=== PATIENT | female | born 1950 ===

== ENCOUNTER 2016-10-26 12:54 | Emergency (ER) | payer MEDICARE, MEDICAID ==
[2016-10-26 15:20] LABS: BASO % 0.4 % (0.0-2.0); EOS % 0.5 % (0.0-4.0); HEMATOCRIT 40.3 % (34.0-47.0); LYMPH # 0.9 K/uL (1.0-4.3); LYMPH % 28.3 % (20.0-40.0); MEAN CELL VOLUME 99.2 fl (81.0-99.0); MEAN CORPUSCULAR HEMOGLOBIN 33.9 pg (27.0-31.0); MEAN CORPUSCULAR HGB CONC 34.1 g/dL (33.0-37.0); MEAN PLATELET VOLUME 9.9 fl (7.2-11.7); MONO # 0.4 K/uL (0.0-0.8); MONO % 11.2 % (0.0-10.0); NEUT % 59.6 % (50.0-75.0); NRBC % 0.2 % (0.0-0.0); RED CELL DISTRIBUTION WIDTH 13.9 % (11.5-14.5); WHITE BLOOD COUNT 3.3 K/uL (4.8-10.8)
[2016-10-26 15:34] LABS: RBC URINE 1 /hpf (0-3); URINE BACTERIA RARE (<OCC); URINE BILIRUBIN NEGATIVE (NEGATIVE); URINE BLOOD NEGATIVE (NEGATIVE); URINE COLOR YELLOW (YELLOW); URINE GLUCOSE (UA) NEG (Normal); URINE KETONE NEGATIVE (NEGATIVE); URINE LEUKOCYTE ESTERASE TRACE Leu/uL (Negative); URINE PROTEIN 30 mg/dL (NEGATIVE); URINE UROBILINOGEN 0.2-1.0 mg/dL (0.2-1.0); WBC URINE 1 /hpf (0-5)
[2016-10-26 15:35] VITALS: BMI 29.0
--- NOTE | 2016-10-26 15:36 | ED PDOC ---
HPI: General Adult Time Seen by Provider: 10/26/16 15:34 Additional Complaint(s): Patient is a 66 year old female presenting with hypoglycemia and back pain. She reports that her fs has been running low recently. She reports that she woke up this morning and it was FS:35. She reports that she checked her sugar later in the day and it was 103. Reports that it frequently runs low and is normally less than 200. Patient's daughter is at bedside and reports that her mother does not eat that much. Denies fever/chills, nausea/vomiting, diarrhea/ constipation, dysuria. Patient continues to deny any oral hypoglycemics and this MD, patient and daughter went over her med list together. Patient is also complaining of R flank pain x 1 month. Denies dysuria, fever/ chills, nausea/vomiting, diarrhea or constipation. Reports that she has a hx of renal colic and has not followed up as outpatient with urology. Meds: remeron, clonazapem, losartan, vitamin, methadone, levemir 12 units qhs PMD: Dr. Morris Past Medical History Vital Signs: Last Vital Signs Temp 99 F 10/26/16 13:00 Pulse 60 10/26/16 15:00 Resp 16 10/26/16 15:00 BP 135/94 H 10/26/16 15:00 Pulse Ox 96 10/26/16 15:00 - Medical History PMH: Anxiety, COPD, Depression, Diabetes, HIV, HTN, Hypercholesterolemia, Pneumonia Denies: Chronic Kidney Disease - Family History Family History: States: Unknown Family Hx - Immunization History Hx Influenza Vaccination: Yes Hx Pneumococcal Vaccination: Yes - Home Medications Home Medications: Ambulatory Orders Medication Instructions Recorded clonazePAM [Klonopin] 0.5 mg PO HS 02/26/14 Methadone 100 mg PO DAILY 06/24/14 Mirtazapine [Remeron] 15 mg PO HS 12/14/14 Efavirenz/Emtricitabine/Teno 1 tab PO HS 05/15/16 [Atripla 600 MG-200 MG-300 MG] Gabapentin [Neurontin] 300 mg PO BID 05/15/16 hydrOXYzine Pamoate [Vistaril] 25 mg PO BID 05/15/16 Insulin Detemir [Levemir] 12 units SC HS vial 05/17/16 Albuterol Sulfate [Proair Hfa] 2 puff IH Q4H PRN 06/06/16 Losartan/Hydrochlorothiazide 1 tab PO DAILY 06/06/16 [Hyzaar 100-12.5 Tablet] Ondansetron [Zofran Tab] 4 mg PO DAILY PRN 06/06/16 - Allergies Allergies/Adverse Reactions: Allergies Allergy/AdvReac Type Severity Reaction Status Date / Time No Known Allergies Allergy Verified 06/06/16 20:09 Review of Systems Constitutional: Negative for: Fever, Chills, Weakness, Malaise, Weight loss Cardiovascular: Negative for: Chest Pain, Palpitations, Paroxysmal Noc. Dyspnea Respiratory: Negative for: Cough, Shortness of Breath, Hemoptysis, SOB with Exertion Gastrointestinal: Negative for: Nausea, Vomiting, Abdominal Pain, Diarrhea, Constipation Genitourinary Female: Negative for: Dysuria, Frequency, Incontinence, Hematuria Musculoskeletal: Positive for: Back Pain (R flank pain). Negative for: Neck Pain Neurological: Negative for: Weakness, Numbness, Incoordination, Change in Speech , Seizures, Altered Mental Status, Headache Physical Exam - Physical Exam Appears: Positive for: Well, Non-toxic Head Exam: Positive for: ATRAUMATIC, NORMAL INSPECTION, NORMOCEPHALIC Skin: Positive for: Normal Color, Warm, DRY Eye Exam: Positive for: EOMI, Normal appearance, PERRL Neck: Positive for: Normal, Painless ROM Cardiovascular/Chest: Positive for: Regular Rate, Rhythm Respiratory: Positive for: Normal Breath Sounds. Negative for: Rhonchi, Stridor , Wheezing Gastrointestinal/Abdominal: Positive for: Soft. Negative for: Tenderness, Distended, Guarding Back: Positive for: Normal Inspection. 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 CBC, CMP, UA and CT abd/pelvis were ordered to further evaluate R flank pain. Patient has episodes of hypoglycemia likely secondary to decreased po intake. Patient only takes insulin. FS on arrival:110 UA was negative for nitrates, leukocytes and blood. 3:44PM CBC and CMP at baseline CT shows splenomegaly but no stones, no fracture, no bony lesions (see downtime records) Repeat BP improved and is 135/94. Spoke to PMD Dr. Morris. Recommends decrease to 10 units qhs. Will see patient on November 02. Repeat FS:66. Repeat: 134. Patient is in agreement with this plan and will continue to monitor blood glucose Disposition - Clinical Impression Clinical Impression: Hypoglycemia - Disposition Referrals: Wander Morris MD [Primary Care Provider] - Disposition: Routine/Home Disposition Time: 16:05 Condition: GOOD Additional Instructions: Follow up with Dr. Morris on November 02. Decrease insulin to 10 units at night. Return immediately with any worsening symptoms. Instructions: Diabetic Hypoglycemia (ED)
[2016-10-26 15:40] LABS: ALKALINE PHOSPHATASE 80 U/L (38-126); ALT/SGPT 59 U/L (9-52); AST/SGOT 79 U/L (14-36); BILIRUBIN,TOTAL 0.5 mg/dl (0.2-1.3); BLOOD UREA NITROGEN 20 mg/dl (7-17); CARBON DIOXIDE 32 mmol/L (22-30); CHLORIDE 99 mmol/L (98-107); GFR AFRICAN-AMERICAN > 60; GLUCOSE,RANDOM 78 mg/dL (65-105); POTASSIUM 4.2 MMOL/L (3.6-5.0); SODIUM 142 mmol/l (132-148); TOTAL PROTEIN 10.4 G/DL (6.3-8.2)
[2016-10-26 15:41] LABS: ALB/GLOB RATIO 0.7 (1.0-2.1)
[2016-10-26 16:03] VITALS: RESP 16; TEMP 99
[2016-10-26 16:04] VITALS: BP 135/94; PULSE 60; O2SAT 96
--- NOTE | 2016-10-27 08:20 | CT ---
PROCEDURE: CT Abdomen and Pelvis with Oral contrast. HISTORY: COMPARISON: None. TECHNIQUE: Contiguous axial images of the abdomen and pelvis. Oral contrast was administered. No IV contrast given. Coronal and Sagittal reformats generated. Radiation dose: Total exam DLP = mGy-cm. This CT exam was performed using one or more of the following dose reduction techniques: Automated exposure control, adjustment of the mA and/or kV according to patient size, and/or use of iterative reconstruction technique. Radiation dose (DLP): 897 mGy-cm. FINDINGS: LOWER THORAX: Unremarkable. LIVER: Unremarkable. No gross lesion or ductal dilatation. GALLBLADDER AND BILE DUCTS: Unremarkable. PANCREAS: Unremarkable. No mass. No ductal dilatation. SPLEEN: Splenomegaly. ADRENALS: Unremarkable. KIDNEYS AND URETERS: Unremarkable. No stone or hydronephrosis. BLADDER: Grossly unremarkable. REPRODUCTIVE: Unremarkable. APPENDIX: Unremarkable. BOWEL: Unremarkable. No obstruction. No gross mural thickening. PERITONEUM: Unremarkable. No fluid collection. No free air. LYMPH NODES: Unremarkable. No enlarged lymph nodes. VASCULATURE: Unremarkable. No aortic aneurysm. BONES: No fracture or destructive lesion. OTHER FINDINGS: None. IMPRESSION: Splenomegaly.
== END 2016-10-26 18:16 | disposition home or self-care (01) ==
LOC: H.ER 12:54
DX: E11.65 Type 2 diabetes mellitus with hyperglycemia (principal); M54.9 Dorsalgia, unspecified; E78.00 Pure hypercholesterolemia, unspecified; F32.9 Major depressive disorder, single episode, unspecified; F41.9 Anxiety disorder, unspecified; I10 Essential (primary) hypertension; J44.9 Chronic obstructive pulmonary disease, unspecified; R16.1 Splenomegaly, not elsewhere classified; Z79.4 Long term (current) use of insulin

== ENCOUNTER 2016-11-01 17:32 | Emergency (ER) | payer MEDICARE, MEDICAID ==
[2016-11-01 17:32] VITALS: BMI 29.0
[2016-11-01 17:36] VITALS: RESP 16; TEMP 98
[2016-11-01 18:47] LABS: BASO % 0.3 % (0.0-2.0); EOS % 1.3 % (0.0-4.0); HEMATOCRIT 39.6 % (34.0-47.0); LYMPH # 1.1 K/uL (1.0-4.3); LYMPH % 34.4 % (20.0-40.0); MEAN CELL VOLUME 99.6 fl (81.0-99.0); MEAN CORPUSCULAR HEMOGLOBIN 33.3 pg (27.0-31.0); MEAN CORPUSCULAR HGB CONC 33.4 g/dL (33.0-37.0); MEAN PLATELET VOLUME 9.1 fl (7.2-11.7); MONO # 0.4 K/uL (0.0-0.8); NEUT # 1.7 K/uL (1.8-7.0); NRBC % 0.1 % (0.0-0.0); RED CELL DISTRIBUTION WIDTH 13.6 % (11.5-14.5); WHITE BLOOD COUNT 3.2 K/uL (4.8-10.8)
[2016-11-01 18:55] LABS: PARTIAL THROMBOPLASTIN TIME 23.9 SECONDS (23.3-32.5)
[2016-11-01 18:58] LABS: ALB/GLOB RATIO 0.8 (1.0-2.1); ALKALINE PHOSPHATASE 80 U/L (38-126); ALT/SGPT 63 U/L (9-52); AST/SGOT 67 U/L (14-36); BILIRUBIN,TOTAL 0.6 mg/dl (0.2-1.3); BLOOD UREA NITROGEN 25 mg/dl (7-17); CALCIUM 8.9 mg/dL (8.4-10.2); CARBON DIOXIDE 30 mmol/L (22-30); CHLORIDE 99 mmol/L (98-107); GFR AFRICAN-AMERICAN > 60; GLUCOSE,RANDOM 80 mg/dL (65-105); POTASSIUM 3.9 MMOL/L (3.6-5.0); SODIUM 140 mmol/l (132-148); TOTAL PROTEIN 10.2 G/DL (6.3-8.2)
--- NOTE | 2016-11-01 18:59 | ED PDOC ---
HPI: General Adult Time Seen by Provider: 11/01/16 17:53 Chief Complaint (Nursing): Dizziness/Lightheaded Chief Complaint (Provider): Generlized Weakness, Dizziness History Per: Patient History/Exam Limitations: no limitations Onset/Duration Of Symptoms: Hrs Have you had recent travel within the past 21 days to any of the following countries: [place], [place], [place] or [place]?: No Current Symptoms Are (Timing): Still Present Additional Complaint(s): Cristina Mc, a 66 year old female, presents to the ED complaining of dizziness , sweating and generalized weakness. The patient states that her glucose levels were in the 200's this morning prompting her to take 5 units of insulin. She reports that her glucose levels then came down to a 66 and then to a 43. The patient states that she also felt vertigo, which is a new symptom for her. She states that she ate a sandwich but she still feels light headed. Denies fever, chest pain, shortness of breath, nausea and vomiting. PMD: Wander Stauffer Past Medical History Reviewed: Historical Data, Nursing Documentation, Vital Signs Vital Signs: Last Vital Signs Temp 98.0 F 11/01/16 17:33 Pulse 70 11/01/16 21:16 Resp 16 11/01/16 17:33 BP 144/86 11/01/16 21:16 Pulse Ox 96 11/01/16 21:16 - Medical History PMH: Anxiety, COPD, Depression, Diabetes, HIV, HTN, Hypercholesterolemia, Pneumonia Denies: Chronic Kidney Disease - Family History Family History: States: Unknown Family Hx - Immunization History Hx Influenza Vaccination: Yes Hx Pneumococcal Vaccination: Yes - Home Medications Home Medications: Ambulatory Orders Medication Instructions Recorded clonazePAM [Klonopin] 0.5 mg PO HS 02/26/14 Methadone 100 mg PO DAILY 06/24/14 Mirtazapine [Remeron] 15 mg PO HS 12/14/14 Efavirenz/Emtricitabine/Teno 1 tab PO HS 05/15/16 [Atripla 600 MG-200 MG-300 MG] Gabapentin [Neurontin] 300 mg PO BID 05/15/16 hydrOXYzine Pamoate [Vistaril] 25 mg PO BID 05/15/16 Insulin Detemir [Levemir] 12 units SC HS vial 05/17/16 Albuterol Sulfate [Proair Hfa] 2 puff IH Q4H PRN 06/06/16 Losartan/Hydrochlorothiazide 1 tab PO DAILY 06/06/16 [Hyzaar 100-12.5 Tablet] Ondansetron [Zofran Tab] 4 mg PO DAILY PRN 06/06/16 Meclizine [Meclizine*] 25 mg PO Q6 PRN #20 tab 11/01/16 - Allergies Allergies/Adverse Reactions: Allergies Allergy/AdvReac Type Severity Reaction Status Date / Time No Known Allergies Allergy Verified 11/01/16 17:33 Review of Systems ROS Statement: Except As Marked, All Systems Reviewed And Found Negative Constitutional: Positive for: Sweats, Weakness, Other (Dizziness). Negative for : Fever Cardiovascular: Negative for: Chest Pain Respiratory: Negative for: Shortness of Breath Gastrointestinal: Negative for: Nausea, Vomiting Physical Exam - Reviewed Nursing Documentation Reviewed: Yes Vital Signs Reviewed: Yes - Physical Exam Appears: Positive for: Non-toxic, No Acute Distress Head Exam: Positive for: ATRAUMATIC, NORMOCEPHALIC Skin: Positive for: Normal Color, Warm, Dry Eye Exam: Positive for: Normal appearance, EOMI, PERRL ENT: Positive for: Normal ENT Inspection Neck: Positive for: Normal, Painless ROM, Supple Cardiovascular/Chest: Positive for: Regular Rate, Rhythm, Chest Non Tender. Negative for: Tachycardia Respiratory: Positive for: Normal Breath Sounds. Negative for: Wheezing, Respiratory Distress Gastrointestinal/Abdominal: Positive for: Normal Exam, Soft. Negative for: Tenderness Back: Positive for: Normal Inspection. Negative for: L CVA Tenderness, R CVA Tenderness Extremity: Positive for: Normal ROM. Negative for: Tenderness, Deformity, Swelling Neurologic/Psych: Positive for: Alert, Oriented - Laboratory Results Result Diagrams: 11/01/16 18:40 11/01/16 18:40 - ECG Interpretation Of ECG: NSR @ 74, no ST-T changes. O2 Sat by Pulse Oximetry: 98 (RA) Pulse Ox Interpretation: Normal - Radiology X-Ray: Interpreted by [facility] X-Ray Interpretation: No Acute Disease - CT Scan/US CT head Other Rad Studies (CT/US): Radiology Report Reviewed (No evidence of acute intracranial hemorrhage intracranial collection territorial infarct mass effect or midline shift. White matter changes likely due to chronic microvascular ischemic disease.) - Progress Condition: Improved Medical Decision Making Medical Decision Makin:53 Initial impression: 66 year old female presenting with dizziness, generalized weakness and sweats. Initial Plan: * CT head w/o contrast * EKG * CMP * TSH * Troponin 1 * Udip * CBC * PTT * Prohrombin time * CXR * Antivert 50mg PO * Glucose, Blood, POC * Urinalysis Pt ate full meal prior to discharge. Scribe Attestation Documented by Marah Denton acting as a scribe for Keke Merritt MD. Provider Attestation: All medical record entries made by the Scribe were at my direction and personally dictated by me. I have reviewed the chart and agree that the record accurately reflects my personal performance of the history, physical exam, medical decision making, and the department course for this patient. I have also personally directed, reviewed, and agree with the discharge instructions and disposition. Disposition - Clinical Impression Clinical Impression: Vertigo, Hypoglycemia - Disposition Referrals: Wander Stauffer MD [Family Provider] - Disposition: Routine/Home Disposition Time: 20:46 Condition: STABLE Additional Instructions: FOLLOW-UP WITH DR. STAUFFER TOMORROW FOR REEVALUATION. OBTAIN ACCUCHECK PRIOR TO INSULIN. Prescriptions: Meclizine [Meclizine*] 25 mg PO Q6 PRN #20 tab PRN Reason: Dizziness Instructions: Vertigo (ED), Diabetic Hypoglycemia (ED)
--- NOTE | 2016-11-01 19:07 | CT ---
PROCEDURE: CT HEAD WITHOUT CONTRAST. HISTORY: Vertigo COMPARISON: Comparison is made to the previous study dated 02/26/2014 TECHNIQUE: Axial computed tomography images were obtained through the head/brain without intravenous contrast. Radiation dose: Total exam DLP = 796.37 mGy-cm. This CT exam was performed using one or more of the following dose reduction techniques: Automated exposure control, adjustment of the mA and/or kV according to patient size, and/or use of iterative reconstruction technique. FINDINGS: HEMORRHAGE: No intracranial hemorrhage. BRAIN: No mass effect or edema. Mild atrophy is noted. Again seen R moderate chronic microvascular white matter changes. VENTRICLES: Unremarkable. No hydrocephalus. CALVARIUM: Unremarkable. PARANASAL SINUSES: Unremarkable as visualized. No significant inflammatory changes. MASTOID AIR CELLS: Unremarkable as visualized. No inflammatory changes. OTHER FINDINGS: None. IMPRESSION: No evidence of acute intracranial hemorrhage intracranial collection territorial infarct mass effect or midline shift. White matter changes likely due to chronic microvascular ischemic disease.
[2016-11-01 21:16] VITALS: BP 144/86
[2016-11-01 21:18] VITALS: PULSE 70
[2016-11-01 23:48] VITALS: O2SAT 98
--- NOTE | 2016-11-02 08:37 | CARD ---
APPROVED REPORT EKG Measurement Heart [id number] <Conclusion> Normal sinus rhythm with sinus arrhythmia Normal ECG
--- NOTE | 2016-11-02 11:43 | RAD ---
HISTORY: Dizziness COMPARISON: Comparison made with prior chest radiograph 06/23/2016 FINDINGS: LUNGS: Poor inspiration with low lung volumes, crowded bronchovascular markings and mild bibasilar atelectasis left greater than right. Developing left lower lobe infiltrate could be excluded followup radiographs. . PLEURA: No significant pleural effusion identified, no pneumothorax apparent. CARDIOVASCULAR: Heart is mildly enlarged. OSSEOUS STRUCTURES: No significant abnormalities. VISUALIZED UPPER ABDOMEN: Normal. OTHER FINDINGS: None. IMPRESSION: Poor inspiration with low lung volumes, crowded bronchovascular markings and mild bibasilar atelectasis left greater than right. . Developing left lower lobe infiltrate could be excluded with followup radiographs Cardiomegaly.
== END 2016-11-01 21:15 | disposition home or self-care (01) ==
LOC: H.ER 17:32
DX: E11.65 Type 2 diabetes mellitus with hyperglycemia (principal); R42 Dizziness and giddiness; R53.1 Weakness; E78.00 Pure hypercholesterolemia, unspecified; F32.9 Major depressive disorder, single episode, unspecified; F41.9 Anxiety disorder, unspecified; I10 Essential (primary) hypertension; J44.9 Chronic obstructive pulmonary disease, unspecified; R91.8 Other nonspecific abnormal finding of lung field; Z79.4 Long term (current) use of insulin

== ENCOUNTER 2016-11-06 12:18 | Observation (INO) | payer MEDICARE, MEDICAID ==
[2016-11-06 12:18] VITALS: BMI 29.0
[2016-11-06] MEDS ORDERED: Iohexol 240 (50 ml) PO ONE (13:15)
[2016-11-06] MEDS ORDERED: Sodium Chloride 0.9% 1,000 ML IV SCH (13:30)
[2016-11-06] MEDS ORDERED: Iohexol 240 (50 ml) ONE (13:37)
--- NOTE | 2016-11-06 14:07 | ED PDOC ---
HPI: General Adult Time Seen by Provider: 11/06/16 12:42 Chief Complaint (Nursing): Flu-like Symptoms Chief Complaint (Provider): Fever, Abdominal Pain, Headache History Per: Patient History/Exam Limitations: no limitations Onset/Duration Of Symptoms: Hrs (4 a.m. this morning) Current Symptoms Are (Timing): Still Present Severity: Moderate Pain Scale Rating Of: 6 Context: abdomen Location: Generalized Quality: dull and crampy Similar Symptoms Previously: no Recent Trauma: no Additional Complaint(s): Pt. with a history of HIV arrived to the E.D. with an ambulance from clinic complaining of tactile fever, headace, Nausea but no vomitting, and diarrhea. Pt. states symptoms started 4 a.m. this morning woke up with an episode of loose watery diarrhea that was non bloody. Pt. reports has had 2 episodes of diarrhea since then. Pt. report nausea and loss of appetite but has not vomit any food. Pt. also reports feeling weak and having a headache which is not new localized to frontal area described as a dull ache, rated 6/10. On ROS, pt. denies any chest pain, dyspnea, flank pain, hematuria, dysuria, hemetemesis, or hemoptysis. Past Medical History Vital Signs: Last Vital Signs Temp 98.3 F 11/06/16 17:52 Pulse 76 11/06/16 17:52 Resp 16 11/06/16 17:52 BP 140/85 11/06/16 17:52 Pulse Ox 95 11/06/16 18:32 - Medical History PMH: Anxiety, COPD, Depression, Diabetes, HIV, HTN, Hypercholesterolemia, Pneumonia Denies: Chronic Kidney Disease - Surgical History Surgical History: No Surg Hx - Family History Family History: States: Unknown Family Hx - Immunization History Hx Influenza Vaccination: Yes Hx Pneumococcal Vaccination: Yes - Home Medications Home Medications: Ambulatory Orders Medication Instructions Recorded clonazePAM [Klonopin] 0.5 mg PO HS 02/26/14 Methadone 100 mg PO DAILY 06/24/14 Mirtazapine [Remeron] 15 mg PO HS 12/14/14 Efavirenz/Emtricitabine/Teno 1 tab PO HS 05/15/16 [Atripla 600 MG-200 MG-300 MG] Gabapentin [Neurontin] 300 mg PO BID 05/15/16 hydrOXYzine Pamoate [Vistaril] 25 mg PO BID 05/15/16 Insulin Detemir [Levemir] 12 units SC HS vial 05/17/16 Albuterol Sulfate [Proair Hfa] 2 puff IH Q4H PRN 06/06/16 Losartan/Hydrochlorothiazide 1 tab PO DAILY 06/06/16 [Hyzaar 100-12.5 Tablet] Ondansetron [Zofran Tab] 4 mg PO DAILY PRN 06/06/16 Meclizine [Meclizine*] 25 mg PO Q6 PRN #20 tab 11/01/16 Ibuprofen [Motrin] 600 mg PO Q6H PRN #20 tab 11/06/16 - Allergies Allergies/Adverse Reactions: Allergies Allergy/AdvReac Type Severity Reaction Status Date / Time No Known Allergies Allergy Verified 11/01/16 17:33 Review of Systems Constitutional: Positive for: Fever (See HPI), Chills Gastrointestinal: Positive for: Nausea, Abdominal Pain. Negative for: Vomiting (See HPI) Physical Exam - Reviewed Vital Signs Reviewed: Yes - Physical Exam Appears: Positive for: Non-toxic, No Acute Distress Head Exam: Positive for: ATRAUMATIC, NORMOCEPHALIC Neck: Positive for: Painless ROM, Supple Cardiovascular/Chest: Positive for: Regular Rate, Rhythm. Negative for: Murmur Respiratory: Positive for: Normal Breath Sounds. Negative for: Wheezing, Respiratory Distress Gastrointestinal/Abdominal: Positive for: Bowel Sounds (active), Tenderness ( Moderate tenderness generalized). Negative for: Organomegaly, Rebound Back: Negative for: L CVA Tenderness, R CVA Tenderness Extremity: Negative for: Tenderness, Swelling - Laboratory Results Result Diagrams: 11/06/16 13:30 11/06/16 13:30 - ECG O2 Sat by Pulse Oximetry: 95 - Progress ED Course And Treament: I.V. Fluids, Zofran, Morphine CBC, CMP, UA, Amylase, Lipase BCx x2 UA, UCx CXR, CT abdomen Re-evaluation Time: 19:07 Condition: Improved Medical Decision Making Medical Decision Making: Pt. with normal labs and CT abdomen who remained afebrile with normal vital signs while in the E.D. with resolution of symptoms for discharge to home to follow up with Dr. Morris. E.R. precautions given to patient to return to E.D. if symptoms worsen or return. Disposition - Clinical Impression Clinical Impression: Abdominal pain - Patient ED Disposition Is Patient to be Admitted: No Discussed With DrDarya: Keke Merritt - Disposition Disposition: Routine/Home Disposition Time: 19:10 Condition: STABLE
[2016-11-06 14:18] LABS: BASO % 0.1 % (0.0-2.0); HEMATOCRIT 37.8 % (34.0-47.0); LYMPH # 0.8 K/uL (1.0-4.3); LYMPH % 13.8 % (20.0-40.0); MEAN CELL VOLUME 99.2 fl (81.0-99.0); MEAN CORPUSCULAR HGB CONC 34.2 g/dL (33.0-37.0); MEAN PLATELET VOLUME 9.7 fl (7.2-11.7); MONO # 0.5 K/uL (0.0-0.8); MONO % 8.2 % (0.0-10.0); NEUT # 4.5 K/uL (1.8-7.0); NEUT % 77.9 % (50.0-75.0); NRBC % 0.1 % (0.0-0.0); RED CELL DISTRIBUTION WIDTH 13.5 % (11.5-14.5); WHITE BLOOD COUNT 5.8 K/uL (4.8-10.8)
[2016-11-06 14:27] LABS: ALB/GLOB RATIO 0.8 (1.0-2.1); ALKALINE PHOSPHATASE 77 U/L (38-126); ALT/SGPT 51 U/L (9-52); AMYLASE 71 U/L (30-110); AST/SGOT 54 U/L (14-36); BILIRUBIN,TOTAL 0.7 mg/dl (0.2-1.3); BLOOD UREA NITROGEN 22 mg/dl (7-17); CARBON DIOXIDE 31 mmol/L (22-30); CHLORIDE 97 mmol/L (98-107); GFR AFRICAN-AMERICAN > 60; GLUCOSE,RANDOM 67 mg/dL (65-105); LIPASE 69 U/L (23-300); POTASSIUM 4.6 MMOL/L (3.6-5.0); SODIUM 138 mmol/l (132-148)
[2016-11-06 14:31] LABS: RBC URINE 1 /hpf (0-3); URINE BILIRUBIN NEGATIVE (NEGATIVE); URINE BLOOD NEGATIVE (NEGATIVE); URINE COLOR YELLOW (YELLOW); URINE GLUCOSE (UA) NEG (Normal); URINE KETONE NEGATIVE (NEGATIVE); URINE LEUKOCYTE ESTERASE TRACE Leu/uL (Negative); URINE PROTEIN NEGATIVE (NEGATIVE); URINE UROBILINOGEN 0.2-1.0 mg/dL (0.2-1.0)
--- NOTE | 2016-11-06 14:41 | RAD ---
HISTORY: Fever COMPARISON: Comparison made with prior study 11/01/2016 TECHNIQUE: Chest PA and lateral FINDINGS: LUNGS: Poor inspiration with low lung volumes, mild crowded bronchovascular markings and mild bibasilar atelectasis. Developing bilateral lower lobe infiltrates could be excluded followup radiographs. . The bronchovascular markings are also somewhat coarsened and increased possibly due to low lung volumes as well PLEURA: No significant pleural effusion identified. No pneumothorax apparent. CARDIOVASCULAR: Heart size is mildly enlarged OSSEOUS STRUCTURES: Mild multilevel degenerative spondylosis of the thoracic spine. Slight increase kyphosis. Mild degenerative changes both shoulder girdles. VISUALIZED UPPER ABDOMEN: Normal. OTHER FINDINGS: None. IMPRESSION: Poor inspiration with low lung volumes, mild crowded bronchovascular markings and mild bibasilar atelectasis. Developing bilateral lower lobe infiltrates could be excluded followup radiographs. Bronchovascular markings are also somewhat coarsened and increased possibly due to low lung volumes as well
[2016-11-06 17:53] VITALS: BP 140/85; PULSE 76; RESP 16; TEMP 98.3
[2016-11-06] MEDS ORDERED: Iohexol 300 100 ML IJ ONE (17:58)
[2016-11-06 18:33] VITALS: O2SAT 95
--- NOTE | 2016-11-06 18:52 | CT ---
PROCEDURE: CT Abdomen and Pelvis with contrast HISTORY: Generalized abdominal pain COMPARISON: 10/26/2016. CT abdomen and pelvis. TECHNIQUE: Contrast dose: 95 cc Omnipaque 300 Radiation dose: Total exam DLP = 910.06 mGy-cm. This CT exam was performed using one or more of the following dose reduction techniques: Automated exposure control, adjustment of the mA and/or kV according to patient size, and/or use of iterative reconstruction technique. FINDINGS: LOWER THORAX: Subsegmental peripheral infiltrates lateral and basilar segments right lower lobe. These were not seen previously likely infectious/inflammatory. LIVER: Hepatomegaly, hepatic steatosis. No focal hepatic lesions. GALLBLADDER AND BILE DUCTS: Mildly distended gallbladder. Dilated distal common duct 11.5 mm. No evidence of pancreatic head, ampullary duodenal mass. PANCREAS: Unremarkable. No gross lesion or ductal dilatation. SPLEEN: Stable splenomegaly. ADRENALS: Unremarkable. No mass. KIDNEYS AND URETERS: Unremarkable. No hydronephrosis. No solid mass. VASCULATURE: Unremarkable. No aortic aneurysm. BOWEL: Unremarkable. No obstruction. NoKey gross mural thickening. APPENDIX: Normal appendix. PERITONEUM: Unremarkable. No free fluid. No free air. LYMPH NODES: Unremarkable. No enlarged lymph nodes. BLADDER: Unremarkable. REPRODUCTIVE: Focal asymmetry right hemipelvis in the region of the right fallopian tube and adnexa. No associated inflammatory component. Elective pelvic ultrasound recommended for further evaluation. BONES: No acute fracture. Multilevel degenerative changes most severe in the lower lumbar spine. OTHER FINDINGS: None. IMPRESSION: 1. No acute findings related to/accounting for the clinical presentation. 2. Stable hepatosplenomegaly. 3. Dilated common duct without pancreatic or adjacent ampullary-duodenum mass. 4. Pelvic asymmetry, elective pelvic ultrasound attention right adnexal region advised.
== END 2016-11-06 19:22 | disposition home or self-care (01) ==
LOC: H.ER 12:18 → H.EROBSV 14:00
PROVIDERS: ADMIT Emergency Medicine; ATTEND Emergency Medicine
DX: R10.9 Unspecified abdominal pain (principal); J44.9 Chronic obstructive pulmonary disease, unspecified; E11.9 Type 2 diabetes mellitus without complications; E78.00 Pure hypercholesterolemia, unspecified; Z21 Asymptomatic human immunodeficiency virus [HIV] infection status; I10 Essential (primary) hypertension; F32.9 Major depressive disorder, single episode, unspecified; F41.9 Anxiety disorder, unspecified; J18.9 Pneumonia, unspecified organism; Z79.4 Long term (current) use of insulin; R51 Headache; R63.0 Anorexia
CPT/HCPCS: 71020; 74177; 80053; 81003; 82150; 82948; 83690; 85025; 87040; 87086; 96361; 96374; 96375; 99285; G0378; J2270; J2405; J7040; Q9966; Q9967

== ENCOUNTER 2016-11-20 08:24 | Emergency (ER) | payer MEDICARE, MEDICAID ==
[2016-11-20 08:24] VITALS: BMI 29.0
[2016-11-20] MEDS ORDERED: Iohexol 240 (50 ml) ONE (08:43)
[2016-11-20] MEDS ORDERED: Sodium Chloride 0.9% 1,000 ML IV STA (08:44)
[2016-11-20] MEDS ORDERED: Iohexol 240 (50 ml) PO ONE (08:44)
--- NOTE | 2016-11-20 09:13 | ED PDOC ---
HPI: Abdomen Time Seen by Provider: 11/20/16 08:39 Chief Complaint (Nursing): Abdominal Pain Chief Complaint (Provider): abdominal pain History Per: Patient History/Exam Limitations: no limitations Onset/Duration Of Symptoms: Days (x 1 ) Outside of [place] travel?: No Location Of Pain/Discomfort: LLQ Additional Complaint(s): Cristina Mc is a 66 year old female, with a previous medical history of HIV positive, who presents to the ED with complaints of left lower quadrant pain associated with nausea and diarrhea ongoing since yesterday. Patient also reports a rash to the right axillary region. She denies any vomiting or fevers. PMD: none provided Abnormal Vaginal Bleeding: No Past Medical History Reviewed: Historical Data, Nursing Documentation, Vital Signs Vital Signs: Last Vital Signs Temp Pulse Resp BP Pulse Ox 98 11/20/16 09:17 - Medical History PMH: Anxiety, COPD, Depression, Diabetes, HIV, HTN, Hypercholesterolemia, Pneumonia Denies: Chronic Kidney Disease - Family History Family History: States: Unknown Family Hx - Immunization History Hx Influenza Vaccination: Yes Hx Pneumococcal Vaccination: Yes - Home Medications Home Medications: Ambulatory Orders Medication Instructions Recorded clonazePAM [Klonopin] 0.5 mg PO HS 02/26/14 Methadone 100 mg PO DAILY 06/24/14 Mirtazapine [Remeron] 15 mg PO HS 12/14/14 Efavirenz/Emtricitabine/Teno 1 tab PO HS 05/15/16 [Atripla 600 MG-200 MG-300 MG] Gabapentin [Neurontin] 300 mg PO BID 05/15/16 hydrOXYzine Pamoate [Vistaril] 25 mg PO BID 05/15/16 Insulin Detemir [Levemir] 12 units SC HS vial 05/17/16 Albuterol Sulfate [Proair Hfa] 2 puff IH Q4H PRN 06/06/16 Losartan/Hydrochlorothiazide 1 tab PO DAILY 06/06/16 [Hyzaar 100-12.5 Tablet] Ondansetron [Zofran Tab] 4 mg PO DAILY PRN 06/06/16 Meclizine [Meclizine*] 25 mg PO Q6 PRN #20 tab 11/01/16 Ibuprofen [Motrin] 600 mg PO Q6H PRN #20 tab 11/06/16 Dicyclomine [Dicyclomine HCl] 10 mg PO Q8 #10 cap 11/20/16 - Allergies Allergies/Adverse Reactions: Allergies Allergy/AdvReac Type Severity Reaction Status Date / Time No Known Allergies Allergy Verified 11/20/16 08:27 Review of Systems ROS Statement: Except As Marked, All Systems Reviewed And Found Negative Constitutional: Negative for: Fever Gastrointestinal: Positive for: Nausea, Abdominal Pain, Diarrhea. Negative for : Vomiting Skin: Positive for: Rash (right axillary region ) Physical Exam - Reviewed Nursing Documentation Reviewed: Yes Vital Signs Reviewed: Yes - Physical Exam Appears: Positive for: Well, Non-toxic, No Acute Distress Skin: Positive for: Normal Color, Warm, Dry, Rash (vasicular rash with scaling and erythema to the right axillary ) Neck: Positive for: Normal, Painless ROM, Supple Cardiovascular/Chest: Positive for: Regular Rate, Rhythm Respiratory: Positive for: CNT, Normal Breath Sounds Gastrointestinal/Abdominal: Positive for: Bowel Sounds, Soft, Tenderness (LLQ). Negative for: Mass, Distended, Guarding, Rebound Neurologic/Psych: Positive for: Alert, Oriented - Laboratory Results Result Diagrams: 11/20/16 09:10 11/20/16 09:10 - ECG O2 Sat by Pulse Oximetry: 98 (RA) Pulse Ox Interpretation: Normal Medical Decision Making Medical Decision Making: Initial Impression: Abdominal Pain Initial Plan: * CT abdominal pelvis PO & IV contrast * labs * urine * IV NS 1,000 ml at 100 ml/hr * omnipaque 50 ml PO * zofran 4 mg IV * blood culture * reevaluation Scribe Attestation: Documented by Keke Brown, acting as a scribe for Mook Zuniga MD. Provider Scribe Attestation: All medical record entries made by the Scribe were at my direction and personally dictated by me. I have reviewed the chart and agree that the record accurately reflects my personal performance of the history, physical exam, medical decision making, and the department course for this patient. I have also personally directed, reviewed, and agree with the discharge instructions and disposition. Disposition - Clinical Impression Clinical Impression: Gastroenteritis - Patient ED Disposition Is Patient to be Admitted: No Counseled Patient/Family Regarding: Studies Performed, Diagnosis, Need For Followup, Rx Given - Disposition Referrals: Wander Stauffer MD [Family Provider] - Disposition: Routine/Home Disposition Time: 15:40 Condition: FAIR Prescriptions: Dicyclomine [Dicyclomine HCl] 10 mg PO Q8 #10 cap Instructions: Gastroenteritis (ED)
[2016-11-20 09:28] LABS: BASO % 0.3 % (0.0-2.0); EOS % 0.7 % (0.0-4.0); LYMPH # 0.4 K/uL (1.0-4.3); LYMPH % 18.3 % (20.0-40.0); MEAN CORPUSCULAR HEMOGLOBIN 33.7 pg (27.0-31.0); MEAN CORPUSCULAR HGB CONC 33.3 g/dL (33.0-37.0); MEAN PLATELET VOLUME 9.2 fl (7.2-11.7); MONO # 0.3 K/uL (0.0-0.8); MONO % 12.4 % (0.0-10.0); NEUT # 1.7 K/uL (1.8-7.0); NEUT % 68.3 % (50.0-75.0); NRBC % 0.1 % (0.0-0.0); RED CELL DISTRIBUTION WIDTH 13.2 % (11.5-14.5); WHITE BLOOD COUNT 2.4 K/uL (4.8-10.8)
[2016-11-20 09:36] LABS: CHLORIDE 100 mmol/L (98-107)
[2016-11-20 09:37] LABS: POTASSIUM 4.3 MMOL/L (3.6-5.0); SODIUM 138 mmol/l (132-148)
[2016-11-20 09:39] LABS: CARBON DIOXIDE 31 mmol/L (22-30); GFR AFRICAN-AMERICAN > 60
[2016-11-20 09:40] LABS: ALB/GLOB RATIO 0.7 (1.0-2.1); ALKALINE PHOSPHATASE 62 U/L (38-126); ALT/SGPT 47 U/L (9-52); AST/SGOT 56 U/L (14-36); BILIRUBIN,TOTAL 0.4 mg/dl (0.2-1.3); BLOOD UREA NITROGEN 22 mg/dl (7-17); GLUCOSE,RANDOM 109 mg/dL (65-105); TOTAL PROTEIN 10.3 G/DL (6.3-8.2)
[2016-11-20] MEDS ORDERED: Dextrose 50% SYRINGE Inj (50 ml) ONE (12:15)
--- NOTE | 2016-11-20 12:19 | CT ---
PROCEDURE: CT scan abdomen and pelvis dated 11/20/2016. HISTORY: Abdominal pain. . Dizziness. Diarrhea. COMPARISON: None. Comparison made with prior study dated 11/06/2016 TECHNIQUE: Contiguous axial images of the abdomen and pelvis performed following oral and intravenous injection of approximately 95 cc Omnipaque 300 contrast material. Additional 2 dimensional sagittal and coronal reformats provided. Radiation dose: Total exam DLP = 926.61 mGy-cm. This CT exam was performed using one or more of the following dose reduction techniques: Automated exposure control, adjustment of the mA and/or kV according to patient size, and/or use of iterative reconstruction technique. FINDINGS: LOWER THORAX: . Mild residual atelectasis and or scarring changes of. Previously noted vague nodular opacity seen in the inferior margin left lower lobe has undergone opacities have undergone retraction. Follow-up CT scan in 6 months could be performed to assess stability. No change small of parenchymal cyst or pneumatocele right middle lobe. . Heart size within range of normal LIVER: Liver exhibits normal size measuring nearly 14 cm in CC dimension. Mild diffuse fatty hepatic infiltration. No obvious hepatic mass or collection. Mild central intrahepatic biliary ductal dilatation. GALLBLADDER AND BILE DUCTS: Gallbladder is physiologically distended. No evidence of intraluminal gallbladder calculi. Common bile duct is dilated. . Please see prior MRCP 06/09/2016 and corresponding report. PANCREAS: The visualized portions of the pancreas appear slightly atrophic and fatty replaced. There is also mild prominence of the proximal pancreatic duct as well. SPLEEN: Spleen is borderline/mildly enlarged measuring nearly 13 cm in in greatest dimension. No obvious hepatic mass or collection. ADRENALS: No adrenal lesions. KIDNEYS AND URETERS: Kidneys exhibit symmetric nephrograms. No evidence of nephrolithiasis. Mild columnization of most of the left ureter nonspecific. BLADDER: The urinary bladder is physiologically distended. No evidence of intraluminal urinary bladder calculi. No significant urinary bladder wall thickening. REPRODUCTIVE: Poor prior small calcifications on near the hilar region nonspecific however rule out uterine chronic APPENDIX: Appendix not seen with certainty however no obvious inflammatory changes right lower quadrant of the abdomen. BOWEL: Evaluation of the bowel is limited due to incomplete opacification. The stomach is incompletely distended which presumably accounts slight thick-walled appearance. Possibility of gastritis or other intrinsic/invasive wall lesion not excluded. Tiny calcific like density again noted along all within the posterior wall in the region of the gastric fundus. . Visualized loops small bowel exhibit normal contour and caliber. No evidence acute mechanical small bowel obstruction. . Oral contrast material has extended into the colon to the level of the distal descending colon region. No definitive evidence of mural wall thickening. The appendix is not seen with complete certainty however no obvious inflammatory changes right lower quadrant of the abdomen. PERITONEUM: Unremarkable. No fluid collection. No free air. LYMPH NODES: Unremarkable. No enlarged lymph nodes. VASCULATURE: Unremarkable. No aortic aneurysm. BONES: Multilevel degenerative spondylosis of the lower thoracic and lumbar spine. Chronic anterior wedge deformities of a few lower thoracic segments. OTHER FINDINGS: None. IMPRESSION: Mild fatty hepatic infiltration. . There is mild central intrahepatic biliary ductal dilatation without a brown of the common bile duct. . There is slight prominence of the proximal pancreatic duct as well no definitive pancreatic lesion seen. Pancreas is somewhat atrophic and fatty replaced. Please see prior MRCP 06/09/2016 and corresponding report Borderline/mild splenomegaly. Few small calcifications in the uterine fundal region possibly representing calcified uterine fibroids. Previously noted nodular opacities in the right lung base have undergone some retraction on erosive persistent mild linear areas of atelectasis and or scarring.
[2016-11-20] MEDS ORDERED: Dextrose 50% SYRINGE Inj (50 ml) IVP ONE (12:25)
[2016-11-20 17:01] VITALS: BP 123/67; PULSE 76; RESP 19; TEMP 98.2; O2SAT 100
== END 2016-11-20 16:40 | disposition home or self-care (01) ==
LOC: H.ER 08:24
DX: K52.9 Noninfective gastroenteritis and colitis, unspecified (principal); I10 Essential (primary) hypertension; E11.9 Type 2 diabetes mellitus without complications; B20 Human immunodeficiency virus [HIV] disease
CPT/HCPCS: 74177; 80053; 82948; 85025; 87040; 96374; 96375; 99282; J2270; J2405; J7040; Q9966; Q9967

== ENCOUNTER 2016-11-30 07:12 | Emergency (ER) | payer MEDICARE, MEDICAID ==
[2016-11-30 07:13] VITALS: BMI 29.0
--- NOTE | 2016-11-30 08:17 | ED PDOC ---
HPI: Fever Fever Onset Was: 11/29/16 Additional Comments: pt with cough for 3 days and fever since last night. states woke up with drenched shirt from fever. no vomiting or diarrhea. Past Medical History Reviewed: Historical Data, Nursing Documentation, Vital Signs Vital Signs: Last Vital Signs Temp 98.9 F 11/30/16 07:21 Pulse 56 L 11/30/16 09:14 Resp 19 11/30/16 07:21 BP 125/87 11/30/16 07:21 Pulse Ox 95 11/30/16 09:14 - Medical History PMH: Anxiety, COPD, Depression, Diabetes, HIV, HTN, Hypercholesterolemia, Pneumonia Denies: Chronic Kidney Disease - Surgical History Surgical History: No Surg Hx - Family History Family History: States: Unknown Family Hx - Social History Current smoker - smoking cessation education provided: Yes (occ cigarette) Alcohol: None Drugs: Denies - Immunization History Hx Influenza Vaccination: Yes Hx Pneumococcal Vaccination: Yes - Home Medications Home Medications: Ambulatory Orders Medication Instructions Recorded clonazePAM [Klonopin] 0.5 mg PO HS 02/26/14 Methadone 100 mg PO DAILY 06/24/14 Mirtazapine [Remeron] 15 mg PO HS 12/14/14 Efavirenz/Emtricitabine/Teno 1 tab PO HS 05/15/16 [Atripla 600 MG-200 MG-300 MG] Gabapentin [Neurontin] 300 mg PO BID 05/15/16 hydrOXYzine Pamoate [Vistaril] 25 mg PO BID 05/15/16 Insulin Detemir [Levemir] 12 units SC HS vial 05/17/16 Albuterol Sulfate [Proair Hfa] 2 puff IH Q4H PRN 06/06/16 Losartan/Hydrochlorothiazide 1 tab PO DAILY 06/06/16 [Hyzaar 100-12.5 Tablet] Ondansetron [Zofran Tab] 4 mg PO DAILY PRN 06/06/16 Meclizine [Meclizine*] 25 mg PO Q6 PRN #20 tab 11/01/16 Ibuprofen [Motrin] 600 mg PO Q6H PRN #20 tab 11/06/16 Dicyclomine [Dicyclomine HCl] 10 mg PO Q8 #10 cap 11/20/16 Valacyclovir HCl [Valtrex] 1 gm PO Q8 #30 tablet 11/20/16 Moxifloxacin [Avelox] 400 mg PO DAILY #10 tab 11/30/16 - Allergies Allergies/Adverse Reactions: Allergies Allergy/AdvReac Type Severity Reaction Status Date / Time No Known Allergies Allergy Verified 11/30/16 07:30 Review of Systems ROS Statement: Except As Marked, All Systems Reviewed And Found Negative Constitutional: Positive for: Fever Respiratory: Positive for: Cough Physical Exam - Reviewed Nursing Documentation Reviewed: Yes Vital Signs Reviewed: Yes - Physical Exam Appears: Positive for: Well, Non-toxic, No Acute Distress Head Exam: Positive for: ATRAUMATIC, NORMAL INSPECTION, NORMOCEPHALIC Skin: Positive for: Normal Color, Warm, DRY Neck: Positive for: Normal, Painless ROM Cardiovascular/Chest: Positive for: Regular Rate, Rhythm Respiratory: Positive for: CNT, Normal Breath Sounds Gastrointestinal/Abdominal: Positive for: Normal Exam, Bowel Sounds, Soft Back: Positive for: Normal Inspection Extremity: Positive for: Normal ROM Neurologic/Psych: Positive for: Alert, Oriented - Laboratory Results Result Diagrams: 11/30/16 08:35 11/30/16 08:35 - ECG ECG: Positive for: Interpreted By Me, Viewed By Me ECG Rhythm: Positive for: Sinus Bradycardia Rate: 56 O2 Sat by Pulse Oximetry: 95 (RA) Pulse Ox Interpretation: Normal Medical Decision Making Medical Decision Making: pt presenting with fever since last night and cough rule out pneumonia rule out influenza labs cxr [id number] CXR Impression: Findings are most compatible with bronchitis. Superimposed pneumonia cannot be excluded in the lower lobes. Follow up after medical management is recommended to ensure resolution. No lobar pneumonia. Pt stable for d/c home. pt aware of results. Will give 1st dose of Abx here in ER. and given RX abx and outpt follow up. pt 02 sat normal. and ambulating and feels improved. Disposition - Clinical Impression Clinical Impression: Bronchitis - Patient ED Disposition Is Patient to be Admitted: No Counseled Patient/Family Regarding: Studies Performed, Diagnosis, Need For Followup - Disposition Referrals: [facility] [Outside] [facility] [Outside] Disposition: Routine/Home Disposition Time: 12:35 Condition: IMPROVED Additional Instructions: follow up with your primary doctor tomorrow return to the ED with any worsening or concerning symptoms Prescriptions: Moxifloxacin [Avelox] 400 mg PO DAILY #10 tab Instructions: Acute Bronchitis (ED)
[2016-11-30 08:46] LABS: BASO % 0.4 % (0.0-2.0); EOS % 0.4 % (0.0-4.0); HEMOGLOBIN 12.7 g/dL (12.0-16.0); LYMPH # 0.6 K/uL (1.0-4.3); LYMPH % 15.8 % (20.0-40.0); MEAN CORPUSCULAR HEMOGLOBIN 33.5 pg (27.0-31.0); MEAN CORPUSCULAR HGB CONC 33.2 g/dL (33.0-37.0); MEAN PLATELET VOLUME 9.2 fl (7.2-11.7); MONO # 0.6 K/uL (0.0-0.8); MONO % 13.6 % (0.0-10.0); NEUT # 2.9 K/uL (1.8-7.0); NEUT % 69.8 % (50.0-75.0); RBC 3.78 Mil/uL (3.80-5.20); RED CELL DISTRIBUTION WIDTH 13.4 % (11.5-14.5); WHITE BLOOD COUNT 4.1 K/uL (4.8-10.8)
[2016-11-30 08:52] LABS: ALB/GLOB RATIO 0.7 (1.0-2.1); ALBUMIN 4.1 g/dL (3.5-5.0); ALT/SGPT 47 U/L (9-52); AST/SGOT 36 U/L (14-36); BLOOD UREA NITROGEN 28 mg/dl (7-17); CALCIUM 9.1 mg/dL (8.4-10.2); GFR AFRICAN-AMERICAN > 60; GFR NON-AFRICAN AMERICAN 55
--- NOTE | 2016-11-30 11:08 | RAD ---
HISTORY: fever rule out pneumonia COMPARISON: 11/06/2016. TECHNIQUE: Chest PA and lateral FINDINGS: LUNGS: The lungs are hyperinflated and there is peribronchial cuffing as well as subsegmental atelectasis in the lower lobes. No focal consolidation PLEURA: No significant pleural effusion identified. No pneumothorax apparent. CARDIOVASCULAR: Normal. OSSEOUS STRUCTURES: No significant abnormalities. VISUALIZED UPPER ABDOMEN: Normal. OTHER FINDINGS: None. IMPRESSION: Findings are most compatible with bronchitis. Superimposed pneumonia cannot be excluded in the lower lobes. Follow-up after medical management is recommended to ensure resolution. No lobar pneumonia.
--- NOTE | 2016-11-30 11:26 | CARD ---
APPROVED REPORT EKG Measurement Heart [id number] <Conclusion> Sinus bradycardia Low voltage QRS Nonspecific T wave abnormality Abnormal ECG
[2016-11-30] MEDS ORDERED: Azithromycin 500 MG in Sodium Chloride 0.9% 250 ML IVPB STA (12:54)
[2016-11-30] MEDS ORDERED: cefTRIAXone (Rocephin) 1 gm Inj ONE (14:37)
[2016-11-30 15:31] VITALS: BP 132/70; RESP 18; TEMP 98
[2016-12-02 21:18] VITALS: PULSE 56; O2SAT 95
== END 2016-11-30 15:31 | disposition home or self-care (01) ==
LOC: H.ER 07:12
DX: J40 Bronchitis, not specified as acute or chronic (principal); R50.9 Fever, unspecified; E11.9 Type 2 diabetes mellitus without complications; E78.00 Pure hypercholesterolemia, unspecified; F41.9 Anxiety disorder, unspecified; I10 Essential (primary) hypertension; J44.9 Chronic obstructive pulmonary disease, unspecified; Z79.4 Long term (current) use of insulin
CPT/HCPCS: 71020; 80053; 85025; 87040; 87804; 93005; 96365; 96367; 96375; 96376; 99282; J0456; J0696; J2405; J7050

== ENCOUNTER 2016-12-22 15:51 | Emergency (ER) | payer MEDICARE, MEDICAID ==
[2016-12-22 15:51] VITALS: BMI 29.0
[2016-12-22 15:58] VITALS: BP 134/77; PULSE 90; RESP 18; TEMP 99.2; O2SAT 98
[2016-12-22] MEDS ORDERED: Sodium Chloride 0.9% 1,000 ML IV STA (16:13)
--- NOTE | 2016-12-22 16:22 | ED PDOC ---
HPI: Abdomen Time Seen by Provider: 12/22/16 16:02 Chief Complaint (Nursing): Abdominal Pain Chief Complaint (Provider): Abd pain History Per: Patient History/Exam Limitations: no limitations Onset/Duration Of Symptoms: Days (3) Outside of [place] travel?: No Current Symptoms Are (Timing): Still Present Additional Complaint(s): Pt. with nasuea, vomit, diarrhea, nonbloody and weakness all over. Pt. with lower abd bubbling. No chest pain, dyspnea, back pain. No headaches, cough, runny nose, dizziness. No new food or drinks. No travel. Grandchild has same before she got. Past Medical History Reviewed: Nursing Documentation, Vital Signs Vital Signs: Last Vital Signs Temp 99.2 F 12/22/16 15:55 Pulse 90 12/22/16 15:55 Resp 18 12/22/16 15:55 BP 134/77 12/22/16 15:55 Pulse Ox 98 12/22/16 18:51 - Medical History PMH: Anxiety, COPD, Depression, Diabetes, HIV, HTN, Hypercholesterolemia, Pneumonia Denies: Chronic Kidney Disease - Surgical History Surgical History: No Surg Hx - Family History Family History: States: Unknown Family Hx - Social History Current smoker - smoking cessation education provided: No Alcohol: None Drugs: Denies - Immunization History Hx Influenza Vaccination: Yes Hx Pneumococcal Vaccination: Yes - Home Medications Home Medications: Ambulatory Orders Medication Instructions Recorded clonazePAM [Klonopin] 0.5 mg PO HS 02/26/14 Methadone 100 mg PO DAILY 06/24/14 Mirtazapine [Remeron] 15 mg PO HS 12/14/14 Efavirenz/Emtricitabine/Teno 1 tab PO HS 05/15/16 [Atripla 600 MG-200 MG-300 MG] Gabapentin [Neurontin] 300 mg PO BID 05/15/16 hydrOXYzine Pamoate [Vistaril] 25 mg PO BID 05/15/16 Insulin Detemir [Levemir] 12 units SC HS vial 05/17/16 Albuterol Sulfate [Proair Hfa] 2 puff IH Q4H PRN 06/06/16 Losartan/Hydrochlorothiazide 1 tab PO DAILY 06/06/16 [Hyzaar 100-12.5 Tablet] Ondansetron [Zofran Tab] 4 mg PO DAILY PRN 06/06/16 Meclizine [Meclizine*] 25 mg PO Q6 PRN #20 tab 11/01/16 Ibuprofen [Motrin] 600 mg PO Q6H PRN #20 tab 11/06/16 Dicyclomine [Dicyclomine HCl] 10 mg PO Q8 #10 cap 11/20/16 Valacyclovir HCl [Valtrex] 1 gm PO Q8 #30 tablet 11/20/16 Moxifloxacin [Avelox] 400 mg PO DAILY #10 tab 11/30/16 Dicyclomine [Dicyclomine HCl] 10 mg PO DAILY PRN 5 Days 12/22/16 Ondansetron [Zofran] 4 mg PO Q8H PRN #6 tab 12/22/16 - Allergies Allergies/Adverse Reactions: Allergies Allergy/AdvReac Type Severity Reaction Status Date / Time No Known Allergies Allergy Verified 11/30/16 07:30 Review of Systems ROS Statement: Except As Marked, All Systems Reviewed And Found Negative Constitutional: Positive for: Weakness Gastrointestinal: Positive for: Nausea, Vomiting, Abdominal Pain, Diarrhea Neurological: Positive for: Weakness Physical Exam - Reviewed Nursing Documentation Reviewed: Yes Vital Signs Reviewed: Yes - Physical Exam Appears: Positive for: Non-toxic, No Acute Distress Head Exam: Positive for: ATRAUMATIC, NORMAL INSPECTION, NORMOCEPHALIC Skin: Positive for: Normal Color, Warm, DRY ENT: Positive for: Normal ENT Inspection Neck: Positive for: Normal, Painless ROM Cardiovascular/Chest: Positive for: Regular Rate, Rhythm Respiratory: Positive for: CNT, Normal Breath Sounds Gastrointestinal/Abdominal: Positive for: Bowel Sounds, Soft, Tenderness (mild across lower ). Negative for: Guarding Back: Positive for: Normal Inspection. Negative for: L CVA Tenderness, R CVA Tenderness Extremity: Positive for: Normal ROM. Negative for: Tenderness, Pedal Edema Neurologic/Psych: Positive for: Alert, Oriented - Laboratory Results Result Diagrams: 12/22/16 17:47 12/22/16 17:47 Interpretation Of Abn Labs: 34 - ECG O2 Sat by Pulse Oximetry: 98 Pulse Ox Interpretation: Normal - Progress ED Course And Treament: 1832: Stable. AAOx3. Pain free. Tolerated PO. Dehydration. Wants 1 more IV bag of fluids and then wants to go home. Disposition - Clinical Impression Clinical Impression: Dehydration, Vomiting, Diarrhea - Patient ED Disposition Is Patient to be Admitted: No Counseled Patient/Family Regarding: Studies Performed, Diagnosis, Need For Followup, Rx Given - Disposition Referrals: [facility] [Outside] - 12/25/16 Disposition: Routine/Home Disposition Time: 18:47 Condition: STABLE Additional Instructions: Return if not better in 3 days. Prescriptions: Dicyclomine [Dicyclomine HCl] 10 mg PO DAILY PRN 5 Days PRN Reason: Diarrhea Ondansetron [Zofran] 4 mg PO Q8H PRN #6 tab PRN Reason: Nausea/Vomiting Instructions: Dehydration (ED), Acute Nausea and Vomiting (ED), Acute Diarrhea (ED)
[2016-12-22 18:08] LABS: ALB/GLOB RATIO 0.8 (1.0-2.1); ALBUMIN 3.9 g/dL (3.5-5.0); ALT/SGPT 42 U/L (9-52); AST/SGOT 45 U/L (14-36); BLOOD UREA NITROGEN 34 mg/dl (7-17); CALCIUM 8.9 mg/dL (8.4-10.2); GFR AFRICAN-AMERICAN > 60; GFR NON-AFRICAN AMERICAN > 60
[2016-12-22 18:13] LABS: BASO % 0.3 % (0.0-2.0); EOS % 1.3 % (0.0-4.0); HEMOGLOBIN 12.2 g/dL (12.0-16.0); LYMPH % 32.1 % (20.0-40.0); MEAN CELL VOLUME 100.8 fl (81.0-99.0); MEAN CORPUSCULAR HEMOGLOBIN 33.9 pg (27.0-31.0); MEAN CORPUSCULAR HGB CONC 33.6 g/dL (33.0-37.0); MEAN PLATELET VOLUME 9.2 fl (7.2-11.7); MONO # 0.4 K/uL (0.0-0.8); MONO % 14.1 % (0.0-10.0); NEUT # 1.6 K/uL (1.8-7.0); NEUT % 52.2 % (50.0-75.0); NRBC % 0.2 % (0.0-0.0); RBC 3.59 Mil/uL (3.80-5.20); RED CELL DISTRIBUTION WIDTH 13.9 % (11.5-14.5); WHITE BLOOD COUNT 3.1 K/uL (4.8-10.8)
[2016-12-22] MEDS ORDERED: Sodium Chloride 0.9% 500 ML IV STA (18:51)
== END 2016-12-22 20:00 | disposition home or self-care (01) ==
LOC: H.ER 15:51
DX: E86.0 Dehydration (principal); R19.7 Diarrhea, unspecified; E11.9 Type 2 diabetes mellitus without complications; E78.00 Pure hypercholesterolemia, unspecified; F32.9 Major depressive disorder, single episode, unspecified; F41.9 Anxiety disorder, unspecified; I10 Essential (primary) hypertension; Z79.4 Long term (current) use of insulin
CPT/HCPCS: 80053; 85025; 96360; 99283; J7040

== ENCOUNTER 2017-01-01 07:03 | Inpatient (IN) | payer MEDICARE, MEDICAID ==
[2017-01-01 07:28] VITALS: O2SAT 96
--- NOTE | 2017-01-01 08:42 | ED PDOC ---
HPI: Hypertension/Hypotension Time Seen by Provider: 01/01/17 07:30 Chief Complaint (Nursing): Anxiety History Per: Patient History/Exam Limitations: no limitations Onset/Duration Of Symptoms: Gradual Current Symptoms Are (Timing): Still Present Associated Symptoms: denies: Chest Pain, Dyspnea, Dizziness, Blurred Vision, Focal Weakness, Headache Quality Of Symptoms: Rapid Heart Rate Severity: Mild Exacerbating Factor(s): Neg: Recently Missed Doses Of Medication, Recent Change In Medication, Recent Use Of OTC Cold Medications, Recent Cocaine Use, Recent Street Drug Use, Injestion Of Caffeinated Beverages, Increased Salt/Salty Foods Additional History Per: Patient Additional Complaint(s): panic attack x 3 days. unable to sleep and eat. c/o of shaky hands occasionally. denies sob/ pain. HX anxiety similar to panic attacks in the past Past Medical History Reviewed: Historical Data, Nursing Documentation, Vital Signs Vital Signs: Last Vital Signs Temp 98 F 01/01/17 07:37 Pulse 84 01/01/17 07:37 Resp 18 01/01/17 07:37 BP 144/92 H 01/01/17 07:37 Pulse Ox 96 01/01/17 07:37 - Medical History PMH: Anxiety, COPD, Depression, Diabetes, HIV, HTN, Hypercholesterolemia, Pneumonia Denies: Chronic Kidney Disease - Family History Family History: States: Unknown Family Hx - Living Arrangements Living Arrangements: With Family - Immunization History Hx Influenza Vaccination: Yes Hx Pneumococcal Vaccination: Yes - Home Medications Home Medications: Ambulatory Orders Medication Instructions Recorded clonazePAM [Klonopin] 0.5 mg PO HS 02/26/14 Methadone 100 mg PO DAILY 06/24/14 Mirtazapine [Remeron] 15 mg PO HS 12/14/14 Efavirenz/Emtricitabine/Teno 1 tab PO HS 05/15/16 [Atripla 600 MG-200 MG-300 MG] Gabapentin [Neurontin] 300 mg PO BID 05/15/16 hydrOXYzine Pamoate [Vistaril] 25 mg PO BID 05/15/16 Insulin Detemir [Levemir] 12 units SC HS vial 05/17/16 Albuterol Sulfate [Proair Hfa] 2 puff IH Q4H PRN 06/06/16 Losartan/Hydrochlorothiazide 1 tab PO DAILY 06/06/16 [Hyzaar 100-12.5 Tablet] Ondansetron [Zofran Tab] 4 mg PO DAILY PRN 06/06/16 Meclizine [Meclizine*] 25 mg PO Q6 PRN #20 tab 11/01/16 Ibuprofen [Motrin] 600 mg PO Q6H PRN #20 tab 11/06/16 Dicyclomine [Dicyclomine HCl] 10 mg PO Q8 #10 cap 11/20/16 Valacyclovir HCl [Valtrex] 1 gm PO Q8 #30 tablet 11/20/16 Moxifloxacin [Avelox] 400 mg PO DAILY #10 tab 11/30/16 Dicyclomine [Dicyclomine HCl] 10 mg PO DAILY PRN 5 Days 12/22/16 Ondansetron [Zofran] 4 mg PO Q8H PRN #6 tab 12/22/16 - Allergies Allergies/Adverse Reactions: Allergies Allergy/AdvReac Type Severity Reaction Status Date / Time No Known Allergies Allergy Verified 11/30/16 07:30 Review of Systems ROS Statement: Except As Marked, All Systems Reviewed And Found Negative Constitutional: Negative for: Fever, Chills Cardiovascular: Positive for: Palpitations. Negative for: Chest Pain Respiratory: Negative for: Cough, Shortness of Breath Gastrointestinal: Negative for: Nausea, Vomiting, Abdominal Pain Psych: Positive for: Anxiety. Negative for: Depression, Psychosis, Suicidal ideation, Withdrawal Physical Exam - Reviewed Nursing Documentation Reviewed: Yes Vital Signs Reviewed: Yes - Physical Exam Appears: Positive for: Well, No Acute Distress Head Exam: Positive for: ATRAUMATIC, NORMAL INSPECTION, NORMOCEPHALIC Eye Exam: Positive for: Normal appearance, EOMI, PERRL Neck: Positive for: Normal, Painless ROM, Supple Cardiovascular/Chest: Positive for: Regular Rate, Rhythm, Chest Non Tender. Negative for: Edema, Gallop, Murmur, Bradycardia, Tachycardia Respiratory: Positive for: Normal Breath Sounds. Negative for: Decreased Breath Sounds, Accessory Muscle Use, Crackles, Rales, Rhonchi, Stridor, Wheezing , Respiratory Distress Pulses-Radial (L): 2+ Pulses-Radial (R): 2+ Gastrointestinal/Abdominal: Positive for: Normal Exam, Bowel Sounds, Soft. Negative for: Tenderness Back: Positive for: Normal Inspection. Negative for: L CVA Tenderness, R CVA Tenderness Extremity: Positive for: Normal ROM. Negative for: Tenderness, Pedal Edema Neurologic/Psych: Positive for: Alert, forestry patrolman II-XII, Oriented, Mood/Affect ( anxious), Gait (steady). Negative for: Motor/Sensory Deficits, Aphasia, Facial Droop - Laboratory Results Result Diagrams: 01/01/17 08:36 01/01/17 08:36 - ECG ECG: Positive for: Interpreted By Me ECG Rhythm: Positive for: Normal QRS, Normal ST Segment, Sinus Rhythm. Negative for: ST/T Changes O2 Sat by Pulse Oximetry: 96 Pulse Ox Interpretation: Normal - Radiology X-Ray: Interpreted by Me X-Ray Interpretation: No Acute Disease - Progress ED Course And Treament: per [place] rx filled klonipin 0.5 mg tablet 90 12/27/2016, klonipin 0.5 60 12/10/2016 Re-evaluation Time: 11:01 Condition: Improved Medical Decision Making Medical Decision Making: pt medically stable for psychiatric admission Disposition - Clinical Impression Clinical Impression: Anxiety - Patient ED Disposition Is Patient to be Admitted: Yes Counseled Patient/Family Regarding: Studies Performed, Diagnosis - Disposition Disposition Time: 11:55 Condition: STABLE Forms: [employer] (Kinyarwanda) - Pt Status Changed To: Hospital Disposition Of: Inpatient - Admit Certification Admit to Inpatient:: After my assessment, the patient will require hospitalization for at least two midnights. This is because of the severity of symptoms shown, intensity of services needed, and/or the medical risk in this patient being treated as an outpatient. - POA Present On Arrival: None
[2017-01-01 08:45] LABS: BASO % 0.5 % (0.0-2.0); EOS % 1.2 % (0.0-4.0); HEMOGLOBIN 13.5 g/dL (12.0-16.0); LYMPH # 0.8 K/uL (1.0-4.3); LYMPH % 21.6 % (20.0-40.0); MEAN CELL VOLUME 99.6 fl (81.0-99.0); MEAN CORPUSCULAR HEMOGLOBIN 34.3 pg (27.0-31.0); MEAN CORPUSCULAR HGB CONC 34.4 g/dL (33.0-37.0); MEAN PLATELET VOLUME 9.4 fl (7.2-11.7); MONO # 0.4 K/uL (0.0-0.8); MONO % 9.9 % (0.0-10.0); NEUT # 2.4 K/uL (1.8-7.0); NEUT % 66.8 % (50.0-75.0); NRBC % 0.3 % (0.0-0.0); RBC 3.95 Mil/uL (3.80-5.20); RED CELL DISTRIBUTION WIDTH 13.7 % (11.5-14.5); WHITE BLOOD COUNT 3.6 K/uL (4.8-10.8)
[2017-01-01 08:53] LABS: ALB/GLOB RATIO 0.7 (1.0-2.1); ALBUMIN 4.1 g/dL (3.5-5.0); ALT/SGPT 43 U/L (9-52); AST/SGOT 47 U/L (14-36); BLOOD UREA NITROGEN 28 mg/dl (7-17); CALCIUM 8.8 mg/dL (8.4-10.2); GFR AFRICAN-AMERICAN > 60; GFR NON-AFRICAN AMERICAN > 60; SQUAMOUS EPITHIAL < 1 /hpf (0-5); URINE BILIRUBIN NEGATIVE (NEGATIVE); URINE BLOOD NEGATIVE (NEGATIVE); URINE CLARITY CLEAR (Clear); URINE COLOR YELLOW (YELLOW); URINE GLUCOSE (UA) NEG (Normal); URINE LEUKOCYTE ESTERASE NEG Leu/uL (Negative); URINE NITRATE NEGATIVE (NEGATIVE); URINE PROTEIN NEGATIVE (NEGATIVE); URINE UROBILINOGEN 0.2-1.0 mg/dL (0.2-1.0)
[2017-01-01 09:05] LABS: B-TYPE NATRIURETIC PEPTIDE 138 pg/ml (0-900)
[2017-01-01 09:06] LABS: BARBITURATES, UR NEGATIVE (NEGATIVE); BENZODIAZEPINES, UR NEGATIVE (NEGATIVE); OPIATES, UR NEGATIVE (NEGATIVE); PHENCYCLIDINE, UR NEGATIVE (NEGATIVE)
[2017-01-01 09:14] LABS: INR 1.1 (0.9-1.2); PARTIAL THROMBOPLASTIN TIME 30.4 Seconds (25.6-37.1); PROTHROMBIN TIME 12.3 Seconds (9.8-13.1)
--- NOTE | 2017-01-01 13:58 | RAD ---
HISTORY: palpitations COMPARISON: 11/30/2016. TECHNIQUE: Chest PA and lateral FINDINGS: LUNGS: Hyperinflation, manifestations of COPD. No active pulmonary disease. PLEURA: No significant pleural effusion identified. No pneumothorax apparent. CARDIOVASCULAR: Normal. OSSEOUS STRUCTURES: Stable kyphosis. Diffuse osteopenia. VISUALIZED UPPER ABDOMEN: Normal. OTHER FINDINGS: None. IMPRESSION: No active disease. No significant interval change compared to the prior examination(s). Concordant results with the preliminary interpretation rendered by the emergency department physician procedure.
[2017-01-01] MEDS ORDERED: Bismuth Subsalicylate 262 mg/15 ml Sus (240 ml) PO PRN (14:57)
[2017-01-01] MEDS ORDERED: Magnesium Hydroxide Susp 30 ml UD PO PRN (14:57)
[2017-01-01] MEDS ORDERED: Alum-Mag Hydrox-Simethicone Susp (30 mL) PO PRN (14:57)
[2017-01-01 15:08] VITALS: BMI 28.3
--- NOTE | 2017-01-01 19:13 | CP.PCM.CON ---
History of Present Illness - History of Present Illness History of Present Illness: CC/HPI: Pt. is a 66 y.o. female with PMHx of Anxiety, Cocaine abuse on Methadone at [facility], COPD, HTN, Diabetes Mellitus, and HIV presents to the [facility] with complaints of Panic attack for three days. Pt. could not eat, sleep, and kept shaking uncontrollably. Pt. has been taking her medications regularly and does not know why she is having a panic attack. ROS: Pt. denies any headache, chest pain, abdominal pain, shortness of breath, visual changes, joint pain, fever, chills, hematuria, dysuria, or any other complaints. PMHx: Anxiety, Cocaine abuse on Methadone at [facility], COPD, HTN, Diabetes Mellitus, HCV, and HIV PSHx: None FMHx Paternal uncle Colon [place], Paternal Grandmother: Diabetes Social Hx: 06/05 PPD- Pt. is cutting down and only smoking 1 cigarette daily Allergies: NKDA Meds: See Med List PMD: Dr. Arturo Leal Course CBC- WBC 3.6 CMP- WNL UA- WNL UDS- + Methadone CXR- WNL EKG- NSR Review of Systems - Review of Systems Review of Systems: See HPI Past Patient History - Infectious Disease Hx of Infectious Diseases: None - Tetanus Immunizations Tetanus Immunization: Unknown - Past Medical History & Family History Past Medical History?: Yes - Past Social History Smoking Status: Former Smoker - CARDIAC Hx Cardiac Disorders: No Hx Angina: Yes Hx Atrial Fibrillation: No Hx Hypertension: Yes - PULMONARY Hx Respiratory Disorders: Yes Hx Asthma: Yes Hx Bronchitis: Yes Hx Chronic Obstructive Pulmonary Disease (COPD): Yes Hx Emphysema: No Hx Pneumonia: Yes Hx Pulmonary Edema: No Hx Sleep Apnea: Yes Hx Tuberculosis: No - NEUROLOGICAL HX Cerebrovascular Accident: No Hx Dizziness: Yes Hx Meningitis: No Hx Seizures: No - HEENT Hx HEENT Problems: No - RENAL Hx Chronic Kidney Disease: No - ENDOCRINE/METABOLIC Hx Endocrine Disorders: Yes Hx Diabetes Mellitus Type 2: Yes Hx Hyperthyroidism: No - HEMATOLOGICAL/ONCOLOGICAL Hx AIDS: Yes Hx Anemia: No Hx Blood Transfusions: No Hx Cancer: No Hx Chemotherapy: No Hx Cirrhosis: No Hx Hepatitis C: No (Diagnosed about about 3 mos ago) Hx Human Immunodeficiency Virus (HIV): No Hx Leukemia: No - INTEGUMENTARY Hx Dermatological Problems: No - MUSCULOSKELETAL/RHEUMATOLOGICAL Hx Musculoskeletal Disorders: No Hx Arthritis: Yes Hx Back Pain: Yes Hx Falls: No - GASTROINTESTINAL Hx Gastrointestinal Disorders: No Hx Constipation: Yes Hx Diarrhea: No Hx Gastritis: Yes Hx Hemorrhoids: Yes Hx Pancreatitis: No HX Swallowing Problems: No Hx Ulcer: No Hx Vomiting: No - GENITOURINARY/GYNECOLOGICAL Hx Bladder Stone: Yes Hx Cervical Cancer: No Hx Hematuria: No Hx Incontinence: No Hx Ovarian Cancer: No Hx Postmenopausal Bleeding: No Hx Sexually Transmitted Disorders: No Hx Uterine Cancer: No Hx Urinary Tract Infection: No - PSYCHIATRIC Hx Anxiety: Yes Hx Bipolar Disorder: No Hx Depression: Yes (hospitalized 9 yrs ago [facility]) Hx Emotional Abuse: No Hx Physical Abuse: No Hx Schizophrenia: No Hx Sexual Abuse: No Hx Substance Use: Yes - SURGICAL HISTORY Hx Surgeries: No - ANESTHESIA Hx Anesthesia: No Meds Allergies/Adverse Reactions: Allergies Allergy/AdvReac Type Severity Reaction Status Date / Time No Known Allergies Allergy Verified 11/30/16 07:30 - Medications Medications: Current Medications Acetaminophen (Tylenol 325mg Tab) 650 mg PO Q4 PRN PRN Reason: Pain, moderate (4-7) Al Hydrox/Mg Hydrox/Simethicone (Maalox Plus 30 Ml) 30 ml PO Q4 PRN PRN Reason: Dyspepsia Bismuth Subsalicylate (Pepto-Bismol) 524 mg PO Q4 PRN PRN Reason: Diarrhea Clonazepam (Klonopin) 0.5 mg PO BID PRN PRN Reason: Anxiety Last Admin: 01/01/17 18:28 Dose: 0.5 mg Lorazepam (Ativan) 0.5 mg PO HS PRN PRN Reason: Insomnia Stop: 01/15/17 14:58 Lorazepam (Ativan) 0.5 mg PO Q6 PRN PRN Reason: Anixety/Agitation Stop: 01/15/17 14:58 Magnesium Hydroxide (Milk Of Magnesia) 30 ml PO HS PRN PRN Reason: Constipation Mirtazapine (Remeron) 15 mg PO HS MADHURI Physical Exam - Constitutional Appears: Non-toxic, No Acute Distress Additional comments: Sleeping in Bed, Responds to verbal cues and wakes up - Head Exam Head Exam: ATRAUMATIC, NORMOCEPHALIC - Eye Exam Eye Exam: Normal appearance. absent: Scleral icterus - ENT Exam ENT Exam: Mucous Membranes Moist - Neck Exam Neck exam: Positive for: Full Rom, Normal Inspection - Respiratory Exam Respiratory Exam: Clear to Auscultation Bilateral, NORMAL BREATHING PATTERN - Cardiovascular Exam Cardiovascular Exam: REGULAR RHYTHM, +S1, +S2 (+ Scattered bi-basilar rhonci present) - GI/Abdominal Exam GI & Abdominal Exam: Soft. absent: Tenderness - Extremities Exam Extremities exam: Positive for: normal capillary refill, pedal pulses present. Negative for: calf tenderness - Neurological Exam Neurological exam: Alert, Oriented x3 - Psychiatric Exam Psychiatric exam: Normal Affect, Normal Mood Results - Vital Signs Recent Vital Signs: Last Vital Signs Temp 98.2 F 01/01/17 16:13 Pulse 53 L 01/01/17 16:13 Resp 20 01/01/17 16:13 BP 112/70 01/01/17 16:13 Pulse Ox 96 01/01/17 15:38 - Labs Result Diagrams: 01/01/17 08:36 01/01/17 08:36 Assessment & Plan - Assessment and Plan (Free Text) Assessment: 65 y/o female with multiple co-morbidities admitted to Psych unit for Anxiety/ Panic Attack Plan: 1- DM (type I diabetes) Well controlled - Levemir 12units at night - LDSS - Accuchecks ACHS - Hypoglycemia protocol 2- COPD -ProAir HFA 108 (90Base) 2 puffs Q4hrs as needed -Albuterol sulfate (2.5Mg/3ML) Nebs 4x daily as needed for SOB 3- HIV - CD4 = 511 dated 10/12/16 - Continue Atripla daily 4- HTN - Continue home meds - Hyzaar 12.5/50 mg po daily. 5- Hx of heroin abuse - Will resume Methadone after confirming dose with [facility] 6- Diet -Diabetic w/heart healthy 7- DVT Prophylaxis -Encourage ambulation
[2017-01-01] MEDS ORDERED: Dextrose 50% SYRINGE Inj (50 ml) IV PRN (19:19)
[2017-01-01] MEDS ORDERED: Glucagon Recombinant 1 mg Inj IM PRN (19:19)
[2017-01-01] MEDS: Insulin Regular 100 units/ml SC SCH (21:29)
[2017-01-01] MEDS ORDERED: Insulin Detemir 100 Units/ml Inj SC ONE (21:30)
[2017-01-01] MEDS ORDERED: Patient's Own Med (Efavirenz/Emtricitabine/Teno [Atripla 600 Mg-200 Mg-300 Mg] 1 TAB) PO SCH (22:00)
[2017-01-01] MEDS: Insulin Detemir 100 Units/ml Inj SC SCH (22:00)
[2017-01-02] MEDS: Insulin Regular 100 units/ml SC SCH ×4 (06:40→21:57)
[2017-01-02 07:45] LABS: HEMOGLOBIN 13.7 g/dL (12.0-16.0); MEAN CELL VOLUME 101.1 fl (81.0-99.0); MEAN CORPUSCULAR HEMOGLOBIN 34.1 pg (27.0-31.0); MEAN CORPUSCULAR HGB CONC 33.8 g/dL (33.0-37.0); RBC 4.01 Mil/uL (3.80-5.20); RED CELL DISTRIBUTION WIDTH 13.6 % (11.5-14.5); WHITE BLOOD COUNT 3.1 K/uL (4.8-10.8)
[2017-01-02 07:55] LABS: ALB/GLOB RATIO 0.7 (1.0-2.1); ALT/SGPT 42 U/L (9-52); AST/SGOT 49 U/L (14-36); BLOOD UREA NITROGEN 21 mg/dl (7-17); GFR AFRICAN-AMERICAN > 60; GFR NON-AFRICAN AMERICAN > 60; HDL CHOLESTEROL 22 MG/DL (30-70)
[2017-01-02 08:08] LABS: LDL CHOLESTEROL 49 mg/dL (0-129)
[2017-01-02 08:14] LABS: T4 8.96 ug/dl (5.5-11.0)
[2017-01-02 08:29] LABS: FERRITIN 31.4 ng/mL
[2017-01-02] MEDS ORDERED: Patient's Own Med (Losartan/Hydrochlorothiazide [Hyzaar 100-12.5 Tablet] 1 TAB) PO SCH (09:00)
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
[2017-01-02] MEDS ORDERED: NICOTINE 2 MG GUM PO PRN (10:25)
[2017-01-02 12:41] LABS: FOLATE 14.1 ng/mL
[2017-01-02] MEDS: Emtricitabine-Tenofovir 200 mg-300 mg Tab PO SCH (13:39)
[2017-01-03] MEDS: Insulin Detemir 100 Units/ml Inj SC SCH (01:06)
[2017-01-03 05:57] VITALS: RESP 20
[2017-01-03] MEDS: Emtricitabine-Tenofovir 200 mg-300 mg Tab PO SCH ×2 (08:33→08:39)
--- NOTE | 2017-01-03 12:19 | PCM.PYCHPN ---
Psychiatric Progress Note - Psychiatric Progress Note Patient seen today, length of contact: Patient evaluated, case discussed with team, chart reviewed, 35 min Patient Chief Complaint: "I'm very anxious" Problems Identified/Issues Discussed: Patient continues to report feeling anxious and depressed, but reports that she believes the increase in medications is helping. No acute adverse effects noted. No AH/VH/SI/HI. +continued difficulty sleeping at night. +improved appetite. Medication Change: No Medical Record Reviewed: Yes Consults ordered or reviewed: Medicine consult Mental Status Examination - Cognitive Function Orientation: Person, Place, Situation, Time Memory: Intact Attention: WNL Concentration: WNL Association: [facility] Fund of Knowledge: [facility] - Mood Mood: Depressed, Anxious - Affect Affect: Constricted - Speech Speech: Appropriate - Formal Thought Process Formal Thought Process: No Impairment Psychotic Thoughts and Behaviors: No AH/VH/paranoia/delusions - Suicidal Ideation Suicidal Ideation: No - Homicidal Ideation Homicidal Ideation: No Goal/Treatment Plan - Goal/Treatment Plan Need for Continued Stay: Remain at risks for inpatient hospitalization, Severe depression anxiety Progress Toward Problem(s) and Goals/Treatment Plan: Major Depressive Disorder; Generalized Anxiety Disorder; Opioid Use Disorder now in remission, on methadone -Patient not agreeable to starting a new antidepressant for the treatment of anxiety and depression at this time -Continue Remeron 22.5 mg PO HS -Continue Klonopin 0.5 mg PO Daily/ 0.5 mg @1300/ 1 mg PO HS -Individual and group therapy -Continue Methadone (dosage confirmed w/ the clinic) -Disposition planning -Patient to continue follow-up care with Serg Stauffer NP following discharge Estimated Date of D/C: 01/05/17 - Smoking Cessation Smoking Cessation Initiated: Yes
--- NOTE | 2017-01-03 18:31 | CARD ---
APPROVED REPORT EKG Measurement Heart [id number] <Conclusion> Normal sinus rhythm with sinus arrhythmia Normal ECG
[2017-01-04] MEDS: Emtricitabine-Tenofovir 200 mg-300 mg Tab PO SCH (08:26)
--- NOTE | 2017-01-04 10:10 | PCM.PYCHPN ---
Psychiatric Progress Note - Psychiatric Progress Note Patient seen today, length of contact: Patient evaluated, case discussed with team, chart reviewed, 35 min Patient Chief Complaint: "I didn't sleep well last night." Problems Identified/Issues Discussed: Patient reports that her mood is improving, but she continues to have difficulty sleeping at night. No acute adverse effects noted. No AH/VH/SI/HI. +improved appetite. Medication Change: No Medical Record Reviewed: Yes Mental Status Examination - Cognitive Function Orientation: Person, Place, Situation, Time Memory: Intact Attention: WNL Concentration: WNL Association: WNL Fund of Knowledge: [facility] Decription of patient's judgement and insights: Fair I/J - Mood Mood: Depressed, Anxious - Affect Affect: Constricted - Speech Speech: Appropriate - Formal Thought Process Formal Thought Process: No Impairment Psychotic Thoughts and Behaviors: No AH/VH/paranoia/delusions - Suicidal Ideation Suicidal Ideation: No - Homicidal Ideation Homicidal Ideation: No Goal/Treatment Plan - Goal/Treatment Plan Need for Continued Stay: Remain at risks for inpatient hospitalization, Severe depression anxiety Progress Toward Problem(s) and Goals/Treatment Plan: Major Depressive Disorder; Generalized Anxiety Disorder; Opioid Use Disorder now in remission, on methadone -Patient not agreeable to starting a new antidepressant for the treatment of anxiety and depression at this time -Continue Remeron 22.5 mg PO HS -Continue Klonopin 0.5 mg PO Daily/ 0.5 mg @1300/ 1 mg PO HS -Individual and group therapy -Continue Methadone (dosage confirmed w/ the clinic) -Disposition planning- likely discharge tomorrow if the patient continues to improve clinically -Patient to continue follow-up care with Serg Stauffer NP following discharge Estimated Date of D/C: 01/05/17 - Smoking Cessation Smoking Cessation Initiated: Yes
[2017-01-04] MEDS ORDERED: Albuterol 0.083% Inhal Sol (2.5 mg/3 mL) UD INH PRN (13:59)
[2017-01-04] MEDS ORDERED: Benzocaine/Menthol (Cepacol) Lozenge PO PRN (14:01)
--- NOTE | 2017-01-05 08:21 | CP.PCM.PN ---
Subjective - Date & Time of Evaluation Date of Evaluation: 01/05/17 Time of Evaluation: 08:00 - Subjective Subjective: Pt. seen and examined at bedside Pt. in no distress. Pt. with no complaints. Objective - Vital Signs/Intake and Output Vital Signs (last 24 hours): Temp Pulse Resp BP Pulse Ox 97.5 F L 71 20 120/73 96 01/05/17 06:00 01/05/17 06:00 01/05/17 06:00 01/05/17 06:00 01/01/17 15:38 - Medications Medications: Current Medications Albuterol Sulfate (Albuterol 0.083% Inhal Radha (2.5 Mg/3 Ml) Ud) 2.5 mg INH RQ6 PRN PRN Reason: Shortness of Breath Benzocaine/Menthol (Cepacol Sore Throat) 1 shantal PO Q3 PRN PRN Reason: Sore Throat Clonazepam (Klonopin) 0.5 mg PO TID [facility] Dextrose (Dextrose 50% Inj) 0 ml IV STAT PRN; Protocol PRN Reason: Hyglycemia Protocol Dextrose (Glutose 15) 0 gm PO ONCE PRN; Protocol PRN Reason: Hypoglycemia Protocol Docusate Sodium (Colace) 200 mg PO DAILY PRN PRN Reason: Constipation Last Admin: 01/04/17 08:24 Dose: 200 mg Efavirenz (Sustiva) 600 mg PO DAILY [facility] Last Admin: 01/04/17 08:26 Dose: Not Given Emtricitabine/Tenofovir (Truvada 200 Mg-300 Mg) 1 tab PO DAILY [facility] Last Admin: 01/04/17 08:26 Dose: Not Given Gabapentin (Neurontin) 300 mg PO TID [facility] Last Admin: 01/04/17 17:14 Dose: 300 mg Glucagon (Glucagen Diagnostic Kit) 0 mg IM STAT PRN; Protocol PRN Reason: Hypoglycemia Protocol Home Med (Efavirenz/Emtricitabine/Teno [Atripla 600 Mg-200 Mg-300 Mg]) 1 tab PO [facility] Hydrochlorothiazide (Microzide) 12.5 mg PO DAILY [facility] Last Admin: 01/04/17 08:25 Dose: 12.5 mg Losartan Potassium (Cozaar) 100 mg PO DAILY [facility] Last Admin: 01/04/17 08:26 Dose: 100 mg Methadone HCl (Methadone) 110 mg PO DAILY@0600 [facility] Last Admin: 01/05/17 05:57 Dose: 110 mg Mirtazapine (Remeron) 15 mg PO HS [facility] Last Admin: 01/04/17 21:16 Dose: 15 mg Mirtazapine (Remeron) 7.5 mg PO HS [facility] Last Admin: 01/04/17 21:16 Dose: 7.5 mg Nicotine Polacrilex (Nicorette Gum) 2 mg PO Q2 PRN PRN Reason: URGE TO SMOKE Last Admin: 01/02/17 13:40 Dose: 2 mg Ondansetron HCl (Zofran Tab) 4 mg PO Q12 PRN PRN Reason: Nausea/Vomiting Last Admin: 01/04/17 05:56 Dose: 4 mg - Labs Labs: 01/02/17 07:00 01/02/17 07:00 PT 12.3 Seconds (9.8-13.1) 01/01/17 08:36 INR 1.1 (0.9-1.2) 01/01/17 08:36 APTT 30.4 Seconds (25.6-37.1) 01/01/17 08:36 - Constitutional Appears: Non-toxic, No Acute Distress - Respiratory Exam Respiratory Exam: Clear to Ausculation Bilateral, NORMAL BREATHING PATTERN - Cardiovascular Exam Cardiovascular Exam: REGULAR RHYTHM, +S1, +S2 - GI/Abdominal Exam GI & Abdominal Exam: Soft. absent: Tenderness - Neurological Exam Neurological Exam: Alert, Awake, Oriented x3 - Psychiatric Exam Psychiatric exam: Flat Affect Assessment and Plan - Assessment and Plan (Free Text) Assessment: 65 y/o female with multiple co-morbidities admitted to Psych unit for Anxiety/ Panic Attack Plan: 1- DM (type I diabetes) Well controlled - Discontinued Levemir 12units at night - Pt. with a Hemoglobin A1c of 5.7 2- COPD-Stable -ProAir HFA 108 (90Base) 2 puffs Q4hrs as needed -Albuterol sulfate (2.5Mg/3ML) Nebs 4x daily as needed for SOB 3- HIV-Stable - CD4 = 511 dated 10/12/16 - Continue Atripla daily 4- HTN- Well controlled - Continue home meds - Hyzaar 12.5/50 mg po daily. 5- Hx of heroin abuse - Continue 110mg Methadone daily 6- Diet -Continue w/heart healthy 7- DVT Prophylaxis -Encourage ambulation
[2017-01-05] MEDS ORDERED: Albuterol-Ipratrop 3 mg / 0.5 (3 ml) UD INH PRN (08:23)
[2017-01-05] MEDS: Emtricitabine-Tenofovir 200 mg-300 mg Tab PO SCH (08:23)
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
[2017-01-05 15:58] VITALS: BP 101/74; PULSE 59; TEMP 97.9
== END 2017-01-05 18:30 | disposition home or self-care (01) | DRG 881 ==
LOC: H.ER 07:03 → H.ERHOLD 11:52 → H.STEP 14:54
PROVIDERS: ADMIT Psychiatry & Neurology Psychiatry; ATTEND Psychiatry & Neurology Psychiatry
PROC: GZ51ZZZ Individual Psychotherapy, Behavioral (ICD-10-PCS; principal; 2017-01-01)
DX: F32.9 Major depressive disorder, single episode, unspecified (principal); E11.9 Type 2 diabetes mellitus without complications; J44.9 Chronic obstructive pulmonary disease, unspecified; I10 Essential (primary) hypertension; Z21 Asymptomatic human immunodeficiency virus [HIV] infection status; E78.00 Pure hypercholesterolemia, unspecified; F11.90 Opioid use, unspecified, uncomplicated; F17.210 Nicotine dependence, cigarettes, uncomplicated; F41.0 Panic disorder [episodic paroxysmal anxiety]; F41.1 Generalized anxiety disorder; G47.30 Sleep apnea, unspecified; Z79.4 Long term (current) use of insulin; Z79.899 Other long term (current) drug therapy; Z87.01 Personal history of pneumonia (recurrent); Z91.410 Personal history of adult physical and sexual abuse; F14.10 Cocaine abuse, uncomplicated; I20.9 Angina pectoris, unspecified; J40 Bronchitis, not specified as acute or chronic; K29.70 Gastritis, unspecified, without bleeding; K59.00 Constipation, unspecified; K64.9 Unspecified hemorrhoids; M19.90 Unspecified osteoarthritis, unspecified site; Z87.442 Personal history of urinary calculi; M54.9 Dorsalgia, unspecified

== ENCOUNTER 2017-02-09 12:59 | Emergency (ER) | payer MEDICARE, MEDICAID ==
[2017-02-09 12:59] VITALS: BMI 28.3
[2017-02-09] MEDS ORDERED: Sodium Chloride 0.9% 1,000 ML IV STA (13:26)
--- NOTE | 2017-02-09 13:30 | ED PDOC ---
Syncope/Near Syncope/Dizziness Time Seen by Provider: 02/09/17 13:08 Chief Complaint (Nursing): Dizziness/Lightheaded History Per: Patient (Dizziness assoc with headache since this AM. Also c/o nausea. Denies chest pain or palpitations. ) Onset/Duration Of Symptoms: Days (1) Current Symptoms Are (Timing): Still Present Associated Symptoms Preceding Syncopal Episode: No Predromal Symptoms (Sudden Onset) Seizure Or Post-ictal Symptoms: None Fall Associated With With Symptoms: No Severity: Mild Past Medical History Vital Signs: Last Vital Signs Temp 98.4 F 02/09/17 13:02 Pulse 73 02/09/17 13:02 Resp 16 02/09/17 13:02 BP 120/92 H 02/09/17 13:02 Pulse Ox 97 02/09/17 13:02 - Medical History PMH: Anxiety, Arthritis, Asthma, Bronchitis, COPD, Depression (hospitalized 9 yrs ago [facility]), Diabetes, Gastritis, HIV, HTN, Hypercholesterolemia, Pneumonia, Sleep Apnea Denies: Anemia, Atrial Fibrillation, Bipolar Disorder, Emphysema, Hepatitis, Hyperthyroidism, Pancreatitis, Chronic Kidney Disease, Schizophrenia, Seizures, Sexually Transmitted Disease - Family History Family History: States: Unknown Family Hx - Immunization History Hx Influenza Vaccination: Yes Hx Pneumococcal Vaccination: Yes - Home Medications Home Medications: Ambulatory Orders Medication Instructions Recorded Efavirenz/Emtricitabine/Teno 1 tab PO HS 05/15/16 [Atripla 600 MG-200 MG-300 MG] Gabapentin [Neurontin] 300 mg PO TID 05/15/16 Losartan/Hydrochlorothiazide 1 tab PO DAILY 06/06/16 [Hyzaar 100-12.5 Tablet] Ondansetron [Zofran Tab] 4 mg PO BID PRN 01/01/17 Albuterol 0.083% [Albuterol 0.083% 2.5 mg INH RQ6 PRN 01/05/17 Inhal Radha (2.5 mg/3 ml) UD] Albuterol/Ipratropium [Duoneb 3 3 ml INH RQ6 PRN 01/05/17 mg/0.5 mg (3 ml) UD] Docusate [Colace] 200 mg PO DAILY PRN cap 01/05/17 Methadone 110 mg PO DAILY@0600 tab 01/05/17 Mirtazapine [Remeron] 7.5 mg PO HS #30 tab 01/05/17 Mirtazapine [Remeron] 15 mg PO HS #30 01/05/17 clonazePAM [Klonopin] 0.5 mg PO TID #90 01/05/17 Meclizine [Meclizine*] 25 mg PO Q8 #15 tab 02/09/17 - Allergies Allergies/Adverse Reactions: Allergies Allergy/AdvReac Type Severity Reaction Status Date / Time No Known Allergies Allergy Verified 02/09/17 13:01 Review of Systems ROS Statement: Except As Marked, All Systems Reviewed And Found Negative Gastrointestinal: Positive for: Nausea Neurological: Positive for: Headache Physical Exam - Reviewed Nursing Documentation Reviewed: Yes Vital Signs Reviewed: Yes - Physical Exam Appears: Positive for: Non-toxic, No Acute Distress Head Exam: Positive for: ATRAUMATIC, NORMAL INSPECTION, NORMOCEPHALIC Skin: Positive for: Normal Color, Warm, DRY Eye Exam: Positive for: EOMI, Normal appearance, PERRL ENT: Positive for: Normal ENT Inspection Neck: Positive for: Normal, Painless ROM Cardiovascular/Chest: Positive for: Regular Rate, Rhythm Respiratory: Positive for: CNT, Normal Breath Sounds Gastrointestinal/Abdominal: Positive for: Normal Exam, Bowel Sounds, Soft Back: Positive for: Normal Inspection Extremity: Positive for: Normal ROM Neurologic/Psych: Positive for: Alert, Oriented - Laboratory Results Result Diagrams: 02/09/17 14:00 02/09/17 14:00 - ECG O2 Sat by Pulse Oximetry: 97 Disposition - Clinical Impression Clinical Impression: Vertigo - Patient ED Disposition Is Patient to be Admitted: No Counseled Patient/Family Regarding: Studies Performed, Diagnosis, Need For Followup, Rx Given - Disposition Referrals: [facility] [Outside] Disposition: Routine/Home Disposition Time: 14:41 Condition: FAIR Prescriptions: Meclizine [Meclizine*] 25 mg PO Q8 #15 tab Instructions: Vertigo (ED) Forms: [employer] (Mauritanian)
--- NOTE | 2017-02-09 14:03 | CT ---
PROCEDURE: CT HEAD WITHOUT CONTRAST. HISTORY: r/o bleed COMPARISON: None available. TECHNIQUE: Axial computed tomography images were obtained through the head/brain without intravenous contrast. Radiation dose: Total exam DLP = 804.65 mGy-cm. This CT exam was performed using one or more of the following dose reduction techniques: Automated exposure control, adjustment of the mA and/or kV according to patient size, and/or use of iterative reconstruction technique. FINDINGS: HEMORRHAGE: No intracranial hemorrhage. BRAIN: There are mild chronic microangiopathic changes. There is no mass, mass effect or abnormal extra-axial fluid collection. There is no territorial infarction. VENTRICLES: There is mild age-related global parenchymal volume loss and proportionate enlargement of the ventricles and cortical sulci. CALVARIUM: The skull base and calvarium are normal. PARANASAL SINUSES: Predominantly clear. MASTOID AIR CELLS: Predominantly clear. OTHER FINDINGS: None. IMPRESSION: No acute intracranial abnormality. Mild chronic microangiopathic changes and mild age-related global parenchymal volume loss.
[2017-02-09 14:05] LABS: BASO % 0.4 % (0.0-2.0); EOS % 0.5 % (0.0-4.0); HEMATOCRIT 40.5 % (34.0-47.0); LYMPH # 0.7 K/uL (1.0-4.3); LYMPH % 27.5 % (20.0-40.0); MEAN CELL VOLUME 99.5 fl (81.0-99.0); MEAN CORPUSCULAR HEMOGLOBIN 34.3 pg (27.0-31.0); MEAN CORPUSCULAR HGB CONC 34.5 g/dL (33.0-37.0); MEAN PLATELET VOLUME 9.5 fl (7.2-11.7); MONO # 0.3 K/uL (0.0-0.8); MONO % 10.9 % (0.0-10.0); NEUT # 1.6 K/uL (1.8-7.0); NEUT % 60.7 % (50.0-75.0); NRBC % 0.1 % (0.0-0.0); RED CELL DISTRIBUTION WIDTH 13.4 % (11.5-14.5); WHITE BLOOD COUNT 2.7 K/uL (4.8-10.8)
[2017-02-09 14:22] LABS: ALB/GLOB RATIO 0.7 (1.0-2.1); ALKALINE PHOSPHATASE 75 U/L (38-126); ALT/SGPT 29 U/L (9-52); AST/SGOT 49 U/L (14-36); BILIRUBIN,TOTAL 0.7 mg/dl (0.2-1.3); BLOOD UREA NITROGEN 19 mg/dl (7-17); CALCIUM 9.3 mg/dL (8.4-10.2); CARBON DIOXIDE 30 mmol/L (22-30); CHLORIDE 101 mmol/L (98-107); GFR AFRICAN-AMERICAN > 60; GLUCOSE,RANDOM 109 mg/dL (65-105); POTASSIUM 3.9 MMOL/L (3.6-5.0); SODIUM 139 mmol/l (132-148); TOTAL PROTEIN 10.2 G/DL (6.3-8.2)
[2017-02-09 16:34] VITALS: BP 110/67; PULSE 74; RESP 18; TEMP 98.3; O2SAT 98
--- NOTE | 2017-02-09 18:19 | CARD ---
APPROVED REPORT EKG Measurement Heart [id number] <Conclusion> Normal sinus rhythm Nonspecific T wave abnormality Abnormal ECG
== END 2017-02-09 16:35 | disposition home or self-care (01) ==
LOC: H.ER 12:59
DX: R42 Dizziness and giddiness (principal); E11.9 Type 2 diabetes mellitus without complications; F32.9 Major depressive disorder, single episode, unspecified; F41.9 Anxiety disorder, unspecified; I10 Essential (primary) hypertension
CPT/HCPCS: 70450; 80053; 82948; 85025; 93005; 99285; J7040

== ENCOUNTER 2017-04-03 22:33 | Inpatient (IN) | payer OTHER, MEDICAID ==
[2017-04-03 22:38] VITALS: BMI 25.7
[2017-04-03] MEDS ORDERED: Magnesium Hydroxide Susp 30 ml UD PO PRN (22:55)
[2017-04-03] MEDS ORDERED: Albuterol HFA 90 mcg/actuation (8 g) INH PRN (23:00)
[2017-04-04] MEDS: MethylPREDNISolone 40 mg Vial IVP SCH ×3 (00:05→16:32)
[2017-04-04] MEDS: Budesonide 0.5 mg/2 ml Inhal Susp UD IH SCH ×2 (07:29→19:33)
[2017-04-04] MEDS: Albuterol-Ipratrop 3 mg / 0.5 (3 ml) UD INH SCH ×4 (07:29→19:33)
[2017-04-04] MEDS: Lactobacillus Acidophilus 500 MU Cap PO SCH ×2 (08:54→16:34)
[2017-04-04] MEDS: Emtricitabine-Tenofovir 200 mg-300 mg Tab PO SCH (08:55)
[2017-04-04] MEDS: Tmp-Smz 800 mg-160 mg DS Tab PO SCH (08:55)
[2017-04-04] MEDS: TIVICAY 50 MG PO SCH (08:56)
[2017-04-04] MEDS: Enoxaparin 40 mg Syringe SC SCH (08:56)
[2017-04-04] MEDS: POLYETHYLENE GLYCOL 3350 17 GM/Dose PACKET PO SCH ×2 (08:57→16:32)
[2017-04-04] MEDS ORDERED: Magnesium Hydroxide Susp 30 ml UD PO ONE (10:58)
--- NOTE | 2017-04-04 12:13 | CP.PCM.CON ---
History of Present Illness - History of Present Illness History of Present Illness: Pulmonary Consult. 66 y/o F with Hx of COPD/Asthma, AIDS, was admitted on 03/31/17 to [facility] [place] for COPD Exacerbation along with other chronic medical conditions. On 04/03/17, Pt improved and was transferred to TCU unit to continue of IV abx course and PT,OT. Pt with improved SOB, productive cough with scant greenish phlegms. Pt denied: Fever, chills, CP, palpitations, CHAPA, Orthopnea, Hemoptysis. Review of Systems - Constitutional Constitutional: Other (negative) - EENT Eyes: Requires Corrective Lenses Ears: Other (negative) Nose/Mouth/Throat: Other (negative) - Cardiovascular Cardiovascular: Other (negative) - Respiratory Respiratory: Cough, Dyspnea, Excessive Mucous Production, Change in Mucous Color - Gastrointestinal Gastrointestinal: Other (negative) - Genitourinary Genitourinary: Other (egativen) - Musculoskeletal Musculoskeletal: Back Pain - Integumentary Integumentary: Other (negative) - Neurological Neurological: Other (negative) - Psychiatric Psychiatric: Anxiety - Endocrine Endocrine: Other (negative) - Hematologic/Lymphatic Hematologic: Other (negative) Past Patient History - Infectious Disease Hx of Infectious Diseases: None - Tetanus Immunizations Tetanus Immunization: Unknown - Past Medical History & Family History Past Medical History?: Yes Pertinent Family History: Mother at 18 y/o during deliver. Father: Alive, HTN, DM, COPD, CAD. - Past Social History Smoking Status: Former Smoker (1PPD) Alcohol: Social Drugs: Other (methadone) Home Situation {Lives}: With Family - CARDIAC Hx Cardiac Disorders: Yes Hx Hypertension: Yes - PULMONARY Hx Respiratory Disorders: Yes Hx Asthma: Yes Hx Bronchitis: Yes Hx Chronic Obstructive Pulmonary Disease (COPD): Yes Hx Pneumonia: Yes - NEUROLOGICAL Hx Neurological Disorder: No Hx Seizures: No - HEENT Hx HEENT Problems: No - RENAL Hx Chronic Kidney Disease: No - ENDOCRINE/METABOLIC Hx Endocrine Disorders: Yes Hx Diabetes Mellitus Type 2: Yes - HEMATOLOGICAL/ONCOLOGICAL Hx Blood Disorders: Yes Hx AIDS: Yes Hx Hepatitis C: Yes Hx Human Immunodeficiency Virus (HIV): Yes - INTEGUMENTARY Hx Dermatological Problems: No - MUSCULOSKELETAL/RHEUMATOLOGICAL Hx Musculoskeletal Disorders: Yes Hx Arthritis: Yes Hx Falls: No - GASTROINTESTINAL Hx Gastrointestinal Disorders: Yes Hx Gastritis: Yes - GENITOURINARY/GYNECOLOGICAL Hx Genitourinary Disorders: No Hx Sexually Transmitted Disorders: No - PSYCHIATRIC Hx Psychophysiologic Disorder: Yes Hx Anxiety: Yes Hx Bipolar Disorder: Yes Hx Depression: Yes Hx Substance Use: No - SURGICAL HISTORY Hx Surgeries: No - ANESTHESIA Hx Anesthesia: No Meds Allergies/Adverse Reactions: Allergies Allergy/AdvReac Type Severity Reaction Status Date / Time No Known Allergies Allergy Verified 03/30/17 08:47 - Medications Medications: Current Medications Acetaminophen (Tylenol 325mg Tab) 650 mg PO Q6 PRN PRN Reason: Pain, Mild (1-3) Albuterol (Ventolin Hfa 90 Mcg/Actuation (8 G)) 1 puff INH BID PRN PRN Reason: Shortness of Breath Albuterol/Ipratropium (Duoneb 3 Mg/0.5 Mg (3 Ml) Ud) 3 ml INH RQID [facility] Last Admin: 04/04/17 11:37 Dose: 3 ml Amlodipine Besylate (Norvasc) 5 mg PO DAILY [facility] Last Admin: 04/04/17 08:55 Dose: 5 mg Azithromycin (Zithromax) 1,200 mg PO QWK@[facility] PRN Reason: Protocol Budesonide (Pulmicort Respules) 0.5 mg IH RBID [facility] Last Admin: 04/04/17 07:29 Dose: 0.5 mg Clonazepam (Klonopin) 1 mg PO TID PRN PRN Reason: Anxiety Last Admin: 04/04/17 00:20 Dose: 1 mg Emtricitabine/Tenofovir (Truvada 200 Mg-300 Mg) 1 tab PO DAILY [facility] Last Admin: 04/04/17 08:55 Dose: 1 tab Enoxaparin Sodium (Lovenox) 40 mg SC DAILY [facility] PRN Reason: Protocol Last Admin: 04/04/17 08:56 Dose: 40 mg Fluvoxamine Maleate (Luvox) 50 mg PO DAILY [facility] Last Admin: 04/04/17 08:55 Dose: 50 mg Home Med (Trivicey) 50 mg PO DAILY [facility] Last Admin: 04/04/17 08:56 Dose: 50 mg Hydrochlorothiazide (Microzide) 12.5 mg PO DAILY [facility] Last Admin: 04/04/17 08:56 Dose: 12.5 mg Ceftriaxone Sodium 1 gm/ (Sodium Chloride) 100 mls @ 100 mls/hr IVPB DAILY@ 1700 [facility] PRN Reason: Protocol Doxycycline Hyclate 100 mg/ (Sodium Chloride) 100 mls @ 100 mls/hr IVPB Q12@ 0500,1700 [facility] PRN Reason: Protocol Last Admin: 04/04/17 04:19 Dose: 100 mls/hr Lactobacillus Acidophilus (Bacid Acidophilus) 1 cap PO BID [facility] Last Admin: 04/04/17 08:54 Dose: 1 cap Losartan Potassium (Cozaar) 100 mg PO DAILY [facility] Last Admin: 04/04/17 08:55 Dose: 100 mg Magnesium Hydroxide (Milk Of Magnesia) 15 ml PO QID PRN PRN Reason: Constipation Methadone HCl (Methadone) 110 mg PO DAILY@0600 [facility] Last Admin: 04/04/17 06:14 Dose: 110 mg Methylprednisolone (Solu-Medrol) 40 mg IVP Q8 [facility] Last Admin: 04/04/17 08:56 Dose: 40 mg Mirtazapine (Remeron) 45 mg PO HS [facility] Polyethylene Glycol (Miralax) 17 gm PO BID [facility] Last Admin: 04/04/17 08:57 Dose: 17 gm Trimethoprim/Sulfamethoxazole (Bactrim Ds Tab) 1 tab PO DAILY [facility] PRN Reason: Protocol Last Admin: 04/04/17 08:55 Dose: 1 tab Physical Exam - Constitutional Appears: No Acute Distress - Head Exam Head Exam: NORMAL INSPECTION - Eye Exam Eye Exam: PERRL - ENT Exam ENT Exam: Normal Exam - Neck Exam Neck exam: Positive for: Normal Inspection - Respiratory Exam Respiratory Exam: Decreased Breath Sounds, Rhonchi (scattered) - Cardiovascular Exam Cardiovascular Exam: REGULAR RHYTHM - GI/Abdominal Exam GI & Abdominal Exam: Normal Bowel Sounds, Soft - Extremities Exam Extremities exam: Positive for: normal inspection - Back Exam Back exam: NORMAL INSPECTION - Neurological Exam Neurological exam: Alert, Oriented x3 - Psychiatric Exam Psychiatric exam: Anxious - Skin Skin Exam: Normal Color, Warm Results - Vital Signs Recent Vital Signs: Last Vital Signs Temp 97.3 F L 04/04/17 07:51 Pulse 74 04/04/17 09:03 Resp 20 04/04/17 07:51 BP 139/85 04/04/17 08:55 Pulse Ox 94 L 04/04/17 09:03 reviewed [email or web address] - Labs Labs: Laboratory Results - last 24 hr 04/04/17 04/04/17 05:21 10:37 POC Glucose (mg/dL) 144 H 181 H reviewed Yara Assessment & Plan (1) COPD exacerbation Status: Acute Priority: High (2) AIDS Status: Chronic Priority: Medium - Assessment and Plan (Free Text) Plan: Continue Rocephin IV, Doxycycline IV, Pulmicort Solumedrol, - Date & Time Date: 04/04/17 Time: 11:30
--- NOTE | 2017-04-04 12:31 | CP.PCM.CON ---
History of Present Illness - History of Present Illness History of Present Illness: Infectious Disease f/u Consult Note- pt. seen 2 days ago at medical floor for COPD exacerbation and help with antibiotic management is now transferred to TCU for PT and completion of abx therapy. HPI- Patient is a 66 year old female with PMH of HIV ( on meds), HTN, DM II, COPD who was admitted with worsening cough and and sob and sputum production. She states she f/u with for her HIV care . She states she got her flu vaccine a week ago and started to have her current symptoms post flu vaccine. Also pt. states she was told here that her cd4 is low but she states she does take her HAART meds regularly. she denies any dysurea, c/o constipation and had one time bloody BM. she denies any hemoptysis , denies night sweats pt. was started on IV ceftriaxone and doxycycline for CAP and oral bactrim for PCP coverage sinceher Cd4 is <200. pt. now states she feels much betetr and her cough and breathing is much improved. denies any fever or chills PMD: Dr. Kingsley, last visit 03/19/2017 (notified) -Methadone Clinic: [facility] [phone] (Dr. Campbell/Nurse [facility]) PMHx: HIV, HTN, COPD/Asthma, Vit D def, IDDM2 Meds: Losartan/HCTZ 100/12.5, Amlodpine 5mg, Tivicay 50mg, Truvada 200-300, Levemir, Methadone 110mg QD at 6am, Albuterol, Zofran 4mg PSurgHx: denies PHospHx: COPD exacerbation 09/2014, CAP 06/06/2016 ALL: NKDA FamilyHx: 1 daughter, alive, mother at 18 during delivery, father alive, 80 years, HTN, DM2, COPD, CAD SocialHx: reports quitting smoking 2 weeks ago, 1 PPD since age 15. Denies ETOH abuse, Denies Illicit drug abuse (former heroin abuse) -currently living with grandson in [place] Past Patient History - Infectious Disease Hx of Infectious Diseases: None - Tetanus Immunizations Tetanus Immunization: Unknown - Past Medical History & Family History Past Medical History?: Yes - Past Social History Smoking Status: Never Smoked - CARDIAC Hx Cardiac Disorders: Yes Hx Hypertension: Yes - PULMONARY Hx Respiratory Disorders: Yes Hx Asthma: Yes Hx Bronchitis: Yes Hx Chronic Obstructive Pulmonary Disease (COPD): Yes Hx Pneumonia: Yes - NEUROLOGICAL Hx Neurological Disorder: No Hx Seizures: No - HEENT Hx HEENT Problems: No - RENAL Hx Chronic Kidney Disease: No - ENDOCRINE/METABOLIC Hx Endocrine Disorders: Yes Hx Diabetes Mellitus Type 2: Yes - HEMATOLOGICAL/ONCOLOGICAL Hx Blood Disorders: Yes Hx AIDS: Yes Hx Human Immunodeficiency Virus (HIV): Yes - INTEGUMENTARY Hx Dermatological Problems: No - MUSCULOSKELETAL/RHEUMATOLOGICAL Hx Musculoskeletal Disorders: Yes Hx Arthritis: Yes Hx Falls: No - GASTROINTESTINAL Hx Gastrointestinal Disorders: Yes Hx Gastritis: Yes - GENITOURINARY/GYNECOLOGICAL Hx Genitourinary Disorders: No Hx Sexually Transmitted Disorders: No - PSYCHIATRIC Hx Psychophysiologic Disorder: Yes Hx Anxiety: Yes Hx Bipolar Disorder: Yes Hx Depression: Yes Hx Substance Use: No - SURGICAL HISTORY Hx Surgeries: No - ANESTHESIA Hx Anesthesia: No Meds Allergies/Adverse Reactions: Allergies Allergy/AdvReac Type Severity Reaction Status Date / Time No Known Allergies Allergy Verified 03/30/17 08:47 - Medications Medications: Current Medications Acetaminophen (Tylenol 325mg Tab) 650 mg PO Q6 PRN PRN Reason: Pain, Mild (1-3) Albuterol (Ventolin Hfa 90 Mcg/Actuation (8 G)) 1 puff INH BID PRN PRN Reason: Shortness of Breath Albuterol/Ipratropium (Duoneb 3 Mg/0.5 Mg (3 Ml) Ud) 3 ml INH RQID [facility] Last Admin: 04/04/17 11:37 Dose: 3 ml Amlodipine Besylate (Norvasc) 5 mg PO DAILY [facility] Last Admin: 04/04/17 08:55 Dose: 5 mg Azithromycin (Zithromax) 1,200 mg PO QWK@[facility] PRN Reason: Protocol Budesonide (Pulmicort Respules) 0.5 mg IH RBID [facility] Last Admin: 04/04/17 07:29 Dose: 0.5 mg Clonazepam (Klonopin) 1 mg PO TID PRN PRN Reason: Anxiety Last Admin: 04/04/17 12:17 Dose: 1 mg Emtricitabine/Tenofovir (Truvada 200 Mg-300 Mg) 1 tab PO DAILY [facility] Last Admin: 04/04/17 08:55 Dose: 1 tab Enoxaparin Sodium (Lovenox) 40 mg SC DAILY [facility] PRN Reason: Protocol Last Admin: 04/04/17 08:56 Dose: 40 mg Fluvoxamine Maleate (Luvox) 50 mg PO DAILY [facility] Last Admin: 04/04/17 08:55 Dose: 50 mg Home Med (Trivicey) 50 mg PO DAILY [facility] Last Admin: 04/04/17 08:56 Dose: 50 mg Hydrochlorothiazide (Microzide) 12.5 mg PO DAILY [facility] Last Admin: 04/04/17 08:56 Dose: 12.5 mg Ceftriaxone Sodium 1 gm/ (Sodium Chloride) 100 mls @ 100 mls/hr IVPB DAILY@ 1700 [facility] PRN Reason: Protocol Doxycycline Hyclate 100 mg/ (Sodium Chloride) 100 mls @ 100 mls/hr IVPB Q12@ 0500,1700 [facility] PRN Reason: Protocol Last Admin: 04/04/17 04:19 Dose: 100 mls/hr Lactobacillus Acidophilus (Bacid Acidophilus) 1 cap PO BID [facility] Last Admin: 04/04/17 08:54 Dose: 1 cap Losartan Potassium (Cozaar) 100 mg PO DAILY [facility] Last Admin: 04/04/17 08:55 Dose: 100 mg Magnesium Hydroxide (Milk Of Magnesia) 15 ml PO QID PRN PRN Reason: Constipation Methadone HCl (Methadone) 110 mg PO DAILY@0600 [facility] Last Admin: 04/04/17 06:14 Dose: 110 mg Methylprednisolone (Solu-Medrol) 40 mg IVP Q8 [facility] Last Admin: 04/04/17 08:56 Dose: 40 mg Mirtazapine (Remeron) 45 mg PO [facility] Polyethylene Glycol (Miralax) 17 gm PO BID [facility] Last Admin: 04/04/17 08:57 Dose: 17 gm Trimethoprim/Sulfamethoxazole (Bactrim Ds Tab) 1 tab PO DAILY [facility] PRN Reason: Protocol Last Admin: 04/04/17 08:55 Dose: 1 tab Physical Exam - Additional Findings Additional findings: - Constitutional Appears: No Acute Distress, Chronically Ill - Head Exam Head Exam: ATRAUMATIC - Eye Exam Eye Exam: EOMI, PERRL - ENT Exam ENT Exam: Normal Oropharynx - Neck Exam Neck exam: Positive for: Full Rom - Respiratory Exam Respiratory Exam: NORMAL BREATHING PATTERN Additional comments: better aeration b/l no wheezing - Cardiovascular Exam Cardiovascular Exam: RRR, +S1, +S2 - GI/Abdominal Exam GI & Abdominal Exam: Normal Bowel Sounds, Soft Additional comments: NT, ND - Extremities Exam Extremities exam: Positive for: normal inspection - Neurological Exam Neurological exam: Alert, Oriented x 3 Results - Vital Signs Recent Vital Signs: Last Vital Signs Temp 97.3 F L 04/04/17 07:51 Pulse 74 04/04/17 09:03 Resp 20 04/04/17 07:51 BP 139/85 04/04/17 08:55 Pulse Ox 94 L 04/04/17 09:03 - Labs Labs: Laboratory Results - last 24 hr 04/04/17 04/04/17 05:21 10:37 POC Glucose (mg/dL) 144 H 181 H Laboratory Results - last 72 hr 04/04/17 04/04/17 05:21 10:37 POC Glucose (mg/dL) 144 H 181 H Microbiology 04/03/17 06:30 Sputum Gram Stain - Final 03/30/17 10:00 Blood-Venous Blood Culture - Final 03/30/17 10:00 Blood-Venous Gram Stain - Final NO GROWTH AFTER 5 DAYS TEST NOT PERFORMED 03/30/17 09:30 Urine,Random Urine Culture - Final <10,000CFU/ML 03/30/17 09:30 Blood-Venous Blood Culture - Final 03/30/17 09:30 Blood-Venous Gram Stain - Final NO GROWTH AFTER 5 DAYS TEST NOT PERFORMED 04/03/17 11:50 Blood Blood Culture - Preliminary 04/03/17 11:50 Blood NO GROWTH AFTER 24 HOURS Accession No. : [id number] Patient Name / ID : BRIDGETTE TAY / [id number] Exam Date : 04/02/2017 12:44:22 ( Approved ) Study Comment : Sex / Age : F / 66Y Creator : Chance Oh MD Dictator : Chance Oh MD Copier Operator : Delivery Representative : Chance Oh MD Approver2 : Report Date : 04/02/2017 13:22:29 My Comment : PROCEDURE: CT Chest without contrast HISTORY: COPD COMPARISON: 06/08/2016 TECHNIQUE: Contiguous axial images were obtained through the chest without intravenous contrast enhancement. Sagittal and coronal reconstructions were performed. Radiation dose (DLP): 284.11 mGy-cm. This CT exam was performed using one or more of the following dose reduction techniques: Automated exposure control, adjustment of the mA and/or kV according to patient size, and/or use of iterative reconstruction technique. FINDINGS: LUNGS: There is a small focal opacity in the apical posterior segment of the left upper lobe on series 3, image 21. This is improved substantially in size and opacity when compared to the prior examination of 06/08/2016. There is patchy opacity in the medial lower lobe bilaterally adjacent to the aorta and thoracic spine, markedly improved when compared to prior examination. There is no other pulmonary opacity identified. There is no pulmonary mass. MEDIASTINUM: Unremarkable thoracic aorta. No aneurysm. Normal sized heart. Main pulmonary artery unremarkable. No vascular congestion. No lymphadenopathy. PLEURA: No pleural fluid. No pneumothorax. BONES: No fracture. No destructive lesion. UPPER ABDOMEN: The spleen is prominent and may be enlarged although it is only partially included in this examination. OTHER FINDINGS: None. IMPRESSION: Marked improvement in small focal opacity in the apical posterior segment of the left upper lobe. Minimal residual opacity in the medial lower lobe bilaterally, markedly improved. Numerous ill-defined opacities seen bilaterally on prior examination have resolved. Questionable splenomegaly. No other significant abnormality. Assessment & Plan - Assessment and Plan (Free Text) Assessment: A/P- 66 year old female with HIV/AIDS ( based on her cd4 of <50) admitted with cough , sob and copd exacerbation and now transferred to TCU for PT and completion of her antibiotics. clinically much improved. afebrile advise to continue with IV ceftraxone and doxycyline as was already initiated by the primary team. day #4 would advise to yolanda of 7 days of IV abx. advise to also start pt. on MAC prophylaxis with zithromax 1200 mg once a week. continue her current HAART meds. continue with oral bactrim for PCP since her cd4 was <200.day #4. would advise total of 1 days of bactrim and after that to be on bactrim 3 times a week until cd4 is >200 as outpatient. monitor wbc while on bactrim. Thank you for allowing me to take part in the care of this patient.
--- NOTE | 2017-04-04 13:22 | CP.PCM.PN ---
Subjective - Date & Time of Evaluation Date of Evaluation: 04/04/17 Time of Evaluation: 13:08 - Subjective Subjective: Pt still has back pain, but the bone marrow did not show any increase in plasma cells. . The flow cytometry confirmed the lack of increased plasma cell as well. Pt seems to hsve a MUGUS. No treatment needed Objective - Vital Signs/Intake and Output Vital Signs (last 24 hours): Temp Pulse Resp BP Pulse Ox 97.3 F L 74 20 139/85 94 L 04/04/17 07:51 04/04/17 09:03 04/04/17 07:51 04/04/17 08:55 04/04/17 09:03 - Medications Medications: Current Medications Acetaminophen (Tylenol 325mg Tab) 650 mg PO Q6 PRN PRN Reason: Pain, Mild (1-3) Albuterol (Ventolin Hfa 90 Mcg/Actuation (8 G)) 1 puff INH BID PRN PRN Reason: Shortness of Breath Albuterol/Ipratropium (Duoneb 3 Mg/0.5 Mg (3 Ml) Ud) 3 ml INH RQID [facility] Last Admin: 04/04/17 11:37 Dose: 3 ml Amlodipine Besylate (Norvasc) 5 mg PO DAILY [facility] Last Admin: 04/04/17 08:55 Dose: 5 mg Azithromycin (Zithromax) 1,200 mg PO QWK@[facility] PRN Reason: Protocol Budesonide (Pulmicort Respules) 0.5 mg IH RBID [facility] Last Admin: 04/04/17 07:29 Dose: 0.5 mg Clonazepam (Klonopin) 1 mg PO TID PRN PRN Reason: Anxiety Last Admin: 04/04/17 12:17 Dose: 1 mg Emtricitabine/Tenofovir (Truvada 200 Mg-300 Mg) 1 tab PO DAILY [facility] Last Admin: 04/04/17 08:55 Dose: 1 tab Enoxaparin Sodium (Lovenox) 40 mg SC DAILY [facility] PRN Reason: Protocol Last Admin: 04/04/17 08:56 Dose: 40 mg Fluvoxamine Maleate (Luvox) 50 mg PO DAILY [facility] Last Admin: 04/04/17 08:55 Dose: 50 mg Home Med (Trivicey) 50 mg PO DAILY [facility] Last Admin: 04/04/17 08:56 Dose: 50 mg Hydrochlorothiazide (Microzide) 12.5 mg PO DAILY [facility] Last Admin: 04/04/17 08:56 Dose: 12.5 mg Ceftriaxone Sodium 1 gm/ (Sodium Chloride) 100 mls @ 100 mls/hr IVPB DAILY@ 1700 [facility] PRN Reason: Protocol Doxycycline Hyclate 100 mg/ (Sodium Chloride) 100 mls @ 100 mls/hr IVPB Q12@ 0500,1700 [facility] PRN Reason: Protocol Last Admin: 04/04/17 04:19 Dose: 100 mls/hr Lactobacillus Acidophilus (Bacid Acidophilus) 1 cap PO BID [facility] Last Admin: 04/04/17 08:54 Dose: 1 cap Losartan Potassium (Cozaar) 100 mg PO DAILY [facility] Last Admin: 04/04/17 08:55 Dose: 100 mg Magnesium Hydroxide (Milk Of Magnesia) 15 ml PO QID PRN PRN Reason: Constipation Methadone HCl (Methadone) 110 mg PO DAILY@0600 [facility] Last Admin: 04/04/17 06:14 Dose: 110 mg Methylprednisolone (Solu-Medrol) 40 mg IVP Q8 [facility] Last Admin: 04/04/17 08:56 Dose: 40 mg Mirtazapine (Remeron) 45 mg PO HS [facility] Polyethylene Glycol (Miralax) 17 gm PO BID [facility] Last Admin: 04/04/17 08:57 Dose: 17 gm Trimethoprim/Sulfamethoxazole (Bactrim Ds Tab) 1 tab PO DAILY [facility] PRN Reason: Protocol Last Admin: 04/04/17 08:55 Dose: 1 tab
--- NOTE | 2017-04-04 14:51 | CP.PCM.HP ---
History of Present Illness - History of Present Illness History of Present Illness: 66 y/o female with a PMHx remarkable for HIV, IDDM2, HTN, COPD/Asthma, Vit D def and on methadone was admitted on 03/30/2017 due to COPD exacerbation. Pt reports she has a viral URI about two weeks ago when she started to cough, associated with fever, myalgias, fatigue, SOB, and greenish sputum production, about 1 cup per day and chest pain when coughing. Denies sick contacts. Today reports feeling tired and weak, continue with productive cough, greenish sputum w/o blood, also states constipation with last BM 3 days ago, no other complaints. Denies fever, headaches, lightheadedness/dizziness, palpitations, sob, hemoptysis, N/V/D, urinary symptoms. ROS: as per HPI PMD: Dr. Kingsley, last visit 03/19/2017 (notified) -Methadone Clinic: [facility] [phone] (Dr. Campbell/Nurse [facility]) PMHx: HIV, HTN, COPD/Asthma, Vit D def, IDDM2 Meds: Losartan/HCTZ 100/12.5, Amlodpine 5mg, Tivicay 50mg, Truvada 200-300, Levemir, Methadone 110mg QD at 6am, Albuterol, Zofran 4mg PSurgHx: none PHospHx: COPD exacerbation 09/2014, CAP 06/06/2016 Allergies: NKDA FamilyHx: mother at 18 during delivery, father alive, 80 years, HTN, DM2, COPD, CAD SocialHx: smoker, quitting 2 weeks ago. Denies ETOH abuse, Denies Illicit drug abuse (former heroin abuse) -currently living with grandson in [place], next of Kin: Cristina (daughter), pt is a full code. Present on Admission - Present on Admission Any Indicators Present on Admission: No Past Patient History - Tetanus Immunizations Tetanus Immunization: Unknown - Past Medical History & Family History Past Medical History?: Yes Meds Allergies/Adverse Reactions: Allergies Allergy/AdvReac Type Severity Reaction Status Date / Time No Known Allergies Allergy Verified 03/30/17 08:47 Physical Exam - Constitutional Appears: No Acute Distress - Head Exam Head Exam: NORMAL INSPECTION - Eye Exam Eye Exam: EOMI, PERRL - Neck Exam Neck exam: Positive for: Normal Inspection - Respiratory Exam Respiratory Exam: Decreased Breath Sounds. absent: Accessory Muscle Use, Chest Wall Tenderness Additional comments: b/l wheezes from lungs bases to apex, b/l rhonchi - Cardiovascular Exam Cardiovascular Exam: REGULAR RHYTHM, +S1, +S2. absent: Systolic Murmur - GI/Abdominal Exam GI & Abdominal Exam: Normal Bowel Sounds, Soft. absent: Distended, Organomegaly , Tenderness - Neurological Exam Neurological exam: Alert, CN II-XII Intact, Oriented x3 - Psychiatric Exam Psychiatric exam: Normal Mood - Skin Skin Exam: Dry, Intact, Warm Results - Vital Signs Recent Vital Signs: Last Vital Signs Temp 97.3 F L 04/04/17 10:00 Pulse 60 04/04/17 14:21 Resp 20 04/04/17 10:00 BP 139/85 04/04/17 14:21 Pulse Ox 94 L 04/04/17 14:21 - Labs Labs: Laboratory Results - last 24 hr 04/04/17 04/04/17 05:21 10:37 POC Glucose (mg/dL) 144 H 181 H Assessment & Plan - Assessment and Plan (Free Text) Assessment: Assessment: 66 y/o female with a PMHx remarkable for HTN, AIDS, IDDM2, COPD/Asthma, Vit D def admitted for COPD Exacerbation. Abx day 4. Plan: 1) COPD Exacerbation - Ceftriaxone (1gm QD) + Doxycycline 100mg Q12H (Abx day 3) -DUO-Nebs RQID -Prednisone 60mg QD -O2 via NC -Sputum x1 collected: pending -repeat Blood culture: no growth -Chest CT: small focal opacities in the apical posterior segment of the left lower lobe. Minimal residual opacity in the medial lower lobe, bilaterally markedly improved. Numerous ill defined opacities seen b/l on prior examination have resolved. Questionable splenomegaly. -Pulmonology Dr Mondragon on board, recommends c/w abx, duoneb and Solumedrol. f/u blood cx and sputum cx. -PT evaluation/treatment: home w/ services 2) AIDS -CD4 on 04/01/17: 46 -c/w PCP ppx Bactrim QD -Azithromycin 1200mg PO Qweekly for MAC ppx -c/w Truvada and re-start Trivicey when received from pt -Infectious Disease consult appreciated: recommends CAP coverage, continuing with prophylactic antibiotics as CD4<50, sputum cultures/blood cultures x2, c/w HAART therapy. 3) Thrombocytopenia (chronic) -currently at baseline -questionable splenomegaly on Chest CT -monitor with CBCs 4) Elevated total protein/abnormal SPEP -platelets 116 -elevated total protein/abnormal SPEP -multiple myeloma work up by supervisor inspecting: Bone marrow biopsy did not show increase in plasma cell, flow cytometry confirmed the lack of increased plasma cell. Pt seems to hsve a MUGUS. No treatment needed. 5) Essential Hypertension -controlled -c/w home medications (Losartan/HCTZ and Amlodipine) 6) IDDM2 -controlled -HbA1C 5.6 (02/26/2017) -[facility] -monitor BS -insulin coverage scale 7) Depression -c/w home medications 8) Methadone User -Methadone Clinic: [facility] [phone] (Dr. Campbell/Nurse [facility]) -110mg QD @ 6:00am daily (confirmed dosage with clinic) 9) Diet -Diabetic heart healthy 10) Constipation -no BM movement in 3 days -Colace 100mg BID -Miralax solution BID -increase PO fluid intake 11) Prophylaxis -Chronic Thrombocytopenia (will monitor platelets) -start Lovenox 40mg daily -Probiotics started given pt currently on multiple antibiotics
[2017-04-05] MEDS: MethylPREDNISolone 40 mg Vial IVP SCH ×3 (01:36→16:44)
[2017-04-05] MEDS: Lactobacillus Acidophilus 500 MU Cap PO SCH ×2 (08:30→16:42)
[2017-04-05] MEDS: Enoxaparin 40 mg Syringe SC SCH (08:31)
[2017-04-05] MEDS: TIVICAY 50 MG PO SCH (08:31)
[2017-04-05] MEDS: Tmp-Smz 800 mg-160 mg DS Tab PO SCH (08:32)
[2017-04-05] MEDS: Emtricitabine-Tenofovir 200 mg-300 mg Tab PO SCH (08:32)
[2017-04-05] MEDS: POLYETHYLENE GLYCOL 3350 17 GM/Dose PACKET PO SCH ×3 (08:35→16:46)
[2017-04-05] MEDS: Albuterol-Ipratrop 3 mg / 0.5 (3 ml) UD INH SCH ×4 (09:04→19:50)
[2017-04-05] MEDS: Budesonide 0.5 mg/2 ml Inhal Susp UD IH SCH ×2 (11:03→19:50)
--- NOTE | 2017-04-05 13:11 | CP.PCM.PN ---
Subjective - Date & Time of Evaluation Date of Evaluation: 04/05/17 Time of Evaluation: 09:30 - Subjective Subjective: F/U COPD Exacerbation. Pt breathing better, cough with yellowish phlegms, less chest congestion. Objective - Vital Signs/Intake and Output Vital Signs (last 24 hours): Temp Pulse Resp BP Pulse Ox 97.9 F 60 20 129/73 92 L 04/05/17 07:42 04/05/17 08:35 04/05/17 07:42 04/05/17 08:35 04/05/17 07:42 - Medications Medications: Current Medications Acetaminophen (Tylenol 325mg Tab) 650 mg PO Q6 PRN PRN Reason: Pain, Mild (1-3) Albuterol (Ventolin Hfa 90 Mcg/Actuation (8 G)) 1 puff INH BID PRN PRN Reason: Shortness of Breath Albuterol/Ipratropium (Duoneb 3 Mg/0.5 Mg (3 Ml) Ud) 3 ml INH RQID [facility] Last Admin: 04/05/17 11:03 Dose: 3 ml Amlodipine Besylate (Norvasc) 5 mg PO DAILY [facility] Last Admin: 04/05/17 08:35 Dose: 5 mg Azithromycin (Zithromax) 1,200 mg PO QWK@[facility] PRN Reason: Protocol Budesonide (Pulmicort Respules) 0.5 mg IH RBID [facility] Last Admin: 04/05/17 11:03 Dose: 0.5 mg Clonazepam (Klonopin) 1 mg PO TID PRN PRN Reason: Anxiety Last Admin: 04/05/17 12:26 Dose: 1 mg Emtricitabine/Tenofovir (Truvada 200 Mg-300 Mg) 1 tab PO DAILY [facility] Last Admin: 04/05/17 08:32 Dose: 1 tab Enoxaparin Sodium (Lovenox) 40 mg SC DAILY [facility] PRN Reason: Protocol Last Admin: 04/05/17 08:31 Dose: 40 mg Fluvoxamine Maleate (Luvox) 50 mg PO DAILY [facility] Last Admin: 04/05/17 08:32 Dose: 50 mg Home Med (Trivicey) 50 mg PO DAILY [facility] Last Admin: 04/05/17 08:31 Dose: 50 mg Hydrochlorothiazide (Microzide) 12.5 mg PO DAILY [facility] Last Admin: 04/05/17 08:33 Dose: 12.5 mg Doxycycline Hyclate 100 mg/ (Sodium Chloride) 100 mls @ 100 mls/hr IVPB Q12@ 0500,1700 [facility] PRN Reason: Protocol Last Admin: 04/05/17 04:55 Dose: 100 mls/hr Ceftriaxone Sodium (Rocephin Iv 1 Gm Duplex) 50 mls @ 50 mls/hr IVPB DAILY@ 1700 [facility] PRN Reason: Protocol Lactobacillus Acidophilus (Bacid Acidophilus) 1 cap PO BID [facility] Last Admin: 04/05/17 08:30 Dose: 1 cap Lactulose (Enulose) 20 gm PO DAILY PRN PRN Reason: Constipation Last Admin: 04/04/17 20:54 Dose: 20 gm Losartan Potassium (Cozaar) 100 mg PO DAILY [facility] Last Admin: 04/05/17 08:32 Dose: 100 mg Magnesium Hydroxide (Milk Of Magnesia) 15 ml PO QID PRN PRN Reason: Constipation Methadone HCl (Methadone) 110 mg PO DAILY@0600 [facility] Last Admin: 04/05/17 06:15 Dose: 110 mg Methylprednisolone (Solu-Medrol) 40 mg IVP Q8 [facility] Last Admin: 04/05/17 08:31 Dose: 40 mg Mirtazapine (Remeron) 45 mg PO HS [facility] Last Admin: 04/04/17 21:08 Dose: 45 mg Polyethylene Glycol (Miralax) 17 gm PO BID [facility] Last Admin: 04/05/17 08:35 Dose: Not Given Trimethoprim/Sulfamethoxazole (Bactrim Ds Tab) 1 tab PO DAILY [facility] PRN Reason: Protocol Last Admin: 04/05/17 08:32 Dose: 1 tab - Constitutional Appears: No Acute Distress - Head Exam Head Exam: NORMAL INSPECTION - Eye Exam Eye Exam: PERRL - ENT Exam ENT Exam: Normal Exam - Neck Exam Neck Exam: Normal Inspection - Respiratory Exam Respiratory Exam: Decreased Breath Sounds, Rhonchi (scattered) - Cardiovascular Exam Cardiovascular Exam: REGULAR RHYTHM - GI/Abdominal Exam GI & Abdominal Exam: Soft, Normal Bowel Sounds - Extremities Exam Extremities Exam: Normal Inspection - Back Exam Back Exam: NORMAL INSPECTION - Neurological Exam Neurological Exam: Alert, Oriented x3 - Psychiatric Exam Psychiatric exam: Anxious - Skin Skin Exam: Normal Color, Warm Assessment and Plan (1) COPD exacerbation Status: Acute (2) AIDS Status: Chronic - Assessment and Plan (Free Text) Plan: Continue Bactrim , Doxycicline, Duoneb, Pulmicort and rest of Tx. begins taper Steroid in AM
[2017-04-05] MEDS ORDERED: cefTRIAXone IV 1 gm in Dextros 50 ML IVPB SCH (17:00)
[2017-04-06] MEDS: MethylPREDNISolone 40 mg Vial IVP SCH ×3 (00:04→21:40)
[2017-04-06 06:11] LABS: BASO % 0.1 % (0.0-2.0); HEMATOCRIT 37.4 % (34.0-47.0); LYMPH # 0.5 K/uL (1.0-4.3); LYMPH % 13.6 % (20.0-40.0); MEAN CELL VOLUME 100.8 fl (81.0-99.0); MEAN CORPUSCULAR HEMOGLOBIN 33.6 pg (27.0-31.0); MEAN CORPUSCULAR HGB CONC 33.3 g/dL (33.0-37.0); MEAN PLATELET VOLUME 8.9 fl (7.2-11.7); MONO # 0.3 K/uL (0.0-0.8); MONO % 9.1 % (0.0-10.0); NEUT # 2.6 K/uL (1.8-7.0); NEUT % 77.2 % (50.0-75.0); NRBC % 0.1 % (0.0-0.0); RED CELL DISTRIBUTION WIDTH 13.6 % (11.5-14.5); WHITE BLOOD COUNT 3.4 K/uL (4.8-10.8)
[2017-04-06 06:16] LABS: BLOOD UREA NITROGEN 28 mg/dl (7-17); CALCIUM 8.6 mg/dL (8.4-10.2); CARBON DIOXIDE 30 mmol/L (22-30); CHLORIDE 102 mmol/L (98-107); GFR AFRICAN-AMERICAN > 60; GLUCOSE,RANDOM 191 mg/dL (65-105); POTASSIUM 4.4 MMOL/L (3.6-5.0); SODIUM 140 mmol/l (132-148)
[2017-04-06] MEDS: Budesonide 0.5 mg/2 ml Inhal Susp UD IH SCH ×2 (07:18→19:03)
[2017-04-06] MEDS: Albuterol-Ipratrop 3 mg / 0.5 (3 ml) UD INH SCH ×5 (07:18→19:03)
--- NOTE | 2017-04-06 07:56 | CP.PCM.PN ---
Subjective - Date & Time of Evaluation Date of Evaluation: 04/06/17 Time of Evaluation: 07:42 - Subjective Subjective: Patient seen and examined this morning at bed side, reports feeling better, no overnight acute events, states still has episodes of sob when exercise but is able to do the physical therapy. Also continue with productive cough and green sputum but reports that is less amount compared with previous days. She had multiples normal BM on Sunday night. Denies fever, nausea, vomiting, chills, hemoptysis, dizziness, chest pain or palpitations. No urinary symptoms. Objective - Vital Signs/Intake and Output Vital Signs (last 24 hours): Temp Pulse Resp BP Pulse Ox 97.7 F 67 20 120/81 93 L 04/05/17 21:31 04/05/17 21:31 04/05/17 21:31 04/05/17 21:31 04/05/17 21:31 - Medications Medications: Current Medications Acetaminophen (Tylenol 325mg Tab) 650 mg PO Q6 PRN PRN Reason: Pain, Mild (1-3) Albuterol (Ventolin Hfa 90 Mcg/Actuation (8 G)) 1 puff INH BID PRN PRN Reason: Shortness of Breath Albuterol/Ipratropium (Duoneb 3 Mg/0.5 Mg (3 Ml) Ud) 3 ml INH RQID [facility] Last Admin: 04/06/17 07:18 Dose: 3 ml Amlodipine Besylate (Norvasc) 5 mg PO DAILY [facility] Last Admin: 04/05/17 08:35 Dose: 5 mg Azithromycin (Zithromax) 1,200 mg PO QWK@[facility] PRN Reason: Protocol Budesonide (Pulmicort Respules) 0.5 mg IH RBID [facility] Last Admin: 04/06/17 07:18 Dose: 0.5 mg Clonazepam (Klonopin) 1 mg PO TID PRN PRN Reason: Anxiety Last Admin: 04/06/17 02:20 Dose: 1 mg Emtricitabine/Tenofovir (Truvada 200 Mg-300 Mg) 1 tab PO DAILY [facility] Last Admin: 04/05/17 08:32 Dose: 1 tab Enoxaparin Sodium (Lovenox) 40 mg SC DAILY [facility] PRN Reason: Protocol Last Admin: 04/05/17 08:31 Dose: 40 mg Fluvoxamine Maleate (Luvox) 50 mg PO DAILY [facility] Last Admin: 04/05/17 08:32 Dose: 50 mg Home Med (Trivicey) 50 mg PO DAILY [facility] Last Admin: 04/05/17 08:31 Dose: 50 mg Hydrochlorothiazide (Microzide) 12.5 mg PO DAILY [facility] Last Admin: 04/05/17 08:33 Dose: 12.5 mg Doxycycline Hyclate 100 mg/ (Sodium Chloride) 100 mls @ 100 mls/hr IVPB Q12@ 0500,1700 [facility] PRN Reason: Protocol Last Admin: 04/06/17 04:23 Dose: 100 mls/hr Ceftriaxone Sodium (Rocephin Iv 1 Gm Duplex) 50 mls @ 50 mls/hr IVPB DAILY@ 1700 [facility] PRN Reason: Protocol Last Admin: 04/05/17 16:43 Dose: 50 mls/hr Lactobacillus Acidophilus (Bacid Acidophilus) 1 cap PO BID [facility] Last Admin: 04/05/17 16:42 Dose: 1 cap Lactulose (Enulose) 20 gm PO DAILY PRN PRN Reason: Constipation Last Admin: 04/04/17 20:54 Dose: 20 gm Losartan Potassium (Cozaar) 100 mg PO DAILY [facility] Last Admin: 04/05/17 08:32 Dose: 100 mg Magnesium Hydroxide (Milk Of Magnesia) 15 ml PO QID PRN PRN Reason: Constipation Methadone HCl (Methadone) 110 mg PO DAILY@0600 [facility] Last Admin: 04/06/17 05:59 Dose: 110 mg Methylprednisolone (Solu-Medrol) 40 mg IVP Q8 [facility] Last Admin: 04/06/17 00:04 Dose: 40 mg Mirtazapine (Remeron) 45 mg PO HS [facility] Last Admin: 04/05/17 21:06 Dose: 45 mg Ondansetron HCl (Zofran Tab) 4 mg PO Q6 PRN PRN Reason: Nausea/Vomiting Last Admin: 04/05/17 16:36 Dose: 4 mg Polyethylene Glycol (Miralax) 17 gm PO BID [facility] Last Admin: 04/05/17 16:46 Dose: 17 gm Trimethoprim/Sulfamethoxazole (Bactrim Ds Tab) 1 tab PO DAILY [facility] PRN Reason: Protocol Last Admin: 04/05/17 08:32 Dose: 1 tab - Labs Labs: 04/06/17 05:50 04/06/17 05:50 - Constitutional Appears: Well, No Acute Distress - Head Exam Head Exam: NORMAL INSPECTION - Respiratory Exam Additional comments: Decreased breath sounds b/l at lung bases, expiratory wheezes b/l from bases to mid david, scattered rhonchi b/l. - Cardiovascular Exam Cardiovascular Exam: REGULAR RHYTHM, +S1, +S2 - Neurological Exam Neurological Exam: Alert, CN II-XII Intact, Oriented x3 - Skin Skin Exam: Dry, Intact, Warm Assessment and Plan - Assessment and Plan (Free Text) Assessment: 66 y/o female with a PMHx remarkable for HTN, AIDS, IDDM2, COPD/Asthma, Vit D def admitted for COPD Exacerbation. Abx day 6. Plan: 1) COPD Exacerbation - Ceftriaxone (1gm QD) + Doxycycline 100mg Q12H (Abx day 6) -DUO-Nebs RQID -Methylprednisone 40 mg IV BID -O2 via NC -Sputum x1 collected: pending -Pulmonology Dr Mondragon on board, recommends c/w abx, duoneb and Solumedrol. Taper steroid in AM f/u blood cx and sputum cx. -PT evaluation/treatment: home w/ services 2) AIDS -CD4 on 04/01/17: 46 -c/w PCP ppx Bactrim QD -c/w Azithromycin 1200mg PO Qweekly for MAC ppx -c/w Truvada -ID consult appreciated: continuing with prophylactic antibiotics as CD4<50, sputum cultures/blood cultures x2, c/w HAART therapy. 3) Thrombocytopenia (chronic) -currently at baseline - Plt today: 117 -questionable splenomegaly on Chest CT -monitor with CBCs 4) Elevated total protein/abnormal SPEP -elevated total protein/abnormal SPEP -multiple myeloma work up by retail sales merchandiser Dr Julio Kumar: Bone marrow biopsy did not show increase in plasma cell, flow cytometry confirmed the lack of increased plasma cell. Pt seems to have a MUGUS. No treatment needed. 5) Essential Hypertension -controlled -c/w home medications (Losartan/HCTZ and Amlodipine) 6) IDDM2 -controlled -HbA1C 5.6 (02/26/2017) -[facility] -monitor BS -insulin coverage scale 7) Depression -c/w home medications 8) Methadone User -Methadone Clinic: [facility] [phone] (Dr. Campbell/Nurse Mica) -110mg QD @ 6:00am daily (confirmed dosage with clinic) 9) Diet -Diabetic heart healthy 10) Constipation, improving -Multiple normal BM 1 day ago -c/w Colace 100mg BID -Miralax solution BID -increase PO fluid intake 11) Prophylaxis -Lovenox 40mg daily -Probiotics (pt currently on multiple antibiotics)
[2017-04-06] MEDS: Lactobacillus Acidophilus 500 MU Cap PO SCH ×2 (08:43→16:41)
[2017-04-06] MEDS: Enoxaparin 40 mg Syringe SC SCH (08:43)
[2017-04-06] MEDS: POLYETHYLENE GLYCOL 3350 17 GM/Dose PACKET PO SCH ×2 (08:44→16:39)
[2017-04-06] MEDS: TIVICAY 50 MG PO SCH (08:45)
[2017-04-06] MEDS: Emtricitabine-Tenofovir 200 mg-300 mg Tab PO SCH (08:45)
[2017-04-06] MEDS: Tmp-Smz 800 mg-160 mg DS Tab PO SCH (08:46)
--- NOTE | 2017-04-06 14:01 | CP.PCM.PN ---
Subjective - Date & Time of Evaluation Date of Evaluation: 04/06/17 Time of Evaluation: 13:00 - Subjective Subjective: F/U COPD Exacerbation. Pt breathing better, cough with scanty amount of yellowish phlegms improved, less chest congestion. Objective - Vital Signs/Intake and Output Vital Signs (last 24 hours): Temp Pulse Resp BP Pulse Ox 98.1 F 60 18 137/75 98 04/06/17 07:48 04/06/17 08:45 04/06/17 07:48 04/06/17 08:45 04/06/17 07:48 - Medications Medications: Current Medications Acetaminophen (Tylenol 325mg Tab) 650 mg PO Q6 PRN PRN Reason: Pain, Mild (1-3) Albuterol (Ventolin Hfa 90 Mcg/Actuation (8 G)) 1 puff INH BID PRN PRN Reason: Shortness of Breath Albuterol/Ipratropium (Duoneb 3 Mg/0.5 Mg (3 Ml) Ud) 3 ml INH RQID [facility] Last Admin: 04/06/17 12:57 Dose: 3 ml Amlodipine Besylate (Norvasc) 5 mg PO DAILY [facility] Last Admin: 04/06/17 08:44 Dose: 5 mg Azithromycin (Zithromax) 1,200 mg PO QWK@[facility] PRN Reason: Protocol Budesonide (Pulmicort Respules) 0.5 mg IH RBID [facility] Last Admin: 04/06/17 07:18 Dose: 0.5 mg Clonazepam (Klonopin) 1 mg PO TID PRN PRN Reason: Anxiety Last Admin: 04/06/17 02:20 Dose: 1 mg Emtricitabine/Tenofovir (Truvada 200 Mg-300 Mg) 1 tab PO DAILY [facility] Last Admin: 04/06/17 08:45 Dose: 1 tab Enoxaparin Sodium (Lovenox) 40 mg SC DAILY [facility] PRN Reason: Protocol Last Admin: 04/06/17 08:43 Dose: 40 mg Fluvoxamine Maleate (Luvox) 50 mg PO DAILY [facility] Last Admin: 04/06/17 08:44 Dose: 50 mg Home Med (Trivicey) 50 mg PO DAILY [facility] Last Admin: 04/06/17 08:45 Dose: 50 mg Hydrochlorothiazide (Microzide) 12.5 mg PO DAILY [facility] Last Admin: 04/06/17 08:45 Dose: 12.5 mg Doxycycline Hyclate 100 mg/ (Sodium Chloride) 100 mls @ 100 mls/hr IVPB Q12@ 0500,1700 [facility] PRN Reason: Protocol Last Admin: 04/06/17 04:23 Dose: 100 mls/hr Ceftriaxone Sodium 1 gm/ (Sodium Chloride) 100 mls @ 100 mls/hr IVPB DAILY@ 1700 [facility] PRN Reason: Protocol Lactobacillus Acidophilus (Bacid Acidophilus) 1 cap PO BID [facility] Last Admin: 04/06/17 08:43 Dose: 1 cap Lactulose (Enulose) 20 gm PO DAILY PRN PRN Reason: Constipation Last Admin: 04/04/17 20:54 Dose: 20 gm Losartan Potassium (Cozaar) 100 mg PO DAILY [facility] Last Admin: 04/06/17 08:45 Dose: 100 mg Magnesium Hydroxide (Milk Of Magnesia) 15 ml PO QID PRN PRN Reason: Constipation Methadone HCl (Methadone) 110 mg PO DAILY@0600 [facility] Last Admin: 04/06/17 05:59 Dose: 110 mg Methylprednisolone (Solu-Medrol) 40 mg IVP Q12 [facility] Mirtazapine (Remeron) 45 mg PO HS [facility] Last Admin: 04/05/17 21:06 Dose: 45 mg Ondansetron HCl (Zofran Tab) 4 mg PO Q6 PRN PRN Reason: Nausea/Vomiting Last Admin: 04/06/17 08:44 Dose: 4 mg Polyethylene Glycol (Miralax) 17 gm PO BID [facility] Last Admin: 04/06/17 08:44 Dose: 17 gm Trimethoprim/Sulfamethoxazole (Bactrim Ds Tab) 1 tab PO DAILY [facility] PRN Reason: Protocol Last Admin: 04/06/17 08:46 Dose: 1 tab - Labs Labs: 04/06/17 05:50 04/06/17 05:50 - Constitutional Appears: No Acute Distress - Head Exam Head Exam: NORMAL INSPECTION - Eye Exam Eye Exam: PERRL - ENT Exam ENT Exam: Normal Exam - Neck Exam Neck Exam: Normal Inspection - Respiratory Exam Respiratory Exam: Decreased Breath Sounds (at bases), Rhonchi (b/l) - Cardiovascular Exam Cardiovascular Exam: REGULAR RHYTHM - GI/Abdominal Exam GI & Abdominal Exam: Soft, Normal Bowel Sounds - Extremities Exam Extremities Exam: Normal Inspection - Back Exam Back Exam: NORMAL INSPECTION - Neurological Exam Neurological Exam: Alert, Oriented x3 - Psychiatric Exam Psychiatric exam: Anxious - Skin Skin Exam: Normal Color, Warm Assessment and Plan (1) COPD exacerbation Status: Acute (2) AIDS Status: Chronic - Assessment and Plan (Free Text) Plan: Taper steroids, continue rest of Tx.
[2017-04-06 16:00] VITALS: RESP 20
[2017-04-06] MEDS ORDERED: methylPREDNISolone 40 MG in Sodium Chloride 0.9% 50 ML IVPB SCH (21:00)
[2017-04-07] MEDS: Albuterol-Ipratrop 3 mg / 0.5 (3 ml) UD INH SCH ×4 (07:05→19:07)
[2017-04-07] MEDS: Budesonide 0.5 mg/2 ml Inhal Susp UD IH SCH ×2 (07:05→19:12)
[2017-04-07] MEDS: Lactobacillus Acidophilus 500 MU Cap PO SCH ×2 (08:47→16:15)
[2017-04-07] MEDS: Enoxaparin 40 mg Syringe SC SCH (08:47)
[2017-04-07] MEDS: TIVICAY 50 MG PO SCH (08:49)
[2017-04-07] MEDS: MethylPREDNISolone 40 mg Vial IVP SCH ×2 (08:49→21:13)
[2017-04-07] MEDS: POLYETHYLENE GLYCOL 3350 17 GM/Dose PACKET PO SCH ×2 (08:50→16:15)
[2017-04-07] MEDS: Emtricitabine-Tenofovir 200 mg-300 mg Tab PO SCH (08:51)
[2017-04-07] MEDS: Tmp-Smz 800 mg-160 mg DS Tab PO SCH (08:58)
--- NOTE | 2017-04-07 17:05 | CP.PCM.PN ---
Subjective - Date & Time of Evaluation Date of Evaluation: 04/07/17 Time of Evaluation: 13:30 - Subjective Subjective: F/U COPD Exacerbation. Pt with cough, paroxysmal at times, bringing up at times yellowish phlegms, no SOB, no CHAPA, able to ambulate in the [place] with PT, on room air Objective - Vital Signs/Intake and Output Vital Signs (last 24 hours): Temp Pulse Resp BP Pulse Ox 98.6 F 84 20 125/84 95 04/07/17 16:52 04/07/17 16:52 04/07/17 16:52 04/07/17 16:52 04/07/17 16:52 - Medications Medications: Current Medications Acetaminophen (Tylenol 325mg Tab) 650 mg PO Q6 PRN PRN Reason: Pain, Mild (1-3) Last Admin: 04/07/17 03:29 Dose: 650 mg Albuterol (Ventolin Hfa 90 Mcg/Actuation (8 G)) 1 puff INH BID PRN PRN Reason: Shortness of Breath Albuterol/Ipratropium (Duoneb 3 Mg/0.5 Mg (3 Ml) Ud) 3 ml INH RQID [facility] Last Admin: 04/07/17 15:28 Dose: 3 ml Amlodipine Besylate (Norvasc) 5 mg PO DAILY [facility] Last Admin: 04/07/17 08:49 Dose: 5 mg Azithromycin (Zithromax) 1,200 mg PO QWK@[facility] PRN Reason: Protocol Budesonide (Pulmicort Respules) 0.5 mg IH RBID [facility] Last Admin: 04/07/17 07:05 Dose: 0.5 mg Clonazepam (Klonopin) 1 mg PO TID PRN PRN Reason: Anxiety Last Admin: 04/07/17 00:51 Dose: 1 mg Emtricitabine/Tenofovir (Truvada 200 Mg-300 Mg) 1 tab PO DAILY [facility] Last Admin: 04/07/17 08:51 Dose: 1 tab Enoxaparin Sodium (Lovenox) 40 mg SC DAILY [facility] PRN Reason: Protocol Last Admin: 04/07/17 08:47 Dose: 40 mg Fluvoxamine Maleate (Luvox) 50 mg PO DAILY [facility] Last Admin: 04/07/17 08:49 Dose: 50 mg Home Med (Trivicey) 50 mg PO DAILY [facility] Last Admin: 04/07/17 08:49 Dose: 50 mg Hydrochlorothiazide (Microzide) 12.5 mg PO DAILY [facility] Last Admin: 04/07/17 08:49 Dose: 12.5 mg Doxycycline Hyclate 100 mg/ (Sodium Chloride) 100 mls @ 100 mls/hr IVPB Q12@ 0500,1700 [facility] PRN Reason: Protocol Last Admin: 04/07/17 16:10 Dose: 100 mls/hr Ceftriaxone Sodium 1 gm/ (Sodium Chloride) 100 mls @ 100 mls/hr IVPB DAILY@ 1700 [facility] PRN Reason: Protocol Last Admin: 04/07/17 16:12 Dose: 100 mls/hr Lactobacillus Acidophilus (Bacid Acidophilus) 1 cap PO BID [facility] Last Admin: 04/07/17 16:15 Dose: 1 cap Lactulose (Enulose) 20 gm PO DAILY PRN PRN Reason: Constipation Last Admin: 04/04/17 20:54 Dose: 20 gm Losartan Potassium (Cozaar) 100 mg PO DAILY [facility] Last Admin: 04/07/17 08:50 Dose: 100 mg Magnesium Hydroxide (Milk Of Magnesia) 15 ml PO QID PRN PRN Reason: Constipation Methadone HCl (Methadone) 110 mg PO DAILY@0600 [facility] Last Admin: 04/07/17 07:41 Dose: 110 mg Methylprednisolone (Solu-Medrol) 40 mg IVP Q12 [facility] Last Admin: 04/07/17 08:49 Dose: 40 mg Mirtazapine (Remeron) 45 mg PO HS [facility] Last Admin: 04/06/17 21:39 Dose: 45 mg Ondansetron HCl (Zofran Tab) 4 mg PO Q6 PRN PRN Reason: Nausea/Vomiting Last Admin: 04/06/17 08:44 Dose: 4 mg Polyethylene Glycol (Miralax) 17 gm PO BID [facility] Last Admin: 04/07/17 16:15 Dose: Not Given Trimethoprim/Sulfamethoxazole (Bactrim Ds Tab) 1 tab PO DAILY [facility] PRN Reason: Protocol Last Admin: 04/07/17 08:58 Dose: 1 tab - Labs Labs: 04/06/17 05:50 04/06/17 05:50 - Constitutional Appears: No Acute Distress - Head Exam Head Exam: NORMAL INSPECTION - Eye Exam Eye Exam: PERRL - ENT Exam ENT Exam: Normal Exam - Neck Exam Neck Exam: Normal Inspection - Respiratory Exam Respiratory Exam: Decreased Breath Sounds, Rhonchi (b/l) Additional comments: Crackles at bases. - Cardiovascular Exam Cardiovascular Exam: REGULAR RHYTHM - GI/Abdominal Exam GI & Abdominal Exam: Soft, Normal Bowel Sounds - Extremities Exam Extremities Exam: Normal Inspection - Back Exam Back Exam: NORMAL INSPECTION - Neurological Exam Neurological Exam: Alert, Oriented x3 - Psychiatric Exam Psychiatric exam: Anxious - Skin Skin Exam: Normal Color, Warm Assessment and Plan (1) COPD exacerbation Status: Acute (2) AIDS Status: Chronic - Assessment and Plan (Free Text) Plan: Still with Bronchospasm, taper Steroids,continue Rocephin IV, Doxycycline IV, Duoneb and rest of Tx.
[2017-04-08] MEDS: Albuterol-Ipratrop 3 mg / 0.5 (3 ml) UD INH SCH ×4 (07:08→19:14)
[2017-04-08] MEDS: Budesonide 0.5 mg/2 ml Inhal Susp UD IH SCH ×2 (07:52→19:14)
[2017-04-08] MEDS: Enoxaparin 40 mg Syringe SC SCH (09:04)
[2017-04-08] MEDS: POLYETHYLENE GLYCOL 3350 17 GM/Dose PACKET PO SCH ×2 (09:04→16:38)
[2017-04-08] MEDS: Emtricitabine-Tenofovir 200 mg-300 mg Tab PO SCH (09:04)
[2017-04-08] MEDS: TIVICAY 50 MG PO SCH (09:04)
[2017-04-08] MEDS: MethylPREDNISolone 40 mg Vial IVP SCH ×2 (09:05→21:38)
[2017-04-08] MEDS: Tmp-Smz 800 mg-160 mg DS Tab PO SCH (09:07)
[2017-04-08] MEDS: Lactobacillus Acidophilus 500 MU Cap PO SCH ×2 (09:07→16:38)
[2017-04-09] MEDS ORDERED: Magnesium Hydroxide Susp 30 ml UD PO ONE (07:20)
--- NOTE | 2017-04-09 07:27 | CP.PCM.PN ---
Subjective - Date & Time of Evaluation Date of Evaluation: 04/09/17 Time of Evaluation: 07:20 - Subjective Subjective: Family Progress Note- Dr. Smith 66 y.o female with PMHx of HIV, IDDM2, HTN, COPD/Asthma, Vit D def and on methadone seen at bedside for COPD exacerbation. Patient is seen resting comfortably in bed, AA0x3, and in NAD. Patient 02 saturation checked during visitation was 93 at room air. Patient is speaking in complete sentences without distress. Patient reports shortness of breath is still present but has improved, very little. Patient also reports that she still feels weak but reports that her strength is improving daily in little steps. She reports she is able to do physical therapy and able to walk around slowly. She reports no bowel movements since Sunday. She denies fever, chills, calf pain, or chest pain at the moment. No problems with voiding. Objective - Vital Signs/Intake and Output Vital Signs (last 24 hours): Temp Pulse Resp BP Pulse Ox 98.1 F 79 20 112/73 90 L 04/08/17 19:56 04/08/17 19:56 04/08/17 19:56 04/08/17 19:56 04/08/17 19:56 - Medications Medications: Current Medications Acetaminophen (Tylenol 325mg Tab) 650 mg PO Q6 PRN PRN Reason: Pain, Mild (1-3) Last Admin: 04/07/17 03:29 Dose: 650 mg Albuterol (Ventolin Hfa 90 Mcg/Actuation (8 G)) 1 puff INH BID PRN PRN Reason: Shortness of Breath Albuterol/Ipratropium (Duoneb 3 Mg/0.5 Mg (3 Ml) Ud) 3 ml INH RQID [facility] Last Admin: 04/08/17 19:14 Dose: 3 ml Amlodipine Besylate (Norvasc) 5 mg PO DAILY [facility] Last Admin: 04/08/17 09:04 Dose: 5 mg Azithromycin (Zithromax) 1,200 mg PO QWK@[facility] PRN Reason: Protocol Budesonide (Pulmicort Respules) 0.5 mg IH RBID [facility] Last Admin: 04/08/17 19:14 Dose: 0.5 mg Clonazepam (Klonopin) 1 mg PO TID PRN PRN Reason: Anxiety Last Admin: 04/09/17 01:07 Dose: 1 mg Emtricitabine/Tenofovir (Truvada 200 Mg-300 Mg) 1 tab PO DAILY [facility] Last Admin: 04/08/17 09:04 Dose: 1 tab Enoxaparin Sodium (Lovenox) 40 mg SC DAILY [facility] PRN Reason: Protocol Last Admin: 04/08/17 09:04 Dose: 40 mg Fluvoxamine Maleate (Luvox) 50 mg PO DAILY [facility] Last Admin: 04/08/17 09:04 Dose: 50 mg Home Med (Trivicey) 50 mg PO DAILY [facility] Last Admin: 04/08/17 09:04 Dose: 50 mg Hydrochlorothiazide (Microzide) 12.5 mg PO DAILY [facility] Last Admin: 04/08/17 09:05 Dose: 12.5 mg Doxycycline Hyclate 100 mg/ (Sodium Chloride) 100 mls @ 100 mls/hr IVPB Q12@ 0500,1700 [facility] PRN Reason: Protocol Last Admin: 04/09/17 05:27 Dose: 100 mls/hr Ceftriaxone Sodium 1 gm/ (Sodium Chloride) 100 mls @ 100 mls/hr IVPB DAILY@ 1700 [facility] PRN Reason: Protocol Last Admin: 04/08/17 16:39 Dose: 100 mls/hr Lactobacillus Acidophilus (Bacid Acidophilus) 1 cap PO BID [facility] Last Admin: 04/08/17 16:38 Dose: 1 cap Lactulose (Enulose) 20 gm PO DAILY PRN PRN Reason: Constipation Last Admin: 04/04/17 20:54 Dose: 20 gm Losartan Potassium (Cozaar) 100 mg PO DAILY [facility] Last Admin: 04/08/17 09:05 Dose: 100 mg Magnesium Hydroxide (Milk Of Magnesia) 15 ml PO QID PRN PRN Reason: Constipation Methadone HCl (Methadone) 110 mg PO DAILY@0600 [facility] Last Admin: 04/09/17 05:25 Dose: 110 mg Methylprednisolone (Solu-Medrol) 20 mg IVP Q12 [facility] Mirtazapine (Remeron) 45 mg PO HS [facility] Last Admin: 04/08/17 21:37 Dose: 45 mg Ondansetron HCl (Zofran Tab) 4 mg PO Q6 PRN PRN Reason: Nausea/Vomiting Last Admin: 04/08/17 14:44 Dose: 4 mg Polyethylene Glycol (Miralax) 17 gm PO BID [facility] Last Admin: 04/08/17 16:38 Dose: 17 gm Trimethoprim/Sulfamethoxazole (Bactrim Ds Tab) 1 tab PO DAILY [facility] PRN Reason: Protocol Last Admin: 04/08/17 09:07 Dose: 1 tab - Labs Labs: 04/06/17 05:50 04/06/17 05:50 - Constitutional Appears: Well, Non-toxic, No Acute Distress - Head Exam Head Exam: ATRAUMATIC, NORMAL INSPECTION - Eye Exam Eye Exam: Normal appearance - Neck Exam Neck Exam: Full ROM - Respiratory Exam Additional comments: Decrease breath sounds bilaterally Wheezes with expiration from base to mid david b/l Scattered rhonchi b/l No rales, no crackers noted to the lung david No labored breathing noted - Cardiovascular Exam Cardiovascular Exam: REGULAR RHYTHM, +S1, +S2 - GI/Abdominal Exam GI & Abdominal Exam: Soft, Normal Bowel Sounds - Extremities Exam Additional comments: No pain or tenderness with palpation to the calf - Neurological Exam Neurological Exam: Alert, Awake, Oriented x3 - Psychiatric Exam Psychiatric exam: Normal Affect, Normal Mood - Skin Skin Exam: Dry, Intact, Normal Color Assessment and Plan - Assessment and Plan (Free Text) Assessment: 66 year of female with PMHx of HTN, AIDS, IDDM2, COPD/Asthma, Vit D deficiency admitted for COPD Exacerbation. Plan: 1) COPD Exacerbation -Ceftriaxone 1gm QD- Completed from 04/01 to 04/08 (Abx day 8) -Doxycycline 100mg Q12H- Completed from 04/01 to 04/09 (Abx day 9) -DUO-Nebs RQID -Tapered Methylprednisone 40 mg IV BID to Methylprednisone 20 mg IV BID today -O2 via NC -Sputum x1 final results-Yeast Species (04/03/17) -Blood culture (04/03/17) No growth after 5 days -Pulmonology Dr Mondragon on board, recommends c/w abx, Duoneb and Solumedrol. Taper steroid in AM f/u blood cx and sputum cx. -PT evaluation/treatment: home w/ services -Chest X-ray: No active pulmonary disease. No significant pleural effusion identified. No pneumothorax apparent. Cardiac size appears stable. No pulmonary vascular derangement appreciated. Tortuous descending thoracic aorta again appreciated. Impression: No interval acute cardiopulmonary disease 2) AIDS -CD4 on 17: 46 -c/w PCP ppx Bactrim QD -Pt will be on Bactrim 3x/week as outpatient -c/w Azithromycin 1200mg PO Qweekly for MAC ppx -Azithromycin administered on 04/01. Next dose will be given 04/10 (scheduled) -c/w Truvada -ID consult appreciated: continuing with prophylactic antibiotics as CD4<50, sputum cultures/blood cultures x2, c/w HAART therapy. 3) Thrombocytopenia (chronic) -currently at baseline - Plt today: 117 -questionable splenomegaly on Chest CT -monitor with CBCs 4) Elevated total protein/abnormal SPEP -elevated total protein/abnormal SPEP -multiple myeloma work up by manufacturing associate Dr Julio Kumar: Bone marrow biopsy did not show increase in plasma cell, flow cytometry confirmed the lack of increased plasma cell. Pt seems to have a MUGUS. No treatment needed. 5) Essential Hypertension -controlled -c/w home medications (Losartan/HCTZ and Amlodipine) 6) IDDM2 -controlled -HbA1C 5.6 (02/26/2017) -[facility] -monitor BS -insulin coverage scale 7) Depression -c/w home medications 8) Methadone User -Methadone Clinic: [facility] [phone] (Dr. Campbell/Nurse Mica) -110mg QD @ 6:00am daily (confirmed dosage with clinic) 9) Diet -Diabetic heart healthy 10) Constipation, improving -Multiple normal BM 1 day ago -c/w Colace 100mg BID -Miralax solution BID -increase PO fluid intake 11) Prophylaxis -Lovenox 40mg daily -Probiotics (pt currently on multiple antibiotics)
[2017-04-09] MEDS: Albuterol-Ipratrop 3 mg / 0.5 (3 ml) UD INH SCH ×4 (07:41→19:21)
[2017-04-09] MEDS: Budesonide 0.5 mg/2 ml Inhal Susp UD IH SCH ×2 (07:41→19:21)
--- NOTE | 2017-04-09 07:47 | RAD ---
HISTORY: COPD Exacerbation COMPARISON: Chest radiographs 03/30/2017. TECHNIQUE: Chest PA and lateral FINDINGS: LUNGS: No active pulmonary disease. PLEURA: No significant pleural effusion identified. No pneumothorax apparent. CARDIOVASCULAR: Cardiac size appears stable. No pulmonary vascular derangement appreciated. Tortuous descending thoracic aorta again appreciated. OSSEOUS STRUCTURES: No significant abnormalities. VISUALIZED UPPER ABDOMEN: Normal. OTHER FINDINGS: None. IMPRESSION: No interval acute cardiopulmonary disease.
[2017-04-09] MEDS: Lactobacillus Acidophilus 500 MU Cap PO SCH ×2 (08:45→17:01)
[2017-04-09] MEDS: TIVICAY 50 MG PO SCH (09:00)
[2017-04-09] MEDS: Enoxaparin 40 mg Syringe SC SCH (09:00)
[2017-04-09] MEDS: POLYETHYLENE GLYCOL 3350 17 GM/Dose PACKET PO SCH ×2 (09:00→17:04)
[2017-04-09] MEDS: Emtricitabine-Tenofovir 200 mg-300 mg Tab PO SCH (09:01)
[2017-04-09] MEDS: MethylPREDNISolone 40 mg Vial IVP SCH ×2 (09:02→21:00)
[2017-04-09] MEDS ORDERED: Tmp-Smz 800 mg-160 mg DS Tab PO SCH (10:57)
[2017-04-09 12:40] LABS: ABG ALLEN TEST YES; ARTERIAL BLOOD GAS HCO3 27.6 mmol/L (21-28); ARTERIAL BLOOD GAS O2 CAPACITY 20.7 mL/dL (16-24); ARTERIAL BLOOD GAS O2 CONTENT 19.5 ML/dL (15-23); ARTERIAL BLOOD GAS PH 7.37 (7.35-7.45); ARTERIAL BLOOD GAS PO2 58 mm/Hg (80-100); ARTERIAL BLOOD HGB O2 SAT 88.6 % (95.0-98.0); CARBOXYHEMOGLOBIN 3.4 % (0.5-1.5); HHB 5.5 % (0.0-5.0); METHEMOGLOBIN 2.5 % (0.0-3.0)
[2017-04-09] MEDS: Tmp-Smz 800 mg-160 mg DS Tab PO SCH (13:22)
--- NOTE | 2017-04-09 16:10 | CP.PCM.PN ---
Subjective - Date & Time of Evaluation Date of Evaluation: 04/09/17 - Subjective Subjective: F/U COPD exacerbation. Objective - Vital Signs/Intake and Output Vital Signs (last 24 hours): Temp Pulse Resp BP Pulse Ox 98.1 F 75 20 131/81 93 L 04/09/17 10:00 04/09/17 10:00 04/09/17 10:00 04/09/17 10:00 04/09/17 10:00 - Medications Medications: Current Medications Acetaminophen (Tylenol 325mg Tab) 650 mg PO Q6 PRN PRN Reason: Pain, Mild (1-3) Last Admin: 04/07/17 03:29 Dose: 650 mg Albuterol (Ventolin Hfa 90 Mcg/Actuation (8 G)) 1 puff INH BID PRN PRN Reason: Shortness of Breath Albuterol/Ipratropium (Duoneb 3 Mg/0.5 Mg (3 Ml) Ud) 3 ml INH RQID [facility] Last Admin: 04/09/17 15:42 Dose: 3 ml Amlodipine Besylate (Norvasc) 5 mg PO DAILY [facility] Last Admin: 04/09/17 09:01 Dose: 5 mg Azithromycin (Zithromax) 1,200 mg PO QWK@[facility] PRN Reason: Protocol Budesonide (Pulmicort Respules) 0.5 mg IH RBID [facility] Last Admin: 04/09/17 07:41 Dose: 0.5 mg Clonazepam (Klonopin) 1 mg PO TID PRN PRN Reason: Anxiety Last Admin: 04/09/17 13:21 Dose: 1 mg Emtricitabine/Tenofovir (Truvada 200 Mg-300 Mg) 1 tab PO DAILY [facility] Last Admin: 04/09/17 09:01 Dose: 1 tab Enoxaparin Sodium (Lovenox) 40 mg SC DAILY [facility] PRN Reason: Protocol Last Admin: 04/09/17 09:00 Dose: 40 mg Fluvoxamine Maleate (Luvox) 50 mg PO DAILY [facility] Last Admin: 04/09/17 09:03 Dose: 50 mg Home Med (Trivicey) 50 mg PO DAILY [facility] Last Admin: 04/09/17 09:00 Dose: 50 mg Hydrochlorothiazide (Microzide) 12.5 mg PO DAILY [facility] Last Admin: 04/09/17 09:01 Dose: 12.5 mg Doxycycline Hyclate 100 mg/ (Sodium Chloride) 100 mls @ 100 mls/hr IVPB Q12@ 0500,1700 [facility] PRN Reason: Protocol Last Admin: 04/09/17 05:27 Dose: 100 mls/hr Ceftriaxone Sodium 1 gm/ (Sodium Chloride) 100 mls @ 100 mls/hr IVPB DAILY@ 1700 [facility] PRN Reason: Protocol Last Admin: 04/08/17 16:39 Dose: 100 mls/hr Lactobacillus Acidophilus (Bacid Acidophilus) 1 cap PO BID [facility] Last Admin: 04/09/17 08:45 Dose: 1 cap Lactulose (Enulose) 20 gm PO DAILY PRN PRN Reason: Constipation Last Admin: 04/04/17 20:54 Dose: 20 gm Losartan Potassium (Cozaar) 100 mg PO DAILY [facility] Last Admin: 04/09/17 09:02 Dose: 100 mg Magnesium Hydroxide (Milk Of Magnesia) 15 ml PO QID PRN PRN Reason: Constipation Methadone HCl (Methadone) 110 mg PO DAILY@0600 [facility] Last Admin: 04/09/17 05:25 Dose: 110 mg Methylprednisolone (Solu-Medrol) 20 mg IVP Q12 [facility] Last Admin: 04/09/17 09:02 Dose: 20 mg Mirtazapine (Remeron) 45 mg PO HS [facility] Last Admin: 04/08/17 21:37 Dose: 45 mg Ondansetron HCl (Zofran Tab) 4 mg PO Q6 PRN PRN Reason: Nausea/Vomiting Last Admin: 04/09/17 09:00 Dose: 4 mg Polyethylene Glycol (Miralax) 17 gm PO BID [facility] Last Admin: 04/09/17 09:00 Dose: 17 gm Fluticasone/Salmeterol (Advair Diskus 500/50) 1 puff IH Q12 [facility] Trimethoprim/Sulfamethoxazole (Bactrim Ds Tab) 1 tab PO MWF [facility] PRN Reason: Protocol Last Admin: 04/09/17 13:22 Dose: 1 tab - Labs Labs: 04/06/17 05:50 04/06/17 05:50 - Constitutional Appears: No Acute Distress - Head Exam Head Exam: NORMAL INSPECTION - Eye Exam Eye Exam: PERRL - ENT Exam ENT Exam: Normal Exam - Neck Exam Neck Exam: Normal Inspection - Respiratory Exam Respiratory Exam: Decreased Breath Sounds (b/l) Additional comments: Crackles at bases - Cardiovascular Exam Cardiovascular Exam: REGULAR RHYTHM - GI/Abdominal Exam GI & Abdominal Exam: Soft, Normal Bowel Sounds - Extremities Exam Extremities Exam: Normal Inspection - Back Exam Back Exam: NORMAL INSPECTION - Neurological Exam Neurological Exam: Alert, Oriented x3 - Psychiatric Exam Psychiatric exam: Anxious - Skin Skin Exam: Normal Color, Warm Assessment and Plan (1) COPD exacerbation Status: Acute (2) AIDS Status: Chronic
[2017-04-09] MEDS: Fluticasone-Salmeterol 500-50mcg Diskus IH SCH (21:01)
--- NOTE | 2017-04-10 06:36 | CP.PCM.CON ---
History of Present Illness - History of Present Illness History of Present Illness: Patient seen and evaluated at bedside for painful foot callus. Patient is AAO x 3 and NAD. Patient denies any further pedal complaints at this time. Past Patient History - Infectious Disease Hx of Infectious Diseases: None - Tetanus Immunizations Tetanus Immunization: Unknown - Past Medical History & Family History Past Medical History?: Yes - Past Social History Smoking Status: Former Smoker (1PPD) Alcohol: Social Drugs: Other (methadone) Home Situation {Lives}: With Family - CARDIAC Hx Cardiac Disorders: Yes Hx Hypertension: Yes - PULMONARY Hx Respiratory Disorders: Yes Hx Asthma: Yes Hx Bronchitis: Yes Hx Chronic Obstructive Pulmonary Disease (COPD): Yes Hx Pneumonia: Yes - NEUROLOGICAL Hx Neurological Disorder: No Hx Seizures: No - HEENT Hx HEENT Problems: No - RENAL Hx Chronic Kidney Disease: No - ENDOCRINE/METABOLIC Hx Endocrine Disorders: Yes Hx Diabetes Mellitus Type 2: Yes - HEMATOLOGICAL/ONCOLOGICAL Hx Blood Disorders: Yes Hx AIDS: Yes Hx Hepatitis C: Yes Hx Human Immunodeficiency Virus (HIV): Yes - INTEGUMENTARY Hx Dermatological Problems: No - MUSCULOSKELETAL/RHEUMATOLOGICAL Hx Musculoskeletal Disorders: Yes Hx Arthritis: Yes Hx Falls: No - GASTROINTESTINAL Hx Gastrointestinal Disorders: Yes Hx Gastritis: Yes - GENITOURINARY/GYNECOLOGICAL Hx Genitourinary Disorders: No Hx Sexually Transmitted Disorders: No - PSYCHIATRIC Hx Psychophysiologic Disorder: Yes Hx Anxiety: Yes Hx Bipolar Disorder: Yes Hx Depression: Yes Hx Substance Use: No - SURGICAL HISTORY Hx Surgeries: No - ANESTHESIA Hx Anesthesia: No Meds Allergies/Adverse Reactions: Allergies Allergy/AdvReac Type Severity Reaction Status Date / Time No Known Allergies Allergy Verified 03/30/17 08:47 - Medications Medications: Current Medications Acetaminophen (Tylenol 325mg Tab) 650 mg PO Q6 PRN PRN Reason: Pain, Mild (1-3) Last Admin: 04/07/17 03:29 Dose: 650 mg Albuterol (Ventolin Hfa 90 Mcg/Actuation (8 G)) 1 puff INH BID PRN PRN Reason: Shortness of Breath Albuterol/Ipratropium (Duoneb 3 Mg/0.5 Mg (3 Ml) Ud) 3 ml INH RQID [facility] Last Admin: 04/09/17 19:21 Dose: 3 ml Amlodipine Besylate (Norvasc) 5 mg PO DAILY [facility] Last Admin: 04/09/17 09:01 Dose: 5 mg Azithromycin (Zithromax) 1,200 mg PO QWK@[facility] PRN Reason: Protocol Budesonide (Pulmicort Respules) 0.5 mg IH RBID [facility] Last Admin: 04/09/17 19:21 Dose: 0.5 mg Clonazepam (Klonopin) 1 mg PO TID PRN PRN Reason: Anxiety Last Admin: 04/10/17 01:06 Dose: 1 mg Emtricitabine/Tenofovir (Truvada 200 Mg-300 Mg) 1 tab PO DAILY [facility] Last Admin: 04/09/17 09:01 Dose: 1 tab Enoxaparin Sodium (Lovenox) 40 mg SC DAILY [facility] PRN Reason: Protocol Last Admin: 04/09/17 09:00 Dose: 40 mg Fluvoxamine Maleate (Luvox) 50 mg PO DAILY [facility] Last Admin: 04/09/17 09:03 Dose: 50 mg Home Med (Trivicey) 50 mg PO DAILY [facility] Last Admin: 04/09/17 09:00 Dose: 50 mg Hydrochlorothiazide (Microzide) 12.5 mg PO DAILY [facility] Last Admin: 04/09/17 09:01 Dose: 12.5 mg Doxycycline Hyclate 100 mg/ (Sodium Chloride) 100 mls @ 100 mls/hr IVPB Q12@ 0500,1700 [facility] PRN Reason: Protocol Last Admin: 04/10/17 04:49 Dose: 100 mls/hr Ceftriaxone Sodium 1 gm/ (Sodium Chloride) 100 mls @ 100 mls/hr IVPB DAILY@ 1700 [facility] PRN Reason: Protocol Last Admin: 04/09/17 17:01 Dose: 100 mls/hr Lactobacillus Acidophilus (Bacid Acidophilus) 1 cap PO BID [facility] Last Admin: 04/09/17 17:01 Dose: 1 cap Lactulose (Enulose) 20 gm PO DAILY PRN PRN Reason: Constipation Last Admin: 04/04/17 20:54 Dose: 20 gm Losartan Potassium (Cozaar) 100 mg PO DAILY [facility] Last Admin: 04/09/17 09:02 Dose: 100 mg Magnesium Hydroxide (Milk Of Magnesia) 15 ml PO QID PRN PRN Reason: Constipation Methadone HCl (Methadone) 110 mg PO DAILY@0600 [facility] Last Admin: 04/10/17 05:59 Dose: 110 mg Methylprednisolone (Solu-Medrol) 20 mg IVP Q12 [facility] Last Admin: 04/09/17 21:00 Dose: 20 mg Mirtazapine (Remeron) 45 mg PO HS [facility] Last Admin: 04/09/17 21:01 Dose: 45 mg Ondansetron HCl (Zofran Tab) 4 mg PO Q6 PRN PRN Reason: Nausea/Vomiting Last Admin: 04/09/17 09:00 Dose: 4 mg Polyethylene Glycol (Miralax) 17 gm PO BID [facility] Last Admin: 04/09/17 17:04 Dose: 17 gm Fluticasone/Salmeterol (Advair Diskus 500/50) 1 puff IH Q12 [facility] Last Admin: 04/09/17 21:01 Dose: 1 puff Trimethoprim/Sulfamethoxazole (Bactrim Ds Tab) 1 tab PO MWF [facility] PRN Reason: Protocol Last Admin: 04/09/17 13:22 Dose: 1 tab Physical Exam - Constitutional Appears: Well, Non-toxic, No Acute Distress - Extremities Exam Additional comments: LE focused exam Vasc: DP/PT pulses palpable 2/4 b/l. Skin temperature warm to warm from proximal to distal. CFT < 3 seconds to all digits b/l. Pedal hair growth appreciated. No edema noted b/l Neuro: Epicritic and protective sensation grossly intact b/l Derm: No open lesions, wounds, maceration, xerosis, abnormal pigmentation noted. Callus formation noted to plantarlateral left fifth digit. Nails noted to be well normotrophic, of appropriate color and adequate length MSK: Minimal POP to plantar callus of left foot. MMT 5/5 on inversion, eversion , dorsiflexion and plantarflexion of feet b/l. ROM WNL to all major joints of LE - Neurological Exam Neurological exam: Alert, Oriented x3 - Psychiatric Exam Psychiatric exam: Normal Affect, Normal Mood Results - Vital Signs Recent Vital Signs: Last Vital Signs Temp 98.2 F 04/09/17 22:26 Pulse 90 04/09/17 22:26 Resp 20 04/09/17 22:26 BP 118/83 04/09/17 22:26 Pulse Ox 93 L 04/09/17 22:26 - Labs Result Diagrams: 04/06/17 05:50 04/06/17 05:50 Labs: Laboratory Results - last 24 hr 04/09/17 04/09/17 04/09/17 10:46 12:25 16:16 pCO2 53 H pO2 58 L HCO3 27.6 ABG pH 7.37 ABG Total CO2 32.2 H ABG O2 Saturation 94.2 L ABG O2 Content 19.5 ABG Base Excess 3.8 H ABG Hemoglobin 15.7 ABG Carboxyhemoglobin 3.4 H POC ABG HHb (Measured) 5.5 H ABG Methemoglobin 2.5 ABG O2 Capacity 20.7 Cal Test Yes A-a O2 Difference 25.0 Hgb O2 Saturation 88.6 L FiO2 21.0 POC Glucose (mg/dL) 143 H 336 H 04/09/17 21:16 pCO2 pO2 HCO3 ABG pH ABG Total CO2 ABG O2 Saturation ABG O2 Content ABG Base Excess ABG Hemoglobin ABG Carboxyhemoglobin POC ABG HHb (Measured) ABG Methemoglobin ABG O2 Capacity Cal Test A-a O2 Difference Hgb O2 Saturation FiO2 POC Glucose (mg/dL) 183 H Assessment & Plan - Assessment and Plan (Free Text) Assessment: 66 year old female seen for painful plantar callus of left foot Plan: Patient seen and evaluated at bedside Plantar callus shaved down to level of dermis without incident Patient tolerated procedure well Podiatry to sign out at this time Please reconsult as needed - Date & Time Date: 04/10/17 Time: 06:38
[2017-04-10] MEDS: Albuterol-Ipratrop 3 mg / 0.5 (3 ml) UD INH SCH ×4 (07:31→19:01)
[2017-04-10] MEDS: Budesonide 0.5 mg/2 ml Inhal Susp UD IH SCH ×2 (07:31→19:01)
[2017-04-10] MEDS: MethylPREDNISolone 40 mg Vial IVP SCH (08:41)
[2017-04-10] MEDS: Fluticasone-Salmeterol 500-50mcg Diskus IH SCH ×2 (08:42→22:03)
[2017-04-10] MEDS: Enoxaparin 40 mg Syringe SC SCH (08:42)
[2017-04-10] MEDS: TIVICAY 50 MG PO SCH (08:43)
[2017-04-10] MEDS: Emtricitabine-Tenofovir 200 mg-300 mg Tab PO SCH (08:43)
[2017-04-10] MEDS: POLYETHYLENE GLYCOL 3350 17 GM/Dose PACKET PO SCH ×2 (08:44→16:05)
[2017-04-10] MEDS: Lactobacillus Acidophilus 500 MU Cap PO SCH ×2 (08:46→16:06)
[2017-04-10 13:46] LABS: ABG ALLEN TEST YES; ARTERIAL BLOOD GAS HCO3 27.4 mmol/L (21-28); ARTERIAL BLOOD GAS O2 CAPACITY 18.9 mL/dL (16-24); ARTERIAL BLOOD GAS O2 CONTENT 17.7 ML/dL (15-23); ARTERIAL BLOOD GAS PH 7.35 (7.35-7.45); ARTERIAL BLOOD GAS PO2 57 mm/Hg (80-100); CARBOXYHEMOGLOBIN 2.5 % (0.5-1.5); HHB 6.2 % (0.0-5.0); METHEMOGLOBIN 1.3 % (0.0-3.0)
[2017-04-10] MEDS: Nystatin 100,000 Units/ml Oral Susp 5 ml UD PO SCH ×2 (16:07→22:03)
--- NOTE | 2017-04-10 16:39 | CP.PCM.PN ---
Subjective - Date & Time of Evaluation Date of Evaluation: 04/10/17 Time of Evaluation: 08:30 - Subjective Subjective: F/U COPD Exacerbation Objective - Vital Signs/Intake and Output Vital Signs (last 24 hours): Temp Pulse Resp BP Pulse Ox 97.1 F L 85 20 104/85 97 04/10/17 07:54 04/10/17 08:44 04/10/17 07:54 04/10/17 08:44 04/10/17 07:54 - Medications Medications: Current Medications Acetaminophen (Tylenol 325mg Tab) 650 mg PO Q6 PRN PRN Reason: Pain, Mild (1-3) Last Admin: 04/07/17 03:29 Dose: 650 mg Albuterol (Ventolin Hfa 90 Mcg/Actuation (8 G)) 1 puff INH BID PRN PRN Reason: Shortness of Breath Albuterol/Ipratropium (Duoneb 3 Mg/0.5 Mg (3 Ml) Ud) 3 ml INH RQID [facility] Last Admin: 04/10/17 15:27 Dose: 3 ml Albuterol/Ipratropium (Duoneb 3 Mg/0.5 Mg (3 Ml) Ud) 3 ml INH RQID [facility] Amlodipine Besylate (Norvasc) 5 mg PO DAILY [facility] Last Admin: 04/10/17 08:44 Dose: Not Given Azithromycin (Zithromax) 1,200 mg PO QWK@[facility] PRN Reason: Protocol Budesonide (Pulmicort Respules) 0.5 mg IH RBID [facility] Last Admin: 04/10/17 07:31 Dose: 0.5 mg Clonazepam (Klonopin) 1 mg PO TID PRN PRN Reason: Anxiety Last Admin: 04/10/17 13:01 Dose: 1 mg Emtricitabine/Tenofovir (Truvada 200 Mg-300 Mg) 1 tab PO DAILY [facility] Last Admin: 04/10/17 08:43 Dose: 1 tab Enoxaparin Sodium (Lovenox) 40 mg SC DAILY [facility] PRN Reason: Protocol Last Admin: 04/10/17 08:42 Dose: 40 mg Fluconazole (Diflucan) 100 mg PO DAILY [facility] PRN Reason: Protocol Fluvoxamine Maleate (Luvox) 50 mg PO DAILY [facility] Last Admin: 04/10/17 08:46 Dose: 50 mg Home Med (Trivicey) 50 mg PO DAILY [facility] Last Admin: 04/10/17 08:43 Dose: 50 mg Doxycycline Hyclate 100 mg/ (Sodium Chloride) 100 mls @ 100 mls/hr IVPB Q12@ 0500,1700 [facility] PRN Reason: Protocol Last Admin: 04/10/17 16:02 Dose: 100 mls/hr Ceftriaxone Sodium 1 gm/ (Sodium Chloride) 100 mls @ 100 mls/hr IVPB DAILY@ 1700 [facility] PRN Reason: Protocol Last Admin: 04/09/17 17:01 Dose: 100 mls/hr Insulin Detemir (Levemir) 5 units SC [facility] Lactobacillus Acidophilus (Bacid Acidophilus) 1 cap PO BID [facility] Last Admin: 04/10/17 16:06 Dose: 1 cap Lactulose (Enulose) 20 gm PO DAILY PRN PRN Reason: Constipation Last Admin: 04/04/17 20:54 Dose: 20 gm Losartan Potassium (Cozaar) 100 mg PO DAILY [facility] Last Admin: 04/10/17 08:44 Dose: 100 mg Magnesium Hydroxide (Milk Of Magnesia) 15 ml PO QID PRN PRN Reason: Constipation Methadone HCl (Methadone) 110 mg PO DAILY@0600 [facility] Last Admin: 04/10/17 05:59 Dose: 110 mg Mirtazapine (Remeron) 45 mg PO [facility] Last Admin: 04/09/17 21:01 Dose: 45 mg Nystatin (Nystatin Oral Susp) 5 ml PO QID [facility] Last Admin: 04/10/17 16:07 Dose: 5 ml Ondansetron HCl (Zofran Tab) 4 mg PO Q6 PRN PRN Reason: Nausea/Vomiting Last Admin: 04/10/17 11:17 Dose: 4 mg Polyethylene Glycol (Miralax) 17 gm PO BID [facility] Last Admin: 04/10/17 16:05 Dose: 17 gm Prednisone (Prednisone Tab) 30 mg PO DAILY [facility] Fluticasone/Salmeterol (Advair Diskus 500/50) 1 puff IH Q12 [facility] Last Admin: 04/10/17 08:42 Dose: 1 puff Trimethoprim/Sulfamethoxazole (Bactrim Ds Tab) 1 tab PO MWF [facility] PRN Reason: Protocol Last Admin: 04/09/17 13:22 Dose: 1 tab - Labs Labs: 04/06/17 05:50 04/06/17 05:50 - Constitutional Appears: No Acute Distress - Head Exam Head Exam: NORMAL INSPECTION - Eye Exam Eye Exam: PERRL - ENT Exam ENT Exam: Normal Exam - Neck Exam Neck Exam: Normal Inspection - Respiratory Exam Respiratory Exam: Decreased Breath Sounds (b/l) Additional comments: Crackles at bases - Cardiovascular Exam Cardiovascular Exam: REGULAR RHYTHM - GI/Abdominal Exam GI & Abdominal Exam: Soft, Normal Bowel Sounds - Extremities Exam Extremities Exam: Normal Inspection - Back Exam Back Exam: NORMAL INSPECTION - Neurological Exam Neurological Exam: Alert, Oriented x3 - Psychiatric Exam Psychiatric exam: Anxious - Skin Skin Exam: Normal Color, Warm Assessment and Plan (1) COPD exacerbation Status: Acute (2) AIDS Status: Chronic
[2017-04-10] MEDS: Insulin Detemir 100 Units/ml Inj SC SCH (22:04)
[2017-04-10 23:47] LABS: KAPPA/LAMBDA FREE RATIO 1.02 (0.26-1.65)
[2017-04-11 06:39] LABS: MEAN CORPUSCULAR HEMOGLOBIN 34.2 pg (27.0-31.0); MEAN CORPUSCULAR HGB CONC 33.9 g/dL (33.0-37.0); WHITE BLOOD COUNT 7.4 K/uL (4.8-10.8)
[2017-04-11 07:03] LABS: BLOOD UREA NITROGEN 38 mg/dl (7-17); CALCIUM 9.1 mg/dL (8.4-10.2); CARBON DIOXIDE 31 mmol/L (22-30); CHLORIDE 100 mmol/L (98-107); GFR AFRICAN-AMERICAN > 60; GLUCOSE,RANDOM 113 mg/dL (65-105); POTASSIUM 4.1 MMOL/L (3.6-5.0); SODIUM 140 mmol/l (132-148)
[2017-04-11] MEDS: Albuterol-Ipratrop 3 mg / 0.5 (3 ml) UD INH SCH ×5 (07:29→19:04)
[2017-04-11] MEDS: Budesonide 0.5 mg/2 ml Inhal Susp UD IH SCH ×2 (07:29→19:04)
--- NOTE | 2017-04-11 08:12 | CP.PCM.PN ---
Subjective - Date & Time of Evaluation Date of Evaluation: 04/11/17 Time of Evaluation: 08:03 - Subjective Subjective: Family Progress Note- Dr. Smith 66 y.o female with PMHx of HIV, IDDM2, HTN, COPD/Asthma, Vit D def and on methadone seen in TCU for COPD exacerbation. Patient is seen sitting comfortably at bedside enjoying breakfast, AA0x3, and in NAD. She was at 98% O2 saturation on room air. Patient is speaking in complete sentences without distress. She reports that her shortness of breath is improving and her strength is improving as well in little increments. She reports that she was able to complete physical therapy yesterday with some SOB at the end. She reports that she still gets dizzy occasionally. She was told to get up slowly from bed and drink more fluids which she has been doing as instructed. Patient also complains of thrush in her mouth. Similar problem she has had in the past. She reports that her throat feels sore. She denies n/v/cp/chills or f. She has not problem voiding. No bowel movements today. Objective - Vital Signs/Intake and Output Vital Signs (last 24 hours): Temp Pulse Resp BP Pulse Ox 98.1 F 79 20 119/86 98 04/10/17 20:29 04/10/17 20:29 04/10/17 20:29 04/10/17 20:29 04/10/17 20:29 - Medications Medications: Current Medications Acetaminophen (Tylenol 325mg Tab) 650 mg PO Q6 PRN PRN Reason: Pain, Mild (1-3) Last Admin: 04/07/17 03:29 Dose: 650 mg Albuterol (Ventolin Hfa 90 Mcg/Actuation (8 G)) 1 puff INH BID PRN PRN Reason: Shortness of Breath Albuterol/Ipratropium (Duoneb 3 Mg/0.5 Mg (3 Ml) Ud) 3 ml INH RQID [facility] Last Admin: 04/11/17 07:29 Dose: 3 ml Albuterol/Ipratropium (Duoneb 3 Mg/0.5 Mg (3 Ml) Ud) 3 ml INH RQID [facility] Amlodipine Besylate (Norvasc) 5 mg PO DAILY [facility] Last Admin: 04/10/17 08:44 Dose: Not Given Azithromycin (Zithromax) 1,200 mg PO QWK@[facility] PRN Reason: Protocol Last Admin: 04/10/17 18:27 Dose: 1,200 mg Budesonide (Pulmicort Respules) 0.5 mg IH RBID [facility] Last Admin: 04/11/17 07:29 Dose: 0.5 mg Clonazepam (Klonopin) 1 mg PO TID PRN PRN Reason: Anxiety Last Admin: 04/10/17 23:20 Dose: 1 mg Emtricitabine/Tenofovir (Truvada 200 Mg-300 Mg) 1 tab PO DAILY [facility] Last Admin: 04/10/17 08:43 Dose: 1 tab Enoxaparin Sodium (Lovenox) 40 mg SC DAILY [facility] PRN Reason: Protocol Last Admin: 04/10/17 08:42 Dose: 40 mg Fluconazole (Diflucan) 100 mg PO DAILY [facility] PRN Reason: Protocol Fluvoxamine Maleate (Luvox) 50 mg PO DAILY [facility] Last Admin: 04/10/17 08:46 Dose: 50 mg Home Med (Trivicey) 50 mg PO DAILY [facility] Last Admin: 04/10/17 08:43 Dose: 50 mg Doxycycline Hyclate 100 mg/ (Sodium Chloride) 100 mls @ 100 mls/hr IVPB Q12@ 0500,1700 [facility] PRN Reason: Protocol Last Admin: 04/11/17 05:31 Dose: Not Given Ceftriaxone Sodium 1 gm/ (Sodium Chloride) 100 mls @ 100 mls/hr IVPB DAILY@ 1700 [facility] PRN Reason: Protocol Last Admin: 04/10/17 17:39 Dose: 100 mls/hr Insulin Detemir (Levemir) 5 units SC [facility] Last Admin: 04/10/17 22:04 Dose: 5 u Lactobacillus Acidophilus (Bacid Acidophilus) 1 cap PO BID [facility] Last Admin: 04/10/17 16:06 Dose: 1 cap Lactulose (Enulose) 20 gm PO DAILY PRN PRN Reason: Constipation Last Admin: 04/04/17 20:54 Dose: 20 gm Losartan Potassium (Cozaar) 100 mg PO DAILY [facility] Last Admin: 04/10/17 08:44 Dose: 100 mg Magnesium Hydroxide (Milk Of Magnesia) 15 ml PO QID PRN PRN Reason: Constipation Methadone HCl (Methadone) 110 mg PO DAILY@0600 [facility] Last Admin: 04/11/17 05:31 Dose: 110 mg Mirtazapine (Remeron) 45 mg PO HS [facility] Last Admin: 04/10/17 22:06 Dose: 45 mg Nystatin (Nystatin Oral Susp) 5 ml PO QID [facility] Last Admin: 04/10/17 22:03 Dose: 5 ml Ondansetron HCl (Zofran Tab) 4 mg PO Q6 PRN PRN Reason: Nausea/Vomiting Last Admin: 04/11/17 08:00 Dose: 4 mg Polyethylene Glycol (Miralax) 17 gm PO BID [facility] Last Admin: 04/10/17 16:05 Dose: 17 gm Prednisone (Prednisone Tab) 30 mg PO DAILY [facility] Fluticasone/Salmeterol (Advair Diskus 500/50) 1 puff IH Q12 [facility] Last Admin: 04/10/17 22:03 Dose: 1 puff Trimethoprim/Sulfamethoxazole (Bactrim Ds Tab) 1 tab PO MWF [facility] PRN Reason: Protocol Last Admin: 04/09/17 13:22 Dose: 1 tab - Labs Labs: 04/11/17 06:10 04/11/17 06:10 - Constitutional Appears: Well, Non-toxic, No Acute Distress - Head Exam Head Exam: ATRAUMATIC, NORMAL INSPECTION - Neck Exam Neck Exam: Full ROM - Respiratory Exam Additional comments: Decrease breath sounds bilaterally, improving Wheezes with expiration from base b/l, improving Scattered rhonchi still b/l, improving No rales, no crackers noted to the lung david No labored breathing noted - Cardiovascular Exam Cardiovascular Exam: REGULAR RHYTHM, +S1, +S2 - GI/Abdominal Exam GI & Abdominal Exam: Soft, Normal Bowel Sounds - Extremities Exam Extremities Exam: Full ROM, Normal Capillary Refill, Normal Inspection Additional comments: No pain with palpation to calf tenderness. - Back Exam Back Exam: NORMAL INSPECTION - Neurological Exam Neurological Exam: Alert, Awake, Oriented x3 - Psychiatric Exam Psychiatric exam: Flat Affect, Normal Mood - Skin Skin Exam: Dry, Intact, Normal Color, Warm Assessment and Plan - Assessment and Plan (Free Text) Assessment: 66 year of female with PMHx of HTN, AIDS, IDDM2, COPD/Asthma, Vit D deficiency admitted for COPD Exacerbation. Plan: 1) COPD Exacerbation -Ceftriaxone 1gm QD- Completed from 04/01 to 11/7 (Abx day 10), d/c after today -Doxycycline 100mg Q12H- Completed from 04/01 to 04/11 (Abx day 11); d/c after today -DUO-Nebs RQID -Methylprednisone 20 mg IV BID tapered to Prednisolone 30mg PO daily -O2 via NC -Sputum x1 final results-Yeast Species (04/03/17) -Blood culture (04/03/17) No growth after 5 days -Pulmonology Dr Mondragon on board, recommends c/w abx, Duoneb. Taper steroid in AM -PT evaluation/treatment: home w/ services -Chest X-ray: No active pulmonary disease. No significant pleural effusion identified. No pneumothorax apparent. Cardiac size appears stable. No pulmonary vascular derangement appreciated. Tortuous descending thoracic aorta again appreciated. Impression: No interval acute cardiopulmonary disease 2) Orthostatic hypotension -04/09 laying 139/85, sitting 126/87, standing 104/85 -04/10 laying 125/77, sitting 119/76, standing 90/59 -d/c HCTZ -Encouraged increase fluid intake -Getting up slowly -C/W physical therapy while in house 3) AIDS -CD4 on 04/01/17: 46 -c/w PCP ppx Bactrim QD -Pt will be on Bactrim 3x/week as outpatient -c/w Azithromycin 1200mg PO Qweekly for MAC ppx -Azithromycin administered on 04/01,04/10 -c/w Reyesuvada -ID consult appreciated: continuing with prophylactic antibiotics as CD4<50, sputum cultures/blood cultures x2, c/w HAART therapy. 4) Thrush -C/W Diflucan 100mg PO Daily -Oral care 5) Thrombocytopenia (chronic) -currently at baseline - Plt today: 122 -questionable splenomegaly on Chest CT -monitor with CBCs 6) Elevated total protein/abnormal SPEP -elevated total protein/abnormal SPEP -multiple myeloma work up by senior quality engineer Dr Julio Kumar: Bone marrow biopsy did not show increase in plasma cell, flow cytometry confirmed the lack of increased plasma cell. Pt seems to have a MUGUS. No treatment needed. 7) Essential Hypertension -controlled -d/c HCTZ -c/w home medications (Losartan and Amlodipine) 8) IDDM2 -controlled -HbA1C 5.6 (02/26/2017) -[facility] -monitor BS -insulin coverage scale -Levemir 5 units SC HS 9) Depression -c/w home medications 10) Methadone User -Methadone Clinic: [facility] [phone] (Dr. Campbell/Nurse Mica) -110mg QD @ 6:00am daily (confirmed dosage with clinic) 11) Diet -Diabetic heart healthy 12) Constipation, improving -Multiple normal BM 1 day ago -c/w Colace 100mg BID -Miralax solution BID -increase PO fluid intake 13) Prophylaxis -Lovenox 40mg daily -Probiotics (pt currently on multiple antibiotics)
[2017-04-11] MEDS: Fluticasone-Salmeterol 500-50mcg Diskus IH SCH ×2 (09:13→20:14)
[2017-04-11] MEDS: Lactobacillus Acidophilus 500 MU Cap PO SCH ×2 (09:14→17:02)
[2017-04-11] MEDS: Emtricitabine-Tenofovir 200 mg-300 mg Tab PO SCH (09:14)
[2017-04-11] MEDS: TIVICAY 50 MG PO SCH (09:14)
[2017-04-11] MEDS: Nystatin 100,000 Units/ml Oral Susp 5 ml UD PO SCH ×4 (09:15→21:34)
[2017-04-11] MEDS: POLYETHYLENE GLYCOL 3350 17 GM/Dose PACKET PO SCH ×2 (09:15→17:02)
[2017-04-11] MEDS: Tmp-Smz 800 mg-160 mg DS Tab PO SCH (09:17)
[2017-04-11] MEDS: Enoxaparin 40 mg Syringe SC SCH (09:18)
--- NOTE | 2017-04-11 15:59 | CP.PCM.PN ---
Subjective - Subjective Subjective: Dizziness, occasional dry cough , chest congestion improved Objective - Vital Signs/Intake and Output Vital Signs (last 24 hours): Temp Pulse Resp BP Pulse Ox 98.1 F 76 20 139/92 H 93 L 04/11/17 08:11 04/11/17 09:18 04/11/17 08:11 04/11/17 09:18 04/11/17 08:11 - Medications Medications: Current Medications Acetaminophen (Tylenol 325mg Tab) 650 mg PO Q6 PRN PRN Reason: Pain, Mild (1-3) Last Admin: 04/07/17 03:29 Dose: 650 mg Albuterol (Ventolin Hfa 90 Mcg/Actuation (8 G)) 1 puff INH BID PRN PRN Reason: Shortness of Breath Albuterol/Ipratropium (Duoneb 3 Mg/0.5 Mg (3 Ml) Ud) 3 ml INH RQID [facility] Last Admin: 04/11/17 15:31 Dose: 3 ml Albuterol/Ipratropium (Duoneb 3 Mg/0.5 Mg (3 Ml) Ud) 3 ml INH RQID [facility] Last Admin: 04/11/17 15:32 Dose: Not Given Amlodipine Besylate (Norvasc) 5 mg PO DAILY [facility] Last Admin: 04/11/17 09:15 Dose: 5 mg Azithromycin (Zithromax) 1,200 mg PO QWK@[facility] PRN Reason: Protocol Last Admin: 04/10/17 18:27 Dose: 1,200 mg Budesonide (Pulmicort Respules) 0.5 mg IH RBID [facility] Last Admin: 04/11/17 07:29 Dose: 0.5 mg Clonazepam (Klonopin) 1 mg PO TID PRN PRN Reason: Anxiety Last Admin: 04/11/17 11:26 Dose: 1 mg Emtricitabine/Tenofovir (Truvada 200 Mg-300 Mg) 1 tab PO DAILY [facility] Last Admin: 04/11/17 09:14 Dose: 1 tab Enoxaparin Sodium (Lovenox) 40 mg SC DAILY [facility] PRN Reason: Protocol Last Admin: 04/11/17 09:18 Dose: 40 mg Fluconazole (Diflucan) 100 mg PO DAILY [facility] PRN Reason: Protocol Last Admin: 04/11/17 09:17 Dose: 100 mg Fluvoxamine Maleate (Luvox) 50 mg PO DAILY [facility] Last Admin: 04/11/17 09:20 Dose: 50 mg Home Med (Trivicey) 50 mg PO DAILY [facility] Last Admin: 04/11/17 09:14 Dose: 50 mg Ceftriaxone Sodium 1 gm/ (Sodium Chloride) 100 mls @ 100 mls/hr IVPB DAILY@ 1700 [facility] PRN Reason: Protocol Last Admin: 04/10/17 17:39 Dose: 100 mls/hr Insulin Detemir (Levemir) 5 units SC [facility] Last Admin: 04/10/17 22:04 Dose: 5 u Lactobacillus Acidophilus (Bacid Acidophilus) 1 cap PO BID [facility] Last Admin: 04/11/17 09:14 Dose: 1 cap Lactulose (Enulose) 20 gm PO DAILY PRN PRN Reason: Constipation Last Admin: 04/04/17 20:54 Dose: 20 gm Losartan Potassium (Cozaar) 100 mg PO DAILY [facility] Last Admin: 04/11/17 09:18 Dose: 100 mg Magnesium Hydroxide (Milk Of Magnesia) 15 ml PO QID PRN PRN Reason: Constipation Meclizine HCl (Antivert) 12.5 mg PO TID PRN PRN Reason: Dizziness Last Admin: 04/11/17 15:42 Dose: 12.5 mg Methadone HCl (Methadone) 110 mg PO DAILY@0600 [facility] Last Admin: 04/11/17 05:31 Dose: 110 mg Mirtazapine (Remeron) 45 mg PO [facility] Last Admin: 04/10/17 22:06 Dose: 45 mg Nystatin (Nystatin Oral Susp) 5 ml PO QID [facility] Last Admin: 04/11/17 12:32 Dose: 5 ml Ondansetron HCl (Zofran Tab) 4 mg PO Q6 PRN PRN Reason: Nausea/Vomiting Last Admin: 04/11/17 08:00 Dose: 4 mg Polyethylene Glycol (Miralax) 17 gm PO BID [facility] Last Admin: 04/11/17 09:15 Dose: Not Given Prednisone (Prednisone Tab) 30 mg PO DAILY [facility] Last Admin: 04/11/17 09:16 Dose: 30 mg Fluticasone/Salmeterol (Advair Diskus 500/50) 1 puff IH Q12 [facility] Last Admin: 04/11/17 09:13 Dose: 1 puff Trimethoprim/Sulfamethoxazole (Bactrim Ds Tab) 1 tab PO MWF [facility] PRN Reason: Protocol Last Admin: 04/11/17 09:17 Dose: 1 tab - Labs Labs: 04/11/17 06:10 04/11/17 06:10 - Constitutional Appears: Chronically Ill - Head Exam Head Exam: NORMAL INSPECTION - Eye Exam Eye Exam: PERRL - ENT Exam Additional comments: Trush - Respiratory Exam Respiratory Exam: Decreased Breath Sounds (at bases), Rhonchi (scattered) - Cardiovascular Exam Cardiovascular Exam: REGULAR RHYTHM - GI/Abdominal Exam GI & Abdominal Exam: Soft, Normal Bowel Sounds - Extremities Exam Extremities Exam: Normal Inspection - Back Exam Back Exam: NORMAL INSPECTION - Neurological Exam Neurological Exam: Alert Additional comments: no focal motor sensory deficit - Psychiatric Exam Psychiatric exam: Anxious - Skin Skin Exam: Warm Assessment and Plan (1) COPD exacerbation Status: Acute (2) AIDS Status: Chronic - Assessment and Plan (Free Text) Plan: ABG RA PO2 57 , PCO2 55 , to have 6 min walk test , continue O2 , Advair , DuoNeb
[2017-04-11] MEDS: Insulin Detemir 100 Units/ml Inj SC SCH (21:32)
--- NOTE | 2017-04-12 07:39 | CP.PCM.DIS ---
Provider - Provider Date of Admission: 04/03/17 22:38 Attending physician: Alanna Puri MD Consults: Pulmonary-Dr. Mondragon Hematology-Dr. Kumar Infectious Disease- Dr. Patel Podiatry- Dr. Gutierrez Time Spent in preparation of Discharge (in minutes): 30 Hospital Course - Lab Results Lab Results: Most Recent Lab Values WBC 7.4 K/uL (4.8-10.8) D 04/11/17 06:10 RBC 4.05 Mil/uL (3.80-5.20) 04/11/17 06:10 Hgb 13.9 g/dL (12.0-16.0) 04/11/17 06:10 Hct 41.0 % (34.0-47.0) 04/11/17 06:10 MCV 101.0 fl (81.0-99.0) H 04/11/17 06:10 MCH 34.2 pg (27.0-31.0) H 04/11/17 06:10 MCHC 33.9 g/dL (33.0-37.0) 04/11/17 06:10 RDW 14.0 % (11.5-14.5) 04/11/17 06:10 Plt Count 122 K/uL (130-400) L 04/11/17 06:10 MPV 8.9 fl (7.2-11.7) 04/06/17 05:50 Neut % (Auto) 77.2 % (50.0-75.0) H 04/06/17 05:50 Lymph % (Auto) 13.6 % (20.0-40.0) L 04/06/17 05:50 Loving % (Auto) 9.1 % (0.0-10.0) 04/06/17 05:50 Eos % (Auto) 0.0 % (0.0-4.0) 04/06/17 05:50 Baso % (Auto) 0.1 % (0.0-2.0) 04/06/17 05:50 Neut # 2.6 K/uL (1.8-7.0) 04/06/17 05:50 Lymph # 0.5 K/uL (1.0-4.3) L 04/06/17 05:50 Loving # 0.3 K/uL (0.0-0.8) 04/06/17 05:50 Eos # 0.0 K/uL (0.0-0.7) 04/06/17 05:50 Baso # 0.0 K/uL (0.0-0.2) 04/06/17 05:50 pCO2 55 mm/Hg (35-45) H 04/10/17 13:40 pO2 57 mm/Hg (80-100) L 04/10/17 13:40 HCO3 27.4 mmol/L (21-28) 04/10/17 13:40 ABG pH 7.35 (7.35-7.45) 04/10/17 13:40 ABG Total CO2 32.1 mmol/L (22-28) H 04/10/17 13:40 ABG O2 Saturation 93.6 % (95-98) L 04/10/17 13:40 ABG O2 Content 17.7 ML/dL (15-23) 04/10/17 13:40 ABG Base Excess 3.4 mmol/L (-2.0-3.0) H 04/10/17 13:40 ABG Hemoglobin 14.0 g/dL (11.7-17.4) 04/10/17 13:40 ABG Carboxyhemoglobin 2.5 % (0.5-1.5) H 04/10/17 13:40 POC ABG HHb (Measured) 6.2 % (0.0-5.0) H 04/10/17 13:40 ABG Methemoglobin 1.3 % (0.0-3.0) 04/10/17 13:40 ABG O2 Capacity 18.9 mL/dL (16-24) 04/10/17 13:40 Cal Test Yes 04/10/17 13:40 A-a O2 Difference 24.0 mm/Hg 04/10/17 13:40 Hgb O2 Saturation 90.0 % (95.0-98.0) L 04/10/17 13:40 FiO2 21.0 % 04/10/17 13:40 Sodium 140 mmol/l (132-148) 04/11/17 06:10 Potassium 4.1 MMOL/L (3.6-5.0) 04/11/17 06:10 Chloride 100 mmol/L (98-107) 04/11/17 06:10 Carbon Dioxide 31 mmol/L (22-30) H 04/11/17 06:10 Anion Gap 13 (10-20) 04/11/17 06:10 BUN 38 mg/dl (7-17) H 04/11/17 06:10 Creatinine 0.9 mg/dL (0.7-1.2) 04/11/17 06:10 Est GFR ( Amer) > 60 04/11/17 06:10 Est GFR (Non-Af Amer) > 60 04/11/17 06:10 POC Glucose (mg/dL) 159 mg/dL (65-110) H 04/12/17 05:39 Random Glucose 113 mg/dL (65-105) H 04/11/17 06:10 Calcium 9.1 mg/dL (8.4-10.2) 04/11/17 06:10 Florien/Lambda Light Chain (()) 04/05/17 08:45 Free Florien Light Chains 31.8 mg/L (3.3-19.4) H 04/05/17 08:45 Free Lambda Light Chain 31.2 mg/L (5.7-26.3) H 04/05/17 08:45 Free Florien/Lambda Ratio 1.02 (0.26-1.65) 04/05/17 08:45 Discharge Exam - Head Exam Head Exam: ATRAUMATIC, NORMAL INSPECTION Discharge Plan - Follow Up Plan Condition: GOOD Disposition: HOME/ ROUTINE
[2017-04-12] MEDS: Budesonide 0.5 mg/2 ml Inhal Susp UD IH SCH ×2 (07:57→19:10)
[2017-04-12] MEDS: Albuterol-Ipratrop 3 mg / 0.5 (3 ml) UD INH SCH ×5 (07:57→19:10)
[2017-04-12] MEDS: Emtricitabine-Tenofovir 200 mg-300 mg Tab PO SCH (08:53)
[2017-04-12] MEDS: Nystatin 100,000 Units/ml Oral Susp 5 ml UD PO SCH ×4 (08:53→21:03)
[2017-04-12] MEDS: Lactobacillus Acidophilus 500 MU Cap PO SCH ×2 (08:53→17:00)
[2017-04-12] MEDS: POLYETHYLENE GLYCOL 3350 17 GM/Dose PACKET PO SCH ×2 (08:53→16:57)
[2017-04-12] MEDS: Fluticasone-Salmeterol 500-50mcg Diskus IH SCH ×2 (08:53→21:02)
[2017-04-12] MEDS: Enoxaparin 40 mg Syringe SC SCH (08:55)
--- NOTE | 2017-04-12 12:29 | CP.PCM.PN ---
Subjective - Date & Time of Evaluation Date of Evaluation: 04/12/17 Time of Evaluation: 12:13 - Subjective Subjective: Family Progress Note- Dr. Smith 66 y.o female with PMHx of HIV, IDDM2, HTN, COPD/Asthma, Vit D def and on methadone seen in TCU for COPD exacerbation. Patient is seen sitting up at bedside, AA0x3, and in NAD. Patient is speaking in complete sentences without distress. She reports that her shortness of breath is improving and her strength is improving as well in very little increments. Patient reports she was unable to complete physical therapy yesterday because of dizziness. Patient reports that she is worried about going home. She reports that she lives with her grandson who works during the day time and will be spending a lot of time at home alone Patient reports that she is having anxiety. She denies nausea, vomiting, chest pain, chills or fever. She has no problem voiding. She reports having a bowel movement yesterday. Objective - Vital Signs/Intake and Output Vital Signs (last 24 hours): Temp Pulse Resp BP Pulse Ox 97.7 F 64 20 104/72 92 L 04/12/17 08:00 04/12/17 08:55 04/12/17 08:00 04/12/17 08:55 04/12/17 08:00 - Medications Medications: Current Medications Acetaminophen (Tylenol 325mg Tab) 650 mg PO Q6 PRN PRN Reason: Pain, Mild (1-3) Last Admin: 04/07/17 03:29 Dose: 650 mg Albuterol (Ventolin Hfa 90 Mcg/Actuation (8 G)) 1 puff INH BID PRN PRN Reason: Shortness of Breath Albuterol/Ipratropium (Duoneb 3 Mg/0.5 Mg (3 Ml) Ud) 3 ml INH RQID [facility] Last Admin: 04/12/17 11:41 Dose: 3 ml Albuterol/Ipratropium (Duoneb 3 Mg/0.5 Mg (3 Ml) Ud) 3 ml INH RQID [facility] Last Admin: 04/12/17 11:42 Dose: Not Given Azithromycin (Zithromax) 1,200 mg PO QWK@[facility] PRN Reason: Protocol Last Admin: 04/10/17 18:27 Dose: 1,200 mg Budesonide (Pulmicort Respules) 0.5 mg IH RBID [facility] Last Admin: 04/12/17 07:57 Dose: 0.5 mg Clonazepam (Klonopin) 1 mg PO TID PRN PRN Reason: Anxiety Last Admin: 04/12/17 10:50 Dose: 1 mg Clonazepam (Klonopin) 1 mg PO HS [facility] Emtricitabine/Tenofovir (Truvada 200 Mg-300 Mg) 1 tab PO DAILY [facility] Last Admin: 04/12/17 08:53 Dose: 1 tab Enoxaparin Sodium (Lovenox) 40 mg SC DAILY [facility] PRN Reason: Protocol Last Admin: 04/12/17 08:55 Dose: 40 mg Fluconazole (Diflucan) 100 mg PO DAILY [facility] PRN Reason: Protocol Last Admin: 04/12/17 08:55 Dose: 100 mg Fluvoxamine Maleate (Luvox) 50 mg PO DAILY [facility] Last Admin: 04/12/17 08:54 Dose: 50 mg Home Med (Trivicey) 50 mg PO DAILY [facility] Last Admin: 04/11/17 09:14 Dose: 50 mg Insulin Detemir (Levemir) 5 units SC [facility] Last Admin: 04/11/17 21:32 Dose: 5 u Lactobacillus Acidophilus (Bacid Acidophilus) 1 cap PO BID [facility] Last Admin: 04/12/17 08:53 Dose: 1 cap Lactulose (Enulose) 20 gm PO DAILY PRN PRN Reason: Constipation Last Admin: 04/04/17 20:54 Dose: 20 gm Losartan Potassium (Cozaar) 50 mg PO DAILY [facility] Magnesium Hydroxide (Milk Of Magnesia) 15 ml PO QID PRN PRN Reason: Constipation Meclizine HCl (Antivert) 12.5 mg PO TID PRN PRN Reason: Dizziness Last Admin: 04/12/17 08:58 Dose: 12.5 mg Methadone HCl (Methadone) 110 mg PO DAILY@0600 [facility] Last Admin: 04/12/17 06:52 Dose: 110 mg Mirtazapine (Remeron) 45 mg PO HS [facility] Last Admin: 04/11/17 21:34 Dose: 45 mg Nystatin (Nystatin Oral Susp) 5 ml PO QID [facility] Last Admin: 04/12/17 08:53 Dose: 5 ml Ondansetron HCl (Zofran Tab) 4 mg PO Q6 PRN PRN Reason: Nausea/Vomiting Last Admin: 04/12/17 08:58 Dose: 4 mg Polyethylene Glycol (Miralax) 17 gm PO BID [facility] Last Admin: 04/12/17 08:53 Dose: Not Given Prednisone (Prednisone Tab) 30 mg PO DAILY [facility] Last Admin: 04/12/17 08:54 Dose: 30 mg Fluticasone/Salmeterol (Advair Diskus 500/50) 1 puff IH Q12 [facility] Last Admin: 04/12/17 08:53 Dose: 1 puff Trimethoprim/Sulfamethoxazole (Bactrim Ds Tab) 1 tab PO MWF [facility] PRN Reason: Protocol Last Admin: 04/11/17 09:17 Dose: 1 tab - Labs Labs: 04/11/17 06:10 04/11/17 06:10 - Constitutional Appears: Well, Non-toxic, No Acute Distress - Head Exam Head Exam: ATRAUMATIC, NORMAL INSPECTION - Eye Exam Eye Exam: Normal appearance - ENT Exam ENT Exam: Mucous Membranes Dry - Neck Exam Neck Exam: Full ROM - Respiratory Exam Additional comments: Decrease breath sounds bilaterally, improving Wheezes with expiration from base b/l, improving Scattered rhonchi still b/l, improving No rales, no crackers noted to the lung david No labored breathing noted - Cardiovascular Exam Cardiovascular Exam: REGULAR RHYTHM, +S1, +S2 - GI/Abdominal Exam GI & Abdominal Exam: Soft, Normal Bowel Sounds - Extremities Exam Extremities Exam: Full ROM, Normal Capillary Refill, Normal Inspection Additional comments: No pain with palpation to calf tenderness. - Back Exam Back Exam: NORMAL INSPECTION - Neurological Exam Neurological Exam: Alert, Awake, Oriented x3 - Psychiatric Exam Psychiatric exam: Anxious, Flat Affect, Normal Mood - Skin Skin Exam: Dry, Intact, Normal Color Assessment and Plan - Assessment and Plan (Free Text) Assessment: 66 year of female with PMHx of HTN, AIDS, IDDM2, COPD/Asthma, Vit D deficiency admitted for COPD Exacerbation. Plan: 1) COPD Exacerbation -Ceftriaxone 1gm QD- Completed from 04/01 to 04/11 total Abx 11 days -Doxycycline 100mg Q12H- Completed from 04/01 to 04/11 total Abx 11 days -Prednisolone 30mg PO today, will start Prednisolone 20mg PO tomorrow for 2 days -Taper Prednisolone 5mg every 2 days in AM per Dr. Mondragon -c/w abx, Duoneb. Taper steroid in AM per Dr. Mondragon -O2 via NC -Sputum x1 final results-Yeast Species (04/03/17) -Blood culture (04/03/17) No growth after 5 days -PT evaluation/treatment: home w/ services -Chest X-ray: No active pulmonary disease. No significant pleural effusion identified. No pneumothorax apparent. Cardiac size appears stable. No pulmonary vascular derangement appreciated. Tortuous descending thoracic aorta again appreciated. Impression: No interval acute cardiopulmonary disease -6 minute walk test results: pre test sat was 92% on room air HR 75 during sat was 90%, 89%, 88%, 87% post sat 88% HR 75 2 liters oxygen sat 96% HR 69 -d/w Dr. Mondragon, pt will get supplement oxygen tank, 2L of oxygen -script has been given to transplant case manager per Dr. Mondragon -continue to monitor O2 stat -F/U appt with Dr. Kingsley on 04/16/17 @10AM 2) Orthostatic hypotension -04/09 laying 139/85, sitting 126/87, standing 104/85 -04/10 laying 125/77, sitting 119/76, standing 90/59 -04/11 laying 109/73, sitting 124/61, standing 100/64 -d/c HCTZ -Encouraged increase fluid intake -Getting up slowly -C/W physical therapy while in house -Meclizine PRN per Dr. Mondragon 3) AIDS -CD4 on 04/01/17: 46 -c/w PCP ppx Bactrim QD -Pt will be on Bactrim 3x/week as outpatient -c/w Azithromycin 1200mg PO Qweekly for MAC ppx -Azithromycin administered on 04/01,04/10 -c/w Truvada -ID consult appreciated: continuing with prophylactic antibiotics as CD4<50, sputum cultures/blood cultures x2, c/w HAART therapy. 4) Thrush -C/W Diflucan for 7 days total (day 3) -Oral care 5) Thrombocytopenia (chronic) -currently at baseline - Plt: 122 (04/11/17) -questionable splenomegaly on Chest CT -monitor with CBCs 6) Elevated total protein/abnormal SPEP -elevated total protein/abnormal SPEP -multiple myeloma work up by ultrasonic solderer Dr Julio Kumar: Bone marrow biopsy did not show increase in plasma cell, flow cytometry confirmed the lack of increased plasma cell. Pt seems to have a MUGUS. No treatment needed. 7) Essential Hypertension -controlled -d/c HCTZ -c/w Amlodipine 8) IDDM2 -controlled -HbA1C 5.6 (02/26/2017) -ACHS -monitor BS -insulin coverage scale -Levemir 5 units SC HS 9) Depression -c/w home medications -Clonazepam changed to 1mg PO HS from 1mg PO TID PRN 10) Methadone User -Methadone Clinic: [facility] [phone] (Dr. Campbell/Nurse Mica) -110mg QD @ 6:00am daily (confirmed dosage with clinic) 11) Diet -Diabetic heart healthy 12) Constipation, improving -Multiple normal BM 1 day ago -c/w Colace 100mg BID -Miralax solution BID -increase PO fluid intake 13) Prophylaxis -Lovenox 40mg daily -Probiotics (pt currently on multiple antibiotics)
[2017-04-12] MEDS: TIVICAY 50 MG PO SCH (12:54)
--- NOTE | 2017-04-12 15:25 | CP.PCM.PN ---
Subjective - Date & Time of Evaluation Date of Evaluation: 04/12/17 Time of Evaluation: 13:30 - Subjective Subjective: F/U COPD Exacerbation. Pt No A/D, no SOB, in NC, occasional dry cough, c/o of dizziness. Objective - Vital Signs/Intake and Output Vital Signs (last 24 hours): Temp Pulse Resp BP Pulse Ox 97.7 F 64 20 104/72 92 L 04/12/17 08:00 04/12/17 08:55 04/12/17 08:00 04/12/17 08:55 04/12/17 08:00 - Medications Medications: Current Medications Acetaminophen (Tylenol 325mg Tab) 650 mg PO Q6 PRN PRN Reason: Pain, Mild (1-3) Last Admin: 04/07/17 03:29 Dose: 650 mg Albuterol (Ventolin Hfa 90 Mcg/Actuation (8 G)) 1 puff INH BID PRN PRN Reason: Shortness of Breath Albuterol/Ipratropium (Duoneb 3 Mg/0.5 Mg (3 Ml) Ud) 3 ml INH RQID [facility] Last Admin: 04/12/17 15:22 Dose: 3 ml Azithromycin (Zithromax) 1,200 mg PO QWK@[facility] PRN Reason: Protocol Last Admin: 04/10/17 18:27 Dose: 1,200 mg Budesonide (Pulmicort Respules) 0.5 mg IH RBID [facility] Last Admin: 04/12/17 07:57 Dose: 0.5 mg Clonazepam (Klonopin) 1 mg PO TID PRN PRN Reason: Anxiety Last Admin: 04/12/17 10:50 Dose: 1 mg Clonazepam (Klonopin) 1 mg PO HS [facility] Emtricitabine/Tenofovir (Truvada 200 Mg-300 Mg) 1 tab PO DAILY [facility] Last Admin: 04/12/17 08:53 Dose: 1 tab Enoxaparin Sodium (Lovenox) 40 mg SC DAILY [facility] PRN Reason: Protocol Last Admin: 04/12/17 08:55 Dose: 40 mg Fluconazole (Diflucan) 100 mg PO DAILY [facility] PRN Reason: Protocol Last Admin: 04/12/17 08:55 Dose: 100 mg Fluvoxamine Maleate (Luvox) 50 mg PO DAILY [facility] Last Admin: 04/12/17 08:54 Dose: 50 mg Home Med (Trivicey) 50 mg PO DAILY [facility] Last Admin: 04/12/17 12:54 Dose: 50 mg Insulin Detemir (Levemir) 5 units SC [facility] Last Admin: 04/11/17 21:32 Dose: 5 u Lactobacillus Acidophilus (Bacid Acidophilus) 1 cap PO BID [facility] Last Admin: 04/12/17 08:53 Dose: 1 cap Lactulose (Enulose) 20 gm PO DAILY PRN PRN Reason: Constipation Last Admin: 04/04/17 20:54 Dose: 20 gm Losartan Potassium (Cozaar) 50 mg PO DAILY [facility] Magnesium Hydroxide (Milk Of Magnesia) 15 ml PO QID PRN PRN Reason: Constipation Meclizine HCl (Antivert) 12.5 mg PO TID PRN PRN Reason: Dizziness Last Admin: 04/12/17 08:58 Dose: 12.5 mg Methadone HCl (Methadone) 110 mg PO DAILY@0600 [facility] Last Admin: 04/12/17 06:52 Dose: 110 mg Mirtazapine (Remeron) 45 mg PO [facility] Last Admin: 04/11/17 21:34 Dose: 45 mg Nystatin (Nystatin Oral Susp) 5 ml PO QID [facility] Last Admin: 04/12/17 12:55 Dose: 5 ml Ondansetron HCl (Zofran Tab) 4 mg PO Q6 PRN PRN Reason: Nausea/Vomiting Last Admin: 04/12/17 08:58 Dose: 4 mg Polyethylene Glycol (Miralax) 17 gm PO BID [facility] Last Admin: 04/12/17 08:53 Dose: Not Given Prednisone (Prednisone Tab) 30 mg PO DAILY [facility] Last Admin: 04/12/17 08:54 Dose: 30 mg Fluticasone/Salmeterol (Advair Diskus 500/50) 1 puff IH Q12 [facility] Last Admin: 04/12/17 08:53 Dose: 1 puff Trimethoprim/Sulfamethoxazole (Bactrim Ds Tab) 1 tab PO MWF [facility] PRN Reason: Protocol Last Admin: 04/11/17 09:17 Dose: 1 tab - Labs Labs: 04/11/17 06:10 04/11/17 06:10 - Constitutional Appears: No Acute Distress - Head Exam Head Exam: NORMAL INSPECTION - Eye Exam Eye Exam: PERRL - ENT Exam ENT Exam: Normal Exam - Neck Exam Neck Exam: Normal Inspection - Respiratory Exam Respiratory Exam: Decreased Breath Sounds (b/l), Rhonchi (b/l) - Cardiovascular Exam Cardiovascular Exam: REGULAR RHYTHM - GI/Abdominal Exam GI & Abdominal Exam: Soft, Normal Bowel Sounds - Extremities Exam Extremities Exam: Normal Inspection - Back Exam Back Exam: NORMAL INSPECTION - Neurological Exam Neurological Exam: Altered, Oriented x3 - Psychiatric Exam Psychiatric exam: Anxious - Skin Skin Exam: Warm Assessment and Plan (1) COPD exacerbation Status: Acute (2) AIDS Status: Chronic - Assessment and Plan (Free Text) Plan: ABG and 6 minuted walk Pulse-Ox reviewed. Pulmonary clear for discharge, to have O2 as out Pt, continue AdvairFerny.
[2017-04-12 18:01] LABS: ABG ALLEN TEST YES; ARTERIAL BLOOD GAS HCO3 25.3 mmol/L (21-28); ARTERIAL BLOOD GAS O2 CAPACITY 18.8 mL/dL (16-24); ARTERIAL BLOOD GAS O2 CONTENT 17.6 ML/dL (15-23); ARTERIAL BLOOD GAS PH 7.34 (7.35-7.45); ARTERIAL BLOOD GAS PO2 58 mm/Hg (80-100); ARTERIAL BLOOD HGB O2 SAT 90.1 % (95.0-98.0); CARBOXYHEMOGLOBIN 2.3 % (0.5-1.5); METHEMOGLOBIN 1.6 % (0.0-3.0)
[2017-04-12] MEDS: Insulin Detemir 100 Units/ml Inj SC SCH (21:05)
[2017-04-13] MEDS: Budesonide 0.5 mg/2 ml Inhal Susp UD IH SCH ×2 (07:10→19:49)
[2017-04-13] MEDS: Albuterol-Ipratrop 3 mg / 0.5 (3 ml) UD INH SCH ×4 (07:10→19:48)
[2017-04-13] MEDS: Emtricitabine-Tenofovir 200 mg-300 mg Tab PO SCH (09:00)
[2017-04-13] MEDS: POLYETHYLENE GLYCOL 3350 17 GM/Dose PACKET PO SCH ×2 (09:00→16:32)
[2017-04-13] MEDS: Nystatin 100,000 Units/ml Oral Susp 5 ml UD PO SCH ×4 (09:00→21:54)
[2017-04-13] MEDS: Tmp-Smz 800 mg-160 mg DS Tab PO SCH (09:01)
[2017-04-13] MEDS: Fluticasone-Salmeterol 500-50mcg Diskus IH SCH ×2 (09:02→21:50)
[2017-04-13] MEDS: Enoxaparin 40 mg Syringe SC SCH (09:03)
[2017-04-13] MEDS: TIVICAY 50 MG PO SCH (09:04)
[2017-04-13] MEDS: Lactobacillus Acidophilus 500 MU Cap PO SCH ×2 (09:07→16:34)
--- NOTE | 2017-04-13 14:56 | CP.PCM.PN ---
Subjective - Date & Time of Evaluation Date of Evaluation: 04/13/17 Time of Evaluation: 14:52 - Subjective Subjective: Family Progress Note for Dr. Smith 66 y.o female with PMHx of HIV, IDDM2, HTN, chronic COPD/Asthma, Vit D def and on methadone seen in TCU for COPD exacerbation, resolved. Patient is seen sitting up at bedside, AA0x3, and in NAD. Patient reports that she is doing okay. She reports that she is still having the same dizziness. She states she went to physical therapy yesterday. She reports doing better in physical therapy , feeling a little stronger but reports that she still feels dizzy at times and is worried about going home. She request to go home Sunday. She denies shortness of breath, nausea, vomiting, chest pain, chills or fever. She has no problem voiding. She reports having a bowel movement two days ago. Objective - Vital Signs/Intake and Output Vital Signs (last 24 hours): Temp Pulse Resp BP Pulse Ox 97.7 F 83 20 126/98 H 91 L 04/13/17 10:00 04/13/17 10:00 04/13/17 10:00 04/13/17 10:00 04/13/17 10:00 - Medications Medications: Current Medications Acetaminophen (Tylenol 325mg Tab) 650 mg PO Q6 PRN PRN Reason: Pain, Mild (1-3) Last Admin: 04/07/17 03:29 Dose: 650 mg Albuterol (Ventolin Hfa 90 Mcg/Actuation (8 G)) 1 puff INH BID PRN PRN Reason: Shortness of Breath Albuterol/Ipratropium (Duoneb 3 Mg/0.5 Mg (3 Ml) Ud) 3 ml INH RQID [facility] Last Admin: 04/13/17 11:02 Dose: 3 ml Azithromycin (Zithromax) 1,200 mg PO QWK@[facility] PRN Reason: Protocol Last Admin: 04/10/17 18:27 Dose: 1,200 mg Budesonide (Pulmicort Respules) 0.5 mg IH RBID [facility] Last Admin: 04/13/17 07:10 Dose: 0.5 mg Clonazepam (Klonopin) 1 mg PO TID PRN PRN Reason: Anxiety Last Admin: 04/13/17 10:53 Dose: 1 mg Clonazepam (Klonopin) 1 mg PO HS [facility] Last Admin: 04/12/17 21:10 Dose: 1 mg Emtricitabine/Tenofovir (Truvada 200 Mg-300 Mg) 1 tab PO DAILY [facility] Last Admin: 04/13/17 09:00 Dose: 1 tab Enoxaparin Sodium (Lovenox) 40 mg SC DAILY [facility] PRN Reason: Protocol Last Admin: 04/13/17 09:03 Dose: 40 mg Fluconazole (Diflucan) 100 mg PO DAILY [facility] PRN Reason: Protocol Last Admin: 04/13/17 09:02 Dose: 100 mg Fluvoxamine Maleate (Luvox) 50 mg PO DAILY [facility] Last Admin: 04/13/17 09:03 Dose: 50 mg Home Med (Trivicey) 50 mg PO DAILY [facility] Last Admin: 04/13/17 09:04 Dose: 50 mg Insulin Detemir (Levemir) 5 units SC [facility] Last Admin: 04/12/17 21:05 Dose: 5 u Lactobacillus Acidophilus (Bacid Acidophilus) 1 cap PO BID [facility] Last Admin: 04/13/17 09:07 Dose: 1 cap Lactulose (Enulose) 20 gm PO DAILY PRN PRN Reason: Constipation Last Admin: 04/04/17 20:54 Dose: 20 gm Losartan Potassium (Cozaar) 50 mg PO DAILY [facility] Last Admin: 04/13/17 09:01 Dose: 50 mg Magnesium Hydroxide (Milk Of Magnesia) 15 ml PO QID PRN PRN Reason: Constipation Meclizine HCl (Antivert) 12.5 mg PO TID PRN PRN Reason: Dizziness Last Admin: 04/13/17 09:00 Dose: 12.5 mg Methadone HCl (Methadone) 110 mg PO DAILY@0600 [facility] Last Admin: 04/13/17 05:36 Dose: 110 mg Mirtazapine (Remeron) 45 mg PO HS [facility] Last Admin: 04/12/17 21:03 Dose: 45 mg Nystatin (Nystatin Oral Susp) 5 ml PO QID [facility] Last Admin: 04/13/17 09:00 Dose: 5 ml Ondansetron HCl (Zofran Tab) 4 mg PO Q6 PRN PRN Reason: Nausea/Vomiting Last Admin: 04/13/17 09:00 Dose: 4 mg Polyethylene Glycol (Miralax) 17 gm PO BID [facility] Last Admin: 04/13/17 09:00 Dose: 17 gm Prednisone (Prednisone Tab) 30 mg PO DAILY [facility] Last Admin: 04/13/17 09:03 Dose: 30 mg Fluticasone/Salmeterol (Advair Diskus 500/50) 1 puff IH Q12 [facility] Last Admin: 04/13/17 09:02 Dose: 1 puff Trimethoprim/Sulfamethoxazole (Bactrim Ds Tab) 1 tab PO MWF [facility] PRN Reason: Protocol Last Admin: 04/13/17 09:01 Dose: 1 tab - Labs Labs: 04/11/17 06:10 04/11/17 06:10 - Constitutional Appears: Well, Non-toxic, No Acute Distress - Head Exam Head Exam: ATRAUMATIC, NORMAL INSPECTION - ENT Exam ENT Exam: Mucous Membranes Moist - Neck Exam Neck Exam: Full ROM - Respiratory Exam Additional comments: Decrease breath sounds bilaterally, improved Minimal wheezing with expiration from base b/l, improved Scattered rhonchi still b/l, improved No rales, no crackers noted to the lung david No labored breathing noted - Cardiovascular Exam Cardiovascular Exam: REGULAR RHYTHM, +S1, +S2 - GI/Abdominal Exam GI & Abdominal Exam: Soft, Normal Bowel Sounds. absent: Tenderness - Extremities Exam Extremities Exam: Full ROM, Normal Capillary Refill, Normal Inspection. absent : Calf Tenderness - Neurological Exam Neurological Exam: Alert, Awake, Oriented x3 - Psychiatric Exam Psychiatric exam: Flat Affect, Normal Mood Assessment and Plan - Assessment and Plan (Free Text) Assessment: 66 year of female with PMHx of HTN, AIDS, IDDM2, chronic COPD, Asthma, Vit D deficiency seen in TCU COPD Exacerbation, resolved. Plan: 1) Acute COPD Exacerbation on Chronic COPD -Acute COPD exacerbation has resolved -Ceftriaxone 1gm QD- Completed from 04/01 to 04/11 total Abx 11 days -Doxycycline 100mg Q12H- Completed from 04/01 to 04/11 total Abx 11 days -Prednisolone 30mg PO tapered to Prednisolone 20mg PO today -Taper Prednisolone 5mg every 2 days in AM per Dr. Mondragon -c/w abx, Duoneb. Taper steroid in AM per Dr. Mondragon -O2 via NC -Sputum x1 final results-Yeast Species (04/03/17) -Blood culture (04/03/17) No growth after 5 days -PT evaluation/treatment: home w/ services -Chest X-ray: No active pulmonary disease. No significant pleural effusion identified. No pneumothorax apparent. Cardiac size appears stable. No pulmonary vascular derangement appreciated. Tortuous descending thoracic aorta again appreciated. Impression: No interval acute cardiopulmonary disease -6 minute walk test results: pre test sat was 92% on room air HR 75 during sat was 90%, 89%, 88%, 87% post sat 88% HR 75 2 liters oxygen sat 96% HR 69 -All alternative means has been exhausted, patient requires home supplemental oxygen prior to d/c -to d/c with home O2 -d/w Dr. Mondragon; pt need supplement oxygen home per Dr. Mondragon -script has been given to shoe parts caser per Dr. Mondragon -continue to monitor O2 stat -F/U appt with Dr. Kingsley on 04/16/17 @10AM 2) Orthostatic hypotension -04/09 laying 139/85, sitting 126/87, standing 104/85 -04/10 laying 125/77, sitting 119/76, standing 90/59 -04/11 laying 109/73, sitting 124/61, standing 100/64 -d/c HCTZ -Encouraged increase fluid intake -Getting up slowly -C/W physical therapy while in house -Meclizine PRN per Dr. Mondragon 3) AIDS -CD4 on 04/01/17: 46 -c/w PCP ppx Bactrim QD -Pt will be on Bactrim 3x/week as outpatient -c/w Azithromycin 1200mg PO Qweekly for MAC ppx -Azithromycin administered on 04/01,04/10 -c/w Jason -ID consult appreciated: continuing with prophylactic antibiotics as CD4<50, sputum cultures/blood cultures x2, c/w HAART therapy. 4) Thrush -C/W Diflucan for 7 days total (day 4) -Oral care 5) Thrombocytopenia (chronic) -currently at baseline - Plt: 122 (04/11/17) -questionable splenomegaly on Chest CT -monitor with CBCs 6) Elevated total protein/abnormal SPEP -elevated total protein/abnormal SPEP -multiple myeloma work up by sonography technician Dr Julio Kumar: Bone marrow biopsy did not show increase in plasma cell, flow cytometry confirmed the lack of increased plasma cell. Pt seems to have a MUGUS. No treatment needed. 7) Essential Hypertension -controlled -d/c HCTZ -c/w Amlodipine 8) IDDM2 -controlled -HbA1C 5.6 (02/26/2017) -ACHS -monitor BS -insulin coverage scale -Levemir 5 units SC HS 9) Depression -c/w home medications -Clonazepam changed to 1mg PO HS from 1mg PO TID PRN 10) Methadone User -Methadone Clinic: [facility] [phone] (Dr. Campbell/Nurse [facility]) -110mg QD @ 6:00am daily (confirmed dosage with clinic) 11) Diet -Diabetic heart healthy 12) Constipation, improving -Multiple normal BM 1 day ago -c/w Colace 100mg BID -Miralax solution BID -increase PO fluid intake 13) Prophylaxis -Lovenox 40mg daily -Probiotics (pt currently on multiple antibiotics)
[2017-04-13] MEDS: Insulin Detemir 100 Units/ml Inj SC SCH (21:51)
[2017-04-14] MEDS: Fluticasone-Salmeterol 500-50mcg Diskus IH SCH ×2 (08:38→20:44)
[2017-04-14] MEDS: Nystatin 100,000 Units/ml Oral Susp 5 ml UD PO SCH ×4 (08:39→21:07)
[2017-04-14] MEDS: TIVICAY 50 MG PO SCH (08:40)
[2017-04-14] MEDS: Enoxaparin 40 mg Syringe SC SCH (08:40)
[2017-04-14] MEDS: POLYETHYLENE GLYCOL 3350 17 GM/Dose PACKET PO SCH ×2 (08:41→17:00)
[2017-04-14] MEDS: Emtricitabine-Tenofovir 200 mg-300 mg Tab PO SCH (08:43)
[2017-04-14] MEDS: Lactobacillus Acidophilus 500 MU Cap PO SCH ×2 (08:46→17:00)
[2017-04-14] MEDS: Budesonide 0.5 mg/2 ml Inhal Susp UD IH SCH ×2 (08:53→19:31)
[2017-04-14] MEDS: Albuterol-Ipratrop 3 mg / 0.5 (3 ml) UD INH SCH ×4 (08:53→19:31)
[2017-04-14] MEDS: Insulin Detemir 100 Units/ml Inj SC SCH (21:05)
--- NOTE | 2017-04-14 22:41 | CP.PCM.PN ---
Subjective - Date & Time of Evaluation Date of Evaluation: 04/14/17 Time of Evaluation: 13:00 - Subjective Subjective: F/U COPD Exacerbation. Pt c/o of occasional cough at times with scanty yellowish phlegms, no CHAPA, no SOB at rest, on O2 NC 2 L/M, c/o of dizziness Objective - Vital Signs/Intake and Output Vital Signs (last 24 hours): Temp Pulse Resp BP Pulse Ox 98.1 F 75 20 105/75 94 L 04/14/17 21:49 04/14/17 21:49 04/14/17 21:49 04/14/17 21:49 04/14/17 21:49 - Medications Medications: Current Medications Acetaminophen (Tylenol 325mg Tab) 650 mg PO Q6 PRN PRN Reason: Pain, Mild (1-3) Last Admin: 04/07/17 03:29 Dose: 650 mg Albuterol (Ventolin Hfa 90 Mcg/Actuation (8 G)) 1 puff INH BID PRN PRN Reason: Shortness of Breath Albuterol/Ipratropium (Duoneb 3 Mg/0.5 Mg (3 Ml) Ud) 3 ml INH RQID [facility] Last Admin: 04/14/17 19:31 Dose: 3 ml Azithromycin (Zithromax) 1,200 mg PO QWK@[facility] PRN Reason: Protocol Last Admin: 04/10/17 18:27 Dose: 1,200 mg Budesonide (Pulmicort Respules) 0.5 mg IH RBID [facility] Last Admin: 04/14/17 19:31 Dose: 0.5 mg Clonazepam (Klonopin) 1 mg PO TID PRN PRN Reason: Anxiety Last Admin: 04/14/17 11:31 Dose: 1 mg Clonazepam (Klonopin) 1 mg PO HS [facility] Last Admin: 04/14/17 21:05 Dose: 1 mg Emtricitabine/Tenofovir (Truvada 200 Mg-300 Mg) 1 tab PO DAILY [facility] Last Admin: 04/14/17 08:43 Dose: 1 tab Enoxaparin Sodium (Lovenox) 40 mg SC DAILY [facility] PRN Reason: Protocol Last Admin: 04/14/17 08:40 Dose: 40 mg Fluconazole (Diflucan) 100 mg PO DAILY [facility] PRN Reason: Protocol Last Admin: 04/14/17 08:39 Dose: 100 mg Fluvoxamine Maleate (Luvox) 50 mg PO DAILY [facility] Last Admin: 04/14/17 08:39 Dose: 50 mg Home Med (Trivicey) 50 mg PO DAILY [facility] Last Admin: 04/14/17 08:40 Dose: 50 mg Insulin Detemir (Levemir) 5 units SC [facility] Last Admin: 04/14/17 21:05 Dose: 5 u Lactobacillus Acidophilus (Bacid Acidophilus) 1 cap PO BID [facility] Last Admin: 04/14/17 17:00 Dose: 1 cap Lactulose (Enulose) 20 gm PO DAILY PRN PRN Reason: Constipation Last Admin: 04/04/17 20:54 Dose: 20 gm Losartan Potassium (Cozaar) 50 mg PO DAILY [facility] Last Admin: 04/14/17 08:43 Dose: 50 mg Magnesium Hydroxide (Milk Of Magnesia) 15 ml PO QID PRN PRN Reason: Constipation Last Admin: 04/13/17 21:53 Dose: 15 ml Meclizine HCl (Antivert) 12.5 mg PO TID PRN PRN Reason: Dizziness Last Admin: 04/14/17 17:00 Dose: 12.5 mg Methadone HCl (Methadone) 110 mg PO DAILY@0600 [facility] Last Admin: 04/14/17 06:07 Dose: 110 mg Mirtazapine (Remeron) 45 mg PO [facility] Last Admin: 04/14/17 21:05 Dose: 45 mg Nystatin (Nystatin Oral Susp) 5 ml PO QID [facility] Last Admin: 04/14/17 21:07 Dose: 5 ml Ondansetron HCl (Zofran Tab) 4 mg PO Q6 PRN PRN Reason: Nausea/Vomiting Last Admin: 04/14/17 08:40 Dose: 4 mg Polyethylene Glycol (Miralax) 17 gm PO BID [facility] Last Admin: 04/14/17 17:00 Dose: Not Given Prednisone (Prednisone Tab) 25 mg PO DAILY [facility] Last Admin: 04/14/17 08:39 Dose: 25 mg Fluticasone/Salmeterol (Advair Diskus 500/50) 1 puff IH Q12 [facility] Last Admin: 04/14/17 20:44 Dose: 1 puff Trimethoprim/Sulfamethoxazole (Bactrim Ds Tab) 1 tab PO [facility]N Reason: Protocol Last Admin: 04/13/17 09:01 Dose: 1 tab - Labs Labs: 04/11/17 06:10 04/11/17 06:10 - Constitutional Appears: No Acute Distress - Head Exam Head Exam: NORMAL INSPECTION - Eye Exam Eye Exam: PERRL - ENT Exam ENT Exam: Normal Exam - Neck Exam Neck Exam: Normal Inspection - Respiratory Exam Respiratory Exam: Decreased Breath Sounds (b/l), Rhonchi (b/l) - Cardiovascular Exam Cardiovascular Exam: REGULAR RHYTHM - GI/Abdominal Exam GI & Abdominal Exam: Soft, Normal Bowel Sounds - Extremities Exam Extremities Exam: Normal Inspection - Back Exam Back Exam: NORMAL INSPECTION - Neurological Exam Neurological Exam: Alert, Oriented x3 - Psychiatric Exam Psychiatric exam: Anxious - Skin Skin Exam: Warm Assessment and Plan (1) COPD exacerbation Status: Acute (2) AIDS Status: Chronic - Assessment and Plan (Free Text) Plan: Continue Prednisone, Duoneb, Advair.
[2017-04-15] MEDS: Budesonide 0.5 mg/2 ml Inhal Susp UD IH SCH ×2 (08:38→19:41)
[2017-04-15] MEDS: Albuterol-Ipratrop 3 mg / 0.5 (3 ml) UD INH SCH ×4 (08:38→19:41)
[2017-04-15] MEDS: Fluticasone-Salmeterol 500-50mcg Diskus IH SCH ×2 (09:16→21:38)
[2017-04-15] MEDS: Nystatin 100,000 Units/ml Oral Susp 5 ml UD PO SCH ×4 (09:16→21:51)
[2017-04-15] MEDS: Enoxaparin 40 mg Syringe SC SCH (09:17)
[2017-04-15] MEDS: Lactobacillus Acidophilus 500 MU Cap PO SCH ×2 (09:17→16:38)
[2017-04-15] MEDS: Emtricitabine-Tenofovir 200 mg-300 mg Tab PO SCH (09:18)
[2017-04-15] MEDS: POLYETHYLENE GLYCOL 3350 17 GM/Dose PACKET PO SCH ×2 (09:19→16:37)
[2017-04-15] MEDS: TIVICAY 50 MG PO SCH (09:19)
--- NOTE | 2017-04-15 14:58 | CP.PCM.PN ---
Subjective - Date & Time of Evaluation Date of Evaluation: 04/15/17 Time of Evaluation: 14:40 - Subjective Subjective: F/U COPD Exacerbation. Pt with paroxysmal cough, today with yellowish phlegms, no SOB, no CP, no c/o of dizziness. Objective - Vital Signs/Intake and Output Vital Signs (last 24 hours): Temp Pulse Resp BP Pulse Ox 97.3 F L 73 20 116/62 96 04/15/17 08:16 04/15/17 09:17 04/15/17 08:16 04/15/17 09:17 04/15/17 08:16 - Medications Medications: Current Medications Acetaminophen (Tylenol 325mg Tab) 650 mg PO Q6 PRN PRN Reason: Pain, Mild (1-3) Last Admin: 04/07/17 03:29 Dose: 650 mg Albuterol (Ventolin Hfa 90 Mcg/Actuation (8 G)) 1 puff INH BID PRN PRN Reason: Shortness of Breath Albuterol/Ipratropium (Duoneb 3 Mg/0.5 Mg (3 Ml) Ud) 3 ml INH RQID [facility] Last Admin: 04/15/17 11:57 Dose: 3 ml Budesonide (Pulmicort Respules) 0.5 mg IH RBID [facility] Last Admin: 04/15/17 08:38 Dose: 0.5 mg Clonazepam (Klonopin) 1 mg PO TID PRN PRN Reason: Anxiety Last Admin: 04/15/17 12:51 Dose: 1 mg Clonazepam (Klonopin) 1 mg PO HS [facility] Last Admin: 04/14/17 21:05 Dose: 1 mg Emtricitabine/Tenofovir (Truvada 200 Mg-300 Mg) 1 tab PO DAILY [facility] Last Admin: 04/15/17 09:18 Dose: 1 tab Enoxaparin Sodium (Lovenox) 40 mg SC DAILY [facility] PRN Reason: Protocol Last Admin: 04/15/17 09:17 Dose: 40 mg Fluconazole (Diflucan) 100 mg PO DAILY [facility] PRN Reason: Protocol Last Admin: 04/15/17 09:16 Dose: 100 mg Fluvoxamine Maleate (Luvox) 50 mg PO DAILY [facility] Last Admin: 04/15/17 09:18 Dose: 50 mg Home Med (Trivicey) 50 mg PO DAILY [facility] Last Admin: 04/15/17 09:19 Dose: 50 mg Insulin Detemir (Levemir) 5 units SC [facility] Last Admin: 04/14/17 21:05 Dose: 5 u Lactobacillus Acidophilus (Bacid Acidophilus) 1 cap PO BID [facility] Last Admin: 04/15/17 09:17 Dose: 1 cap Lactulose (Enulose) 20 gm PO DAILY PRN PRN Reason: Constipation Last Admin: 04/04/17 20:54 Dose: 20 gm Losartan Potassium (Cozaar) 50 mg PO DAILY [facility] Last Admin: 04/15/17 09:17 Dose: 50 mg Magnesium Hydroxide (Milk Of Magnesia) 15 ml PO QID PRN PRN Reason: Constipation Last Admin: 04/13/17 21:53 Dose: 15 ml Meclizine HCl (Antivert) 12.5 mg PO TID PRN PRN Reason: Dizziness Last Admin: 04/15/17 10:25 Dose: 12.5 mg Methadone HCl (Methadone) 110 mg PO DAILY@0600 [facility] Last Admin: 04/15/17 05:17 Dose: 110 mg Mirtazapine (Remeron) 45 mg PO [facility] Last Admin: 04/14/17 21:05 Dose: 45 mg Nystatin (Nystatin Oral Susp) 5 ml PO QID [facility] Last Admin: 04/15/17 12:44 Dose: 5 ml Ondansetron HCl (Zofran Tab) 4 mg PO Q6 PRN PRN Reason: Nausea/Vomiting Last Admin: 04/15/17 09:18 Dose: 4 mg Polyethylene Glycol (Miralax) 17 gm PO BID [facility] Last Admin: 04/15/17 09:19 Dose: Not Given Prednisone (Prednisone Tab) 25 mg PO DAILY [facility] Last Admin: 04/15/17 09:18 Dose: 25 mg Promethazine HCl/Codeine (Phenergan/Codeine Oral Syrup) 5 ml PO Q6 PRN PRN Reason: Cough Fluticasone/Salmeterol (Advair Diskus 500/50) 1 puff IH Q12 [facility] Last Admin: 04/15/17 09:16 Dose: 1 puff Trimethoprim/Sulfamethoxazole (Bactrim Ds Tab) 1 tab PO F [facility] PRN Reason: Protocol Last Admin: 04/13/17 09:01 Dose: 1 tab - Labs Labs: 04/11/17 06:10 04/11/17 06:10 Assessment and Plan (1) COPD exacerbation Status: Acute (2) AIDS Status: Chronic - Assessment and Plan (Free Text) Plan: Continue NC 2 L/M, Continue Duoneb, Pulmicort, Prednisone.
[2017-04-15] MEDS: Promethazine/Cod 6.25mg-10mg/5ml Syr UD PO PRN (19:53)
[2017-04-15] MEDS: Insulin Detemir 100 Units/ml Inj SC SCH (21:40)
[2017-04-16] MEDS: Promethazine/Cod 6.25mg-10mg/5ml Syr UD PO PRN (05:03)
[2017-04-16] MEDS: Albuterol-Ipratrop 3 mg / 0.5 (3 ml) UD INH SCH ×3 (07:15→15:34)
[2017-04-16] MEDS: Budesonide 0.5 mg/2 ml Inhal Susp UD IH SCH (07:15)
[2017-04-16] MEDS: Nystatin 100,000 Units/ml Oral Susp 5 ml UD PO SCH ×2 (08:35→13:56)
[2017-04-16] MEDS: Enoxaparin 40 mg Syringe SC SCH (08:36)
[2017-04-16] MEDS: TIVICAY 50 MG PO SCH (08:36)
[2017-04-16] MEDS: POLYETHYLENE GLYCOL 3350 17 GM/Dose PACKET PO SCH (08:37)
[2017-04-16] MEDS: Fluticasone-Salmeterol 500-50mcg Diskus IH SCH (08:37)
[2017-04-16] MEDS: Tmp-Smz 800 mg-160 mg DS Tab PO SCH (08:37)
[2017-04-16] MEDS: Emtricitabine-Tenofovir 200 mg-300 mg Tab PO SCH (08:37)
[2017-04-16] MEDS: Lactobacillus Acidophilus 500 MU Cap PO SCH (08:39)
--- NOTE | 2017-04-16 11:03 | CP.PCM.DIS ---
Provider - Provider Date of Admission: 04/03/17 22:38 Attending physician: Alanna Puri MD Primary care physician: Dr. Kingsley Consults: Dr. Mondragon- Pulmonary Dr. Kumar- Hematology Oncology Dr. Patel- Infectious Disease Dr. Gutierrez- Podiatry Time Spent in preparation of Discharge (in minutes): 30 Diagnosis - Discharge Diagnosis (1) COPD exacerbation Status: Acute Priority: High Comment: acute on chronic COPD, resolving (2) Orthostatic hypotension Status: Acute (3) AIDS Status: Chronic Priority: Medium (4) Thrush, oral Status: Acute (5) Thrombocytopenia Status: Chronic (6) Hypertension Status: Chronic Priority: Low Comment: Controlled (7) IDDM (insulin dependent diabetes mellitus) Status: Chronic Comment: Controlled (8) Depression Status: Acute (9) Methadone maintenance therapy patient Status: Acute (10) Constipation Status: Acute Comment: improving Hospital Course - Lab Results Lab Results: Most Recent Lab Values WBC 7.4 K/uL (4.8-10.8) D 04/11/17 06:10 RBC 4.05 Mil/uL (3.80-5.20) 04/11/17 06:10 Hgb 13.9 g/dL (12.0-16.0) 04/11/17 06:10 Hct 41.0 % (34.0-47.0) 04/11/17 06:10 MCV 101.0 fl (81.0-99.0) H 04/11/17 06:10 MCH 34.2 pg (27.0-31.0) H 04/11/17 06:10 MCHC 33.9 g/dL (33.0-37.0) 04/11/17 06:10 RDW 14.0 % (11.5-14.5) 04/11/17 06:10 Plt Count 122 K/uL (130-400) L 04/11/17 06:10 MPV 8.9 fl (7.2-11.7) 04/06/17 05:50 Neut % (Auto) 77.2 % (50.0-75.0) H 04/06/17 05:50 Lymph % (Auto) 13.6 % (20.0-40.0) L 04/06/17 05:50 Taney % (Auto) 9.1 % (0.0-10.0) 04/06/17 05:50 Eos % (Auto) 0.0 % (0.0-4.0) 04/06/17 05:50 Baso % (Auto) 0.1 % (0.0-2.0) 04/06/17 05:50 Neut # 2.6 K/uL (1.8-7.0) 04/06/17 05:50 Lymph # 0.5 K/uL (1.0-4.3) L 04/06/17 05:50 Taney # 0.3 K/uL (0.0-0.8) 04/06/17 05:50 Eos # 0.0 K/uL (0.0-0.7) 04/06/17 05:50 Baso # 0.0 K/uL (0.0-0.2) 04/06/17 05:50 pCO2 51 mm/Hg (35-45) H 04/12/17 17:44 pO2 58 mm/Hg (80-100) L 04/12/17 17:44 HCO3 25.3 mmol/L (21-28) 04/12/17 17:44 ABG pH 7.34 (7.35-7.45) L 04/12/17 17:44 ABG Total CO2 29.1 mmol/L (22-28) H 04/12/17 17:44 ABG O2 Saturation 93.8 % (95-98) L 04/12/17 17:44 ABG O2 Content 17.6 ML/dL (15-23) 04/12/17 17:44 ABG Base Excess 0.8 mmol/L (-2.0-3.0) 04/12/17 17:44 ABG Hemoglobin 13.9 g/dL (11.7-17.4) 04/12/17 17:44 ABG Carboxyhemoglobin 2.3 % (0.5-1.5) H 04/12/17 17:44 POC ABG HHb (Measured) 6.0 % (0.0-5.0) H 04/12/17 17:44 ABG Methemoglobin 1.6 % (0.0-3.0) 04/12/17 17:44 ABG O2 Capacity 18.8 mL/dL (16-24) 04/12/17 17:44 Cal Test Yes 04/12/17 17:44 A-a O2 Difference 28.0 mm/Hg 04/12/17 17:44 Hgb O2 Saturation 90.1 % (95.0-98.0) L 04/12/17 17:44 FiO2 21.0 % 04/12/17 17:44 Sodium 140 mmol/l (132-148) 04/11/17 06:10 Potassium 4.1 MMOL/L (3.6-5.0) 04/11/17 06:10 Chloride 100 mmol/L (98-107) 04/11/17 06:10 Carbon Dioxide 31 mmol/L (22-30) H 04/11/17 06:10 Anion Gap 13 (10-20) 04/11/17 06:10 BUN 38 mg/dl (7-17) H 04/11/17 06:10 Creatinine 0.9 mg/dL (0.7-1.2) 04/11/17 06:10 Est GFR ( Amer) > 60 04/11/17 06:10 Est GFR (Non-Af Amer) > 60 04/11/17 06:10 POC Glucose (mg/dL) 156 mg/dL (65-110) H 04/16/17 05:30 Random Glucose 113 mg/dL (65-105) H 04/11/17 06:10 Calcium 9.1 mg/dL (8.4-10.2) 04/11/17 06:10 Vass/Lambda Light Chain (()) 04/05/17 08:45 Free Vass Light Chains 31.8 mg/L (3.3-19.4) H 04/05/17 08:45 Free Lambda Light Chain 31.2 mg/L (5.7-26.3) H 04/05/17 08:45 Free Vass/Lambda Ratio 1.02 (0.26-1.65) 04/05/17 08:45 - Hospital Course Hospital Course: 66 y.o female with PMHx of HIV, IDDM2, HTN, COPD/Asthma, Vit D def and on methadone admitted for COPD exacerbation. During hospital stay patient received total 11 day course of Ceftriazone, total 11 day course of Doxycycline, Methylprednisone IV tapered down to PO, DUO-Nebs, and physical therapy with significantly improved symptoms. Patient's 6 minute walk test- results 88%, 87% while ambulating. Per Pulmonary, patient requires home supplemental oxygen prior to discharge. Also during hopsital stay, patient had episodes of low BP as well as complains of dizziness which was determined to discontinue hypertensive medications: HCTZ, Amlodipine, and Losartan. Also, decision was made to discontinue patient's diabetic medication secondary to well controlled glucose levels, HbA1C 5.6 (02/26/17). Also, during hospital stay patient found to have oral thrush and started on Diflucan for a total of 7 days. Patient has improved significantly clinically and decision made to be discharge to rehab facility and will followup in [facility] clinic as outpatient. Discharge Exam - Head Exam Head Exam: NORMAL INSPECTION - Eye Exam Eye Exam: Normal appearance - ENT Exam ENT Exam: Mucous Membranes Dry - Neck Exam Neck exam: Full Rom - Respiratory Exam Respiratory Exam: Rhonchi, Wheezes. absent: Chest Wall Tenderness, Rales, Respiratory Distress, Stridor Additional comments: Decrease breath sounds bilaterally, improved Minimal wheezing with expiration from base right, improved No wheezing noted to the left upper or lower Very minimal scattered rhonchi still b/l, improved No rales, no crackers noted to the lung david No labored breathing noted - Cardiovascular Exam Cardiovascular Exam: REGULAR RHYTHM, RRR, +S1, +S2 - GI/Abdominal Exam GI & Abdominal Exam: Normal Bowel Sounds, Unremarkable - Extremities Exam Extremities exam: full ROM, normal capillary refill, normal inspection, pedal pulses present Additional comments: No tenderness with palpation to the calf bilaterally Temperature gradient WNL - Neurological Exam Neurological exam: Alert, Oriented x3 - Psychiatric Exam Psychiatric exam: Normal Affect, Normal Mood - Skin Skin Exam: Dry, Intact, Normal Color, Warm Discharge Plan - Discharge Medications Prescriptions: Azithromycin [Zithromax] 1,200 mg PO QWK@[place] #4 tab clonazePAM [Klonopin] 1 mg PO TID PRN #21 tab PRN Reason: Anxiety Fluconazole [Diflucan] 100 mg PO DAILY #1 tab predniSONE [predniSONE Tab] 5 mg PO DAILY 7 Days #16 tab Sulfamethoxazole/Trimethoprim [Bactrim DS Tab] 1 tab PO MWF #12 tab - Follow Up Plan Condition: GOOD Disposition: REHAB FACILITY/REHAB UNIT Instructions: COPD (Chronic Obstructive Pulmonary Disease) (DC), COPD (Chronic Obstructive Pulmonary Disease) (GEN) Additional Instructions: -Pt will call to f/u with PCP Dr. Kingsley as outpatient -Rx home oxygen as per pulmonary orders Rx Fluconazole 100mg. Disp 1. Take 1 tab daily. Last dose is tomorrow on 04/17/17 Patient will finish total treatment total 7 days on 04/17/17 Rx Prednisone 5mg. Disp 16. tapered from 20mg -Starting tomorrow, -Take 4 tabs 5mg PO for 1 day (Day1) -Take 3 tabs 5mg PO for 2 days (Day2 + Day3) -Take 2 tabs 5mg PO for 2 days (Day4+ Day5) -Take 1 tab 5mg PO for 2 days (Day6 + Day7) Rx Azithromycin 1200mg. Take 1 tab PO once every week. -Next dose scheduled for 04/17/17 -Last dose given on 04/10/17 Rx Bactrim DS. Take 1 tab PO 3x/week (MWF) Rx ClonazePAM 1mg. Take 1 tab PO TID prn Medication reconciled. Medication list: Bactrim DS 1 tab PO MWF Azithromycin 1,200mg 1 tab PO q wk Prednisone 5mg. See tapered protocol as above Albuterol HFA 1 puff INH BID PRN Fluticasone/Salmeterol 500/50 1 puff IH Q12 ClonazePAM 1mg PO TID PRN Truvada 200MG-300MG 1 tab PO Daily fluvoxaMINE 50mg PO daily Lactobacillus 1 cap PO BID Lactulose 20 gm PO Daily PRN Magnesium hydroxide 15 ml PO QID PRN Methadone 10mg Tab; 110 mg PO DAILY@ 0600 Mirtazapine 15 mg Tab; 45 mg PO HS Zofran 4mg PO q 6 PRN Miralax 17 gm PO BID
[2017-04-16 15:46] VITALS: BP 120/88; PULSE 86; TEMP 99.5; O2SAT 93
== END 2017-04-16 15:45 | DRG 190 ==
LOC: H.TCU 22:38
PROVIDERS: ADMIT Emergency Medicine; ATTEND Emergency Medicine
PROC: F08Z4FZ Home Management Treatment using Assistive, Adaptive, Supportive or Protective Equipment (ICD-10-PCS; principal; 2017-04-03)
PROC: F07Z9ZZ Gait Training/Functional Ambulation Treatment (ICD-10-PCS; 2017-04-03)
PROC: F07L6ZZ Therapeutic Exercise Treatment of Musculoskeletal System - Lower Back / Lower Extremity (ICD-10-PCS; 2017-04-03)
PROC: F07K6ZZ Therapeutic Exercise Treatment of Musculoskeletal System - Upper Back / Upper Extremity (ICD-10-PCS; 2017-04-03)
PROC: 5A0955Z Assistance with Respiratory Ventilation, Greater than 96 Consecutive Hours (ICD-10-PCS; 2017-04-03)
DX: J44.1 Chronic obstructive pulmonary disease with (acute) exacerbation (principal); B20 Human immunodeficiency virus [HIV] disease; B37.0 Candidal stomatitis; D69.6 Thrombocytopenia, unspecified; E11.9 Type 2 diabetes mellitus without complications; L84 Corns and callosities; K59.00 Constipation, unspecified; I10 Essential (primary) hypertension; J45.909 Unspecified asthma, uncomplicated; E55.9 Vitamin D deficiency, unspecified; Z87.891 Personal history of nicotine dependence; Z79.4 Long term (current) use of insulin; I95.1 Orthostatic hypotension; F11.90 Opioid use, unspecified, uncomplicated

== ENCOUNTER 2017-06-21 08:39 | Observation (INO) | payer MEDICARE, MEDICAID ==
[2017-06-21 08:39] VITALS: BMI 25.7
[2017-06-21] MEDS ORDERED: Iohexol 240 (50 ml) PO ONE ×2 (09:34→10:08)
[2017-06-21] MEDS ORDERED: Sodium Chloride 0.9% 1,000 ML IV ONE (09:36)
--- NOTE | 2017-06-21 09:48 | ED PDOC ---
HPI: Abdomen Time Seen by Provider: 06/21/17 08:54 Chief Complaint (Nursing): Abdominal Pain History Per: Patient History/Exam Limitations: no limitations Onset/Duration Of Symptoms: Days (2), Gradual Severity: Mild Location Of Pain/Discomfort: Diffuse Quality Of Discomfort: Dull, Aching Associated Symptoms: Nausea, Diarrhea. denies: Fever, Chills, Vomiting, Back Pain, Chest Pain, Constipation, Urinary Symptoms Exacerbating Factors: None Alleviating Factors: None Last Bowel Movement: Yesterday Additional History Per: Patient Additional Complaint(s): Pt c/o abd pain with nausea and diarrhea x 2 days, denies fever, no vomiting. Past Medical History Reviewed: Historical Data, Nursing Documentation, Vital Signs Vital Signs: Last Vital Signs Temp 99 F 06/21/17 08:47 Pulse 64 06/21/17 08:47 Resp 16 06/21/17 08:47 BP 130/55 L 06/21/17 08:47 Pulse Ox 97 06/21/17 09:48 - Medical History PMH: Anxiety, Arthritis, Asthma, Bronchitis, COPD, Depression, Diabetes, Gastritis, HIV, HTN, Hypercholesterolemia, Pneumonia, Sleep Apnea Denies: Anemia, Atrial Fibrillation, Bipolar Disorder, Emphysema, Hepatitis, Hyperthyroidism, Pancreatitis, Chronic Kidney Disease, Schizophrenia, Seizures, Sexually Transmitted Disease - Family History Family History: States: Unknown Family Hx - Living Arrangements Living Arrangements: With Family - Social History Current smoker - smoking cessation education provided: No - Immunization History Hx Influenza Vaccination: Yes Hx Pneumococcal Vaccination: Yes - Home Medications Home Medications: Ambulatory Orders Medication Instructions Recorded Trivicey 50 mg PO DAILY #30 04/02/17 Albuterol HFA [Ventolin HFA 90 1 puff INH BID PRN inhaler 04/16/17 mcg/actuation (8 g)] Albuterol/Ipratropium [Duoneb 3 3 ml INH RQID neb 04/16/17 mg/0.5 mg (3 ml) UD] Azithromycin [Zithromax] 1,200 mg PO QWK@SUN #4 tab 04/16/17 Emtricitabine/Tenofovir Diso 1 tab PO DAILY tab 04/16/17 [Truvada 200 MG-300 MG] Fluconazole [Diflucan] 100 mg PO DAILY #1 tab 04/16/17 Fluticasone/Salmeterol 500/50 1 puff IH Q12 puff 11/13/17 [Advair Diskus 500/50] Lactobacillus Acidophilus [Bacid 1 cap PO BID cap 04/16/17 Acidophilus] Lactulose [Enulose] 20 gm PO DAILY PRN udc 04/16/17 Magnesium Hydroxide [Milk Of 15 ml PO QID PRN udc 04/16/17 Magnesia] Methadone 110 mg PO DAILY@0600 tab 04/16/17 Mirtazapine [Remeron] 45 mg PO HS tab 04/16/17 Ondansetron [Zofran Tab] 4 mg PO Q6 PRN tab 04/16/17 Polyethylene Glycol 3350 [Miralax] 17 gm PO BID packet 04/16/17 Sulfamethoxazole/Trimethoprim 1 tab PO MWF #12 tab 04/16/17 [Bactrim DS Tab] clonazePAM [Klonopin] 1 mg PO TID PRN #21 tab 04/16/17 fluvoxaMINE [Luvox] 50 mg PO DAILY tab 04/16/17 predniSONE [predniSONE Tab] 5 mg PO DAILY 7 Days #16 tab 04/16/17 - Allergies Allergies/Adverse Reactions: Allergies Allergy/AdvReac Type Severity Reaction Status Date / Time No Known Allergies Allergy Verified 06/21/17 08:47 Review of Systems ROS Statement: Except As Marked, All Systems Reviewed And Found Negative Constitutional: Negative for: Fever, Chills Cardiovascular: Negative for: Chest Pain, Palpitations Respiratory: Negative for: Cough, Shortness of Breath Gastrointestinal: Negative for: Nausea, Vomiting, Abdominal Pain Musculoskeletal: Negative for: Neck Pain Skin: Negative for: Rash Physical Exam - Reviewed Nursing Documentation Reviewed: Yes Vital Signs Reviewed: Yes - Physical Exam Appears: Positive for: No Acute Distress, Uncomfortable Head Exam: Positive for: ATRAUMATIC, NORMAL INSPECTION, NORMOCEPHALIC Eye Exam: Positive for: Normal appearance Neck: Positive for: Normal, Painless ROM, Supple Cardiovascular/Chest: Positive for: Regular Rate, Rhythm, Chest Non Tender. Negative for: Edema, Gallop, Bradycardia, Tachycardia Respiratory: Positive for: Normal Breath Sounds. Negative for: Decreased Breath Sounds, Accessory Muscle Use, Crackles, Rales, Rhonchi, Stridor, Wheezing , Respiratory Distress Gastrointestinal/Abdominal: Positive for: Normal Exam, Bowel Sounds, Soft. Negative for: Tenderness Back: Positive for: Normal Inspection. Negative for: L CVA Tenderness, R CVA Tenderness Extremity: Positive for: Normal ROM. Negative for: Tenderness, Pedal Edema Neurologic/Psych: Positive for: Alert, applications analyst II-XII, Oriented. Negative for: Motor/Sensory Deficits - Laboratory Results Result Diagrams: 06/21/17 10:00 06/21/17 10:00 - ECG O2 Sat by Pulse Oximetry: 97 Disposition - Disposition Forms: [employer] ([place])
[2017-06-21] MEDS ORDERED: Iohexol 240 (50 ml) ONE (09:53)
[2017-06-21 10:23] LABS: BASO % 0.2 % (0.0-2.0); EOS % 0.8 % (0.0-4.0); HEMOGLOBIN 12.2 g/dL (12.0-16.0); LYMPH # 0.7 K/uL (1.0-4.3); LYMPH % 27.8 % (20.0-40.0); MEAN CELL VOLUME 102.2 fl (81.0-99.0); MEAN CORPUSCULAR HEMOGLOBIN 34.8 pg (27.0-31.0); MEAN CORPUSCULAR HGB CONC 34.1 g/dL (33.0-37.0); MEAN PLATELET VOLUME 9.2 fl (7.2-11.7); MONO # 0.2 K/uL (0.0-0.8); MONO % 7.5 % (0.0-10.0); NEUT # 1.5 K/uL (1.8-7.0); NEUT % 63.7 % (50.0-75.0); NRBC % 0.3 % (0.0-0.0); RBC 3.49 Mil/uL (3.80-5.20); WHITE BLOOD COUNT 2.4 K/uL (4.8-10.8)
[2017-06-21 10:40] LABS: ALBUMIN 4.1 g/dL (3.5-5.0); ALT/SGPT 31 U/L (9-52); AMYLASE 163 U/L (30-110); AST/SGOT 34 U/L (14-36); BLOOD UREA NITROGEN 24 mg/dl (7-17); CALCIUM 8.7 mg/dL (8.4-10.2); GFR AFRICAN-AMERICAN > 60; GFR NON-AFRICAN AMERICAN > 60; LIPASE 59 U/L (23-300)
[2017-06-21 11:44] LABS: URINE BILIRUBIN NEGATIVE (NEGATIVE); URINE BLOOD NEGATIVE (NEGATIVE); URINE CLARITY CLEAR (Clear); URINE COLOR YELLOW (YELLOW); URINE GLUCOSE (UA) NEG (Normal); URINE LEUKOCYTE ESTERASE TRACE Leu/uL (Negative); URINE NITRATE NEGATIVE (NEGATIVE); URINE PROTEIN NEGATIVE (NEGATIVE); URINE UROBILINOGEN 0.2-1.0 mg/dL (0.2-1.0)
[2017-06-21] MEDS ORDERED: Iohexol 300 100 ML IJ ONE (12:36)
[2017-06-21] MEDS ORDERED: Sodium Chloride 0.9% 50 ML IV ONE (12:37)
--- NOTE | 2017-06-21 13:30 | CT ---
PROCEDURE: CT Abdomen and Pelvis with contrast HISTORY: abd pain r/o diveritculitis COMPARISON: None. TECHNIQUE: Contrast dose: 95 mL Omnipaque 300 Radiation dose: Total exam DLP = 474.32 mGy-cm. This CT exam was performed using one or more of the following dose reduction techniques: Automated exposure control, adjustment of the mA and/or kV according to patient size, and/or use of iterative reconstruction technique. FINDINGS: LOWER THORAX: Unremarkable. LIVER: Unremarkable. No gross lesion or ductal dilatation. GALLBLADDER AND BILE DUCTS: Unremarkable gallbladder. Common bile duct mildly dilated, up to 10 mm diameter. PANCREAS: No mass. Mild dilatation of the pancreatic duct. SPLEEN: Unremarkable. ADRENALS: Unremarkable. No mass. KIDNEYS AND URETERS: Unremarkable. No hydronephrosis. No solid mass. VASCULATURE: Unremarkable. No aortic aneurysm. BOWEL: Sigmoid diverticulosis without evidence of diverticulitis. No bowel obstruction. No other abnormal bowel loops are identified. APPENDIX: Not identified. No secondary findings to suggest acute appendicitis. PERITONEUM: Unremarkable. No free fluid. No free air. LYMPH NODES: Unremarkable. No enlarged lymph nodes. BLADDER: Unremarkable. REPRODUCTIVE: Unremarkable uterus. Several nodular uterine calcifications may reflect degenerated fibroids. BONES: No acute fracture. OTHER FINDINGS: None. IMPRESSION: No evidence of acute diverticulitis. No acute abnormality identified. Dilatation of the common bile duct and pancreatic duct is noted, without associated intrahepatic biliary dilatation. Correlate with laboratory evaluation. Consider evaluation with MRCP. Possibility of ampullary mass or stricture must be considered.
[2017-06-21] MEDS ORDERED: Alum-Mag Hydrox-Simethicone Susp (30 mL) PO ONE ×2 (13:53→18:41)
--- NOTE | 2017-06-21 14:08 | CARD ---
APPROVED REPORT EKG Measurement Heart [id number] <Conclusion> Sinus bradycardia with sinus arrhythmia Nonspecific T wave abnormality Abnormal ECG
[2017-06-21] MEDS ORDERED: Alum-Mag Hydrox-Simethicone Susp (30 mL) ONE (14:21)
--- NOTE | 2017-06-21 15:55 | US ---
HISTORY: Abdominal pain COMPARISON: 06/08/2016. TECHNIQUE: Sonographic evaluation of the right upper quadrant of the abdomen. FINDINGS: LIVER: Measures 13.2 cm in length. Patent portal vein. Portal venous flow: Hepatopetal. Unremarkeable echogenicity of the liver parenchyma. No mass. No intrahepatic bile duct dilatation. GALLBLADDER: Unremarkable. No gallstones. COMMON BILE DUCT: Measures 7.7 mm. No stones. No dilatation. On the prior study this measured 10.7 PANCREAS: Unremarkable as visualized. No mass. No ductal dilatation. RIGHT KIDNEY: Measures 3.6 x 10.9 cm in length. Normal echogenicity. No calculus, mass, or hydronephrosis. AORTA: No aneurysmal dilatation. IVC: Unremarkable. OTHER FINDINGS: None . IMPRESSION: No significant or acute findings to account for/ related to the clinical presentation. No significant interval change compared to the prior examination(s).
--- NOTE | 2017-06-21 16:50 | CP.PCM.HP ---
History of Present Illness - History of Present Illness History of Present Illness: 66F Past Patient History - Infectious Disease Hx of Infectious Diseases: None - Tetanus Immunizations Tetanus Immunization: Unknown - Past Medical History & Family History Past Medical History?: Yes - Past Social History Smoking Status: Former Smoker - CARDIAC Hx Atrial Fibrillation: No Hx Hypercholesterolemia: Yes Hx Hypertension: Yes - PULMONARY Hx Asthma: Yes Hx Bronchitis: Yes Hx Chronic Obstructive Pulmonary Disease (COPD): Yes Hx Emphysema: No Hx Pneumonia: Yes Hx Sleep Apnea: Yes - NEUROLOGICAL Hx Seizures: No - HEENT Hx HEENT Problems: No - RENAL Hx Chronic Kidney Disease: No - ENDOCRINE/METABOLIC Hx Hyperthyroidism: No - HEMATOLOGICAL/ONCOLOGICAL Hx Anemia: No Hx Human Immunodeficiency Virus (HIV): Yes - INTEGUMENTARY Hx Dermatological Problems: No - MUSCULOSKELETAL/RHEUMATOLOGICAL Hx Arthritis: Yes - GASTROINTESTINAL Hx Gastritis: Yes Hx Pancreatitis: No - GENITOURINARY/GYNECOLOGICAL Hx Sexually Transmitted Disorders: No - PSYCHIATRIC Hx Anxiety: Yes Hx Bipolar Disorder: No Hx Depression: Yes Hx Schizophrenia: No - SURGICAL HISTORY Hx Surgeries: No - ANESTHESIA Hx Anesthesia: No Meds Allergies/Adverse Reactions: Allergies Allergy/AdvReac Type Severity Reaction Status Date / Time No Known Allergies Allergy Verified 06/21/17 08:47 Results - Vital Signs Recent Vital Signs: Last Vital Signs Temp 37.2 C 06/21/17 08:47 Pulse 64 06/21/17 08:47 Resp 16 06/21/17 08:47 BP 130/55 L 06/21/17 08:47 Pulse Ox 97 06/21/17 12:46 - Labs Result Diagrams: 06/21/17 10:00 06/21/17 10:00 Labs: Laboratory Results - last 24 hr 06/21/17 06/21/17 06/21/17 10:00 10:00 11:22 WBC 2.4 L D RBC 3.49 L Hgb 12.2 Hct 35.7 MCV 102.2 H MCH 34.8 H MCHC 34.1 RDW 13.0 Plt Count 104 L MPV 9.2 Neut % (Auto) 63.7 Lymph % (Auto) 27.8 [place] % (Auto) 7.5 Eos % (Auto) 0.8 Baso % (Auto) 0.2 Neut # 1.5 L Lymph # 0.7 L [place] # 0.2 Eos # 0.0 Baso # 0.0 Sodium 141 Potassium 3.9 Chloride 102 Carbon Dioxide 32 H Anion Gap 11 BUN 24 H Creatinine 0.7 Est GFR ( Amer) > 60 Est GFR (Non-Af Amer) > 60 Random Glucose 111 H Calcium 8.7 Total Bilirubin 0.5 AST 34 ALT 31 Alkaline Phosphatase 66 Troponin I < 0.0120 Total Protein 8.0 Albumin 4.1 Globulin 3.9 Albumin/Globulin Ratio 1.0 Amylase 163 H D Lipase 59 Urine Color Yellow Urine Clarity Clear Urine pH 7.0 Ur Specific [place] 1.017 Urine Protein Negative Urine Glucose (UA) Neg Urine Ketones Negative Urine Blood Negative Urine Nitrate Negative Urine Bilirubin Negative Urine Urobilinogen 0.2-1.0 Ur Leukocyte Esterase Trace Urine RBC (Auto) < 1 Urine Microscopic WBC 1
[2017-06-21] MEDS ORDERED: Albuterol-Ipratrop 3 mg / 0.5 (3 ml) UD INH PRN (17:17)
[2017-06-21] MEDS ORDERED: Glucagon Recombinant 1 mg Inj IM PRN (17:58)
[2017-06-21] MEDS ORDERED: Dextrose 50% SYRINGE Inj (50 ml) IV PRN (17:58)
[2017-06-21] MEDS ORDERED: Insulin Detemir 100 Units/ml Inj SC SCH (22:00)
[2017-06-21] MEDS ORDERED: Emtricitabine-Tenofovir 200 mg-300 mg Tab PO SCH (22:00)
[2017-06-22] MEDS ORDERED: Lidocaine 5% Patch TD STA (02:21)
[2017-06-22] MEDS ORDERED: METHADONE PO SCH (06:00)
[2017-06-22 07:43] LABS: BASO % 0.4 % (0.0-2.0); EOS % 2.1 % (0.0-4.0); HEMOGLOBIN 13.3 g/dL (12.0-16.0); LYMPH # 0.6 K/uL (1.0-4.3); LYMPH % 27.5 % (20.0-40.0); MEAN CELL VOLUME 101.5 fl (81.0-99.0); MEAN CORPUSCULAR HEMOGLOBIN 35.2 pg (27.0-31.0); MEAN CORPUSCULAR HGB CONC 34.6 g/dL (33.0-37.0); MEAN PLATELET VOLUME 9.2 fl (7.2-11.7); MONO # 0.2 K/uL (0.0-0.8); MONO % 9.9 % (0.0-10.0); NEUT # 1.4 K/uL (1.8-7.0); NEUT % 60.1 % (50.0-75.0); NRBC % 0.2 % (0.0-0.0); RBC 3.79 Mil/uL (3.80-5.20); RED CELL DISTRIBUTION WIDTH 12.9 % (11.5-14.5); WHITE BLOOD COUNT 2.3 K/uL (4.8-10.8)
[2017-06-22 08:03] LABS: ALBUMIN 4.2 g/dL (3.5-5.0); ALT/SGPT 32 U/L (9-52); AST/SGOT 37 U/L (14-36); BLOOD UREA NITROGEN 18 mg/dl (7-17); CALCIUM 9.2 mg/dL (8.4-10.2); GFR AFRICAN-AMERICAN > 60; GFR NON-AFRICAN AMERICAN > 60
[2017-06-22 08:34] VITALS: BP 134/81; PULSE 56; RESP 20; TEMP 98; O2SAT 95
[2017-06-22] MEDS ORDERED: Tmp-Smz 800 mg-160 mg DS Tab PO SCH (09:00)
[2017-06-22] MEDS ORDERED: Patient's Own Med (Losartan/Hydrochlorothiazide [Losartan-Hctz 100-12.5 Mg Tab] 1 TAB) PO SCH (09:00)
--- NOTE | 2017-06-22 09:08 | CP.PCM.DIS ---
Provider - Provider Date of Admission: 06/21/17 15:22 Attending physician: Jesus Garcia MD Primary care physician: Dr Kingsley at [facility]. Time Spent in preparation of Discharge (in minutes): 30 Hospital Course - Lab Results Lab Results: Most Recent Lab Values WBC 2.3 K/uL (4.8-10.8) L 06/22/17 06:35 RBC 3.79 Mil/uL (3.80-5.20) L 06/22/17 06:35 Hgb 13.3 g/dL (12.0-16.0) 06/22/17 06:35 Hct 38.4 % (34.0-47.0) 06/22/17 06:35 MCV 101.5 fl (81.0-99.0) H 06/22/17 06:35 MCH 35.2 pg (27.0-31.0) H 06/22/17 06:35 MCHC 34.6 g/dL (33.0-37.0) 06/22/17 06:35 RDW 12.9 % (11.5-14.5) 06/22/17 06:35 Plt Count 110 K/uL (130-400) L 06/22/17 06:35 MPV 9.2 fl (7.2-11.7) 06/22/17 06:35 Neut % (Auto) 60.1 % (50.0-75.0) 06/22/17 06:35 Lymph % (Auto) 27.5 % (20.0-40.0) 06/22/17 06:35 [place] % (Auto) 9.9 % (0.0-10.0) 06/22/17 06:35 Eos % (Auto) 2.1 % (0.0-4.0) 06/22/17 06:35 Baso % (Auto) 0.4 % (0.0-2.0) 06/22/17 06:35 Neut # 1.4 K/uL (1.8-7.0) L 06/22/17 06:35 Lymph # 0.6 K/uL (1.0-4.3) L 06/22/17 06:35 [place] # 0.2 K/uL (0.0-0.8) 06/22/17 06:35 Eos # 0.0 K/uL (0.0-0.7) 06/22/17 06:35 Baso # 0.0 K/uL (0.0-0.2) 06/22/17 06:35 Sodium 142 mmol/l (132-148) 06/22/17 06:35 Potassium 4.1 MMOL/L (3.6-5.0) 06/22/17 06:35 Chloride 102 mmol/L (98-107) 06/22/17 06:35 Carbon Dioxide 32 mmol/L (22-30) H 06/22/17 06:35 Anion Gap 12 (10-20) 06/22/17 06:35 BUN 18 mg/dl (7-17) H 06/22/17 06:35 Creatinine 0.8 mg/dl (0.7-1.2) 06/22/17 06:35 Est GFR ( Amer) > 60 06/22/17 06:35 Est GFR (Non-Af Amer) > 60 06/22/17 06:35 POC Glucose (mg/dL) 91 mg/dL (65-110) 06/22/17 05:31 Random Glucose 101 mg/dL (65-105) 06/22/17 06:35 Calcium 9.2 mg/dL (8.4-10.2) 06/22/17 06:35 Total Bilirubin 0.8 mg/dl (0.2-1.3) 06/22/17 06:35 AST 37 U/L (14-36) H 06/22/17 06:35 ALT 32 U/L (9-52) 06/22/17 06:35 Alkaline Phosphatase 73 U/L (38-126) 06/22/17 06:35 Troponin I < 0.0120 ng/mL (0.00-0.120) 06/21/17 10:00 Total Protein 8.5 G/DL (6.3-8.2) H 06/22/17 06:35 Albumin 4.2 g/dL (3.5-5.0) 06/22/17 06:35 Globulin 4.2 gm/dL (2.2-3.9) H 06/22/17 06:35 Albumin/Globulin Ratio 1.0 (1.0-2.1) 06/22/17 06:35 Amylase 163 U/L (30-110) H D 06/21/17 10:00 Lipase 59 U/L (23-300) 06/21/17 10:00 Urine Color Yellow (YELLOW) 06/21/17 11:22 Urine Clarity Clear (Clear) 06/21/17 11:22 Urine pH 7.0 (5.0-8.0) 06/21/17 11:22 Ur Specific [place] 1.017 (1.003-1.030) 06/21/17 11:22 Urine Protein Negative mg/dL (NEGATIVE) 06/21/17 11:22 Urine Glucose (UA) Neg mg/dL (Normal) 06/21/17 11:22 Urine Ketones Negative mg/dL (NEGATIVE) 06/21/17 11:22 Urine Blood Negative (NEGATIVE) 06/21/17 11:22 Urine Nitrate Negative (NEGATIVE) 06/21/17 11:22 Urine Bilirubin Negative (NEGATIVE) 06/21/17 11:22 Urine Urobilinogen 0.2-1.0 mg/dL (0.2-1.0) 06/21/17 11:22 Ur Leukocyte Esterase Trace [place]/uL (Negative) 06/21/17 11:22 Urine RBC (Auto) < 1 /hpf (0-3) 06/21/17 11:22 Urine Microscopic WBC 1 /hpf (0-5) 06/21/17 11:22 - Hospital Course Hospital Course: 66 y/o F with a PMHX of HIV, COPD/Asthma, DM, HTN, Hyperlipididemia, 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 -Abdominal US showed NO significant or acute findings. -CT abdomen/pelvis: No evidence of acute diverticulitis. No acute abnormality identified. -Pt reported remarkable improvement of pain, went down from 10/10 to 5/10 intensity this morning. Pt has a chronic history of nausea but NO vomiting episodes in the last few days. Fecal sample collected this morning for studies including fecal fat, leukocytes and occult blood, results pending. -Pain has been managed with IM Toradol. -Pt will f/u with PCP, Dr Kingsley, on Sunday07/02/17 at 11 am or promptly, please f/u stool studies results. - Date & Time of H&P Date of H&P: 06/21/17 Time of H&P: 16:50 Discharge Exam - Head Exam Head Exam: ATRAUMATIC, NORMAL INSPECTION, NORMOCEPHALIC - Eye Exam Eye Exam: EOMI, Normal appearance - ENT Exam ENT Exam: Mucous Membranes Moist - Neck Exam Neck exam: Full Rom - Respiratory Exam Respiratory Exam: Clear to PA & Lateral, UNREMARKABLE - Cardiovascular Exam Cardiovascular Exam: REGULAR RHYTHM, +S1, +S2 - GI/Abdominal Exam GI & Abdominal Exam: Normal Bowel Sounds, Soft, Tenderness (mild on RLQ.). absent: Distended, Guarding, Mass, Rebound, Rigid - Extremities Exam Extremities exam: full ROM - Neurological Exam Neurological exam: Alert, Oriented x3 - Psychiatric Exam Psychiatric exam: Normal Mood Discharge Plan - Discharge Medications Prescriptions: Clonazepam [Klonopin] 0.5 mg PO HS #30 tablet Insulin Detemir [Levemir] 6 units SC HS #1 vial - Follow Up Plan Condition: GOOD Disposition: HOME/ ROUTINE Instructions: Acute Abdominal Pain (DC) Additional Instructions: -F/U with PCP, Dr Kingsley at [facility] on 07/02/17 at 11am. -Follow a low-fat diet, increase fluid intake and continue medications as instructed. -ER precautions discussed with pt.
[2017-06-22] MEDS ORDERED: Alum-Mag Hydrox-Simethicone Susp (30 mL) PO ONE (10:03)
[2017-06-23 12:08] LABS: % CD4 (T HELPER CELL) 34 Percent (30-61); % CD8 (SUPPRESSOR T CELL) 33 Percent (12-42); ABSOLUTE CD4 CELLS 228 Cells/mcL (490-1740); ABSOLUTE CD8 CELLS 224 Cells/mcL (180-1170); ABSOLUTE LYMPHOCYTES 680 Cells/mcL (850-3900); HELPER/SUPPRESSOR RATIO 1.02 Ratio (0.86-5.00)
== END 2017-06-22 10:56 | disposition home or self-care (01) ==
LOC: H.ER 08:39 → H.ERHOLD 15:22 → H.MEDSURG1 17:25
PROVIDERS: ADMIT Family Medicine; ATTEND Family Medicine
DX: R10.31 Right lower quadrant pain (principal); F11.20 Opioid dependence, uncomplicated; Z21 Asymptomatic human immunodeficiency virus [HIV] infection status; E11.9 Type 2 diabetes mellitus without complications; I10 Essential (primary) hypertension; E78.00 Pure hypercholesterolemia, unspecified; J44.9 Chronic obstructive pulmonary disease, unspecified; G47.30 Sleep apnea, unspecified; F32.9 Major depressive disorder, single episode, unspecified; F41.9 Anxiety disorder, unspecified; K29.70 Gastritis, unspecified, without bleeding; M19.90 Unspecified osteoarthritis, unspecified site; Z87.891 Personal history of nicotine dependence; Z87.01 Personal history of pneumonia (recurrent)
CPT/HCPCS: 36415; 74177; 76705; 80053; 81003; 82150; 82705; 82948; 83036; 83690; 84484; 85025; 86360; 87536; 89055; 93005; 96360; 96374; 99281; G0328; G0378; J1885; J7040; Q9966; Q9967

== ENCOUNTER 2017-11-02 07:15 | Observation (INO) | payer MEDICARE, MEDICAID ==
[2017-11-02 07:19] VITALS: BMI 23.4
[2017-11-02] MEDS ORDERED: Sodium Chloride 0.9% 1,000 ML IV STA (07:39)
--- NOTE | 2017-11-02 07:46 | ED PDOC ---
HPI: Abdomen Time Seen by Provider: 11/02/17 07:24 Chief Complaint (Nursing): Abdominal Pain Chief Complaint (Provider): Abdominal Pain History Per: Patient History/Exam Limitations: no limitations Onset/Duration Of Symptoms: Days (x1) Outside of [place] travel?: No Current Symptoms Are (Timing): Still Present Associated Symptoms: Nausea. denies: Fever, Vomiting, Diarrhea Additional Complaint(s): 67 y/o female with a history of vertigo and HIV presents to the ED with dizziness. Patient states the dizziness began yesterday associated with nausea. She is also complaining of chronic abdominal pain. Patient has a history of diabetes, however per PMD was taken off her diabetes medication. Denies any vomiting, fever, diarrhea, or genitourinary symptoms. Of note, patient takes the medication Meglizine for vertigo. PMD: Dr. Ana Kingsley Past Medical History Reviewed: Historical Data, Nursing Documentation, Vital Signs Vital Signs: Last Vital Signs Temp 98.4 F 11/03/17 12:19 Pulse 75 11/03/17 12:19 Resp 16 11/03/17 12:19 BP 132/92 H 11/03/17 12:19 Pulse Ox 95 11/03/17 12:19 - Medical History PMH: Anxiety, Arthritis, Asthma, Bronchitis, COPD, Depression, Diabetes, Gastritis, HIV, HTN, Hypercholesterolemia, Pneumonia, Sleep Apnea Denies: Anemia, Atrial Fibrillation, Bipolar Disorder, Emphysema, Hepatitis, Hyperthyroidism, Pancreatitis, Chronic Kidney Disease, Schizophrenia, Seizures, Sexually Transmitted Disease - Surgical History Surgical History: No Surg Hx - Family History Family History: States: Unknown Family Hx - Social History Current smoker - smoking cessation education provided: No Ex-Smoker (has not smoked in the last 12 months): Yes Alcohol: None Drugs: Denies - Immunization History Hx Influenza Vaccination: Yes Hx Pneumococcal Vaccination: Yes - Home Medications Home Medications: Ambulatory Orders Medication Instructions Recorded Albuterol/Ipratropium [Combivent 1 puff IH Q6H PRN 06/21/17 Respimat] Dolutegravir Sodium [Tivicay] 50 mg PO HS 06/21/17 Methadone 110 mg PO DAILY 06/21/17 Mirtazapine [Remeron] 45 mg PO HS 06/21/17 Ondansetron [Zofran Tab] 4 mg PO BID PRN 06/21/17 Cholecalciferol [Vitamin D 1000 IU] 1,000 unit PO DAILY 11/02/17 Docusate [Colace] 100 mg PO DAILY PRN 11/02/17 Emtricitab/Rilpiviri/Tenof Ala 1 tab PO HS 11/02/17 [Odefsey Tablet] Fluticasone/Salmeterol [Advair 1 puff IH Q12 11/02/17 250-50 Diskus] Loperamide [Imodium] 2 mg PO QID PRN 11/02/17 Losartan/Hydrochlorothiazide 1 tab PO DAILY 11/02/17 [Losartan-Hctz 50-12.5 mg Tab] Meclizine [Antivert] 12.5 mg PO Q12 PRN 11/02/17 QUEtiapine [Seroquel] 50 mg PO HS 11/02/17 clonazePAM [Klonopin] 1 mg PO DAILY 11/02/17 fluvoxaMINE [Luvox] 50 mg PO DAILY 11/02/17 - Allergies Allergies/Adverse Reactions: Allergies Allergy/AdvReac Type Severity Reaction Status Date / Time No Known Allergies Allergy Verified 06/21/17 08:47 Review of Systems ROS Statement: Except As Marked, All Systems Reviewed And Found Negative Constitutional: Negative for: Fever Gastrointestinal: Positive for: Nausea, Abdominal Pain. Negative for: Vomiting , Diarrhea Genitourinary Female: Negative for: Other (genitourinary symptoms) Physical Exam - Reviewed Nursing Documentation Reviewed: Yes Vital Signs Reviewed: Yes - Physical Exam Appears: Positive for: Non-toxic, No Acute Distress Head Exam: Positive for: ATRAUMATIC, NORMOCEPHALIC Skin: Positive for: Normal Color, Warm, Dry Eye Exam: Positive for: EOMI, Normal appearance, PERRL Cardiovascular/Chest: Positive for: Regular Rate, Rhythm. Negative for: Murmur Respiratory: Positive for: Normal Breath Sounds. Negative for: Respiratory Distress Gastrointestinal/Abdominal: Positive for: Normal Exam, Soft, Tenderness (LUQ/ epigastric). Negative for: Guarding, Rebound Extremity: Positive for: Normal ROM Neurologic/Psych: Positive for: Alert, Oriented (x3) - Laboratory Results Result Diagrams: 11/03/17 04:39 11/03/17 04:39 - ECG ECG: Positive for: Interpreted By Me, Viewed By Me ECG Rhythm: Positive for: Sinus Rhythm (normal), ST/T Changes Rate: 69 O2 Sat by Pulse Oximetry: 97 (RA) Pulse Ox Interpretation: Normal Medical Decision Making Medical Decision Making: Time: 07:19 Impression: Vertigo and abdominal pain Initial Plan: * CAT Scan Abd/Pelvis IV contrast * CAT Scan head w/o contrast * EKG * CMP * Lipase StatUDip * CBC * PTT * Prothrombin Time * Pepcid 20 mg IVP * IV Fluids * Zofran 4 mg PO * Urinalysis CAT Scan Abd/Pelvis IV contrast Results... FINDINGS: LOWER THORAX: Unremarkable. LIVER: Hepatic steatosis. No gross lesion or ductal dilatation. GALLBLADDER AND BILE DUCTS: Stable CBD dilatation. Unremarkable gallbladder. PANCREAS: Stable atrophy. Stable pancreatic ductal prominence. SPLEEN: Unremarkable. ADRENALS: Unremarkable. No mass. KIDNEYS AND URETERS: Unremarkable. No hydronephrosis. No solid mass. VASCULATURE: Unremarkable. No aortic aneurysm. BOWEL: Posteroinferior gastric diverticulum. No obstruction. No gross mural thickening. APPENDIX: Not visualized. No right lower quadrant inflammatory process. PERITONEUM: Unremarkable. No free fluid. No free air. LYMPH NODES: Unremarkable. No enlarged lymph nodes. BLADDER: Unremarkable. REPRODUCTIVE: Unremarkable. BONES: Lower thoracic and L5-S1 degenerative changes. OTHER FINDINGS: None. IMPRESSION: No acute abdominal pelvic pathology. No significant interval change. Head CT results... FINDINGS: HEMORRHAGE: No intracranial hemorrhage. BRAIN: No mass effect or edema. Mild atrophy. Chronic microvascular ischemic changes. VENTRICLES: Mildly prominent. No hydrocephalus. CALVARIUM: Unremarkable. PARANASAL SINUSES: Unremarkable as visualized. No significant inflammatory changes. MASTOID AIR CELLS: Unremarkable as visualized. No inflammatory changes. OTHER FINDINGS: None. IMPRESSION: No acute intracranial pathology. 11:20 Upon discharge, pt c/o feeling weak and dizzy like she's going to "fall out". Repeat EKG and troponin ordered, will place in obs tele. Scribe Attestation: Documented by Salvador Benitez acting as a scribe Keke Merritt MD. MD Garcia Attestation: All medical record entries made by the Scribe were at my direction and personally dictated by me. I have reviewed the chart and agree that the record accurately reflects my personal performance of the history, physical exam, medical decision making, and the department course for this patient. I have also personally directed, reviewed, and agree with the discharge instructions and disposition. Disposition - Clinical Impression Clinical Impression: Abdominal pain, Vertigo - Disposition Condition: GOOD
[2017-11-02] MEDS ORDERED: Famotidine 20mg/50ml Premix IVPB STA (07:48)
[2017-11-02 08:38] LABS: BASO % 0.3 % (0.0-2.0); EOS % 0.5 % (0.0-4.0); HEMOGLOBIN 13.4 g/dL (12.0-16.0); LYMPH # 0.6 K/uL (1.0-4.3); LYMPH % 15.9 % (20.0-40.0); MEAN CELL VOLUME 104.2 fl (81.0-99.0); MEAN CORPUSCULAR HGB CONC 34.6 g/dL (33.0-37.0); MEAN PLATELET VOLUME 9.4 fl (7.2-11.7); MONO # 0.3 K/uL (0.0-0.8); MONO % 7.8 % (0.0-10.0); NEUT # 2.7 K/uL (1.8-7.0); NEUT % 75.5 % (50.0-75.0); RBC 3.74 Mil/uL (3.80-5.20); RED CELL DISTRIBUTION WIDTH 13.1 % (11.5-14.5); WHITE BLOOD COUNT 3.6 K/uL (4.8-10.8)
[2017-11-02 08:44] LABS: SQUAMOUS EPITHIAL 1 /hpf (0-5); URINE BILIRUBIN NEGATIVE (NEGATIVE); URINE BLOOD NEGATIVE (NEGATIVE); URINE CLARITY SLIGHTY-CLOUDY (Clear); URINE COLOR YELLOW (YELLOW); URINE GLUCOSE (UA) NEG (Normal); URINE HYALINE CAST 0-2 /hpf (0-2); URINE LEUKOCYTE ESTERASE MOD Leu/uL (Negative); URINE PROTEIN NEGATIVE (NEGATIVE); URINE UROBILINOGEN 0.2-1.0 mg/dL (0.2-1.0)
[2017-11-02 08:45] LABS: INR 1.1 (0.9-1.2); PARTIAL THROMBOPLASTIN TIME 26.2 Seconds (25.6-37.1); PROTHROMBIN TIME 11.7 Seconds (9.8-13.1)
[2017-11-02 08:49] LABS: ALBUMIN 4.2 g/dL (3.5-5.0); ALT/SGPT 28 U/L (9-52); AST/SGOT 36 U/L (14-36); BLOOD UREA NITROGEN 26 mg/dl (7-17); CALCIUM 9.2 mg/dL (8.4-10.2); GFR AFRICAN-AMERICAN > 60; GFR NON-AFRICAN AMERICAN 55; LIPASE 61 U/L (23-300)
[2017-11-02] MEDS ORDERED: Famotidine 20mg/50ml 20 MG/50 ML BAG IVPB ONE (09:21)
[2017-11-02] MEDS ORDERED: Sodium Chloride 0.9% 50 ML IV ONE (09:49)
[2017-11-02] MEDS ORDERED: Iohexol 300 100 ML IJ ONE (09:49)
--- NOTE | 2017-11-02 10:15 | CARD ---
APPROVED REPORT EKG Measurement Heart [id number] [id number] [id number] <Conclusion> Normal sinus rhythm Normal ECG
--- NOTE | 2017-11-02 10:16 | CT ---
PROCEDURE: CT HEAD WITHOUT CONTRAST. HISTORY: Vertigo COMPARISON: CT head dated 02/09/2017. TECHNIQUE: Axial computed tomography images were obtained through the head/brain without intravenous contrast. Radiation dose: Total exam DLP = 819.6 mGy-cm. This CT exam was performed using one or more of the following dose reduction techniques: Automated exposure control, adjustment of the mA and/or kV according to patient size, and/or use of iterative reconstruction technique. FINDINGS: HEMORRHAGE: No intracranial hemorrhage. BRAIN: No mass effect or edema. Mild atrophy. Chronic microvascular ischemic changes. VENTRICLES: Mildly prominent. No hydrocephalus. CALVARIUM: Unremarkable. PARANASAL SINUSES: Unremarkable as visualized. No significant inflammatory changes. MASTOID AIR CELLS: Unremarkable as visualized. No inflammatory changes. OTHER FINDINGS: None. IMPRESSION: No acute intracranial pathology.
--- NOTE | 2017-11-02 10:29 | CT ---
PROCEDURE: CT Abdomen and Pelvis with contrast HISTORY: LUQ pain COMPARISON: CT scan of the abdomen and pelvis dated 10/05/2017. TECHNIQUE: Contrast dose: 95 mL Omnipaque 300 Radiation dose: Total exam DLP = 347.1 mGy-cm. This CT exam was performed using one or more of the following dose reduction techniques: Automated exposure control, adjustment of the mA and/or kV according to patient size, and/or use of iterative reconstruction technique. FINDINGS: LOWER THORAX: Unremarkable. LIVER: Hepatic steatosis. No gross lesion or ductal dilatation. GALLBLADDER AND BILE DUCTS: Stable CBD dilatation. Unremarkable gallbladder. PANCREAS: Stable atrophy. Stable pancreatic ductal prominence. SPLEEN: Unremarkable. ADRENALS: Unremarkable. No mass. KIDNEYS AND URETERS: Unremarkable. No hydronephrosis. No solid mass. VASCULATURE: Unremarkable. No aortic aneurysm. BOWEL: Posteroinferior gastric diverticulum. No obstruction. No gross mural thickening. APPENDIX: Not visualized. No right lower quadrant inflammatory process. PERITONEUM: Unremarkable. No free fluid. No free air. LYMPH NODES: Unremarkable. No enlarged lymph nodes. BLADDER: Unremarkable. REPRODUCTIVE: Unremarkable. BONES: Lower thoracic and L5-S1 degenerative changes. OTHER FINDINGS: None. IMPRESSION: No acute abdominal pelvic pathology. No significant interval change.
[2017-11-02] MEDS ORDERED: Patient's Own Med (Albuterol/Ipratropium [Combivent Respimat] 1 PUFF) IH PRN (12:24)
--- NOTE | 2017-11-02 15:49 | CP.PCM.HP ---
History of Present Illness - History of Present Illness History of Present Illness: This is 67 y/o F with PMH of DMII, HTN, HIV, hep C, COPD, depression and Vertigo admitted to [facility] for evaluation and treatment of 1 day hx of intermittent dizziness and generalized weakness. As per patient, she has hx of vertigo, she woke up yesterday and started feeling dizzy with severe room spinning sensations which is worse than she usually gets. Patient took her Meclizine but didn't really help. Dizziness associated with nausea, subjective fever and left side pounding unilateral headache which got better after tylenol. Patient denies any LOC, ringing in ears, or blurred vision. Patient reports hx of constipations and abdominal discomfort. Patient denies any chest pain, SOB, urinary symptoms or hearing changes. PMD: Dr. Kingsley -Methadone Clinic: [facility] [phone] ( pt takes 110 mg methadone daily) PMHx: HIV, HTN, COPD,DM2, Hepatitis C, vertigo, depression. Meds: Losartan/HCTZ 50/12.5, Meclizine 12.5 Q12, Remeron 45mg, Seroquel 50mg, Klonopin, Luvox 50mg, Odefsey 200-25-25, Tivicay, Zofran 4mg prn, Methadone 110mg QD at 6am, advair 250/50 mcg/dose, 1 puff bid. PSurgHx: none PHospHx: COPD exacerbation 09/2014, CAP 06/06/2016,COPD exacerbation in 04/2017 Allergies: NKDA FamilyHx: mother at 18 after complications. father decreased, 80 years, HTN, DM2, COPD, CAD and Prostate cancer SocialHx: Former smoker, hx of 30 yrs- half pack/day, quit 4 months ago. Denies current use of ETOH or illicit drugs (former alcohol, heroin and cocain abuse). currently living in senior housing in [place], next of Kin: Cristina (daughter), pt is a full code. ED Course: CAT Scan Abd/Pelvis IV contrast: No acute abdominal pelvic pathology. No significant interval change. CAT Scan head w/o contrast:No acute intracranial pathology. EKG: NSR Troponin x1 negative CMP: Stable Lipase 61 Stat UDip: Negative CBC: 3.6>13.4/38.9<110 PTT: stable Prothrombin Time: Stable Pepcid 20 mg IVP IV Fluids Zofran 4 mg PO Urinalysis: Negative Present on Admission - Present on Admission Any Indicators Present on Admission: No History of DVT/PE: No History of Uncontrolled Diabetes: No Urinary Catheter: No Decubitus Ulcer Present: No Past Patient History - Infectious Disease Hx of Infectious Diseases: None - Tetanus Immunizations Tetanus Immunization: Unknown - Past Medical History & Family History Past Medical History?: Yes - Past Social History Alcohol: None Drugs: Denies - CARDIAC Hx Atrial Fibrillation: No Hx Hypercholesterolemia: Yes Hx Hypertension: Yes - PULMONARY Hx Asthma: Yes Hx Bronchitis: Yes Hx Chronic Obstructive Pulmonary Disease (COPD): Yes Hx Emphysema: No Hx Pneumonia: Yes Hx Sleep Apnea: Yes - NEUROLOGICAL Hx Seizures: No - HEENT Hx HEENT Problems: No - RENAL Hx Chronic Kidney Disease: No - ENDOCRINE/METABOLIC Hx Hyperthyroidism: No - HEMATOLOGICAL/ONCOLOGICAL Hx Anemia: No Hx Human Immunodeficiency Virus (HIV): Yes - INTEGUMENTARY Hx Dermatological Problems: No - MUSCULOSKELETAL/RHEUMATOLOGICAL Hx Arthritis: Yes - GASTROINTESTINAL Hx Gastritis: Yes Hx Pancreatitis: No - GENITOURINARY/GYNECOLOGICAL Hx Sexually Transmitted Disorders: No - PSYCHIATRIC Hx Anxiety: Yes Hx Bipolar Disorder: No Hx Depression: Yes Hx Schizophrenia: No - SURGICAL HISTORY Hx Surgeries: No - ANESTHESIA Hx Anesthesia: No Meds Allergies/Adverse Reactions: Allergies Allergy/AdvReac Type Severity Reaction Status Date / Time No Known Allergies Allergy Verified 06/21/17 08:47 Physical Exam - Constitutional Appears: No Acute Distress - Head Exam Head Exam: NORMAL INSPECTION - Eye Exam Eye Exam: Normal appearance - ENT Exam ENT Exam: Mucous Membranes Moist - Neck Exam Neck exam: Positive for: Normal Inspection - Respiratory Exam Respiratory Exam: Clear to Auscultation Bilateral, NORMAL BREATHING PATTERN - Cardiovascular Exam Cardiovascular Exam: REGULAR RHYTHM, +S1, +S2 - GI/Abdominal Exam GI & Abdominal Exam: Normal Bowel Sounds, Soft. absent: Distended, Guarding, Rebound, Tenderness - Extremities Exam Extremities exam: Positive for: full ROM, normal inspection - Back Exam Back exam: NORMAL INSPECTION. absent: CVA tenderness (L), CVA tenderness (R) - Neurological Exam Neurological exam: Alert, CN II-XII Intact, Normal Gait, Oriented x3 Additional comments: AAOx3 - Psychiatric Exam Psychiatric exam: Normal Mood - Skin Skin Exam: Dry, Intact, Normal Color, Warm Results - Vital Signs Recent Vital Signs: Last Vital Signs Temp 98.1 F 11/02/17 07:34 Pulse 75 11/02/17 13:20 Resp 17 11/02/17 13:20 BP 150/72 11/02/17 13:20 Pulse Ox 99 11/02/17 13:20 - Labs Result Diagrams: 11/02/17 08:31 11/02/17 08:31 Labs: Laboratory Results - last 24 hr 11/02/17 11/02/17 11/02/17 08:18 08:31 08:31 WBC 3.6 L RBC 3.74 L Hgb 13.4 Hct 38.9 MCV 104.2 H MCH 36.0 H MCHC 34.6 RDW 13.1 Plt Count 110 L D MPV 9.4 Neut % (Auto) 75.5 H Lymph % (Auto) 15.9 L [place] % (Auto) 7.8 Eos % (Auto) 0.5 Baso % (Auto) 0.3 Neut # (Auto) 2.7 Lymph # (Auto) 0.6 L [place] # (Auto) 0.3 Eos # (Auto) 0.0 Baso # (Auto) 0.0 PT INR APTT Sodium 141 Potassium 4.3 Chloride 101 Carbon Dioxide 34 H Anion Gap 10 BUN 26 H Creatinine 1.0 Est GFR ( Amer) > 60 Est GFR (Non-Af Amer) 55 POC Glucose (mg/dL) 96 Random Glucose 114 H Calcium 9.2 Total Bilirubin 0.5 AST 36 ALT 28 Alkaline Phosphatase 55 Troponin I Total Protein 8.2 Albumin 4.2 Globulin 4.0 H Albumin/Globulin Ratio 1.0 Lipase 61 Urine Color Urine Clarity Urine pH Ur Specific [place] Urine Protein Urine Glucose (UA) Urine Ketones Urine Blood Urine Nitrate Urine Bilirubin Urine Urobilinogen Ur Leukocyte Esterase Urine RBC (Auto) Urine Microscopic WBC Ur Squamous Epith Cells Hyaline Casts 11/02/17 11/02/17 11/02/17 08:31 08:31 13:00 WBC RBC Hgb Hct MCV MCH MCHC RDW Plt Count MPV Neut % (Auto) Lymph % (Auto) [place] % (Auto) Eos % (Auto) Baso % (Auto) Neut # (Auto) Lymph # (Auto) [place] # (Auto) Eos # (Auto) Baso # (Auto) PT 11.7 INR 1.1 APTT 26.2 Sodium Potassium Chloride Carbon Dioxide Anion Gap BUN Creatinine Est GFR ( Amer) Est GFR (Non-Af Amer) POC Glucose (mg/dL) Random Glucose Calcium Total Bilirubin AST ALT Alkaline Phosphatase Troponin I < 0.0120 Total Protein Albumin Globulin Albumin/Globulin Ratio Lipase Urine Color Yellow Urine Clarity Slighty-cloudy Urine pH 6.0 Ur Specific [place] 1.025 Urine Protein Negative Urine Glucose (UA) Neg Urine Ketones Negative Urine Blood Negative Urine Nitrate Negative Urine Bilirubin Negative Urine Urobilinogen 0.2-1.0 Ur Leukocyte Esterase Mod Urine RBC (Auto) 4 H Urine Microscopic WBC 5 Ur Squamous Epith Cells 1 Hyaline Casts 0-2 Assessment & Plan - Assessment and Plan (Free Text) Assessment: A/P: 67 y/o female with PMHx remarkable for HTN, HIV, DM2, COPD, and Hepatitis C and vertigo admitted for dizziness, and generalized weakness. Dizziness/ hx of Vertigo/Generalized weakness/Nausea -Possibly due to vertigo -AFebrile, normotensive -Head CT w/o Cont: No acute changes -EKG: NSR -C/w Meclizine -C/w Zofran Constipations/Abdominal discomfort -CT abdo/pelvis with Cont: No acute abdominal pelvic pathology. No significant interval change -S/p Pepcid in ER -Colace 100mg daily HIV: -CD4 on 10/05/17: 281, Absolute lymp 881 -c/w Odefsey and Tivicay COPD: -stable -c/w home medications (combivent and advair) Essential Hypertension -controlled -c/w home medications (Losartan/HCTZ ) DM2 -controlled -HbA1C 5.8 (06/22/17) -ACHS -monitor BS -insulin coverage scale Depression/Anxiety -c/w home medications -Klonopin, Luvox Methadone User (Hx of substance abuse) -Methadone Clinic: [facility] [phone] -110mg QD @ 6:00am daily (confirmed dosage with clinic) Diet -Diabetic heart healthy Prophylaxis DVT -start Lovenox 40mg daily Code status: Full Code
[2017-11-02] MEDS: Fluticasone-Salmeterol 250-50mcg Diskus IH SCH ×2 (16:32→21:50)
[2017-11-02] MEDS: Cholecalciferol 1,000 INTLU TAB PO SCH (16:35)
[2017-11-02] MEDS ORDERED: [UNRECOGNIZED DRUG - OTHER] PO SCH (22:00)
[2017-11-02] MEDS ORDERED: Patient's Own Med(TIVICAY 50MG) PO SCH (22:00)
[2017-11-03] MEDS: METHADONE PO SCH ×2 (05:37→11:54)
[2017-11-03 05:39] LABS: HEMOGLOBIN 13.4 g/dL (12.0-16.0); MEAN CELL VOLUME 104.1 fl (81.0-99.0); MEAN CORPUSCULAR HEMOGLOBIN 36.4 pg (27.0-31.0); MEAN CORPUSCULAR HGB CONC 34.9 g/dL (33.0-37.0); RBC 3.68 Mil/uL (3.80-5.20); RED CELL DISTRIBUTION WIDTH 12.9 % (11.5-14.5); WHITE BLOOD COUNT 2.9 K/uL (4.8-10.8)
[2017-11-03 05:50] LABS: BLOOD UREA NITROGEN 21 mg/dl (7-17); GFR AFRICAN-AMERICAN > 60; GFR NON-AFRICAN AMERICAN 55
[2017-11-03 08:02] VITALS: RESP 16
[2017-11-03] MEDS: Fluticasone-Salmeterol 250-50mcg Diskus IH SCH (08:31)
[2017-11-03] MEDS: Cholecalciferol 1,000 INTLU TAB PO SCH (08:33)
[2017-11-03] MEDS ORDERED: Enoxaparin 40 mg Syringe SC SCH (09:00)
[2017-11-03] MEDS ORDERED: HCTZ/Losartan 12.5/50 Tab PO SCH (09:00)
--- NOTE | 2017-11-03 10:40 | CP.PCM.DIS ---
Provider - Provider Date of Admission: 11/02/17 11:23 Attending physician: Evon Smith MD Time Spent in preparation of Discharge (in minutes): 20 Hospital Course - Lab Results Lab Results: Most Recent Lab Values WBC 2.9 K/uL (4.8-10.8) L 11/03/17 04:39 RBC 3.68 Mil/uL (3.80-5.20) L 11/03/17 04:39 Hgb 13.4 g/dL (12.0-16.0) 11/03/17 04:39 Hct 38.3 % (34.0-47.0) 11/03/17 04:39 MCV 104.1 fl (81.0-99.0) H 11/03/17 04:39 MCH 36.4 pg (27.0-31.0) H 11/03/17 04:39 MCHC 34.9 g/dL (33.0-37.0) 11/03/17 04:39 RDW 12.9 % (11.5-14.5) 11/03/17 04:39 Plt Count 98 K/uL (130-400) L 11/03/17 04:39 MPV 9.4 fl (7.2-11.7) 11/02/17 08:31 Neut % (Auto) 75.5 % (50.0-75.0) H 11/02/17 08:31 Lymph % (Auto) 15.9 % (20.0-40.0) L 11/02/17 08:31 [place] % (Auto) 7.8 % (0.0-10.0) 11/02/17 08:31 Eos % (Auto) 0.5 % (0.0-4.0) 11/02/17 08:31 Baso % (Auto) 0.3 % (0.0-2.0) 11/02/17 08:31 Neut # (Auto) 2.7 K/uL (1.8-7.0) 11/02/17 08:31 Lymph # (Auto) 0.6 K/uL (1.0-4.3) L 11/02/17 08:31 [place] # (Auto) 0.3 K/uL (0.0-0.8) 11/02/17 08:31 Eos # (Auto) 0.0 K/uL (0.0-0.7) 11/02/17 08:31 Baso # (Auto) 0.0 K/uL (0.0-0.2) 11/02/17 08:31 PT 11.7 Seconds (9.8-13.1) 11/02/17 08:31 INR 1.1 (0.9-1.2) 11/02/17 08:31 APTT 26.2 Seconds (25.6-37.1) 11/02/17 08:31 Sodium 141 mmol/l (132-148) 11/03/17 04:39 Potassium 4.6 MMOL/L (3.6-5.0) 11/03/17 04:39 Chloride 97 mmol/L (98-107) L 11/03/17 04:39 Carbon Dioxide 33 mmol/L (22-30) H 11/03/17 04:39 Anion Gap 16 (10-20) 11/03/17 04:39 BUN 21 mg/dl (7-17) H 11/03/17 04:39 Creatinine 1.0 mg/dl (0.7-1.2) 11/03/17 04:39 Est GFR ( Amer) > 60 11/03/17 04:39 Est GFR (Non-Af Amer) 55 11/03/17 04:39 POC Glucose (mg/dL) 123 mg/dL (65-110) H 11/03/17 05:04 Random Glucose 141 mg/dL (65-105) H 11/03/17 04:39 Calcium 9.0 mg/dL (8.4-10.2) 11/03/17 04:39 Total Bilirubin 0.5 mg/dl (0.2-1.3) 11/02/17 08:31 AST 36 U/L (14-36) 11/02/17 08:31 ALT 28 U/L (9-52) 11/02/17 08:31 Alkaline Phosphatase 55 U/L (38-126) 11/02/17 08:31 Troponin I < 0.0120 ng/mL (0.00-0.120) 11/02/17 13:00 Total Protein 8.2 G/DL (6.3-8.2) 11/02/17 08:31 Albumin 4.2 g/dL (3.5-5.0) 11/02/17 08:31 Globulin 4.0 gm/dL (2.2-3.9) H 11/02/17 08:31 Albumin/Globulin Ratio 1.0 (1.0-2.1) 11/02/17 08:31 Lipase 61 U/L (23-300) 11/02/17 08:31 Urine Color Yellow (YELLOW) 11/02/17 08:31 Urine Clarity Slighty-cloudy (Clear) 11/02/17 08:31 Urine pH 6.0 (5.0-8.0) 11/02/17 08:31 Ur Specific [place] 1.025 (1.003-1.030) 11/02/17 08:31 Urine Protein Negative mg/dL (NEGATIVE) 11/02/17 08:31 Urine Glucose (UA) Neg mg/dL (Normal) 11/02/17 08:31 Urine Ketones Negative mg/dL (NEGATIVE) 11/02/17 08:31 Urine Blood Negative (NEGATIVE) 11/02/17 08:31 Urine Nitrate Negative (NEGATIVE) 11/02/17 08:31 Urine Bilirubin Negative (NEGATIVE) 11/02/17 08:31 Urine Urobilinogen 0.2-1.0 mg/dL (0.2-1.0) 11/02/17 08:31 Ur Leukocyte Esterase Mod [place]/uL (Negative) 11/02/17 08:31 Urine RBC (Auto) 4 /hpf (0-3) H 11/02/17 08:31 Urine Microscopic WBC 5 /hpf (0-5) 11/02/17 08:31 Ur Squamous Epith Cells 1 /hpf (0-5) 11/02/17 08:31 Hyaline Casts 0-2 /hpf (0-2) 11/02/17 08:31 - Hospital Course Hospital Course: 67 y/o female with PMHx remarkable for HTN, HIV, DM2, COPD, and Hepatitis C and vertigo admitted for dizziness. Dizziness/ hx of Vertigo/Generalized weakness/Nausea -Possibly due to vertigo vs. post viral labrynthitis -AFebrile, normotensive -Head CT w/o Cont: No acute changes -EKG: NSR, troponin negative -C/w Meclizine Constipations/Abdominal discomfort -CT abdo/pelvis with Cont: No acute abdominal pelvic pathology. No significant interval change -Colace 100mg Patient has follow up appts with Antoni Kingsley November 12 at 10 30. No new medications on DC. Discharge Exam - Head Exam Head Exam: NORMAL INSPECTION - Eye Exam Eye Exam: EOMI Pupil Exam: PERRL - ENT Exam ENT Exam: Mucous Membranes Moist - Respiratory Exam Respiratory Exam: Clear to PA & Lateral - Cardiovascular Exam Cardiovascular Exam: +S1, +S2 - GI/Abdominal Exam GI & Abdominal Exam: Normal Bowel Sounds, Soft. absent: Distended, Firm, Guarding, Pulsatile Mass, Rigid - Extremities Exam Extremities exam: full ROM - Neurological Exam Neurological exam: Alert, Oriented x3 - Psychiatric Exam Psychiatric exam: Normal Affect, Normal Mood - Skin Skin Exam: Dry, Normal Color, Warm Discharge Plan - Follow Up Plan Condition: GOOD Disposition: HOME/ ROUTINE Patient education suggested?: Yes Instructions: Vertigo (a Type of Dizziness), Acute Abdomen (Belly Pain), Labyrinthitis, Acute Abdominal Pain (DC), Acute Abdominal Pain (GEN) Referrals: Wander Stauffer MD [Family Provider] -
[2017-11-03 12:19] VITALS: BP 132/92; TEMP 98.4
[2017-11-04] MEDS ORDERED: METHADONE PO SCH (09:00)
[2017-11-05 14:25] VITALS: PULSE 69; O2SAT 97
== END 2017-11-03 13:31 | disposition home or self-care (01) ==
LOC: H.ER 07:15 → H.ERHOLD 11:23 → H.TEL 13:22
PROVIDERS: ADMIT Family Medicine Geriatric Medicine; ATTEND Family Medicine Geriatric Medicine
DX: R42 Dizziness and giddiness (principal); Z21 Asymptomatic human immunodeficiency virus [HIV] infection status; E11.9 Type 2 diabetes mellitus without complications; E78.00 Pure hypercholesterolemia, unspecified; F32.9 Major depressive disorder, single episode, unspecified; F41.9 Anxiety disorder, unspecified; G47.30 Sleep apnea, unspecified; G89.29 Other chronic pain; I10 Essential (primary) hypertension; J44.9 Chronic obstructive pulmonary disease, unspecified; Z82.49 Family history of ischemic heart disease and other diseases of the circulatory system; Z82.5 Family history of asthma and other chronic lower respiratory diseases; Z83.3 Family history of diabetes mellitus; Z87.01 Personal history of pneumonia (recurrent); Z87.891 Personal history of nicotine dependence; B19.20 Unspecified viral hepatitis C without hepatic coma; J40 Bronchitis, not specified as acute or chronic; K29.70 Gastritis, unspecified, without bleeding; M19.90 Unspecified osteoarthritis, unspecified site; Z79.899 Other long term (current) drug therapy; R10.9 Unspecified abdominal pain
CPT/HCPCS: 36415; 70450; 74177; 80048; 80053; 81003; 82948; 83690; 84484; 85025; 85027; 85610; 85730; 93005; 96365; 99284; G0378; J1650; J7030; Q9967

== ENCOUNTER 2017-11-16 06:52 | Observation (INO) | payer MEDICARE, MEDICAID ==
[2017-11-16 06:52] VITALS: BMI 23.4
[2017-11-16] MEDS ORDERED: Sodium Chloride 0.9% 1,000 ML IV STA (07:32)
--- NOTE | 2017-11-16 07:34 | ED PDOC ---
HPI: General Adult Time Seen by Provider: 11/16/17 07:16 Chief Complaint (Nursing): Fever Chief Complaint (Provider): Fever History Per: Patient History/Exam Limitations: no limitations Onset/Duration Of Symptoms: Days (x3) Current Symptoms Are (Timing): Still Present Additional Complaint(s): 67 year old female, with a past medical history of HTN, diabetes, and HIV, presented to the ED complaining of fever like symptoms with onset of 3 days. Patient reports having constipation, weakness, cough, and nausea. Patient denies vomiting, diarrhea, dysuria, hematuria, and hematochezia. PCP: Ana Winter Past Medical History Reviewed: Historical Data, Nursing Documentation, Vital Signs Vital Signs: Last Vital Signs Temp 98.3 F 11/16/17 07:14 Pulse 81 11/16/17 07:14 Resp 16 11/16/17 07:14 BP 141/94 H 11/16/17 07:14 Pulse Ox 98 11/16/17 09:32 - Medical History PMH: Anxiety, Arthritis, Asthma, Bronchitis, COPD, Depression, Diabetes, Gastritis, HIV, HTN, Hypercholesterolemia, Pneumonia, Sleep Apnea Denies: Anemia, Atrial Fibrillation, Bipolar Disorder, Emphysema, Hepatitis, Hyperthyroidism, Pancreatitis, Chronic Kidney Disease, Schizophrenia, Seizures, Sexually Transmitted Disease - Surgical History Surgical History: No Surg Hx - Family History Family History: States: Hypertension, Other Other Family History: Cancer - Social History Current smoker - smoking cessation education provided: Yes - Immunization History Hx Influenza Vaccination: Yes Hx Pneumococcal Vaccination: Yes - Home Medications Home Medications: Ambulatory Orders Medication Instructions Recorded Albuterol/Ipratropium [Combivent 1 puff IH Q6H PRN 06/21/17 Respimat] Dolutegravir Sodium [Tivicay] 50 mg PO HS 06/21/17 Methadone 110 mg PO DAILY 06/21/17 Mirtazapine [Remeron] 45 mg PO HS 06/21/17 Ondansetron [Zofran Tab] 4 mg PO BID PRN 06/21/17 Cholecalciferol [Vitamin D 1000 IU] 1,000 unit PO DAILY 11/02/17 Docusate [Colace] 100 mg PO DAILY PRN 11/02/17 Emtricitab/Rilpiviri/Tenof Ala 1 tab PO HS 11/02/17 [Odefsey Tablet] Fluticasone/Salmeterol [Advair 1 puff IH Q12 11/02/17 250-50 Diskus] Loperamide [Imodium] 2 mg PO QID PRN 11/02/17 Losartan/Hydrochlorothiazide 1 tab PO DAILY 11/02/17 [Losartan-Hctz 50-12.5 mg Tab] Meclizine [Antivert] 12.5 mg PO Q12 PRN 11/02/17 QUEtiapine [Seroquel] 50 mg PO HS 11/02/17 clonazePAM [Klonopin] 1 mg PO DAILY 11/02/17 fluvoxaMINE [Luvox] 50 mg PO DAILY 11/02/17 - Allergies Allergies/Adverse Reactions: Allergies Allergy/AdvReac Type Severity Reaction Status Date / Time No Known Allergies Allergy Verified 06/21/17 08:47 Review of Systems ROS Statement: Except As Marked, All Systems Reviewed And Found Negative Constitutional: Positive for: Fever Respiratory: Positive for: Cough Gastrointestinal: Positive for: Nausea, Constipation. Negative for: Vomiting, Hematochezia Genitourinary Female: Negative for: Dysuria, Hematuria Neurological: Positive for: Weakness, Headache Physical Exam - Reviewed Nursing Documentation Reviewed: Yes Vital Signs Reviewed: Yes - Physical Exam Appears: Positive for: Non-toxic, No Acute Distress Head Exam: Positive for: ATRAUMATIC, NORMOCEPHALIC Skin: Positive for: Normal Color, Warm, Dry. Negative for: Rash Eye Exam: Positive for: Normal appearance, EOMI, PERRL ENT: Positive for: Normal ENT Inspection Neck: Positive for: Normal, Painless ROM, Supple Cardiovascular/Chest: Positive for: Regular Rate, Rhythm. Negative for: Murmur Respiratory: Positive for: Normal Breath Sounds. Negative for: Wheezing, Respiratory Distress Gastrointestinal/Abdominal: Positive for: Bowel Sounds (present in all 4 quadrants), Soft, Tenderness (mild LLQ tenderness) Back: Positive for: Normal Inspection. Negative for: L CVA Tenderness, R CVA Tenderness Extremity: Positive for: Normal ROM. Negative for: Swelling Neurologic/Psych: Positive for: Alert, Oriented. Negative for: Motor/Sensory Deficits - Laboratory Results Result Diagrams: 11/16/17 08:21 11/16/17 08:21 - ECG O2 Sat by Pulse Oximetry: 98 (RA) Pulse Ox Interpretation: Normal - Radiology X-Ray: Viewed By Me X-Ray Interpretation: No Acute Disease Medical Decision Making Medical Decision Making: Initial Impression: Fever; r/o gastrointestinal infection vs. pulmonary infection Initial Plan: VBG shock panel CMP Lipase ED urine dipstick CBC Obstructive Series X-ray Pepcid 20mg IV Toradol 30mg IV Sodium chloride 1000mL IV Zofran 4mg IV Scribe Attestation: Documented by Igor Hauser acting as a scribe for Sheryl Valverde MD. Provider Scribe Attestation: All medical record entries made by the Scribe were at my direction and personally dictated by me. I have reviewed the chart and agree that the record accurately reflects my personal performance of the history, physical exam, medical decision making, and the department course for this patient. I have also personally directed, reviewed, and agree with the discharge instructions and disposition. 9.15a - patient states that pain is not improved at all. Despite normal labs, will order CT abd 12.30p - CT is normal. Patient still not feeling better. Has requested more pain meds and anti-nausea meds. Possible dehydration based on elevated BUN/Cr ratio. Will observe 24 hours and give hydration Disposition - Clinical Impression Clinical Impression: Dehydration - Patient ED Disposition Is Patient to be Admitted: Yes Doctor Will See Patient In The: Hospital - Disposition Disposition: Transfer of Care Disposition Time: 13:01 Condition: FAIR Forms: [employer] (Mongolian) - Pt Status Changed To: Hospital Disposition Of: Observation - POA Present On Arrival: None
[2017-11-16] MEDS ORDERED: Famotidine 20mg/50ml 20 MG/50 ML BAG IVPB ONE (07:39)
[2017-11-16 08:11] LABS: VENOUS BLOOD GAS BASE EXCESS 9.5 mmol/L (0.0-2.0); VENOUS BLOOD GAS PCO2 65 mmHg (40-60); VENOUS BLOOD GAS PO2 31 mm/Hg (30-55); VENOUS BLOOD PH 7.37 (7.32-7.43)
[2017-11-16 08:26] LABS: BASO % 0.2 % (0.0-2.0); EOS % 0.3 % (0.0-4.0); HEMOGLOBIN 13.5 g/dL (12.0-16.0); LYMPH # 0.5 K/uL (1.0-4.3); LYMPH % 12.3 % (20.0-40.0); MEAN CELL VOLUME 104.1 fl (81.0-99.0); MEAN CORPUSCULAR HEMOGLOBIN 35.6 pg (27.0-31.0); MEAN CORPUSCULAR HGB CONC 34.2 g/dL (33.0-37.0); MEAN PLATELET VOLUME 8.9 fl (7.2-11.7); MONO # 0.3 K/uL (0.0-0.8); MONO % 8.2 % (0.0-10.0); RBC 3.78 Mil/uL (3.80-5.20); RED CELL DISTRIBUTION WIDTH 12.6 % (11.5-14.5); WHITE BLOOD COUNT 3.8 K/uL (4.8-10.8)
[2017-11-16 08:47] LABS: ALBUMIN 4.4 g/dL (3.5-5.0); ALT/SGPT 26 U/L (9-52); AST/SGOT 37 U/L (14-36); BLOOD UREA NITROGEN 24 mg/dl (7-17); CALCIUM 8.8 mg/dL (8.4-10.2); GFR AFRICAN-AMERICAN > 60; GFR NON-AFRICAN AMERICAN > 60; LIPASE 69 U/L (23-300)
[2017-11-16] MEDS ORDERED: Iohexol 240 (50 ml) PO ONE (09:30)
[2017-11-16] MEDS ORDERED: Iohexol 240 (50 ml) ONE (09:36)
[2017-11-16] MEDS ORDERED: Sodium Chloride 0.9% 100 ML ONE (11:15)
[2017-11-16] MEDS ORDERED: Iohexol 300 100 ML IJ ONE (11:15)
--- NOTE | 2017-11-16 12:30 | RAD ---
PROCEDURE: Radiographs of the chest and abdomen (obstructive series) HISTORY: Unspecified abdominal pain. COMPARISON: No prior. TECHNIQUE: AP radiograph of the chest, with upright and supine radiographs of the abdomen. FINDINGS: CHEST: Lungs: Clear. Cardiovascular: Normal size heart. No pulmonary vascular congestion. Pleura: No pleural fluid. No pneumothorax. Other findings: None. ABDOMEN AND PELVIS: Bowel: Unremarkable bowel gas pattern. No evidence of mechanical obstruction. Free air: None. Bones: Unremarkable. Other findings: None. IMPRESSION: Unremarkable radiographs of chest and abdomen. No evidence of mechanical bowel obstruction.
--- NOTE | 2017-11-16 12:41 | CT ---
PROCEDURE: CT Abdomen and Pelvis with contrast HISTORY: Fever, abdominal pain COMPARISON: 11/02/2017. CT abdomen and pelvis 10/05/2017 CT abdomen and pelvis TECHNIQUE: Contrast dose: 99 cc Omnipaque 300 Radiation dose: Total exam DLP = 370.54 mGy-cm. This CT exam was performed using one or more of the following dose reduction techniques: Automated exposure control, adjustment of the mA and/or kV according to patient size, and/or use of iterative reconstruction technique. FINDINGS: LOWER THORAX: Unremarkable. LIVER: Unremarkable. No gross lesion or ductal dilatation. GALLBLADDER AND BILE DUCTS: Unremarkable. PANCREAS: Unremarkable. No gross lesion or ductal dilatation. SPLEEN: Unremarkable. ADRENALS: Unremarkable. No mass. KIDNEYS AND URETERS: Unremarkable. No hydronephrosis. No solid mass. VASCULATURE: Unremarkable. No aortic aneurysm. BOWEL: Constipation without fecal impaction or obstruction. APPENDIX: No abnormalities to suggest acute appendicitis. No right lower quadrant inflammatory processes identified. PERITONEUM: Unremarkable. No free fluid. No free air. LYMPH NODES: Unremarkable. No enlarged lymph nodes. BLADDER: Unremarkable. REPRODUCTIVE: Unremarkable. BONES: No acute fracture. OTHER FINDINGS: None. IMPRESSION: No acute findings related to/accounting for the clinical presentation. Additional benign and/or incidental findings described above. No significant interval change compared to the prior examination(s).
--- NOTE | 2017-11-16 15:57 | CP.PCM.HP ---
History of Present Illness - History of Present Illness History of Present Illness: 67F p/w non-specific abdominal pain that started a couple of days ago and not associated with any fevers, chills, vomiting, diarrhea, or dysuria. Patient does suffer from chronic nauseas for which she has a home prescription of Zofran. She says she has continued to take all prescribed medication. She has been able to continue eating and drinking and denies having consumed bad food. CT abd/pelvis: only significant for constipation Obstructive Series: Negative for signs of obstruction Labs: No significant acute changes eCW Review: CD4- 243, VL undetectable Present on Admission - Present on Admission Any Indicators Present on Admission: No Review of Systems - Review of Systems All systems: reviewed and no additional remarkable complaints except - Gastrointestinal Gastrointestinal: Abdominal Pain Past Patient History - Infectious Disease Hx of Infectious Diseases: None - Tetanus Immunizations Tetanus Immunization: Unknown - Past Medical History & Family History Past Medical History?: Yes - Past Social History Smoking Status: Former Smoker - CARDIAC Hx Atrial Fibrillation: No Hx Hypercholesterolemia: Yes Hx Hypertension: Yes - PULMONARY Hx Asthma: Yes Hx Bronchitis: Yes Hx Chronic Obstructive Pulmonary Disease (COPD): Yes Hx Emphysema: No Hx Pneumonia: Yes Hx Sleep Apnea: Yes - NEUROLOGICAL Hx Seizures: No - HEENT Hx HEENT Problems: No - RENAL Hx Chronic Kidney Disease: No - ENDOCRINE/METABOLIC Hx Hyperthyroidism: No - HEMATOLOGICAL/ONCOLOGICAL Hx Anemia: No Hx Human Immunodeficiency Virus (HIV): Yes - INTEGUMENTARY Hx Dermatological Problems: No - MUSCULOSKELETAL/RHEUMATOLOGICAL Hx Arthritis: Yes - GASTROINTESTINAL Hx Gastritis: Yes Hx Pancreatitis: No - GENITOURINARY/GYNECOLOGICAL Hx Sexually Transmitted Disorders: No - PSYCHIATRIC Hx Anxiety: Yes Hx Bipolar Disorder: No Hx Depression: Yes Hx Schizophrenia: No - SURGICAL HISTORY Hx Surgeries: No - ANESTHESIA Hx Anesthesia: No Meds Allergies/Adverse Reactions: Allergies Allergy/AdvReac Type Severity Reaction Status Date / Time No Known Allergies Allergy Verified 06/21/17 08:47 Physical Exam - Constitutional Appears: Well, Non-toxic - Head Exam Head Exam: ATRAUMATIC, NORMAL INSPECTION - ENT Exam ENT Exam: Mucous Membranes Moist, Normal Exam - Neck Exam Neck exam: Positive for: Normal Inspection - Respiratory Exam Respiratory Exam: Clear to Auscultation Bilateral, NORMAL BREATHING PATTERN - Cardiovascular Exam Cardiovascular Exam: REGULAR RHYTHM - GI/Abdominal Exam GI & Abdominal Exam: Normal Bowel Sounds, Soft - Extremities Exam Extremities exam: Positive for: full ROM, normal capillary refill, normal inspection, pedal pulses present Results - Vital Signs Recent Vital Signs: Last Vital Signs Temp 36.7 C 11/16/17 13:00 Pulse 75 11/16/17 13:00 Resp 14 11/16/17 13:00 BP 132/75 11/16/17 13:00 Pulse Ox 98 11/16/17 13:01 - Labs Result Diagrams: 11/16/17 08:21 11/16/17 08:21 Labs: Laboratory Results - last 24 hr 11/16/17 11/16/17 11/16/17 07:31 07:35 08:21 WBC 3.8 L RBC 3.78 L Hgb 13.5 Hct 39.4 MCV 104.1 H MCH 35.6 H MCHC 34.2 RDW 12.6 Plt Count 101 L MPV 8.9 Neut % (Auto) 79.0 H Lymph % (Auto) 12.3 L [place] % (Auto) 8.2 Eos % (Auto) 0.3 Baso % (Auto) 0.2 Neut # (Auto) 3.0 Lymph # (Auto) 0.5 L [place] # (Auto) 0.3 Eos # (Auto) 0.0 Baso # (Auto) 0.0 pO2 31 VBG pH 7.37 VBG pCO2 65 H VBG HCO3 31.3 VBG Total CO2 39.6 H VBG O2 Sat (Calc) 66.5 H VBG Base Excess 9.5 H VBG Potassium 4.0 Sodium 141.0 Chloride 103.0 Glucose 118 H Lactate 1.4 FiO2 21.0 Potassium Carbon Dioxide Anion Gap BUN Creatinine Est GFR ( Amer) Est GFR (Non-Af Amer) POC Glucose (mg/dL) 138 H Random Glucose Calcium Total Bilirubin AST ALT Alkaline Phosphatase Total Protein Albumin Globulin Albumin/Globulin Ratio Lipase Venous Blood Potassium 4.0 11/16/17 08:21 WBC RBC Hgb Hct MCV MCH MCHC RDW Plt Count MPV Neut % (Auto) Lymph % (Auto) [place] % (Auto) Eos % (Auto) Baso % (Auto) Neut # (Auto) Lymph # (Auto) [place] # (Auto) Eos # (Auto) Baso # (Auto) pO2 VBG pH VBG pCO2 VBG HCO3 VBG Total CO2 VBG O2 Sat (Calc) VBG Base Excess VBG Potassium Sodium 142 Chloride 98 Glucose Lactate FiO2 Potassium 3.8 Carbon Dioxide 33 H Anion Gap 15 BUN 24 H Creatinine 0.9 Est GFR ( Amer) > 60 Est GFR (Non-Af Amer) > 60 POC Glucose (mg/dL) Random Glucose 109 H Calcium 8.8 Total Bilirubin 0.8 AST 37 H ALT 26 Alkaline Phosphatase 58 Total Protein 8.7 H Albumin 4.4 Globulin 4.4 H Albumin/Globulin Ratio 1.0 Lipase 69 Venous Blood Potassium Assessment & Plan - Assessment and Plan (Free Text) Assessment: 67F p/w non-specific abdominal pain and review of imaging, labs, and eCW records appears to have discomfort related to constipation. There are not concerning symptoms of acute neutropenia, diarrhea, or fevers. - resume all home medications - DVT prophylaxis - Diet - Stool softener - VS Q8H - Activity OOB
[2017-11-16] MEDS: Fluticasone-Salmeterol 250-50mcg Diskus IH SCH (21:09)
[2017-11-16] MEDS ORDERED: Pravastatin Sodium 20 MG TAB PO SCH (22:00)
[2017-11-16] MEDS ORDERED: [UNRECOGNIZED DRUG - OTHER] PO SCH (22:00)
[2017-11-17] MEDS ORDERED: Albuterol-Ipratrop 3 mg / 0.5 (3 ml) UD IH PRN (08:48)
[2017-11-17] MEDS ORDERED: METHADONE PO SCH (09:00)
[2017-11-17] MEDS ORDERED: Cholecalciferol 1,000 INTLU TAB PO SCH (09:00)
[2017-11-17] MEDS ORDERED: HCTZ/Losartan 12.5/50 Tab PO SCH (09:00)
[2017-11-17] MEDS: Fluticasone-Salmeterol 250-50mcg Diskus IH SCH (09:25)
[2017-11-17 16:16] VITALS: BP 155/87; PULSE 62; RESP 18; TEMP 98.8; O2SAT 97
--- NOTE | 2017-11-17 19:00 | CP.PCM.DIS ---
Provider - Provider Date of Admission: 11/16/17 13:02 Attending physician: Evon Smith MD Time Spent in preparation of Discharge (in minutes): 45 Diagnosis - Discharge Diagnosis (1) Abdominal pain Status: Acute Priority: Low Comment: Non-specific abdominal pain, likely secondary to chronic constipation due to medication regimen that may intermittenty worsen with hydration and food choice. Encouraged to stay hydrated, increase fruits and vegetables, and supplement with stool softeners as needed. Hospital Course - Lab Results Lab Results: Most Recent Lab Values WBC 3.8 K/uL (4.8-10.8) L 11/16/17 08:21 RBC 3.78 Mil/uL (3.80-5.20) L 11/16/17 08:21 Hgb 13.5 g/dL (12.0-16.0) 11/16/17 08:21 Hct 39.4 % (34.0-47.0) 11/16/17 08:21 MCV 104.1 fl (81.0-99.0) H 11/16/17 08:21 MCH 35.6 pg (27.0-31.0) H 11/16/17 08:21 MCHC 34.2 g/dL (33.0-37.0) 11/16/17 08:21 RDW 12.6 % (11.5-14.5) 11/16/17 08:21 Plt Count 101 K/uL (130-400) L 11/16/17 08:21 MPV 8.9 fl (7.2-11.7) 11/16/17 08:21 Neut % (Auto) 79.0 % (50.0-75.0) H 11/16/17 08:21 Lymph % (Auto) 12.3 % (20.0-40.0) L 11/16/17 08:21 [place] % (Auto) 8.2 % (0.0-10.0) 11/16/17 08:21 Eos % (Auto) 0.3 % (0.0-4.0) 11/16/17 08:21 Baso % (Auto) 0.2 % (0.0-2.0) 11/16/17 08:21 Neut # (Auto) 3.0 K/uL (1.8-7.0) 11/16/17 08:21 Lymph # (Auto) 0.5 K/uL (1.0-4.3) L 11/16/17 08:21 [place] # (Auto) 0.3 K/uL (0.0-0.8) 11/16/17 08:21 Eos # (Auto) 0.0 K/uL (0.0-0.7) 11/16/17 08:21 Baso # (Auto) 0.0 K/uL (0.0-0.2) 11/16/17 08:21 pO2 31 mm/Hg (30-55) 11/16/17 07:35 VBG pH 7.37 (7.32-7.43) 11/16/17 07:35 VBG pCO2 65 mmHg (40-60) H 11/16/17 07:35 VBG HCO3 31.3 mmol/L 11/16/17 07:35 VBG Total CO2 39.6 mmol/L (22-28) H 11/16/17 07:35 VBG O2 Sat (Calc) 66.5 % (40-65) H 11/16/17 07:35 VBG Base Excess 9.5 mmol/L (0.0-2.0) H 11/16/17 07:35 VBG Potassium 4.0 mmol/L (3.6-5.2) 11/16/17 07:35 Sodium 141.0 mmol/L (132-148) 11/16/17 07:35 Chloride 103.0 mmol/L (98-107) 11/16/17 07:35 Glucose 118 mg/dL (65-105) H 11/16/17 07:35 Lactate 1.4 mmol/L (0.7-2.1) 11/16/17 07:35 FiO2 21.0 % 11/16/17 07:35 Sodium 142 mmol/l (132-148) 11/16/17 08:21 Potassium 3.8 MMOL/L (3.6-5.0) 11/16/17 08:21 Chloride 98 mmol/L (98-107) 11/16/17 08:21 Carbon Dioxide 33 mmol/L (22-30) H 11/16/17 08:21 Anion Gap 15 (10-20) 11/16/17 08:21 BUN 24 mg/dl (7-17) H 11/16/17 08:21 Creatinine 0.9 mg/dl (0.7-1.2) 11/16/17 08:21 Est GFR ( Amer) > 60 11/16/17 08:21 Est GFR (Non-Af Amer) > 60 11/16/17 08:21 POC Glucose (mg/dL) 93 mg/dL (65-110) 11/16/17 21:08 Random Glucose 109 mg/dL (65-105) H 11/16/17 08:21 Calcium 8.8 mg/dL (8.4-10.2) 11/16/17 08:21 Total Bilirubin 0.8 mg/dl (0.2-1.3) 11/16/17 08:21 AST 37 U/L (14-36) H 11/16/17 08:21 ALT 26 U/L (9-52) 11/16/17 08:21 Alkaline Phosphatase 58 U/L (38-126) 11/16/17 08:21 Total Protein 8.7 G/DL (6.3-8.2) H 11/16/17 08:21 Albumin 4.4 g/dL (3.5-5.0) 11/16/17 08:21 Globulin 4.4 gm/dL (2.2-3.9) H 11/16/17 08:21 Albumin/Globulin Ratio 1.0 (1.0-2.1) 11/16/17 08:21 Lipase 69 U/L (23-300) 11/16/17 08:21 Venous Blood Potassium 4.0 mmol/L (3.6-5.2) 11/16/17 07:35 - Hospital Course Hospital Course: 67F with non-specific abdominal pain and based on imaging, labs, eCW records, and no acute clinical findings to suggest an AIDS-related illness monitored overnight and discharged after tolerating dinner and breakfast well without incident. Resume all home medications Discharge Exam - Head Exam Head Exam: ATRAUMATIC, NORMOCEPHALIC - Eye Exam Eye Exam: Normal appearance - ENT Exam ENT Exam: Mucous Membranes Moist, Normal Exam - Respiratory Exam Respiratory Exam: Clear to PA & Lateral, NORMAL BREATHING PATTERN - Cardiovascular Exam Cardiovascular Exam: REGULAR RHYTHM - GI/Abdominal Exam GI & Abdominal Exam: Normal Bowel Sounds, Soft, Unremarkable - Extremities Exam Extremities exam: full ROM, normal capillary refill, pedal pulses present Discharge Plan - Follow Up Plan Condition: FAIR Disposition: HOME/ ROUTINE Instructions: Constipation, Adult (DC), Dehydration, Adult (DC) Referrals: Ana Kingsley MD [Medical Doctor] - 1 Week
[2017-11-18] MEDS ORDERED: METHADONE PO SCH (09:00)
== END 2017-11-17 16:28 | disposition home or self-care (01) ==
LOC: H.ER 06:52 → H.ERHOLD 13:02 → H.MEDSURG1 14:52
PROVIDERS: ADMIT Family Medicine Geriatric Medicine; ATTEND Family Medicine Geriatric Medicine
DX: K59.03 Drug induced constipation (principal); J44.9 Chronic obstructive pulmonary disease, unspecified; E86.0 Dehydration; F17.200 Nicotine dependence, unspecified, uncomplicated; G47.30 Sleep apnea, unspecified; I10 Essential (primary) hypertension; Z87.01 Personal history of pneumonia (recurrent); F32.9 Major depressive disorder, single episode, unspecified; F41.9 Anxiety disorder, unspecified; E11.9 Type 2 diabetes mellitus without complications; J40 Bronchitis, not specified as acute or chronic; K29.70 Gastritis, unspecified, without bleeding; M19.90 Unspecified osteoarthritis, unspecified site; Z79.899 Other long term (current) drug therapy; R10.9 Unspecified abdominal pain; Z21 Asymptomatic human immunodeficiency virus [HIV] infection status; E78.00 Pure hypercholesterolemia, unspecified
CPT/HCPCS: 74022; 74177; 80053; 82803; 82948; 83690; 85025; 96374; 99285; G0378; J1885; J2405; J7030; Q9966; Q9967

== ENCOUNTER 2017-12-04 08:08 | Emergency (ER) | payer MEDICARE, MEDICAID ==
[2017-12-04 08:11] VITALS: BMI 27.9
[2017-12-04] MEDS ORDERED: Sodium Chloride 0.9% 1,000 ML IV STA (09:15)
--- NOTE | 2017-12-04 09:38 | ED PDOC ---
HPI: Abdomen Time Seen by Provider: 12/04/17 09:06 Chief Complaint (Nursing): Abdominal Pain Chief Complaint (Provider): Abdominal Pain History Per: Patient History/Exam Limitations: no limitations Onset/Duration Of Symptoms: Days Current Symptoms Are (Timing): Still Present Quality Of Discomfort: "Pain" Associated Symptoms: denies: Fever, Vomiting, Constipation Additional Complaint(s): 67 year old female presents to the ED complaining of dizziness, nausea and abdominal pain onset yesterday. Reports her doctor took her off insulin and this morning her sugar was 268. Patient took Meclizine today morning. She also had an abdominal pain in the past for which she received a workup for gallstone and had a CD4 count of 245. Denies fever, vomiting, constipation or any symptoms. PMD: Ana Kingsley Past Medical History Reviewed: Historical Data, Nursing Documentation, Vital Signs Vital Signs: Last Vital Signs Temp 98.2 F 12/04/17 12:55 Pulse 60 12/04/17 12:55 Resp 18 12/04/17 12:55 BP 136/87 12/04/17 12:55 Pulse Ox 94 L 12/04/17 12:55 - Medical History PMH: Anxiety, Arthritis, Asthma, Bronchitis, COPD, Depression, Diabetes, Gastritis, HIV, HTN, Hypercholesterolemia, Pneumonia, Sleep Apnea Denies: Anemia, Atrial Fibrillation, Bipolar Disorder, Emphysema, Hepatitis, Hyperthyroidism, Pancreatitis, Chronic Kidney Disease, Schizophrenia, Seizures, Sexually Transmitted Disease - Family History Family History: States: Unknown Family Hx, Hypertension - Social History Current smoker - smoking cessation education provided: No Alcohol: None - Immunization History Hx Influenza Vaccination: Yes Hx Pneumococcal Vaccination: Yes - Home Medications Home Medications: Ambulatory Orders Medication Instructions Recorded Albuterol/Ipratropium [Combivent 1 puff IH Q6H PRN 06/21/17 Respimat] Dolutegravir Sodium [Tivicay] 50 mg PO HS 06/21/17 Methadone 110 mg PO DAILY 06/21/17 Mirtazapine [Remeron] 45 mg PO HS 06/21/17 Ondansetron [Zofran Tab] 4 mg PO BID PRN 06/21/17 Cholecalciferol [Vitamin D 1000 IU] 1,000 unit PO DAILY 11/02/17 Docusate [Colace] 100 mg PO DAILY PRN 11/02/17 Emtricitab/Rilpiviri/Tenof Ala 1 tab PO HS 11/02/17 [Odefsey Tablet] Fluticasone/Salmeterol [Advair 1 puff IH Q12 11/02/17 250-50 Diskus] Losartan/Hydrochlorothiazide 1 tab PO DAILY 11/02/17 [Losartan-Hctz 50-12.5 mg Tab] Meclizine [Antivert] 12.5 mg PO Q12 PRN 11/02/17 QUEtiapine [Seroquel] 25 mg PO HS 11/02/17 clonazePAM [Klonopin] 1 mg PO DAILY 11/02/17 fluvoxaMINE [Luvox] 50 mg PO DAILY 11/02/17 Pravastatin Sodium [Pravachol] 10 mg PO HS 11/16/17 Famotidine [Pepcid] 20 mg PO BID #20 tab 12/04/17 Ondansetron ODT [Zofran ODT] 4 mg PO Q8H PRN #20 odt 12/04/17 - Allergies Allergies/Adverse Reactions: Allergies Allergy/AdvReac Type Severity Reaction Status Date / Time No Known Allergies Allergy Verified 12/04/17 08:32 Review of Systems ROS Statement: Except As Marked, All Systems Reviewed And Found Negative Constitutional: Negative for: Fever Gastrointestinal: Positive for: Nausea, Abdominal Pain. Negative for: Vomiting , Constipation Neurological: Positive for: Dizziness Physical Exam - Reviewed Nursing Documentation Reviewed: Yes Vital Signs Reviewed: Yes - Physical Exam Appears: Positive for: Non-toxic, No Acute Distress Head Exam: Positive for: ATRAUMATIC, NORMAL INSPECTION, NORMOCEPHALIC Skin: Positive for: Normal Color, Warm, Dry Eye Exam: Positive for: EOMI, Normal appearance, PERRL ENT: Positive for: Normal ENT Inspection Neck: Positive for: Normal, Painless ROM, Supple. Negative for: Decreased ROM Cardiovascular/Chest: Positive for: Regular Rate, Rhythm. Negative for: Murmur Respiratory: Positive for: Normal Breath Sounds. Negative for: Decreased Breath Sounds, Wheezing, Respiratory Distress Gastrointestinal/Abdominal: Positive for: Tenderness (generalized and mostly in the epigastric area). Negative for: Guarding Back: Positive for: Normal Inspection. Negative for: L CVA Tenderness, R CVA Tenderness Extremity: Positive for: Normal ROM. Negative for: Tenderness, Pedal Edema, Deformity Neurologic/Psych: Positive for: Alert, Oriented (x3). Negative for: Motor/ Sensory Deficits - Laboratory Results Result Diagrams: 12/04/17 09:50 12/04/17 09:50 - ECG O2 Sat by Pulse Oximetry: 97 (RA) Pulse Ox Interpretation: Normal Medical Decision Making Medical Decision Making: Time: 913 Initial Impression: abdominal pain Initial Plan: -- Abd & Pelvis IV Contrast CT --EKG --CMP --Lipase --ED Urine dipstick --CBC w/ differential --PTT --Prothrombin, POC --Glucose, Blood, POC --Morphine 2mg --Normal Saline 1000 mls/hr --Zofran 4mg --Urinalysis --Reevaluation Time: 1235 PROCEDURE: CT Abdomen and Pelvis with contrast HISTORY: Generalized abdominal pain and nausea. COMPARISON: 11/16/2017 CT abdomen and pelvis. 11/02/2017 CT abdomen and pelvis. TECHNIQUE: Contrast dose: 95 cc Omnipaque 300. Radiation dose: Total exam DLP = 412.60. MGy-cm. This CT exam was performed using one or more of the following dose reduction techniques: Automated exposure control, adjustment of the mA and/or kV according to patient size, and/or use of iterative reconstruction technique. FINDINGS: LOWER THORAX: Unremarkable. LIVER: Hepatic steatosis. No focal masses. No intrahepatic bile duct dilatation or perihepatic ascites. GALLBLADDER AND BILE DUCTS: Unremarkable. PANCREAS: No focal mass identified. Mildly dilated pancreatic and common bile duct not felt to be clinically consequential. There is no pancreatic mass or visible stricture or common duct stone. There is no intrahepatic bile duct dilatation. SPLEEN: Unremarkable. ADRENALS: Unremarkable. No mass. KIDNEYS AND URETERS: Unremarkable. No hydronephrosis. No solid mass. VASCULATURE: Unremarkable. No aortic aneurysm. BOWEL: Unremarkable. No obstruction. No gross mural thickening. APPENDIX: No abnormalities to suggest acute appendicitis. No right lower quadrant inflammatory processes identified. PERITONEUM: Unremarkable. No free fluid. No free air. LYMPH NODES: Unremarkable. No enlarged lymph nodes. BLADDER: Unremarkable. REPRODUCTIVE: Unremarkable. BONES: No acute fracture. OTHER FINDINGS: None. IMPRESSION: No acute findings related to/accounting for the clinical presentation. Additional benign and/or incidental findings described above. No significant interval change compared to the prior examination(s). Pt ambulating around ED without difficulty. Scribe Attestation: Documented by Jonathan Mckeon, acting as a scribe for Keke Merritt MD Provider Scribe Attestation: All medical record entries made by the Scribe were at my direction and personally dictated by me. I have reviewed the chart and agree that the record accurately reflects my personal performance of the history, physical exam, medical decision making, and the department course for this patient. I have also personally directed, reviewed, and agree with the discharge instructions and disposition. Disposition - Clinical Impression Clinical Impression: Abdominal pain in female - Patient ED Disposition Is Patient to be Admitted: No - Disposition Referrals: [facility] [Outside] Disposition: Routine/Home Disposition Time: 12:47 Condition: IMPROVED Prescriptions: Famotidine [Pepcid] 20 mg PO BID #20 tab Ondansetron ODT [Zofran ODT] 4 mg PO Q8H PRN #20 odt PRN Reason: Nausea/Vomiting Instructions: Acute Abdomen (Belly Pain) Forms: [employer] (Lao)
[2017-12-04 09:56] LABS: BASO % 0.1 % (0.0-2.0); EOS % 0.3 % (0.0-4.0); HEMOGLOBIN 13.8 g/dL (12.0-16.0); LYMPH # 0.6 K/uL (1.0-4.3); LYMPH % 18.1 % (20.0-40.0); MEAN CELL VOLUME 103.7 fl (81.0-99.0); MEAN CORPUSCULAR HEMOGLOBIN 36.3 pg (27.0-31.0); MEAN PLATELET VOLUME 9.3 fl (7.2-11.7); MONO # 0.3 K/uL (0.0-0.8); MONO % 8.4 % (0.0-10.0); NEUT # 2.4 K/uL (1.8-7.0); NEUT % 73.1 % (50.0-75.0); NRBC % 0.1 % (0.0-0.0); RBC 3.8 Mil/uL (3.80-5.20); RED CELL DISTRIBUTION WIDTH 12.3 % (11.5-14.5); WHITE BLOOD COUNT 3.3 K/uL (4.8-10.8)
[2017-12-04 10:05] LABS: PARTIAL THROMBOPLASTIN TIME 26.4 Seconds (25.6-37.1); PROTHROMBIN TIME 11.5 Seconds (9.8-13.1)
[2017-12-04 10:09] LABS: ALB/GLOB RATIO 1.1 (1.0-2.1); ALBUMIN 4.5 g/dL (3.5-5.0); ALT/SGPT 25 U/L (9-52); AST/SGOT 36 U/L (14-36); BLOOD UREA NITROGEN 31 mg/dl (7-17); CALCIUM 9.1 mg/dL (8.4-10.2); GFR AFRICAN-AMERICAN > 60; GFR NON-AFRICAN AMERICAN > 60; LIPASE 76 U/L (23-300)
[2017-12-04 10:09] LABS: SQUAMOUS EPITHIAL < 1 /hpf (0-5); URINE BILIRUBIN NEGATIVE (NEGATIVE); URINE BLOOD NEGATIVE (NEGATIVE); URINE CLARITY CLEAR (Clear); URINE COLOR YELLOW (YELLOW); URINE GLUCOSE (UA) NEG (Normal); URINE LEUKOCYTE ESTERASE TRACE Leu/uL (Negative); URINE PROTEIN NEGATIVE (NEGATIVE); URINE UROBILINOGEN 0.2-1.0 mg/dL (0.2-1.0)
[2017-12-04] MEDS ORDERED: Iohexol 300 100 ML IJ ONE (11:22)
[2017-12-04] MEDS ORDERED: Sodium Chloride 0.9% 50 ML IV ONE (11:22)
--- NOTE | 2017-12-04 12:38 | CT ---
PROCEDURE: CT Abdomen and Pelvis with contrast HISTORY: Generalized abdominal pain and nausea. COMPARISON: 11/16/2017 CT abdomen and pelvis. 11/02/2017 CT abdomen and pelvis. TECHNIQUE: Contrast dose: 95 cc Omnipaque 300. Radiation dose: Total exam DLP = 412.60. MGy-cm. This CT exam was performed using one or more of the following dose reduction techniques: Automated exposure control, adjustment of the mA and/or kV according to patient size, and/or use of iterative reconstruction technique. FINDINGS: LOWER THORAX: Unremarkable. LIVER: Hepatic steatosis. No focal masses. No intrahepatic bile duct dilatation or perihepatic ascites. GALLBLADDER AND BILE DUCTS: Unremarkable. PANCREAS: No focal mass identified. Mildly dilated pancreatic and common bile duct not felt to be clinically consequential. There is no pancreatic mass or visible stricture or common duct stone. There is no intrahepatic bile duct dilatation. SPLEEN: Unremarkable. ADRENALS: Unremarkable. No mass. KIDNEYS AND URETERS: Unremarkable. No hydronephrosis. No solid mass. VASCULATURE: Unremarkable. No aortic aneurysm. BOWEL: Unremarkable. No obstruction. No gross mural thickening. APPENDIX: No abnormalities to suggest acute appendicitis. No right lower quadrant inflammatory processes identified. PERITONEUM: Unremarkable. No free fluid. No free air. LYMPH NODES: Unremarkable. No enlarged lymph nodes. BLADDER: Unremarkable. REPRODUCTIVE: Unremarkable. BONES: No acute fracture. OTHER FINDINGS: None. IMPRESSION: No acute findings related to/accounting for the clinical presentation. Additional benign and/or incidental findings described above. No significant interval change compared to the prior examination(s).
[2017-12-04 13:05] VITALS: BP 136/87; PULSE 60; RESP 18; TEMP 98.2
--- NOTE | 2017-12-04 14:57 | CARD ---
APPROVED REPORT EKG Measurement Heart [id number] <Conclusion> Sinus bradycardia Otherwise normal ECG
[2017-12-06 13:24] VITALS: O2SAT 97
== END 2017-12-04 13:15 | disposition home or self-care (01) ==
LOC: H.ER 08:08
DX: R10.9 Unspecified abdominal pain (principal); R42 Dizziness and giddiness; R11.0 Nausea; E11.9 Type 2 diabetes mellitus without complications; E78.00 Pure hypercholesterolemia, unspecified; F32.9 Major depressive disorder, single episode, unspecified; I10 Essential (primary) hypertension; F41.9 Anxiety disorder, unspecified; J44.9 Chronic obstructive pulmonary disease, unspecified
CPT/HCPCS: 74177; 80053; 81003; 82948; 83690; 85025; 85610; 85730; 93005; 96360; 99285; J2270; J2405; J7030; Q9967

== ENCOUNTER 2018-02-21 07:24 | Day surgery (SDC) | payer MEDICARE, MEDICAID ==
[2018-02-21 07:48] VITALS: BMI 30.8
[2018-02-21 09:03] VITALS: RESP 18
[2018-02-21 09:11] LABS: BASO % 0.4 % (0.0-2.0); EOS % 0.5 % (0.0-4.0); HEMOGLOBIN 13.8 g/dL (12.0-16.0); LYMPH # 0.5 K/uL (1.0-4.3); LYMPH % 15.2 % (20.0-40.0); MEAN CELL VOLUME 102.4 fl (81.0-99.0); MEAN CORPUSCULAR HEMOGLOBIN 35.5 pg (27.0-31.0); MEAN CORPUSCULAR HGB CONC 34.6 g/dL (33.0-37.0); MEAN PLATELET VOLUME 9.4 fl (7.2-11.7); MONO # 0.3 K/uL (0.0-0.8); MONO % 10.1 % (0.0-10.0); NEUT # 2.4 K/uL (1.8-7.0); NEUT % 73.8 % (50.0-75.0); NRBC % 0.1 % (0.0-0.0); RBC 3.9 Mil/uL (3.80-5.20); RED CELL DISTRIBUTION WIDTH 12.6 % (11.5-14.5); WHITE BLOOD COUNT 3.2 K/uL (4.8-10.8)
[2018-02-21 09:22] LABS: PROTHROMBIN TIME 11.6 Seconds (9.8-13.1)
[2018-02-21 09:25] LABS: PARTIAL THROMBOPLASTIN TIME 28.7 Seconds (25.6-37.1)
[2018-02-21] MEDS ORDERED: Lidocaine 1% 5ml Abboject ONE (12:42)
[2018-02-21] MEDS ORDERED: Midazolam 2 MG/2 ML VIAL ONE ×2 (13:38→14:06)
--- NOTE | 2018-02-21 14:37 | CP.SDSHP ---
Same Day Surgery H & P - History Proposed Procedure: Ct guided lung nodule biopsy Pre-Op Diagnosis: GERMAINE nodule - Allergies Allergies: Allergies aspirin Allergy (Verified 02/21/18 09:21) GI UPSET NAUSA cobicistat [From Genvoya] Allergy (Verified 02/21/18 09:21) NAUSEA VOMITING efavirenz [From Atripla] Allergy (Verified 02/21/18 09:21) DEPRESSION elvitegravir [From Genvoya] Allergy (Verified 02/21/18 09:21) NAUSEA VOMITING emtricitabine [From Atripla] Allergy (Verified 02/21/18 09:21) DEPRESSION metformin Allergy (Verified 02/21/18 09:21) NAUSEA tenofovir [From Atripla] Allergy (Verified 02/21/18 09:21) DEPRESSION - Physical Exam Vital Signs: Vital Signs 02/21/18 02/21/18 02/21/18 09:02 09:06 13:26 Temperature 99.2 F 98.9 F Pulse Rate 78 78 67 Respiratory 18 18 Rate Blood Pressure 141/89 165/67 H O2 Sat by Pulse 95 100 Oximetry Mental Status: Alert & Oriented x3 Neuro: WNL Heart: WNL Lungs: WNL GI: WNL Social History: Smoking - {Optional Preform as Required} Abdomen: WNL Integument: WNL ENT: WNL - Impression Pt. Evaluated Today:Candidate for Anesthesia & Procedure: Yes Short Stay Discharge - Short Stay Discharge Admitting Diagnosis/Reason for Visit: R91.8 Disposition: HOME/ ROUTINE Referrals: Ana Kingsley MD [Primary Care Provider] -
--- NOTE | 2018-02-21 14:39 | PCM.SURG1 ---
Surgeon's Initial Post Op Note - Surgeon's Notes Surgeon: Michael Computer Forensics Analyst: None Type of Anesthesia: IV Sedation, Local Anesthesia Administered By: Jerardo Pre-Operative Diagnosis: GERMAINE lung nodule Operative Findings: GERMAINE lung nodule Post-Operative Diagnosis: GERMAINE lung nodule Operation Performed: GERMAINE lung nodule biopsy using CT guidance Specimen/Specimens Removed: Two 20G core biopsy samples obtained. Estimated Blood Loss: EBL {In ML}: 1 Blood Products Given: N/A Drains Used: No Drains Post-Op Condition: Good Date of Surgery/Procedure: 02/21/18 Time of Surgery/Procedure: 14:15
[2018-02-21] MEDS ORDERED: Lactated Ringer's 1,000 ML IV ONE (14:45)
[2018-02-21] MEDS ORDERED: Acetaminophen 650mg/20.3ml solution UD PO STA (14:47)
[2018-02-21] MEDS ORDERED: Lactated Ringer's 1,000 ML IV SCH (15:00)
--- NOTE | 2018-02-21 16:20 | RAD ---
Date of service: 02/21/2018 HISTORY: GERMAINE nodule biopsy r/o Ptx COMPARISON: 01/25/2018 FINDINGS: LUNGS: No active pulmonary disease. PLEURA: No significant pleural effusion identified, no pneumothorax apparent. CARDIOVASCULAR: Normal. OSSEOUS STRUCTURES: No significant abnormalities. VISUALIZED UPPER ABDOMEN: Normal. OTHER FINDINGS: None. IMPRESSION: No pneumothorax. Unremarkable examination.
--- NOTE | 2018-02-21 16:51 | RAD ---
Date of service: 02/21/2018 HISTORY: GERMAINE nodule biopsy r/o Ptx COMPARISON: No prior. FINDINGS: LUNGS: No active pulmonary disease. PLEURA: No significant pleural effusion identified, no pneumothorax apparent. CARDIOVASCULAR: Stable cardiomegaly. No pulmonary vascular congestion. OSSEOUS STRUCTURES: No significant abnormalities. VISUALIZED UPPER ABDOMEN: Normal. OTHER FINDINGS: None. IMPRESSION: No interval acute cardiopulmonary disease appreciated. Cardiomegaly unchanged. No pulmonary vascular congestion.
[2018-02-21 18:11] VITALS: BP 145/92; PULSE 65; TEMP 98.3; O2SAT 97
== END 2018-02-21 18:50 | disposition home or self-care (01) ==
LOC: H.OPSURG 07:24
PROVIDERS: ATTEND Family Medicine
DX: R91.8 Other nonspecific abnormal finding of lung field (principal); J45.909 Unspecified asthma, uncomplicated; J44.9 Chronic obstructive pulmonary disease, unspecified; E11.9 Type 2 diabetes mellitus without complications; E78.5 Hyperlipidemia, unspecified; I10 Essential (primary) hypertension; F41.9 Anxiety disorder, unspecified
CPT/HCPCS: 32405; 36415; 71045; 77012; 82948; 85025; 85610; 85730; 88305; J1170; J2250; J3010; J7120

== ENCOUNTER 2018-03-17 10:16 | Emergency (ER) | payer MEDICARE, MEDICAID ==
[2018-03-17 10:17] VITALS: BMI 30.8
[2018-03-17] MEDS ORDERED: Sodium Chloride 0.9% 1,000 ML IV STA (10:48)
--- NOTE | 2018-03-17 10:59 | ED PDOC ---
HPI: Back Time Seen by Provider: 03/17/18 10:40 Chief Complaint (Nursing): Back Pain Chief Complaint (Provider): back pain History Per: Patient History/Exam Limitations: no limitations Onset/Duration Of Symptoms: Days (x1) Current Symptoms Are (Timing): Still Present Severity: Severe Additional Complaint(s): Cristina Mc, a 67 year old female with past medical history of kidney stones, diabetes and HIV, presents to the emergency room with lower back pain onset yesterday. Patient describes the pain as constant and severe non fluctuating wit h a sudden onset with no injury, exertion or fall. She states that the pain radiates to sacral area and left lower abdomen. Patient reports some nausea but denies taking medication, nausea, vomiting, fever, chills, blood in urine or burning. She has a history of kidney stones and states her current symptoms feel the same. Patient is allergic to aspirin and metformin Past Medical History Reviewed: Historical Data, Nursing Documentation, Vital Signs Vital Signs: Last Vital Signs Temp 98.6 F 03/17/18 10:20 Pulse 72 03/17/18 10:20 Resp 16 03/17/18 10:20 BP 143/95 H 03/17/18 10:20 Pulse Ox 96 03/17/18 10:20 - Medical History PMH: Anxiety, Arthritis, Asthma, Bronchitis, COPD, Depression, Diabetes, Gastritis, HIV, HTN, Hypercholesterolemia, Kidney Stones, Pneumonia, Sleep Apnea Denies: Anemia, Atrial Fibrillation, Bipolar Disorder, Emphysema, Hepatitis, Hyperthyroidism, Pancreatitis, Chronic Kidney Disease, Schizophrenia, Seizures, Sexually Transmitted Disease - Family History Family History: States: Unknown Family Hx, Hypertension - Social History Current smoker - smoking cessation education provided: Yes (1.5 packs per day for 30 years) - Immunization History Hx Influenza Vaccination: Yes Hx Pneumococcal Vaccination: Yes - Home Medications Home Medications: Ambulatory Orders Medication Instructions Recorded Albuterol/Ipratropium [Combivent 1 puff IH Q6H PRN 06/21/17 Respimat] Dolutegravir Sodium [Tivicay] 50 mg PO HS 06/21/17 Methadone 110 mg PO DAILY 06/21/17 Mirtazapine [Remeron] 45 mg PO HS 06/21/17 Ondansetron [Zofran Tab] 4 mg PO BID PRN 06/21/17 Cholecalciferol [Vitamin D 1000 IU] 1,000 unit PO DAILY 11/02/17 Docusate [Colace] 100 mg PO DAILY PRN 11/02/17 Emtricitab/Rilpiviri/Tenof Ala 1 tab PO HS 11/02/17 [Odefsey Tablet] Fluticasone/Salmeterol [Advair 1 puff IH DAILY 11/02/17 250-50 Diskus] Losartan/Hydrochlorothiazide 1 tab PO DAILY 11/02/17 [Losartan-Hctz 50-12.5 mg Tab] Meclizine [Antivert] 12.5 mg PO Q12 PRN 11/02/17 QUEtiapine [Seroquel] 25 mg PO HS 11/02/17 clonazePAM [Klonopin] 1 mg PO TID 11/02/17 Pravastatin Sodium [Pravachol] 10 mg PO HS 11/16/17 Acetaminophen [Tylenol 325mg tab] 650 mg PO Q6H PRN #50 tab 03/17/18 Lidocaine 5% [Lidoderm] 1 patch TD DAILY #10 patch 03/17/18 Naproxen [Naprosyn] 500 mg PO BID PRN #20 tablet 03/17/18 - Allergies Allergies/Adverse Reactions: Allergies Allergy/AdvReac Type Severity Reaction Status Date / Time aspirin Allergy GI UPSET Verified 02/21/18 09:21 cobicistat [From Genvoya] Allergy NAUSEA Verified 02/21/18 09:21 efavirenz [From Atripla] Allergy DEPRESSION Verified 02/21/18 09:21 elvitegravir [From Genvoya] Allergy NAUSEA Verified 02/21/18 09:21 emtricitabine [From Atripla] Allergy DEPRESSION Verified 02/21/18 09:21 metformin Allergy NAUSEA Verified 02/21/18 09:21 tenofovir [From Atripla] Allergy DEPRESSION Verified 02/21/18 09:21 Review of Systems ROS Statement: Except As Marked, All Systems Reviewed And Found Negative Constitutional: Negative for: Fever, Chills Gastrointestinal: Positive for: Abdominal Pain (left lower). Negative for: Vomiting, Diarrhea Genitourinary Female: Negative for: Dysuria, Hematuria Musculoskeletal: Positive for: Back Pain ( lower) Physical Exam - Reviewed Nursing Documentation Reviewed: Yes Vital Signs Reviewed: Yes - Physical Exam Appears: Positive for: Well, Non-toxic, Uncomfortable (mild) Head Exam: Positive for: ATRAUMATIC, NORMAL INSPECTION, NORMOCEPHALIC Skin: Positive for: Normal Color, Warm, DRY Eye Exam: Positive for: EOMI, Normal appearance, PERRL ENT: Positive for: Normal ENT Inspection Neck: Positive for: Normal (no lymph nodes), Painless ROM, Supple Cardiovascular/Chest: Positive for: Regular Rate, Rhythm Respiratory: Positive for: Normal Breath Sounds. Negative for: Respiratory Distress Gastrointestinal/Abdominal: Positive for: Tenderness (LLQ). Negative for: Rebound Back: Positive for: Other (tenderness to lower lumbar). Negative for: L CVA Tenderness, R CVA Tenderness Extremity: Negative for: Other (edema, cyanosis) Neurologic/Psych: Positive for: Alert, Oriented - Laboratory Results Result Diagrams: 03/17/18 11:25 03/17/18 11:25 - ECG O2 Sat by Pulse Oximetry: 96 (RA) Pulse Ox Interpretation: Normal Medical Decision Making Medical Decision Making: Time: 10:40 Initial Impression: Initial Plan: --CT abd and pelvis --CMP --Lipase --Urine dip --CBC w/differential --Sodium chloride IV --Toradol 30 mg IVP --Zofran 4 mg IVP Scribe Attestation: Documented by Renetta Rosen, acting as a scribe for Sheryl Valverde MD. Provider Scribe Attestation: All medical record entries made by the Scribe were at my direction and personally dictated by me. I have reviewed the chart and agree that the record accurately reflects my personal performance of the history, physical exam, medical decision making, and the department course for this patient. I have also personally directed, reviewed, and agree with the discharge instructions and disposition. Disposition - Clinical Impression Clinical Impression: DJD (degenerative joint disease), lumbosacral - Patient ED Disposition Is Patient to be Admitted: No Doctor Will See Patient In The: Office Counseled Patient/Family Regarding: Diagnosis, Need For Followup, Rx Given - Disposition Referrals: [facility] [Outside] [facility] [Outside] Disposition: Routine/Home Disposition Time: 14:20 Condition: STABLE Prescriptions: Acetaminophen [Tylenol 325mg tab] 650 mg PO Q6H PRN #50 tab PRN Reason: Pain, Mild (1-3) Lidocaine 5% [Lidoderm] 1 patch TD DAILY #10 patch Naproxen [Naprosyn] 500 mg PO BID PRN #20 tablet PRN Reason: Pain, Moderate (4-7) Instructions: Degenerative Disc Disease Forms: [employer] [facility] (Faroese) - POA Present On Arrival: None
[2018-03-17 11:32] LABS: BASO % 0.3 % (0.0-2.0); EOS % 0.4 % (0.0-4.0); LYMPH # 0.5 K/uL (1.0-4.3); LYMPH % 10.9 % (20.0-40.0); MEAN CELL VOLUME 102.9 fl (81.0-99.0); MEAN CORPUSCULAR HEMOGLOBIN 35.5 pg (27.0-31.0); MEAN CORPUSCULAR HGB CONC 34.5 g/dL (33.0-37.0); MEAN PLATELET VOLUME 9.4 fl (7.2-11.7); MONO # 0.4 K/uL (0.0-0.8); MONO % 8.6 % (0.0-10.0); NEUT % 79.8 % (50.0-75.0); NRBC % 0.1 % (0.0-0.0); RBC 3.93 Mil/uL (3.80-5.20); RED CELL DISTRIBUTION WIDTH 12.7 % (11.5-14.5)
[2018-03-17 11:50] LABS: BLOOD UREA NITROGEN 32 mg/dl (7-17); CALCIUM 9.1 mg/dL (8.4-10.2); GFR NON-AFRICAN AMERICAN > 60; LIPASE 97 U/L (23-300)
[2018-03-17 11:56] LABS: ALBUMIN 4.4 g/dL (3.5-5.0); ALT/SGPT 33 U/L (9-52); AST/SGOT 53 U/L (14-36)
[2018-03-17] MEDS ORDERED: Iohexol 300 100 ML IJ ONE (12:43)
[2018-03-17] MEDS ORDERED: Sodium Chloride 0.9% 100 ML ONE (12:43)
--- NOTE | 2018-03-17 13:55 | CT ---
Date of service: 03/17/2018 PROCEDURE: CT Abdomen and Pelvis with contrast HISTORY: back pain and LLQ pain, h/o ureterolithiasis COMPARISON: Comparison is made with 12/04/2017 TECHNIQUE: Contrast dose: 98 mL of Omnipaque 300. Axial and reformatted coronal and sagittal CT images of the abdomen and pelvis were obtained after IV contrast administration. Radiation dose: Total exam DLP = 431.72 mGy-cm. This CT exam was performed using one or more of the following dose reduction techniques: Automated exposure control, adjustment of the mA and/or kV according to patient size, and/or use of iterative reconstruction technique. FINDINGS: LOWER THORAX: No evidence of acute pathology at the lung bases. The heart is mildly enlarged. No evidence of pleural effusion or pneumothorax. LIVER: Mild hepatomegaly is noted. Caha-ug-suodpnvo hepatic steatosis. GALLBLADDER AND BILE DUCTS: No evidence of radiopaque gallstones or acute cholecystitis. Mildly dilated common bile duct again noted. PANCREAS: Atrophic changes of the pancreas are again noted. Mildly dilated main pancreatic duct is again noted. Squash in a pole low-attenuation cystic lesion at the pancreatic tail measures 0.8 centimeter best seen on image 22 series 2. SPLEEN: Unremarkable. ADRENALS: Unremarkable. No mass. KIDNEYS AND URETERS: Unremarkable. No hydronephrosis. No solid mass. VASCULATURE: Unremarkable. No aortic aneurysm. BOWEL: Unremarkable. No obstruction. No gross mural thickening. APPENDIX: No evidence of appendicitis. PERITONEUM: Unremarkable. No free fluid. No free air. LYMPH NODES: Unremarkable. No enlarged lymph nodes. BLADDER: Unremarkable. REPRODUCTIVE: Unremarkable. BONES: There are severe degenerative changes at L5-S1 noted and moderate degenerative changes at L4-L5. Posterior osteophyte disc protrusion noted at L4-L5 and L5-S1 associated with spinal and neural foraminal narrowing. Xolg-mu-mbyxtiwp degenerative changes at the lower thoracic spine are also noted. OTHER FINDINGS: None. IMPRESSION: No evidence of acute pathology in the abdomen and pelvis. No evidence of cholecystitis pancreatitis or appendicitis. No evidence of diverticulitis. Moderate to mildly severe degenerative disc and endplate changes at lower spine more prominent at L5-S1. Posterior osteophyte disc protrusion at L4-L5 and L5-S1 associated with spinal and neural foraminal narrowing. Additional findings as discussed above.
[2018-03-17] MEDS ORDERED: Lidocaine 5% Patch TD STA (14:11)
[2018-03-17 15:01] VITALS: BP 140/90; PULSE 70; RESP 18; TEMP 98.1; O2SAT 98
== END 2018-03-17 15:00 | disposition home or self-care (01) ==
LOC: H.ER 10:16
DX: M51.36 Other intervertebral disc degeneration, lumbar region (principal); E11.9 Type 2 diabetes mellitus without complications; E78.00 Pure hypercholesterolemia, unspecified; B20 Human immunodeficiency virus [HIV] disease; I10 Essential (primary) hypertension; F17.210 Nicotine dependence, cigarettes, uncomplicated
CPT/HCPCS: 74177; 80053; 82948; 83690; 85025; 96374; 96375; 99284; J1885; J2405; J7030; Q9967

== ENCOUNTER 2018-04-01 08:44 | Day surgery (SDC) | payer MEDICARE, MEDICAID ==
[2018-04-01 10:12] LABS: PROTHROMBIN TIME 11.1 Seconds (9.8-13.1)
[2018-04-01 10:15] LABS: PARTIAL THROMBOPLASTIN TIME 26.8 Seconds (25.6-37.1)
[2018-04-01] MEDS ORDERED: Lidocaine 1% 5ml Abboject ONE (12:57)
[2018-04-01] MEDS ORDERED: Midazolam 2 MG/2 ML VIAL ONE (12:59)
[2018-04-01] MEDS ORDERED: Sodium Chloride 0.9% 50 ML IV ONE (13:15)
[2018-04-01] MEDS ORDERED: Lactated Ringer's 1,000 ML IV ONE (13:36)
[2018-04-01] MEDS ORDERED: Lactated Ringer's 1,000 ML IV SCH (13:45)
--- NOTE | 2018-04-01 13:48 | CP.SDSHP ---
Same Day Surgery H & P - History Proposed Procedure: CT guided left lung nodule biopsy Pre-Op Diagnosis: Lung nodule - Allergies Allergies: Allergies aspirin Allergy (Verified 04/01/18 09:51) GI UPSET NAUSA cobicistat [From Genvoya] Allergy (Verified 04/01/18 09:51) NAUSEA VOMITING efavirenz [From Atripla] Allergy (Verified 04/01/18 09:51) DEPRESSION elvitegravir [From Genvoya] Allergy (Verified 04/01/18 09:51) NAUSEA VOMITING emtricitabine [From Atripla] Allergy (Verified 04/01/18 09:51) DEPRESSION metformin Allergy (Verified 04/01/18 09:51) NAUSEA tenofovir [From Atripla] Allergy (Verified 04/01/18 09:51) DEPRESSION - Physical Exam Vital Signs: Vital Signs 04/01/18 04/01/18 04/01/18 09:07 09:44 13:00 Temperature 98.3 F 98.7 F Pulse Rate 71 71 66 Respiratory 20 16 Rate Blood Pressure 145/88 180/90 H O2 Sat by Pulse 98 100 Oximetry Mental Status: Alert & Oriented x3 - Impression Impression: Pt with left lung nodule. Plan left lung nodule biopsy. Pt. Evaluated Today:Candidate for Anesthesia & Procedure: Yes (ASA 3 Malampati 3) - Date & Time Date: 04/01/18 Time: 12:55 Short Stay Discharge - Short Stay Discharge Admitting Diagnosis/Reason for Visit: LUNG MASS Disposition: HOME/ ROUTINE
--- NOTE | 2018-04-01 13:49 | PCM.SURG1 ---
Surgeon's Initial Post Op Note - Surgeon's Notes Surgeon: Patrick Paredes MD Extrusion Die Corrector: NONE Type of Anesthesia: IV Sedation Pre-Operative Diagnosis: Left lung nodule Operative Findings: CT showed a 1.5 cm left upper lobe lung nodule Post-Operative Diagnosis: Left lung nodule Operation Performed: CT guided left lung nodule biopsy Specimen/Specimens Removed: 20-g core x 2 Estimated Blood Loss: EBL {In ML}: 0 Blood Products Given: N/A Drains Used: No Drains Post-Op Condition: Fair Date of Surgery/Procedure: 04/01/18 Time of Surgery/Procedure: 13:35
--- NOTE | 2018-04-01 14:14 | CT ---
PROCEDURE: Date of procedure: 04/01/2018 Procedure: 1. CT-guided lung mass biopsy, CPT [address] Guidance for biopsy, [address] Radiation:4576.76mGy-cm Medications: The patient was sedated by anesthesiologist along with physiologic monitoring. HISTORY: Left upper lobe lung nodule TECHNIQUE: Following informed consent and procedure time out, the patient was placed prone on the CT table and noncontrast CT scan was performed. Noncontrast CT scan confirmed the presence of a 1.5 cm left lung nodule. A skin localizer was placed on the patient's LEFT back and a repeat CT scan was performed. The skin was marked, prepped, and draped in the usual sterile fashion. After the skin was anesthetized with lidocaine and the patient sedated by the anesthesiologist, a 20 gauge core needle was advanced percutaneously under direct CT guidance into the mass. Upon confirmation of needle position, Two 20-gauge core specimens were obtained and sent for routine pathology. The needle was removed and a xeroform dressing was applied. A post biopsy CT scan showed no pneumothorax. IMPRESSION: CT guided core biopsy left lung nodule.
--- NOTE | 2018-04-01 14:26 | RAD ---
Date of service: 04/01/2018 HISTORY: Status post left lung nodule biopsy. COMPARISON: No prior. FINDINGS: LUNGS: No active pulmonary disease. PLEURA: No significant pleural effusion identified, no pneumothorax apparent. CARDIOVASCULAR: No aortic atherosclerotic calcification present. Normal cardiac size. No pulmonary vascular congestion. OSSEOUS STRUCTURES: No significant abnormalities. VISUALIZED UPPER ABDOMEN: Normal. OTHER FINDINGS: None. IMPRESSION: There is no pneumothorax following left lung nodule biopsy.
[2018-04-01 16:06] VITALS: RESP 18
[2018-04-01 16:45] VITALS: O2SAT 97
[2018-04-01 18:54] VITALS: BP 142/78; PULSE 64; TEMP 98
== END 2018-04-01 19:30 | disposition home or self-care (01) ==
LOC: H.OPSURG 08:44
PROVIDERS: ATTEND Internal Medicine Hematology & Oncology
DX: R91.1 Solitary pulmonary nodule (principal); E11.9 Type 2 diabetes mellitus without complications; J45.909 Unspecified asthma, uncomplicated; J44.9 Chronic obstructive pulmonary disease, unspecified; E78.5 Hyperlipidemia, unspecified; I10 Essential (primary) hypertension; Z21 Asymptomatic human immunodeficiency virus [HIV] infection status; F17.210 Nicotine dependence, cigarettes, uncomplicated; F41.9 Anxiety disorder, unspecified
CPT/HCPCS: 32405; 36415; 71045; 82948; 85610; 85730; 88305; J2250; J2270; J3010; J7120

== ENCOUNTER 2018-05-09 07:03 | Inpatient (IN) | payer MEDICARE, MEDICAID ==
[2018-05-09] MEDS ORDERED: Iohexol 240 (50 ml) PO ONE (08:28)
[2018-05-09] MEDS ORDERED: Sodium Chloride 0.9% 1,000 ML IV STA ×2 (08:29→14:40)
[2018-05-09] MEDS ORDERED: Iohexol 240 (50 ml) ONE (08:42)
[2018-05-09 08:48] LABS: BASO % 0.4 % (0.0-2.0); EOS # 0.1 K/uL (0.0-0.7); EOS % 3.5 % (0.0-4.0); HEMOGLOBIN 14.1 g/dL (12.0-16.0); LYMPH # 0.7 K/uL (1.0-4.3); LYMPH % 31.1 % (20.0-40.0); MEAN CELL VOLUME 101.9 fl (81.0-99.0); MEAN CORPUSCULAR HEMOGLOBIN 35.2 pg (27.0-31.0); MEAN CORPUSCULAR HGB CONC 34.5 g/dL (33.0-37.0); MEAN PLATELET VOLUME 10.1 fl (7.2-11.7); MONO # 0.2 K/uL (0.0-0.8); MONO % 10.2 % (0.0-10.0); NEUT # 1.3 K/uL (1.8-7.0); NEUT % 54.8 % (50.0-75.0); NRBC % 0.2 % (0.0-0.0); RBC 4.01 Mil/uL (3.80-5.20); RED CELL DISTRIBUTION WIDTH 12.8 % (11.5-14.5); WHITE BLOOD COUNT 2.4 K/uL (4.8-10.8)
[2018-05-09 08:55] LABS: ALT/SGPT 41 U/L (9-52); AST/SGOT 51 U/L (14-36); BLOOD UREA NITROGEN 31 mg/dl (7-17); CALCIUM 8.9 mg/dL (8.4-10.2); GFR NON-AFRICAN AMERICAN > 60
--- NOTE | 2018-05-09 09:14 | ED PDOC ---
HPI: Abdomen Time Seen by Provider: 05/09/18 07:10 Chief Complaint (Nursing): Abdominal Pain Chief Complaint (Provider): Abdominal Pain History Per: Patient History/Exam Limitations: no limitations Onset/Duration Of Symptoms: Days (x 4) Current Symptoms Are (Timing): Still Present Location Of Pain/Discomfort: LLQ Quality Of Discomfort: "Pain" Associated Symptoms: Nausea, Diarrhea Additional Complaint(s): 67 year old female with a history of HIV, COPD, DM and high cholesterol presents to the ED with LLQ pain radiating around abdomen for 4 days. She also reports associated nausea and diarrhea. Patient reports that she is compliant with medications and follows up with Dr. Kingsley for HIV treatment. Denies fever, vomiting and other medical complaints. PMD: Dr. Wander Stauffer Past Medical History Reviewed: Historical Data, Nursing Documentation, Vital Signs Vital Signs: Last Vital Signs Temp 98.6 F 05/09/18 07:26 Pulse 77 05/09/18 07:26 Resp 16 05/09/18 07:26 BP 174/118 H 05/09/18 07:26 Pulse Ox 97 05/09/18 07:26 - Medical History PMH: Anxiety, Arthritis, Asthma, Bronchitis, COPD, Depression, Diabetes, Gastritis, HIV, HTN, Hypercholesterolemia, Kidney Stones, Pneumonia, Sleep Apnea Denies: Anemia, Atrial Fibrillation, Bipolar Disorder, Emphysema, Hepatitis, Hyperthyroidism, Pancreatitis, Chronic Kidney Disease, Schizophrenia, Seizures, Sexually Transmitted Disease - Surgical History Surgical History: No Surg Hx - Family History Family History: States: Unknown Family Hx, Hypertension - Social History Current smoker - smoking cessation education provided: Yes (Occasional) - Immunization History Hx Tetanus Toxoid Vaccination: No Hx Influenza Vaccination: Yes Hx Pneumococcal Vaccination: Yes - Home Medications Home Medications: Ambulatory Orders Medication Instructions Recorded RX: Dolutegravir Sodium [Tivicay] 50 mg PO HS 06/21/17 RX: Methadone 110 mg PO DAILY@0600 06/21/17 RX: Mirtazapine [Remeron] 45 mg PO HS 06/21/17 RX: Ondansetron [Zofran Tab] 4 mg PO BID PRN 06/21/17 RX: Emtricitab/Rilpiviri/Tenof Ala 1 tab PO HS 11/02/17 [Odefsey Tablet] RX: Fluticasone/Salmeterol [Advair 1 puff IH Q12 11/02/17 250-50 Diskus] RX: Losartan/Hydrochlorothiazide 1 tab PO DAILY 11/02/17 [Losartan-Hctz 50-12.5 mg Tab] RX: Meclizine [Antivert] 12.5 mg PO Q12 PRN 11/02/17 RX: clonazePAM [Klonopin] 1 mg PO DAILY 11/02/17 RX: Pravastatin Sodium [Pravachol] 10 mg PO HS 11/16/17 Cholecalciferol [Vitamin D 1000 IU] 1,000 unit PO DAILY 05/09/18 Docusate [Colace] 100 mg PO DAILY PRN 05/09/18 - Allergies Allergies/Adverse Reactions: Allergies Allergy/AdvReac Type Severity Reaction Status Date / Time aspirin Allergy GI UPSET Verified 04/01/18 09:51 cobicistat [From Genvoya] Allergy NAUSEA Verified 04/01/18 09:51 efavirenz [From Atripla] Allergy DEPRESSION Verified 04/01/18 09:51 elvitegravir [From Genvoya] Allergy NAUSEA Verified 04/01/18 09:51 emtricitabine [From Atripla] Allergy DEPRESSION Verified 04/01/18 09:51 metformin Allergy NAUSEA Verified 04/01/18 09:51 tenofovir [From Atripla] Allergy DEPRESSION Verified 04/01/18 09:51 Review of Systems ROS Statement: Except As Marked, All Systems Reviewed And Found Negative Constitutional: Negative for: Fever, Chills Gastrointestinal: Positive for: Nausea, Abdominal Pain (LLQ radiating to rest of abdomen), Diarrhea. Negative for: Vomiting Physical Exam - Reviewed Nursing Documentation Reviewed: Yes Vital Signs Reviewed: Yes - Physical Exam Appears: Positive for: Non-toxic, No Acute Distress Head Exam: Positive for: ATRAUMATIC, NORMAL INSPECTION, NORMOCEPHALIC Skin: Positive for: Normal Color, Warm, Dry Eye Exam: Positive for: EOMI, Normal appearance, PERRL ENT: Positive for: Normal ENT Inspection Neck: Positive for: Normal, Painless ROM, Supple Cardiovascular/Chest: Positive for: Regular Rate, Rhythm. Negative for: Murmur Respiratory: Positive for: Normal Breath Sounds. Negative for: Respiratory Distress Gastrointestinal/Abdominal: Positive for: Bowel Sounds, Soft, Tenderness (LLQ). Negative for: Distended, Guarding, Rebound Extremity: Positive for: Normal ROM (upper and lower). Negative for: Deformity Neurologic/Psych: Positive for: Alert, Oriented. Negative for: Motor/Sensory Deficits - Laboratory Results Result Diagrams: 05/14/18 05:35 05/14/18 05:35 - ECG O2 Sat by Pulse Oximetry: 97 (RA) Pulse Ox Interpretation: Normal Medical Decision Making Medical Decision Makin:21 Impression: LLQ pain rule out diverticulits and colitis Initial Plan: --CT Abd & Pelvis --CBC --CMP --Omnipaque 50 ml PO --Zofran Inj 4 mg IVP --Morphine 4 mg IVP --NS IV --Urine dip 13:19 CT FINDINGS: LOWER THORAX: No infiltrate/effusion LIVER: Unremarkable. No gross lesion or ductal dilatation. GALLBLADDER AND BILE DUCTS: No evidence of calcified gallstones. No mural thickening. Mild dilatation of the common bile duct up to 10 mm diameter. Please note that this is seen in conjunction with pancreatic ductal dilatation raising suspicion of distal common bile duct calculus, ampullary neoplasm or stricture or pancreatic or biliary neoplasm. Further evaluation is recommended. PANCREAS: No mass. Mild pancreatic ductal dilatation. Common bile duct measures 5 mm in the pancreatic body. It is dilated to the level of the body/tail junction. In the pancreatic head, the duct measures approximately 6 mm. No evidence of pancreatitis. Again, recommend further evaluation. Consider MRCP. SPLEEN: Unremarkable. ADRENALS: Unremarkable. No mass. KIDNEYS AND URETERS: Unremarkable. No hydronephrosis. No solid mass. VASCULATURE: Unremarkable. No aortic aneurysm. There is minimal atherosclerotic calcification of the abdominal aorta. BOWEL: Mild mural thickening seen in the distal descending and sigmoid colon likely due to chronic diverticulosis with muscularis hypertrophy. However, consider evaluation with colonoscopy to rule out neoplasm. No bowel obstruction. No other abnormal bowel loops. APPENDIX: Not identified. No secondary findings. PERITONEUM: Unremarkable. No free fluid. No free air. LYMPH NODES: Unremarkable. No enlarged lymph nodes. BLADDER: Unremarkable. REPRODUCTIVE: Normal uterus. BONES: No acute fracture. OTHER FINDINGS: None. IMPRESSION: Dilatation of the common bile duct and pancreatic duct of uncertain etiology. No associated intrahepatic biliary dilatation. Correlate with laboratory evaluation. Consider further evaluation with MRCP as well as MRI abdomen with gadolinium in consideration of biliary, ampullary or pancreatic neoplasm as well as stricture. 13:48 --WBC count low; Likely due to HIV 14:20 --Still has pain. ordered morphine --GI consult with Dr. Leon phone manager --Admit to hospitalist due to intractable abdominal pain and dilated common bile duct. US ordered. 14:51 --Accepted for admission by Dr. Aguilar. Scribe Attestation: Documented by Fabiana Solano acting as a scribe for Tati Unger MD Provider Scribe Attestation: All medical record entries made by the Scribe were at my direction and personally dictated by me. I have reviewed the chart and agree that the record accurately reflects my personal performance of the history, physical exam, medical decision making, and the department course for this patient. I have also personally directed, reviewed, and agree with the discharge instructions and disposition. Disposition - Clinical Impression Clinical Impression: Abdominal pain, Common bile duct dilatation, Intractable pain - Patient ED Disposition Is Patient to be Admitted: Yes Counseled Patient/Family Regarding: Studies Performed, Diagnosis - Disposition Disposition Time: 14:51 Condition: STABLE - Pt Status Changed To: Hospital Disposition Of: Observation
[2018-05-09] MEDS ORDERED: Morphine 4 MG/ML VIAL ONE ×2 (09:46→12:29)
[2018-05-09] MEDS ORDERED: Iohexol 300 100 ML IJ ONE (11:11)
[2018-05-09] MEDS ORDERED: Sodium Chloride 0.9% 50 ML IV ONE (11:11)
[2018-05-09] MEDS ORDERED: Morphine 4 MG/ML VIAL IV ONE (12:30)
--- NOTE | 2018-05-09 13:22 | CT ---
Date of service: 05/09/2018 PROCEDURE: CT Abdomen and Pelvis with contrast HISTORY: abd pain left sided COMPARISON: 03/17/2018 TECHNIQUE: Contrast dose: 95 mL Omnipaque 300 Radiation dose: Total exam DLP = 491.83 mGy-cm. This CT exam was performed using one or more of the following dose reduction techniques: Automated exposure control, adjustment of the mA and/or kV according to patient size, and/or use of iterative reconstruction technique. FINDINGS: LOWER THORAX: No infiltrate/effusion LIVER: Unremarkable. No gross lesion or ductal dilatation. GALLBLADDER AND BILE DUCTS: No evidence of calcified gallstones. No mural thickening. Mild dilatation of the common bile duct up to 10 mm diameter. Please note that this is seen in conjunction with pancreatic ductal dilatation raising suspicion of distal common bile duct calculus, ampullary neoplasm or stricture or pancreatic or biliary neoplasm. Further evaluation is recommended. PANCREAS: No mass. Mild pancreatic ductal dilatation. Common bile duct measures 5 mm in the pancreatic body. It is dilated to the level of the body/tail junction. In the pancreatic head, the duct measures approximately 6 mm. No evidence of pancreatitis. Again, recommend further evaluation. Consider MRCP. SPLEEN: Unremarkable. ADRENALS: Unremarkable. No mass. KIDNEYS AND URETERS: Unremarkable. No hydronephrosis. No solid mass. VASCULATURE: Unremarkable. No aortic aneurysm. There is minimal atherosclerotic calcification of the abdominal aorta. BOWEL: Mild mural thickening seen in the distal descending and sigmoid colon likely due to chronic diverticulosis with muscularis hypertrophy. However, consider evaluation with colonoscopy to rule out neoplasm. No bowel obstruction. No other abnormal bowel loops. APPENDIX: Not identified. No secondary findings. PERITONEUM: Unremarkable. No free fluid. No free air. LYMPH NODES: Unremarkable. No enlarged lymph nodes. BLADDER: Unremarkable. REPRODUCTIVE: Normal uterus. BONES: No acute fracture. OTHER FINDINGS: None. IMPRESSION: Dilatation of the common bile duct and pancreatic duct of uncertain etiology. No associated intrahepatic biliary dilatation. Correlate with laboratory evaluation. Consider further evaluation with MRCP as well as MRI abdomen with gadolinium in consideration of biliary, ampullary or pancreatic neoplasm as well as stricture.
--- NOTE | 2018-05-09 15:48 | CP.PCM.HP ---
<Florence Hauser - Last Filed: 05/09/18 16:12> History of Present Illness - History of Present Illness History of Present Illness: This is 67 y/o F with PMH of DMII, HTN, HIV, hep C, COPD, depression and Vertigo admitted to [facility] for evaluation and treatment left lower quadrant pain. Patient states she has been having this abdominal pain for about 4 days and has been progressively getting worse. Patient states she has been experiecing diarrhea for 2 days ( 3 x yesterday, and 1 x today). Denies seeing blood in stool. Patient admits to nausea, however denies vomiting. States she had taquitos four days ago and has noticed these symptoms since. Rates her pain 910 and describes it as shooting and radiating to the back. States pain is present at all times, and pain medications do not help. Patient denies any chest pain, SOB, urinary symptoms or hearing changes. Denies any other medical complains. PMD: Dr. Kingsley -Methadone Clinic: [facility] [phone] ( pt takes 110 mg methadone daily) PMHx: HIV, HTN, COPD,DM2, Hepatitis C, vertigo, depression, hld Meds: Losartan/HCTZ 50/12.5, Meclizine 12.5 Q12, Remeron 45mg, Seroquel 50mg, Klonopin, Luvox 50mg, Odefsey 200-25-25, Tivicay, Zofran 4mg prn, Methadone 110mg QD at 6am, advair 250/50 mcg/dose, 1 puff bid. PSurgHx: none PHospHx: COPD exacerbation 09/2014, CAP 06/06/2016,COPD exacerbation in 04/2017 Allergies: aspirin, cobicistat, efavirenz, elvitegravir, FamilyHx: mother at 18 after complications. father decreased, 80 years, HTN, DM2, COPD, CAD and Prostate cancer SocialHx: Former smoker, hx of 30 yrs- half pack/day, quit 3 months ago. Denies current use of ETOH or illicit drugs (former alcohol, heroin and cocain abuse). Full code Present on Admission - Present on Admission Any Indicators Present on Admission: No Past Patient History - Infectious Disease Hx of Infectious Diseases: None - Tetanus Immunizations Tetanus Immunization: Unknown - Past Medical History & Family History Past Medical History?: Yes - Past Social History Smoking Status: Former Smoker - CARDIAC Hx Atrial Fibrillation: No Hx Hypercholesterolemia: Yes Hx Hypertension: Yes - PULMONARY Hx Asthma: Yes Hx Bronchitis: Yes Hx Chronic Obstructive Pulmonary Disease (COPD): Yes Hx Emphysema: No Hx Pneumonia: Yes Hx Sleep Apnea: Yes - NEUROLOGICAL Hx Seizures: No - HEENT Hx HEENT Problems: No - RENAL Hx Chronic Kidney Disease: No Hx Kidney Stones: Yes - ENDOCRINE/METABOLIC Hx Hyperthyroidism: No - HEMATOLOGICAL/ONCOLOGICAL Hx Anemia: No Hx Human Immunodeficiency Virus (HIV): Yes - INTEGUMENTARY Hx Dermatological Problems: No - MUSCULOSKELETAL/RHEUMATOLOGICAL Hx Arthritis: Yes - GASTROINTESTINAL Hx Gastritis: Yes Hx Pancreatitis: No - GENITOURINARY/GYNECOLOGICAL Hx Sexually Transmitted Disorders: No - PSYCHIATRIC Hx Anxiety: Yes Hx Bipolar Disorder: No Hx Depression: Yes Hx Schizophrenia: No - SURGICAL HISTORY Other/Comment: LUNG BX - ANESTHESIA Hx Anesthesia: No Meds Allergies/Adverse Reactions: Allergies Allergy/AdvReac Type Severity Reaction Status Date / Time aspirin Allergy GI UPSET Verified 04/01/18 09:51 cobicistat [From Genvoya] Allergy NAUSEA Verified 04/01/18 09:51 efavirenz [From Atripla] Allergy DEPRESSION Verified 04/01/18 09:51 elvitegravir [From Genvoya] Allergy NAUSEA Verified 04/01/18 09:51 emtricitabine [From Atripla] Allergy DEPRESSION Verified 04/01/18 09:51 metformin Allergy NAUSEA Verified 04/01/18 09:51 tenofovir [From Atripla] Allergy DEPRESSION Verified 04/01/18 09:51 Physical Exam - Constitutional Appears: Well, No Acute Distress - Head Exam Head Exam: ATRAUMATIC - Eye Exam Eye Exam: EOMI, Normal appearance - ENT Exam ENT Exam: Mucous Membranes Moist, Normal Exam - Cardiovascular Exam Cardiovascular Exam: REGULAR RHYTHM, +S1, +S2 - GI/Abdominal Exam GI & Abdominal Exam: Normal Bowel Sounds, Soft, Tenderness - Extremities Exam Extremities exam: Positive for: full ROM, normal inspection - Back Exam Back exam: NORMAL INSPECTION Additional comments: flank pain (-) - Neurological Exam Neurological exam: Alert, Normal Gait, Oriented x3 - Psychiatric Exam Psychiatric exam: Normal Affect, Normal Mood - Skin Skin Exam: Normal Color Results - Vital Signs Recent Vital Signs: Last Vital Signs Temp 98.6 F 05/09/18 07:26 Pulse 68 05/09/18 11:02 Resp 16 05/09/18 11:02 BP 167/93 H 05/09/18 11:02 Pulse Ox 97 05/09/18 15:16 - Labs Result Diagrams: 05/09/18 08:20 05/09/18 08:20 Labs: Laboratory Results - last 24 hr 05/09/18 05/09/18 05/09/18 08:20 08:20 14:55 WBC 2.4 L D RBC 4.01 Hgb 14.1 Hct 40.9 MCV 101.9 H MCH 35.2 H MCHC 34.5 RDW 12.8 Plt Count 96 L MPV 10.1 Neut % (Auto) 54.8 Lymph % (Auto) 31.1 [place] % (Auto) 10.2 H Eos % (Auto) 3.5 Baso % (Auto) 0.4 Neut # (Auto) 1.3 L Lymph # (Auto) 0.7 L [place] # (Auto) 0.2 Eos # (Auto) 0.1 Baso # (Auto) 0.0 Sodium 142 Potassium 3.6 Chloride 102 Carbon Dioxide 31 H Anion Gap 13 BUN 31 H Creatinine 0.7 Est GFR ( Amer) > 60 Est GFR (Non-Af Amer) > 60 Random Glucose 175 H Calcium 8.9 Total Bilirubin 0.5 AST 51 H ALT 41 Alkaline Phosphatase 68 Total Protein 8.2 Albumin 4.0 Globulin 4.2 H Albumin/Globulin Ratio 1.0 Lipase 101 Assessment & Plan - Assessment and Plan (Free Text) Assessment: 67 year old female with PMH of HIV, COPD, anxiety/depression, HTN, HLD, Hep C+ admitted for intractable abdominal pain and colitis Plan: Left lower quadrant abdominal pain Abdominal pain most likely secondary to colitis - Afebrile, absent leukocytosis -Morphine 2 mg prn -Ciprofloxacin 400 mg IV Q12 and Flagyl 500 mg IV Q8 -Liquid diet -f/u on blood culture -GI consult;recs appreciated -Gallbladder and common duct US ordered; f/u on results COPD -continue with home medications -no exacerbation HIV -continue home medications : tivicay/odefsey - Zofran tablet 4 mg IV Q6 PRN -HIV Viral load undetectable/CD4 177 in Mar 2018 as per [facility] HTN -continue Losartan HCTZ 50-12.5mg -monitor BP ( 167/93 upon admission) 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 Hyperlipidemia -Pravastatin 10 mg PO QD Depression/Anxiety -as per ecw -mirtazapine 45 qhs, clonazepam 0.5mg po am, qhs prn DVT prophylaxis -lovenox 40 mg SC QD Code status: full code. - Date & Time Date: 05/09/18 Time: 16:32 <Domenico Aguilar D - Last Filed: 05/10/18 10:09> Results - Vital Signs Recent Vital Signs: Last Vital Signs Temp 98.1 F 05/10/18 08:52 Pulse 68 05/10/18 08:52 Resp 20 05/10/18 08:52 BP 144/86 05/10/18 08:52 Pulse Ox 91 L 05/10/18 08:52 - Labs Result Diagrams: 05/10/18 06:05 05/10/18 06:05 Labs: Laboratory Results - last 24 hr 05/09/18 05/09/18 05/10/18 14:55 18:02 05:16 WBC RBC Hgb Hct MCV MCH MCHC RDW Plt Count MPV Neut % (Auto) Lymph % (Auto) [place] % (Auto) Eos % (Auto) Baso % (Auto) Neut # (Auto) Lymph # (Auto) [place] # (Auto) Eos # (Auto) Baso # (Auto) Sodium Potassium Chloride Carbon Dioxide Anion Gap BUN Creatinine Est GFR ( Amer) Est GFR (Non-Af Amer) POC Glucose (mg/dL) 73 71 Random Glucose Calcium Lipase 101 05/10/18 05/10/18 06:05 06:05 WBC 1.9 L* RBC 3.46 L Hgb 12.2 Hct 35.3 MCV 102.0 H MCH 35.3 H MCHC 34.6 RDW 13.1 Plt Count 82 L MPV 9.6 Neut % (Auto) 54.4 Lymph % (Auto) 29.5 [place] % (Auto) 12.5 H Eos % (Auto) 3.4 Baso % (Auto) 0.2 Neut # (Auto) 1.0 L Lymph # (Auto) 0.6 L [place] # (Auto) 0.2 Eos # (Auto) 0.1 Baso # (Auto) 0.0 Sodium 143 Potassium 3.3 L Chloride 107 Carbon Dioxide 30 Anion Gap 9 L BUN 14 Creatinine 0.8 Est GFR ( Amer) > 60 Est GFR (Non-Af Amer) > 60 POC Glucose (mg/dL) Random Glucose 80 Calcium 7.8 L Lipase Attending/Attestation - Attestation I have personally seen and examined this patient.: Yes I have fully participated in the care of the patient.: Yes I have reviewed all pertinent clinical information: Yes Notes (Text): 05/10/18 10:08 Patient seen and examined with resident. Case discussed and agreed with assessment and plan of management.
--- NOTE | 2018-05-09 16:40 | US ---
Date of service: 05/09/2018 HISTORY: assess dilated cbd, abnormal CT COMPARISON: None. TECHNIQUE: Sonographic evaluation of the right upper quadrant of the abdomen. FINDINGS: LIVER: Measures 12.6 cm in length. Diffusely increased echogenicity of the liver parenchyma. Consistent with fatty infiltration. Smooth contour. No mass. No biliary ductal dilatation. GALLBLADDER: No cholelithiasis. No mural thickening. No pericholecystic fluid. Negative sonographic Sesay sign. COMMON BILE DUCT: Measures 10 mm. No stones. No dilatation. PANCREAS: Poor visualization due to overlying bowel gas. RIGHT KIDNEY: Measures 9.6 cm in length. Normal echogenicity. No calculus, mass, or hydronephrosis. AORTA: No aneurysmal dilatation. IVC: Unremarkable. OTHER FINDINGS: None . IMPRESSION: Dilatation of common bile duct to 10 mm diameter. No intrahepatic biliary ductal dilatation. Unable to evaluate the pancreas due to overlying bowel gas obscuring the region of interest. No sonographic evidence of choledocholithiasis.
[2018-05-09] MEDS ORDERED: Fluticasone-Salmeterol 250-50mcg Diskus IH SCH (17:00)
[2018-05-09] MEDS ORDERED: metroNIDAZOLE 500mg/100ml NS 100 ML IVPB ONE (18:03)
[2018-05-09] MEDS: Sodium Chloride 0.9% 1,000 ML IV SCH ×2 (18:07→23:00)
[2018-05-09] MEDS: metroNIDAZOLE 500mg/100ml NS 100 ML IVPB SCH (18:11)
[2018-05-09] MEDS ORDERED: Ciprofloxacin 400mg/200ml D5W 400 MG/200 ML BAG IVPB ONE (21:09)
[2018-05-09] MEDS: Ciprofloxacin 400mg/200ml D5W 400 MG/200 ML BAG IVPB SCH (21:15)
[2018-05-09] MEDS: Fluticasone-Salmeterol 250-50mcg Diskus IH SCH (21:15)
[2018-05-09] MEDS ORDERED: DOLUTEGRAVIR 50 MG PO SCH (23:45)
[2018-05-10] MEDS: [UNRECOGNIZED DRUG - OTHER] PO SCH ×2 (00:01→21:53)
[2018-05-10] MEDS: metroNIDAZOLE 500mg/100ml NS 100 ML IVPB SCH ×3 (00:02→17:52)
[2018-05-10] MEDS: Sodium Chloride 0.9% 1,000 ML IV SCH (03:45)
[2018-05-10 06:33] LABS: BASO % 0.2 % (0.0-2.0); EOS # 0.1 K/uL (0.0-0.7); EOS % 3.4 % (0.0-4.0); HEMOGLOBIN 12.2 g/dL (12.0-16.0); LYMPH # 0.6 K/uL (1.0-4.3); LYMPH % 29.5 % (20.0-40.0); MEAN CORPUSCULAR HEMOGLOBIN 35.3 pg (27.0-31.0); MEAN CORPUSCULAR HGB CONC 34.6 g/dL (33.0-37.0); MEAN PLATELET VOLUME 9.6 fl (7.2-11.7); MONO # 0.2 K/uL (0.0-0.8); MONO % 12.5 % (0.0-10.0); NEUT % 54.4 % (50.0-75.0); NRBC % 0.1 % (0.0-0.0); RBC 3.46 Mil/uL (3.80-5.20); RED CELL DISTRIBUTION WIDTH 13.1 % (11.5-14.5)
[2018-05-10 06:36] LABS: WHITE BLOOD COUNT 1.9 K/uL (4.8-10.8)
[2018-05-10 06:37] LABS: BLOOD UREA NITROGEN 14 mg/dl (7-17); CALCIUM 7.8 mg/dL (8.4-10.2); GFR NON-AFRICAN AMERICAN > 60
--- NOTE | 2018-05-10 06:50 | CP.PCM.PN ---
Subjective - Date & Time of Evaluation Date of Evaluation: 05/10/18 Time of Evaluation: 06:48 - Subjective Subjective: 67 y/o F with PMH of DMII, HTN, HIV, hep C, COPD, depression and Vertigo seen at bedside for left lower quadrant pain. Patient states she has been having this abdominal pain for about 4 days and has been progressively getting worse. Miracle ent states she has been experiecing diarrhea for 2 days ( 3 x yesterday, and 1 x today). Patient complains of severe headache today, that has been experiencing for the last day. States she is getting sleep, however woke up with the headache. Rates it 3/10 today. States her abdominal pain has been about the same. Admits to generalized weakness today. Objective - Vital Signs/Intake and Output Vital Signs (last 24 hours): Temp Pulse Resp BP Pulse Ox 97.7 F 53 L 20 111/67 97 05/10/18 00:16 05/10/18 00:38 05/10/18 00:38 05/10/18 00:16 05/10/18 00:38 - Medications Medications: Current Medications Cholecalciferol (Vitamin D) 1,000 intlu PO DAILY [facility] Clonazepam (Klonopin) 1 mg PO DAILY [facility] Docusate Sodium (Colace) 100 mg PO DAILY PRN PRN Reason: Constipation Enoxaparin Sodium (Lovenox) 40 mg SC DAILY [facility]; Protocol HCTZ/Losartan Potassium (Hyzaar 12.5 Mg-50 Mg) 1 tab PO DAILY [facility] Home Med (Emtricitab/Rilpiviri/Tenof Ala [Odefsey Tablet]) 1 tab PO HS [facility] Last Admin: 05/10/18 00:01 Dose: 1 tab Home Med (Home Med) 1 unit PO HS [facility]; Protocol Last Admin: 05/10/18 00:02 Dose: 1 unit Ciprofloxacin (Cipro 400mg/200ml Dsw) 400 mg in 200 mls @ 200 mls/hr IVPB Q12 [facility]; Protocol Last Admin: 05/09/18 21:15 Dose: 200 mls/hr Metronidazole (Flagyl 500mg/100ml Ns) 100 mls @ 100 mls/hr IVPB Q8 [facility]; Protocol Last Admin: 05/10/18 00:02 Dose: 100 mls/hr Meclizine HCl (Antivert) 12.5 mg PO Q12 PRN PRN Reason: Dizziness Methadone HCl (Methadone) 110 mg PO DAILY@0600 [facility] Last Admin: 05/10/18 06:47 Dose: 110 mg Mirtazapine (Remeron) 45 mg PO HS [facility] Last Admin: 05/09/18 22:26 Dose: 45 mg Morphine Sulfate (Morphine) 2 mg IVP Q4 PRN PRN Reason: Pain, moderate (4-7) Last Admin: 05/09/18 16:47 Dose: 2 mg Ondansetron HCl (Zofran Inj) 4 mg IVP Q6 PRN PRN Reason: Nausea/Vomiting Pantoprazole Sodium (Protonix Ec Tab) 40 mg PO DAILY [facility] Pravastatin Sodium (Pravachol) 10 mg PO HS [facility] Last Admin: 05/09/18 22:26 Dose: 10 mg Fluticasone/Salmeterol (Advair Diskus 250/50) 1 puff IH Q12 [facility] Last Admin: 05/09/18 21:15 Dose: 1 puff - Labs Labs: 05/10/18 06:05 05/10/18 06:05 - Constitutional Appears: Well, No Acute Distress - Head Exam Head Exam: ATRAUMATIC - Eye Exam Eye Exam: EOMI, Normal appearance - ENT Exam ENT Exam: Mucous Membranes Moist - GI/Abdominal Exam GI & Abdominal Exam: Soft, Tenderness, Normal Bowel Sounds - Extremities Exam Extremities Exam: Full ROM, Normal Inspection - Back Exam Back Exam: NORMAL INSPECTION - Neurological Exam Neurological Exam: Alert, Awake, Oriented x3 Assessment and Plan - Assessment and Plan (Free Text) Assessment: 67 year old female with PMH of HIV, COPD, anxiety/depression, HTN, HLD, Hep C+ admitted for intractable abdominal pain and colitis Plan: Left lower quadrant abdominal pain Abdominal pain most likely secondary to colitis - Afebrile, WBC 1.9 -Morphine 2 mg prn -Ciprofloxacin 400 mg IV Q12 and Flagyl 500 mg IV Q8 -Liquid diet -f/u on blood culture -GI consult;recs appreciated -Gallbladder and common duct US ordered; dilatation of CBD to 10 mm diameter. No intrahepatic biliary ductal dilatation. - CT of abdomen with contrast; dilatation of the CBD and pancreatic duct of uncertain etiology. No associated intrahepatic biliary dilatation. - Colonoscopy recommended as outpatient - Stool culture, c-diff, and WBC stool ordered, f/u COPD -continue with home medications -no exacerbation HIV -continue home medications : tivicay/odefsey - Zofran tablet 4 mg IV Q6 PRN -HIV Viral load undetectable/CD4 177 in Mar 2018 as per [facility] HTN -continue Losartan HCTZ 50-12.5mg -monitor BP ( 144/86) Mass of left lung -1.5 cm left apical mass suspicious for pulmonary neoplasm, went to IR for percutaneous bx of 02/21/18 suspicious but inconclusive for malignancy interpretation. The results display a small focus of atypical glands. Patient had second IR CT guided left upper lobe lung nodule biopsy on 04/01/18 minute focus of atypical glands is seen.the amount of material is not enough for further histologic evaluation. -Patient to follow up as outpatient with Leif Hull for evaluation. Headache - CT of the head without contrast ordered to rule out possible metastasis. 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 Hyperlipidemia -Pravastatin 10 mg PO QD Depression/Anxiety -as per ecw -mirtazapine 45 qhs, clonazepam 0.5mg po am, qhs prn DVT prophylaxis -not recommended secondary to low platelet count Code status: full code.
[2018-05-10] MEDS: Fluticasone-Salmeterol 250-50mcg Diskus IH SCH ×2 (08:41→21:52)
[2018-05-10] MEDS: Pantoprazole 40 mg EC Tab PO SCH (08:44)
[2018-05-10] MEDS: HCTZ/Losartan 12.5/50 Tab PO SCH (08:44)
[2018-05-10] MEDS: Cholecalciferol 1,000 INTLU TAB PO SCH (08:45)
[2018-05-10] MEDS ORDERED: Potassium Chloride 20 mEq ER Tab PO ONE (08:53)
[2018-05-10] MEDS ORDERED: Fluticasone-Salmeterol 250-50mcg Diskus IH SCH (09:00)
[2018-05-10] MEDS ORDERED: Enoxaparin 40 mg Syringe SC SCH (09:00)
[2018-05-10] MEDS: Ciprofloxacin 400mg/200ml D5W 400 MG/200 ML BAG IVPB SCH ×2 (11:45→21:58)
[2018-05-10] MEDS: Morphine 4 MG/ML VIAL IVP PRN ×2 (12:57→17:52)
--- NOTE | 2018-05-10 13:36 | CT ---
Date of service: 05/10/2018 PROCEDURE: CT HEAD WITHOUT CONTRAST. HISTORY: headaches COMPARISON: Unenhanced head CT 11/02/2017. TECHNIQUE: Axial computed tomography images were obtained through the head/brain without intravenous contrast. Radiation dose: Total exam DLP = 816.21 mGy-cm. This CT exam was performed using one or more of the following dose reduction techniques: Automated exposure control, adjustment of the mA and/or kV according to patient size, and/or use of iterative reconstruction technique. FINDINGS: HEMORRHAGE: No intracranial hemorrhage. BRAIN: Good corticomedullary differentiation is seen. Reiterated diffuse cerebral atrophy and chronic microangiopathy. No suspicious extra-axial fluid collection is identified and the midline brain anatomy appears grossly nonfocal as imaged. No mass effect identified. VENTRICLES: Unremarkable. No hydrocephalus. CALVARIUM: Unremarkable. PARANASAL SINUSES: Unremarkable as visualized. No significant inflammatory changes. MASTOID AIR CELLS: Unremarkable as visualized. No inflammatory changes. OTHER FINDINGS: None. IMPRESSION: Stable age-appropriate age related neuro degenerative changes are appreciated once again. No significant interval change greater prior head CT dated 11/02/2017.
[2018-05-10 16:14] VITALS: BMI 31.0
[2018-05-10] MEDS: DOLUTEGRAVIR 50 MG PO SCH (21:53)
[2018-05-11] MEDS: metroNIDAZOLE 500mg/100ml NS 100 ML IVPB SCH ×3 (01:48→17:55)
[2018-05-11 06:54] LABS: BASO % 0.6 % (0.0-2.0); EOS # 0.1 K/uL (0.0-0.7); HEMOGLOBIN 13.8 g/dL (12.0-16.0); LYMPH # 0.5 K/uL (1.0-4.3); LYMPH % 25.2 % (20.0-40.0); MEAN CELL VOLUME 101.9 fl (81.0-99.0); MEAN CORPUSCULAR HGB CONC 34.4 g/dL (33.0-37.0); MEAN PLATELET VOLUME 9.7 fl (7.2-11.7); MONO # 0.3 K/uL (0.0-0.8); MONO % 13.1 % (0.0-10.0); NEUT # 1.2 K/uL (1.8-7.0); NEUT % 58.1 % (50.0-75.0); NRBC % 0.1 % (0.0-0.0); RBC 3.95 Mil/uL (3.80-5.20); RED CELL DISTRIBUTION WIDTH 12.7 % (11.5-14.5)
[2018-05-11 07:09] LABS: BLOOD UREA NITROGEN 9 mg/dl (7-17); CALCIUM 8.8 mg/dL (8.4-10.2); GFR NON-AFRICAN AMERICAN > 60
[2018-05-11] MEDS: Fluticasone-Salmeterol 250-50mcg Diskus IH SCH ×2 (09:14→20:34)
[2018-05-11] MEDS: Pantoprazole 40 mg EC Tab PO SCH (09:17)
[2018-05-11] MEDS: Cholecalciferol 1,000 INTLU TAB PO SCH (09:18)
[2018-05-11] MEDS: HCTZ/Losartan 12.5/50 Tab PO SCH (09:18)
[2018-05-11] MEDS: Ciprofloxacin 400mg/200ml D5W 400 MG/200 ML BAG IVPB SCH ×2 (09:19→20:33)
--- NOTE | 2018-05-11 10:02 | CP.PCM.PN ---
<Lynn Zapata - Last Filed: 05/11/18 09:55> Subjective - Date & Time of Evaluation Date of Evaluation: 05/11/18 Time of Evaluation: 09:30 - Subjective Subjective: Patient seen and examined at bedside. Reports 3 episodes of non-bloody diarrhea this AM. She states that she ate half of her breakfast this morning. Complains of upper abdominal pain 9/10 in severity, and nausea. Seen dry heaving. Charts, labs, and nurse notes reviewed. Objective - Vital Signs/Intake and Output Vital Signs (last 24 hours): Temp Pulse Resp BP Pulse Ox 97.9 F 73 20 161/89 H 96 05/11/18 08:15 05/11/18 08:15 05/11/18 08:15 05/11/18 08:15 05/11/18 08:15 - Medications Medications: Current Medications Cholecalciferol (Vitamin D) 1,000 intlu PO DAILY [facility] Last Admin: 05/11/18 09:18 Dose: 1,000 intlu Clonazepam (Klonopin) 1 mg PO DAILY [facility] Last Admin: 05/10/18 08:49 Dose: 1 mg Docusate Sodium (Colace) 100 mg PO DAILY PRN PRN Reason: Constipation HCTZ/Losartan Potassium (Hyzaar 12.5 Mg-50 Mg) 1 tab PO DAILY [facility] Last Admin: 05/11/18 09:18 Dose: 1 tab Home Med (Emtricitab/Rilpiviri/Tenof Ala [Odefsey Tablet]) 1 tab PO HS [facility] Last Admin: 05/10/18 21:53 Dose: 1 tab Home Med (Patient's Own Medication) 1 unit PO HS [facility]; Protocol Last Admin: 05/10/18 21:53 Dose: 1 unit Ciprofloxacin (Cipro 400mg/200ml Dsw) 400 mg in 200 mls @ 200 mls/hr IVPB Q12 [facility]; Protocol Last Admin: 05/11/18 09:19 Dose: 200 mls/hr Metronidazole (Flagyl 500mg/100ml Ns) 100 mls @ 100 mls/hr IVPB Q8 [facility]; Protocol Last Admin: 05/11/18 09:22 Dose: 100 mls/hr Potassium Chloride/Dextrose/Sod Cl (Potassium Chl 20 Meq In D5-1/2ns) 1,000 mls @ 125 mls/hr IV .Q8H [facility] Meclizine HCl (Antivert) 12.5 mg PO Q12 PRN PRN Reason: Dizziness Last Admin: 05/11/18 09:17 Dose: 12.5 mg Methadone HCl (Methadone) 110 mg PO DAILY@0600 [facility] Last Admin: 05/11/18 06:29 Dose: 110 mg Mirtazapine (Remeron) 45 mg PO HS [facility] Last Admin: 05/10/18 21:54 Dose: 45 mg Morphine Sulfate (Morphine) 2 mg IVP Q4 PRN PRN Reason: Pain, moderate (4-7) Last Admin: 05/10/18 17:52 Dose: 2 mg Ondansetron HCl (Zofran Inj) 4 mg IVP Q6 PRN PRN Reason: Nausea/Vomiting Last Admin: 05/11/18 07:03 Dose: 4 mg Pantoprazole Sodium (Protonix Ec Tab) 40 mg PO DAILY [facility] Last Admin: 05/11/18 09:17 Dose: 40 mg Pravastatin Sodium (Pravachol) 10 mg PO [facility] Last Admin: 05/10/18 21:54 Dose: 10 mg Fluticasone/Salmeterol (Advair Diskus 250/50) 1 puff IH Q12 [facility] Last Admin: 05/11/18 09:14 Dose: 1 puff - Labs Labs: 05/11/18 05:30 05/11/18 05:30 - Constitutional Appears: Other (Uncomfortable, dry heaving) - ENT Exam ENT Exam: Mucous Membranes Moist - Respiratory Exam Respiratory Exam: Clear to Ausculation Bilateral, NORMAL BREATHING PATTERN - Cardiovascular Exam Cardiovascular Exam: REGULAR RHYTHM, +S1, +S2 - GI/Abdominal Exam GI & Abdominal Exam: Soft, Tenderness, Normal Bowel Sounds. absent: Distended, Firm, Guarding, Rigid, Rebound - Back Exam Back Exam: absent: CVA tenderness (L), CVA tenderness (R) - Neurological Exam Neurological Exam: Alert, Awake, Normal Gait, Oriented x3 - Psychiatric Exam Psychiatric exam: Normal Affect - Skin Skin Exam: Dry, Intact, Warm Assessment and Plan - Assessment and Plan (Free Text) Assessment: 67 year old female with PMH of HIV, COPD, anxiety/depression, HTN, HLD, Hep C+ admitted for intractable abdominal pain and colitis Plan: Left lower quadrant abdominal pain -probably secondary to colitis - Afebrile, WBC 1.9 --> 2.0 -Morphine 2 mg IV Q4 prn -Ciprofloxacin 400 mg IV Q12 and Flagyl 500 mg IV Q8 -f/u on blood culture -GI consult;recs appreciated - Gallbladder and common duct US ordered; dilatation of CBD to 10 mm diameter. No intrahepatic biliary ductal dilatation - CT of abdomen with contrast; dilatation of the CBD and pancreatic duct of uncertain etiology. No associated intrahepatic biliary dilatation. - MRCP w/wo CO ordered - Zofran tablet 4 mg IV Q6 PRN - Colonoscopy recommended as outpatient - Stool culture, c-diff, and WBC stool ordered COPD -continue with home medications -no exacerbation HIV -continue home medications : tivicay/odefsey -HIV Viral load undetectable/CD4 177 in Mar 2018 as per [facility] HTN -continue Losartan HCTZ 50-12.5mg -monitor BP ( 144/86) Mass of left lung -1.5 cm left apical mass suspicious for pulmonary neoplasm, went to IR for percutaneous bx of 02/21/18 suspicious but inconclusive for malignancy interpretation. The results display a small focus of atypical glands. Patient had second IR CT guided left upper lobe lung nodule biopsy on 04/01/18 minute focus of atypical glands is seen.the amount of material is not enough for further histologic evaluation. -Patient to follow up as outpatient with Leif Hull for evaluation. 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 Hyperlipidemia -Pravastatin 10 mg PO QD Depression/Anxiety -as per ecw -mirtazapine 45 qhs, clonazepam 0.5mg po am, qhs prn DVT prophylaxis -not recommended secondary to low platelet count DIET NPO for bowel rest Code status: full code <Domenico Aguilar D - Last Filed: 05/11/18 19:23> Objective - Vital Signs/Intake and Output Vital Signs (last 24 hours): Temp Pulse Resp BP Pulse Ox 97.8 F 66 20 159/92 H 93 L 05/11/18 16:27 05/11/18 16:27 05/11/18 16:27 05/11/18 16:27 05/11/18 16:27 - Medications Medications: Current Medications Cholecalciferol (Vitamin D) 1,000 intlu PO DAILY [facility] Last Admin: 05/11/18 09:18 Dose: 1,000 intlu Clonazepam (Klonopin) 1 mg PO DAILY [facility] Last Admin: 05/10/18 08:49 Dose: 1 mg Docusate Sodium (Colace) 100 mg PO DAILY PRN PRN Reason: Constipation HCTZ/Losartan Potassium (Hyzaar 12.5 Mg-50 Mg) 1 tab PO DAILY [facility] Last Admin: 05/11/18 09:18 Dose: 1 tab Home Med (Emtricitab/Rilpiviri/Tenof Ala [Odefsey Tablet]) 1 tab PO [facility] Last Admin: 05/10/18 21:53 Dose: 1 tab Home Med (Patient's Own Medication) 1 unit PO HS [facility]; Protocol Last Admin: 05/10/18 21:53 Dose: 1 unit Ciprofloxacin (Cipro 400mg/200ml Dsw) 400 mg in 200 mls @ 200 mls/hr IVPB Q12 [facility]; Protocol Last Admin: 05/11/18 09:19 Dose: 200 mls/hr Metronidazole (Flagyl 500mg/100ml Ns) 100 mls @ 100 mls/hr IVPB Q8 [facility]; Protocol Last Admin: 05/11/18 17:55 Dose: 100 mls/hr Potassium Chloride/Dextrose/Sod Cl (Potassium Chl 20 Meq In D5-1/2ns) 1,000 mls @ 125 mls/hr IV .Q8H [facility] Last Admin: 05/11/18 17:58 Dose: 125 mls/hr Meclizine HCl (Antivert) 12.5 mg PO Q12 PRN PRN Reason: Dizziness Last Admin: 05/11/18 09:17 Dose: 12.5 mg Methadone HCl (Methadone) 110 mg PO DAILY@0600 [facility] Last Admin: 05/11/18 06:29 Dose: 110 mg Mirtazapine (Remeron) 45 mg PO HS [facility] Last Admin: 05/10/18 21:54 Dose: 45 mg Morphine Sulfate (Morphine) 2 mg IVP Q4 PRN PRN Reason: Pain, moderate (4-7) Last Admin: 05/11/18 18:40 Dose: 2 mg Ondansetron HCl (Zofran Inj) 4 mg IVP Q6 PRN PRN Reason: Nausea/Vomiting Last Admin: 05/11/18 17:13 Dose: 4 mg Pantoprazole Sodium (Protonix Ec Tab) 40 mg PO DAILY [facility] Last Admin: 05/11/18 09:17 Dose: 40 mg Pravastatin Sodium (Pravachol) 10 mg PO HS [facility] Last Admin: 05/10/18 21:54 Dose: 10 mg Fluticasone/Salmeterol (Advair Diskus 250/50) 1 puff IH Q12 [facility] Last Admin: 05/11/18 09:14 Dose: 1 puff - Labs Labs: 05/11/18 05:30 05/11/18 05:30 Attending/Attestation - Attestation I have personally seen and examined this patient.: Yes I have fully participated in the care of the patient.: Yes I have reviewed all pertinent clinical information, including history, physical exam and plan: Yes Notes (Text): 05/11/18 19:21 Patient seen and examined with resident. Case discussed and agreed with assessment. Had diarrhea x 4 today after taking oral contrast. MRCP negative for obstruction and pancreatic mass.
[2018-05-11] MEDS ORDERED: Gadodiamide 287 MG/ML VIAL (15ML) IV ONE (10:52)
[2018-05-11] MEDS ORDERED: Sodium Chloride 0.9% 50 ML IV ONE (10:53)
--- NOTE | 2018-05-11 13:15 | MRI ---
Date of service: 05/11/2018 PROCEDURE: MRI Abdomen with and without contrast HISTORY: COMPARISON: 06/09/2016. TECHNIQUE: Multisequence, multiplanar MR images of the abdomen with and without gadolinium contrast enhancement. FINDINGS: LIVER: Unremarkable. GALLBLADDER: Unremarkable. SPLEEN: Unremarkable. PANCREAS: Unremarkable. ADRENALS: Unremarkable. KIDNEYS: Unremarkable. AORTA: No aneurysm. ASCITES: None. PERITONEUM: Unremarkable. LYMPH NODES: Unremarkable. OTHER FINDINGS: Stable extrahepatic biliary dilatation and pancreatic duct dilatation. No evidence of pancreatic mass. IMPRESSION: Stable extrahepatic biliary dilatation and pancreatic duct dilatation. No evidence of pancreatic mass.
[2018-05-11] MEDS: Morphine 4 MG/ML VIAL IVP PRN ×3 (13:16→22:56)
[2018-05-11] MEDS: Potassium Ch 20mEq in D5-1/2NS 1,000 ML IV SCH ×2 (14:56→17:58)
[2018-05-11] MEDS: [UNRECOGNIZED DRUG - OTHER] PO SCH (21:25)
[2018-05-11] MEDS: DOLUTEGRAVIR 50 MG PO SCH (21:25)
[2018-05-12] MEDS: metroNIDAZOLE 500mg/100ml NS 100 ML IVPB SCH ×3 (01:21→19:04)
[2018-05-12] MEDS: Potassium Ch 20mEq in D5-1/2NS 1,000 ML IV SCH (01:21)
[2018-05-12 07:36] LABS: BASO % 0.2 % (0.0-2.0); EOS # 0.1 K/uL (0.0-0.7); EOS % 3.2 % (0.0-4.0); HEMOGLOBIN 13.5 g/dL (12.0-16.0); LYMPH # 0.4 K/uL (1.0-4.3); LYMPH % 15.9 % (20.0-40.0); MEAN CELL VOLUME 104.1 fl (81.0-99.0); MEAN CORPUSCULAR HEMOGLOBIN 35.9 pg (27.0-31.0); MEAN CORPUSCULAR HGB CONC 34.5 g/dL (33.0-37.0); MEAN PLATELET VOLUME 9.9 fl (7.2-11.7); MONO # 0.3 K/uL (0.0-0.8); MONO % 13.1 % (0.0-10.0); NEUT # 1.6 K/uL (1.8-7.0); NEUT % 67.6 % (50.0-75.0); NRBC % 0.2 % (0.0-0.0); RBC 3.77 Mil/uL (3.80-5.20); RED CELL DISTRIBUTION WIDTH 13.3 % (11.5-14.5); WHITE BLOOD COUNT 2.4 K/uL (4.8-10.8)
[2018-05-12 08:00] LABS: BLOOD UREA NITROGEN 8 mg/dl (7-17); CALCIUM 8.8 mg/dL (8.4-10.2); GFR NON-AFRICAN AMERICAN > 60
[2018-05-12] MEDS: Fluticasone-Salmeterol 250-50mcg Diskus IH SCH ×2 (08:51→20:34)
[2018-05-12] MEDS: HCTZ/Losartan 12.5/50 Tab PO SCH (08:53)
[2018-05-12] MEDS: Pantoprazole 40 mg EC Tab PO SCH (08:54)
[2018-05-12] MEDS: Dextrose 5%/0.45% NS 1,000 ML IV SCH ×2 (11:55→20:34)
[2018-05-12] MEDS: Ciprofloxacin 400mg/200ml D5W 400 MG/200 ML BAG IVPB SCH ×2 (11:56→20:34)
--- NOTE | 2018-05-12 11:59 | CP.PCM.PN ---
<Lynn Zapata - Last Filed: 05/12/18 12:01> Subjective - Date & Time of Evaluation Date of Evaluation: 05/12/18 Time of Evaluation: 09:10 - Subjective Subjective: Patient seen and examined at bedside. Continues to complain of abdominal pain 10/10 in severity and nausea. Denies vomiting today. Denies dysurea, urinary urgency, but endorses urinary frequency. Admits to one episode of non-bloody diarrhea. She also c/o of headache 10/10 in severity. Denies visual changes, numbness, tingling. Objective - Vital Signs/Intake and Output Vital Signs (last 24 hours): Temp Pulse Resp BP Pulse Ox 97.9 F 93 H 20 178/99 H 95 05/12/18 08:38 05/12/18 08:38 05/12/18 08:38 05/12/18 08:38 05/12/18 08:38 - Medications Medications: Current Medications Acetaminophen (Tylenol 325mg Tab) 650 mg PO Q4 PRN PRN Reason: Headache Clonazepam (Klonopin) 1 mg PO DAILY [facility] Last Admin: 05/12/18 10:28 Dose: 1 mg HCTZ/Losartan Potassium (Hyzaar 12.5 Mg-50 Mg) 1 tab PO DAILY [facility] Last Admin: 05/12/18 08:53 Dose: 1 tab Home Med (Emtricitab/Rilpiviri/Tenof Ala [Odefsey Tablet]) 1 tab PO HS [facility] Last Admin: 05/11/18 21:25 Dose: 1 tab Home Med (Patient's Own Medication) 1 unit PO HS [facility]; Protocol Last Admin: 05/11/18 21:25 Dose: 1 unit Ciprofloxacin (Cipro 400mg/200ml Dsw) 400 mg in 200 mls @ 200 mls/hr IVPB Q12 [facility]; Protocol Last Admin: 05/12/18 11:56 Dose: 200 mls/hr Metronidazole (Flagyl 500mg/100ml Ns) 100 mls @ 100 mls/hr IVPB Q8 [facility]; Protocol Last Admin: 05/12/18 10:22 Dose: 100 mls/hr Dextrose/Sodium Chloride (Dextrose 5%/0.45% Ns 1000 Ml) 1,000 mls @ 150 mls/hr IV .Q6H40M [facility] Stop: 05/13/18 11:36 Last Admin: 05/12/18 11:55 Dose: 150 mls/hr Meclizine HCl (Antivert) 12.5 mg PO Q12 PRN PRN Reason: Dizziness Last Admin: 05/11/18 09:17 Dose: 12.5 mg Methadone HCl (Methadone) 110 mg PO DAILY@0600 [facility] Last Admin: 05/12/18 05:39 Dose: 110 mg Mirtazapine (Remeron) 45 mg PO HS [facility] Last Admin: 05/11/18 21:25 Dose: 45 mg Ondansetron HCl (Zofran Inj) 4 mg IVP Q6 PRN PRN Reason: Nausea/Vomiting Last Admin: 05/12/18 08:45 Dose: 4 mg Pantoprazole Sodium (Protonix Ec Tab) 40 mg PO DAILY [facility] Last Admin: 05/12/18 08:54 Dose: 40 mg Fluticasone/Salmeterol (Advair Diskus 250/50) 1 puff IH Q12 [facility] Last Admin: 05/12/18 08:51 Dose: 1 puff - Labs Labs: 05/12/18 06:00 05/12/18 06:00 - Constitutional Appears: Other (Uncomfortable) - Eye Exam Eye Exam: EOMI - ENT Exam ENT Exam: Mucous Membranes Moist - Respiratory Exam Respiratory Exam: Clear to Ausculation Bilateral, NORMAL BREATHING PATTERN - Cardiovascular Exam Cardiovascular Exam: REGULAR RHYTHM, +S1, +S2 - GI/Abdominal Exam GI & Abdominal Exam: Soft, Tenderness, Normal Bowel Sounds. absent: Firm, Guarding, Rigid - Extremities Exam Extremities Exam: absent: Calf Tenderness, Pedal Edema - Back Exam Back Exam: CVA tenderness (L), CVA tenderness (R) - Neurological Exam Neurological Exam: Alert, Awake - Psychiatric Exam Psychiatric exam: Anxious - Skin Skin Exam: Dry, Intact, Normal Color Assessment and Plan - Assessment and Plan (Free Text) Assessment: 67 year old female with PMH of HIV, COPD, anxiety/depression, HTN, HLD, Hep C+ admitted for intractable abdominal pain and colitis Plan: Left lower quadrant abdominal pain -probably secondary to colitis - Afebrile, WBC 1.9 --> 2.0-->2.4 - d/c Morphine 2 mg IV Q4 prn - Zofran tablet 4 mg IV Q6 PRN - Acetaminophen 650mg PO Q4 - cont. Ciprofloxacin 400 mg IV Q12 and Flagyl 500 mg IV Q8 - blood cultures negative x 2 after 48 hours - MRCP: stable extrahepatic biliary dilatation and pancreatic duct dilatation. No evidence of pancreatic mass. - GI consult;recs appreciated - Gallbladder and common duct US ordered; dilatation of CBD to 10 mm diameter. No intrahepatic biliary ductal dilatation - CT of abdomen with contrast; dilatation of the CBD and pancreatic duct of uncertain etiology. No associated intrahepatic biliary dilatation. - Colonoscopy recommended as outpatient - c-diff, and WBC stool negative - follow u/a COPD -continue with home medications -no exacerbation HIV -continue home medications : tivicay/odefsey -HIV Viral load undetectable/CD4 177 in Mar 2018 as per [facility] HTN -continue Losartan HCTZ 50-12.5mg -monitor BP ( 144/86) Mass of left lung -1.5 cm left apical mass suspicious for pulmonary neoplasm, went to IR for percutaneous bx of 02/21/18 suspicious but inconclusive for malignancy interpretation. The results display a small focus of atypical glands. Patient had second IR CT guided left upper lobe lung nodule biopsy on 04/01/18 minute focus of atypical glands is seen.the amount of material is not enough for further histologic evaluation. -Patient to follow up as outpatient with Leif Hull for evaluation. 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 Hyperlipidemia -Pravastatin 10 mg PO QD Depression/Anxiety -as per ec[facility] -mirtazapine 45 qhs, clonazepam 0.5mg po am, qhs prn DVT prophylaxis -not recommended secondary to low platelet count DIET NPO for bowel rest Code status: full code <Domenico Aguilar D - Last Filed: 05/12/18 13:17> Objective - Vital Signs/Intake and Output Vital Signs (last 24 hours): Temp Pulse Resp BP Pulse Ox 97.9 F 62 20 115/80 93 L 05/12/18 08:38 05/12/18 12:04 05/12/18 12:04 05/12/18 12:04 05/12/18 12:04 - Medications Medications: Current Medications Acetaminophen (Tylenol 325mg Tab) 650 mg PO Q4 PRN PRN Reason: Headache Clonazepam (Klonopin) 1 mg PO DAILY [facility] Last Admin: 05/12/18 10:28 Dose: 1 mg HCTZ/Losartan Potassium (Hyzaar 12.5 Mg-50 Mg) 1 tab PO DAILY [facility] Last Admin: 05/12/18 08:53 Dose: 1 tab Home Med (Emtricitab/Rilpiviri/Tenof Ala [Odefsey Tablet]) 1 tab PO [facility] Last Admin: 05/11/18 21:25 Dose: 1 tab Home Med (Patient's Own Medication) 1 unit PO HS [facility]; Protocol Last Admin: 05/11/18 21:25 Dose: 1 unit Ciprofloxacin (Cipro 400mg/200ml Dsw) 400 mg in 200 mls @ 200 mls/hr IVPB Q12 [facility]; Protocol Last Admin: 05/12/18 11:56 Dose: 200 mls/hr Metronidazole (Flagyl 500mg/100ml Ns) 100 mls @ 100 mls/hr IVPB Q8 [facility]; Protocol Last Admin: 05/12/18 10:22 Dose: 100 mls/hr Dextrose/Sodium Chloride (Dextrose 5%/0.45% Ns 1000 Ml) 1,000 mls @ 150 mls/hr IV .Q6H40M [facility] Stop: 05/13/18 11:36 Last Admin: 05/12/18 11:55 Dose: 150 mls/hr Folic Acid 1 mg/ Sodium (Chloride) 100.2 mls @ 60 mls/hr IVPB DAILY [facility] Meclizine HCl (Antivert) 12.5 mg PO Q12 PRN PRN Reason: Dizziness Last Admin: 05/11/18 09:17 Dose: 12.5 mg Methadone HCl (Methadone) 110 mg PO DAILY@0600 [facility] Last Admin: 05/12/18 05:39 Dose: 110 mg Mirtazapine (Remeron) 45 mg PO [facility] Last Admin: 05/11/18 21:25 Dose: 45 mg Ondansetron HCl (Zofran Inj) 4 mg IVP Q6 PRN PRN Reason: Nausea/Vomiting Last Admin: 05/12/18 08:45 Dose: 4 mg Pantoprazole Sodium (Protonix Ec Tab) 40 mg PO DAILY [facility] Last Admin: 05/12/18 08:54 Dose: 40 mg Fluticasone/Salmeterol (Advair Diskus 250/50) 1 puff IH Q12 [facility] Last Admin: 05/12/18 08:51 Dose: 1 puff Thiamine HCl (Vitamin B1 Tab) 100 mg PO DAILY [facility] - Labs Labs: 05/12/18 06:00 05/12/18 06:00 Attending/Attestation - Attestation I have personally seen and examined this patient.: Yes I have fully participated in the care of the patient.: Yes I have reviewed all pertinent clinical information, including history, physical exam and plan: Yes Notes (Text): 05/12/18 13:15 Patient seen and examined with resident. Case discussed and agreed with assessment. Continue to have diarrhea with abdominal pain and nausea. Being HIV with diarrhea we'll get ID consult with Dr Casiano.
--- NOTE | 2018-05-12 21:04 | CP.PCM.CON ---
History of Present Illness - History of Present Illness History of Present Illness: Pt with HIV, COPD with t cells of 178 and undetectable viral load presents with abdominal pain and diarrhea. one loose bowel movement today. Past Patient History - Infectious Disease Hx of Infectious Diseases: None - Tetanus Immunizations Tetanus Immunization: Unknown - Past Medical History & Family History Past Medical History?: Yes - Past Social History Smoking Status: Former Smoker - CARDIAC Hx Cardiac Disorders: Yes Hx Hypercholesterolemia: Yes Hx Hypertension: Yes - PULMONARY Hx Respiratory Disorders: Yes Hx Bronchitis: Yes Hx Chronic Obstructive Pulmonary Disease (COPD): Yes Hx Sleep Apnea: Yes - NEUROLOGICAL Hx Neurological Disorder: No Hx Seizures: No - HEENT Hx HEENT Problems: No - RENAL Hx Chronic Kidney Disease: Yes Hx Kidney Stones: Yes - ENDOCRINE/METABOLIC Hx Endocrine Disorders: Yes Hx Diabetes Mellitus Type 2: Yes Hx Hyperthyroidism: No - HEMATOLOGICAL/ONCOLOGICAL Hx Blood Disorders: Yes Hx Hepatitis C: Yes Hx Human Immunodeficiency Virus (HIV): Yes - INTEGUMENTARY Hx Dermatological Problems: No - MUSCULOSKELETAL/RHEUMATOLOGICAL Hx Musculoskeletal Disorders: Yes Hx Arthritis: Yes Hx Falls: No - GASTROINTESTINAL Hx Gastrointestinal Disorders: Yes Hx Gastritis: Yes Hx Pancreatitis: No - GENITOURINARY/GYNECOLOGICAL Hx Genitourinary Disorders: No Hx Sexually Transmitted Disorders: No - PSYCHIATRIC Hx Psychophysiologic Disorder: Yes Hx Anxiety: Yes Hx Depression: Yes - SURGICAL HISTORY Hx Surgeries: No - ANESTHESIA Hx Anesthesia: No Hx Anesthesia Reactions: No Meds Allergies/Adverse Reactions: Allergies Allergy/AdvReac Type Severity Reaction Status Date / Time aspirin Allergy GI UPSET Verified 04/01/18 09:51 cobicistat [From Genvoya] Allergy NAUSEA Verified 04/01/18 09:51 efavirenz [From Atripla] Allergy DEPRESSION Verified 04/01/18 09:51 elvitegravir [From Genvoya] Allergy NAUSEA Verified 04/01/18 09:51 emtricitabine [From Atripla] Allergy DEPRESSION Verified 04/01/18 09:51 metformin Allergy NAUSEA Verified 04/01/18 09:51 tenofovir [From Atripla] Allergy DEPRESSION Verified 04/01/18 09:51 - Medications Medications: Current Medications Acetaminophen (Tylenol 325mg Tab) 650 mg PO Q4 PRN PRN Reason: Headache Last Admin: 05/12/18 20:31 Dose: 650 mg Clonazepam (Klonopin) 1 mg PO DAILY [facility] Last Admin: 05/12/18 10:28 Dose: 1 mg HCTZ/Losartan Potassium (Hyzaar 12.5 Mg-50 Mg) 1 tab PO DAILY [facility] Last Admin: 05/12/18 08:53 Dose: 1 tab Home Med (Emtricitab/Rilpiviri/Tenof Ala [Odefsey Tablet]) 1 tab PO [facility] Last Admin: 05/11/18 21:25 Dose: 1 tab Home Med (Patient's Own Medication) 1 unit PO [facility]; Protocol Last Admin: 05/11/18 21:25 Dose: 1 unit Ciprofloxacin (Cipro 400mg/200ml Dsw) 400 mg in 200 mls @ 200 mls/hr IVPB Q12 [facility]; Protocol Last Admin: 05/12/18 20:34 Dose: 200 mls/hr Metronidazole (Flagyl 500mg/100ml Ns) 100 mls @ 100 mls/hr IVPB Q8 [facility]; Protocol Last Admin: 05/12/18 19:04 Dose: 100 mls/hr Dextrose/Sodium Chloride (Dextrose 5%/0.45% Ns 1000 Ml) 1,000 mls @ 150 mls/hr IV .Q6H40M [facility] Stop: 05/13/18 11:36 Last Admin: 05/12/18 20:34 Dose: Not Given Folic Acid 1 mg/ Sodium (Chloride) 100.2 mls @ 60 mls/hr IVPB DAILY [facility] Last Admin: 05/12/18 13:59 Dose: 60 mls/hr Meclizine HCl (Antivert) 12.5 mg PO Q12 PRN PRN Reason: Dizziness Last Admin: 05/11/18 09:17 Dose: 12.5 mg Methadone HCl (Methadone) 110 mg PO DAILY@0600 [facility] Last Admin: 05/12/18 05:39 Dose: 110 mg Mirtazapine (Remeron) 45 mg PO [facility] Last Admin: 05/11/18 21:25 Dose: 45 mg Ondansetron HCl (Zofran Inj) 4 mg IVP Q6 PRN PRN Reason: Nausea/Vomiting Last Admin: 05/12/18 13:58 Dose: 4 mg Pantoprazole Sodium (Protonix Ec Tab) 40 mg PO DAILY [facility] Last Admin: 05/12/18 08:54 Dose: 40 mg Fluticasone/Salmeterol (Advair Diskus 250/50) 1 puff IH Q12 [facility] Last Admin: 05/12/18 20:34 Dose: 1 puff Thiamine HCl (Vitamin B1 Tab) 100 mg PO DAILY [facility] Last Admin: 05/12/18 13:58 Dose: 100 mg Results - Vital Signs Recent Vital Signs: Last Vital Signs Temp 98.5 F 05/12/18 16:34 Pulse 66 05/12/18 16:34 Resp 20 05/12/18 16:34 BP 128/74 05/12/18 16:34 Pulse Ox 94 L 05/12/18 16:34 - Labs Result Diagrams: 05/12/18 06:00 05/12/18 06:00 Labs: Laboratory Results - last 24 hr 05/11/18 05/11/18 05/12/18 13:00 21:21 06:00 WBC 2.4 L RBC 3.77 L Hgb 13.5 Hct 39.3 MCV 104.1 H D MCH 35.9 H MCHC 34.5 RDW 13.3 Plt Count 77 L MPV 9.9 Neut % (Auto) 67.6 Lymph % (Auto) 15.9 L Bucks % (Auto) 13.1 H Eos % (Auto) 3.2 Baso % (Auto) 0.2 Neut # (Auto) 1.6 L Lymph # (Auto) 0.4 L Bucks # (Auto) 0.3 Eos # (Auto) 0.1 Baso # (Auto) 0.0 Sodium Potassium Chloride Carbon Dioxide Anion Gap BUN Creatinine Est GFR ( Amer) Est GFR (Non-Af Amer) POC Glucose (mg/dL) 114 H Random Glucose Calcium Stool Leukocytes, Qual Negative 05/12/18 05/12/18 05/12/18 06:00 06:07 09:22 WBC RBC Hgb Hct MCV MCH MCHC RDW Plt Count MPV Neut % (Auto) Lymph % (Auto) Bucks % (Auto) Eos % (Auto) Baso % (Auto) Neut # (Auto) Lymph # (Auto) Bucks # (Auto) Eos # (Auto) Baso # (Auto) Sodium 140 Potassium 3.9 Chloride 101 Carbon Dioxide 30 Anion Gap 13 BUN 8 Creatinine 0.8 Est GFR ( Amer) > 60 Est GFR (Non-Af Amer) > 60 POC Glucose (mg/dL) 107 191 H Random Glucose 123 H Calcium 8.8 Stool Leukocytes, Qual 05/12/18 05/12/18 11:29 15:37 WBC RBC Hgb Hct MCV MCH MCHC RDW Plt Count MPV Neut % (Auto) Lymph % (Auto) Bucks % (Auto) Eos % (Auto) Baso % (Auto) Neut # (Auto) Lymph # (Auto) Bucks # (Auto) Eos # (Auto) Baso # (Auto) Sodium Potassium Chloride Carbon Dioxide Anion Gap BUN Creatinine Est GFR ( Amer) Est GFR (Non-Af Amer) POC Glucose (mg/dL) 148 H 99 Random Glucose Calcium Stool Leukocytes, Qual Assessment & Plan - Assessment and Plan (Free Text) Assessment: 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 obstruction of the distal duct. Broad spectrum antibiotic coverage with Zosyn 3.37g iv q 6h diarrrhea, suspected colitis. Continue Cipro and Flagyl HIV, continue HIV meds
[2018-05-12] MEDS: [UNRECOGNIZED DRUG - OTHER] PO SCH (22:08)
[2018-05-12] MEDS: DOLUTEGRAVIR 50 MG PO SCH (22:08)
[2018-05-13] MEDS: metroNIDAZOLE 500mg/100ml NS 100 ML IVPB SCH ×3 (00:04→19:27)
[2018-05-13] MEDS: Piperacillin/Tazobact 4.5 GM in Sodium Chloride 0.9% 100 ML IVPB SCH ×3 (00:04→18:33)
[2018-05-13] MEDS: Dextrose 5%/0.45% NS 1,000 ML IV SCH ×2 (00:05→08:00)
[2018-05-13 04:05] LABS: SQUAMOUS EPITHIAL < 1 /hpf (0-5); URINE BILIRUBIN NEGATIVE (NEGATIVE); URINE BLOOD NEGATIVE (NEGATIVE); URINE CLARITY CLEAR (Clear); URINE COLOR STRAW (YELLOW); URINE GLUCOSE (UA) NEG (NEGATIVE); URINE LEUKOCYTE ESTERASE NEG Leu/uL (Negative); URINE PROTEIN NEGATIVE (NEGATIVE); URINE UROBILINOGEN 0.2-1.0 mg/dL (0.2-1.0)
[2018-05-13 06:31] LABS: BASO % 0.3 % (0.0-2.0); EOS # 0.1 K/uL (0.0-0.7); EOS % 4.8 % (0.0-4.0); HEMOGLOBIN 13.1 g/dL (12.0-16.0); LYMPH # 0.4 K/uL (1.0-4.3); LYMPH % 16.4 % (20.0-40.0); MEAN CELL VOLUME 102.2 fl (81.0-99.0); MEAN CORPUSCULAR HEMOGLOBIN 35.3 pg (27.0-31.0); MEAN CORPUSCULAR HGB CONC 34.5 g/dL (33.0-37.0); MEAN PLATELET VOLUME 9.6 fl (7.2-11.7); MONO # 0.3 K/uL (0.0-0.8); MONO % 13.3 % (0.0-10.0); NEUT # 1.5 K/uL (1.8-7.0); NEUT % 65.2 % (50.0-75.0); NRBC % 0.2 % (0.0-0.0); RBC 3.7 Mil/uL (3.80-5.20); RED CELL DISTRIBUTION WIDTH 12.5 % (11.5-14.5); WHITE BLOOD COUNT 2.3 K/uL (4.8-10.8)
--- NOTE | 2018-05-13 06:42 | CP.PCM.PN ---
<HauserFlorence - Last Filed: 05/13/18 10:11> Subjective - Date & Time of Evaluation Date of Evaluation: 05/13/18 Time of Evaluation: 06:41 - Subjective Subjective: Patient seen and examined at bedside. Continues to complain of abdominal pain 1010 in severity and nausea. Denies vomiting today. Admits to urinating frequently, denies burning sensation. Admits to two episodes of non-bloody diarrhea this morning. Admits to three episodes of non-bloody diarrhea yesterday. She also c/o of headache 10 in severity. Denies visual changes, numbness, tingling. Objective - Vital Signs/Intake and Output Vital Signs (last 24 hours): Temp Pulse Resp BP Pulse Ox 98.4 F 64 19 96/61 L 95 05/13/18 00:33 05/13/18 00:33 05/13/18 00:33 05/13/18 00:33 05/13/18 00:33 - Medications Medications: Current Medications Acetaminophen (Tylenol 325mg Tab) 650 mg PO Q4 PRN PRN Reason: Headache Last Admin: 05/12/18 20:31 Dose: 650 mg Clonazepam (Klonopin) 1 mg PO DAILY [facility] Last Admin: 05/12/18 10:28 Dose: 1 mg HCTZ/Losartan Potassium (Hyzaar 12.5 Mg-50 Mg) 1 tab PO DAILY [facility] Last Admin: 05/12/18 08:53 Dose: 1 tab Home Med (Emtricitab/Rilpiviri/Tenof Ala [Odefsey Tablet]) 1 tab PO HS [facility] Last Admin: 05/12/18 22:08 Dose: 1 tab Home Med (Patient's Own Medication) 1 unit PO HS [facility]; Protocol Last Admin: 05/12/18 22:08 Dose: 1 unit Ciprofloxacin (Cipro 400mg/200ml Dsw) 400 mg in 200 mls @ 200 mls/hr IVPB Q12 [facility]; Protocol Last Admin: 05/12/18 20:34 Dose: 200 mls/hr Metronidazole (Flagyl 500mg/100ml Ns) 100 mls @ 100 mls/hr IVPB Q8 [facility]; Protocol Last Admin: 05/13/18 00:04 Dose: 100 mls/hr Dextrose/Sodium Chloride (Dextrose 5%/0.45% Ns 1000 Ml) 1,000 mls @ 150 mls/hr IV .Q6H40M [facility] Stop: 05/13/18 11:36 Last Admin: 05/13/18 00:05 Dose: 150 mls/hr Folic Acid 1 mg/ Sodium (Chloride) 100.2 mls @ 60 mls/hr IVPB DAILY [facility] Last Admin: 05/12/18 13:59 Dose: 60 mls/hr Piperacillin Sod/Tazobactam (Sod 4.5 gm/ Sodium Chloride) 100 mls @ 100 mls/hr IVPB Q8 [facility]; Protocol Last Admin: 05/13/18 00:04 Dose: 100 mls/hr Meclizine HCl (Antivert) 12.5 mg PO Q12 PRN PRN Reason: Dizziness Last Admin: 05/11/18 09:17 Dose: 12.5 mg Methadone HCl (Methadone) 110 mg PO DAILY@0600 [facility] Last Admin: 05/13/18 06:03 Dose: 110 mg Mirtazapine (Remeron) 45 mg PO HS [facility] Last Admin: 05/12/18 22:49 Dose: 45 mg Ondansetron HCl (Zofran Inj) 4 mg IVP Q6 PRN PRN Reason: Nausea/Vomiting Last Admin: 05/13/18 06:10 Dose: 4 mg Pantoprazole Sodium (Protonix Ec Tab) 40 mg PO DAILY [facility] Last Admin: 05/12/18 08:54 Dose: 40 mg Fluticasone/Salmeterol (Advair Diskus 250/50) 1 puff IH Q12 [facility] Last Admin: 05/12/18 20:34 Dose: 1 puff Thiamine HCl (Vitamin B1 Tab) 100 mg PO DAILY [facility] Last Admin: 05/12/18 13:58 Dose: 100 mg - Labs Labs: 05/13/18 06:05 05/12/18 06:00 - Constitutional Appears: Well, Non-toxic - Head Exam Head Exam: ATRAUMATIC - Eye Exam Eye Exam: Normal appearance - ENT Exam ENT Exam: Mucous Membranes Moist - Neck Exam Neck Exam: Normal Inspection - Cardiovascular Exam Cardiovascular Exam: REGULAR RHYTHM, +S1, +S2 - GI/Abdominal Exam GI & Abdominal Exam: Normal Bowel Sounds - Rectal Exam Rectal Exam: NORMAL INSPECTION - Back Exam Back Exam: NORMAL INSPECTION - Neurological Exam Neurological Exam: Alert, Awake, Oriented x3 - Psychiatric Exam Psychiatric exam: Normal Affect - Skin Skin Exam: Normal Color Assessment and Plan - Assessment and Plan (Free Text) Assessment: 67 year old female with PMH of HIV, COPD, anxiety/depression, HTN, HLD, Hep C+ admitted for intractable abdominal pain and colitis Plan: Left lower quadrant abdominal pain -probably secondary to colitis - Afebrile, WBC 1.9 --> 2.0-->2.4 - d/c Morphine 2 mg IV Q4 prn - Zofran tablet 4 mg IV Q6 PRN - Acetaminophen 650mg PO Q4 - cont. Ciprofloxacin 400 mg IV Q12 and Flagyl 500 mg IV Q8 - blood cultures negative x 2 after 48 hours - MRCP: stable extrahepatic biliary dilatation and pancreatic duct dilatation. No evidence of pancreatic mass. - GI consult;recs appreciated - Gallbladder and common duct US ordered; dilatation of CBD to 10 mm diameter. No intrahepatic biliary ductal dilatation - CT of abdomen with contrast; dilatation of the CBD and pancreatic duct of uncertain etiology. No associated intrahepatic biliary dilatation. - Colonoscopy recommended as outpatient - c-diff, and WBC stool negative - urine analysis- normal results. COPD -continue with home medications -no exacerbation HIV -continue home medications : tivicay/odefsey -HIV Viral load undetectable/CD4 177 in Mar 2018 as per [facility] HTN -continue Losartan HCTZ 50-12.5mg -monitor BP ( 144/86) Mass of left lung -1.5 cm left apical mass suspicious for pulmonary neoplasm, went to IR for percutaneous bx of 02/21/18 suspicious but inconclusive for malignancy interpretation. The results display a small focus of atypical glands. Patient had second IR CT guided left upper lobe lung nodule biopsy on 04/01/18 minute focus of atypical glands is seen.the amount of material is not enough for further histologic evaluation. -Patient to follow up as outpatient with Leif Hull for evaluation. 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 Hyperlipidemia -Pravastatin 10 mg PO QD Depression/Anxiety -as per ecw -mirtazapine 45 qhs, clonazepam 0.5mg po am, qhs prn DVT prophylaxis -not recommended secondary to low platelet count DIET NPO for bowel rest Code status: full code Discharge recs - Discharge with ciprofloxacin PO until May 19. - Patient to follow up with Dr. Mendez for lung mass. - Patient to follow up with Dr. Hull for outpatient evaluation and another lung biopsy. <NicholeSophiaDestinijoslyn Pineda - Last Filed: 05/13/18 18:08> Objective - Vital Signs/Intake and Output Vital Signs (last 24 hours): Temp Pulse Resp BP Pulse Ox 98.7 F 66 20 128/78 94 L 05/13/18 17:35 05/13/18 17:35 05/13/18 17:35 05/13/18 17:35 05/13/18 17:35 - Medications Medications: Current Medications Acetaminophen (Tylenol 325mg Tab) 650 mg PO Q4 PRN PRN Reason: Headache Last Admin: 05/13/18 10:24 Dose: 650 mg Clonazepam (Klonopin) 1 mg PO DAILY [facility] Last Admin: 05/12/18 10:28 Dose: 1 mg Home Med (Emtricitab/Rilpiviri/Tenof Ala [Odefsey Tablet]) 1 tab PO HS [facility] Last Admin: 05/12/18 22:08 Dose: 1 tab Home Med (Patient's Own Medication) 1 unit PO HS [facility]; Protocol Last Admin: 05/12/18 22:08 Dose: 1 unit Ciprofloxacin (Cipro 400mg/200ml Dsw) 400 mg in 200 mls @ 200 mls/hr IVPB Q12 [facility]; Protocol Last Admin: 05/13/18 10:29 Dose: 200 mls/hr Metronidazole (Flagyl 500mg/100ml Ns) 100 mls @ 100 mls/hr IVPB Q8 [facility]; Protocol Last Admin: 05/13/18 09:04 Dose: 100 mls/hr Folic Acid 1 mg/ Sodium (Chloride) 100.2 mls @ 60 mls/hr IVPB DAILY [facility] Last Admin: 05/13/18 16:36 Dose: 60 mls/hr Piperacillin Sod/Tazobactam (Sod 4.5 gm/ Sodium Chloride) 100 mls @ 100 mls/hr IVPB Q8 [facility]; Protocol Last Admin: 05/13/18 13:00 Dose: 100 mls/hr Losartan Potassium (Cozaar) 50 mg PO DAILY [facility] Meclizine HCl (Antivert) 12.5 mg PO Q12 PRN PRN Reason: Dizziness Last Admin: 05/11/18 09:17 Dose: 12.5 mg Methadone HCl (Methadone) 110 mg PO DAILY@0600 [facility] Last Admin: 05/13/18 06:03 Dose: 110 mg Mirtazapine (Remeron) 45 mg PO HS [facility] Last Admin: 05/12/18 22:49 Dose: 45 mg Ondansetron HCl (Zofran Inj) 4 mg IVP Q6 PRN PRN Reason: Nausea/Vomiting Last Admin: 05/13/18 14:07 Dose: 4 mg Pantoprazole Sodium (Protonix Ec Tab) 40 mg PO DAILY [facility] Last Admin: 05/13/18 09:06 Dose: 40 mg Fluticasone/Salmeterol (Advair Diskus 250/50) 1 puff IH Q12 [facility] Last Admin: 05/13/18 09:08 Dose: 1 puff Thiamine HCl (Vitamin B1 Tab) 100 mg PO DAILY [facility] Last Admin: 05/13/18 09:06 Dose: 100 mg - Labs Labs: 05/13/18 06:05 05/13/18 06:05 Attending/Attestation - Attestation I have personally seen and examined this patient.: Yes I have fully participated in the care of the patient.: Yes I have reviewed all pertinent clinical information, including history, physical exam and plan: Yes Notes (Text): Diarrhea prob Gastroenteritis - cont IV Zosyn, Cipro and Flagyl - ID and GI consulted - will d/c pt once diarrhea resolves
[2018-05-13 06:45] LABS: BLOOD UREA NITROGEN 8 mg/dl (7-17); CALCIUM 8.5 mg/dL (8.4-10.2); GFR NON-AFRICAN AMERICAN > 60
[2018-05-13] MEDS: Pantoprazole 40 mg EC Tab PO SCH (09:06)
[2018-05-13] MEDS: HCTZ/Losartan 12.5/50 Tab PO SCH (09:06)
[2018-05-13] MEDS: Fluticasone-Salmeterol 250-50mcg Diskus IH SCH ×2 (09:08→22:33)
[2018-05-13] MEDS: Ciprofloxacin 400mg/200ml D5W 400 MG/200 ML BAG IVPB SCH ×2 (10:29→22:33)
--- NOTE | 2018-05-13 11:18 | CP.PCM.PN ---
Subjective - Date & Time of Evaluation Date of Evaluation: 05/13/18 Time of Evaluation: 08:30 - Subjective Subjective: diarrhea persists Objective - Vital Signs/Intake and Output Vital Signs (last 24 hours): Temp Pulse Resp BP Pulse Ox 98.6 F 76 18 158/95 H 97 05/13/18 09:00 05/13/18 09:00 05/13/18 09:00 05/13/18 09:00 05/13/18 09:00 - Medications Medications: Current Medications Acetaminophen (Tylenol 325mg Tab) 650 mg PO Q4 PRN PRN Reason: Headache Last Admin: 05/13/18 10:24 Dose: 650 mg Clonazepam (Klonopin) 1 mg PO DAILY [facility] Last Admin: 05/12/18 10:28 Dose: 1 mg HCTZ/Losartan Potassium (Hyzaar 12.5 Mg-50 Mg) 1 tab PO DAILY [facility] Last Admin: 05/13/18 09:06 Dose: 1 tab Home Med (Emtricitab/Rilpiviri/Tenof Ala [Odefsey Tablet]) 1 tab PO HS [facility] Last Admin: 05/12/18 22:08 Dose: 1 tab Home Med (Patient's Own Medication) 1 unit PO HS [facility]; Protocol Last Admin: 05/12/18 22:08 Dose: 1 unit Ciprofloxacin (Cipro 400mg/200ml Dsw) 400 mg in 200 mls @ 200 mls/hr IVPB Q12 [facility]; Protocol Last Admin: 05/13/18 10:29 Dose: 200 mls/hr Metronidazole (Flagyl 500mg/100ml Ns) 100 mls @ 100 mls/hr IVPB Q8 [facility]; Protocol Last Admin: 05/13/18 09:04 Dose: 100 mls/hr Dextrose/Sodium Chloride (Dextrose 5%/0.45% Ns 1000 Ml) 1,000 mls @ 150 mls/hr IV .Q6H40M [facility] Stop: 05/13/18 11:36 Last Admin: 05/13/18 00:05 Dose: 150 mls/hr Folic Acid 1 mg/ Sodium (Chloride) 100.2 mls @ 60 mls/hr IVPB DAILY [facility] Last Admin: 05/12/18 13:59 Dose: 60 mls/hr Piperacillin Sod/Tazobactam (Sod 4.5 gm/ Sodium Chloride) 100 mls @ 100 mls/hr IVPB Q8 [facility]; Protocol Last Admin: 05/13/18 00:04 Dose: 100 mls/hr Meclizine HCl (Antivert) 12.5 mg PO Q12 PRN PRN Reason: Dizziness Last Admin: 05/11/18 09:17 Dose: 12.5 mg Methadone HCl (Methadone) 110 mg PO DAILY@0600 [facility] Last Admin: 05/13/18 06:03 Dose: 110 mg Mirtazapine (Remeron) 45 mg PO HS [facility] Last Admin: 05/12/18 22:49 Dose: 45 mg Ondansetron HCl (Zofran Inj) 4 mg IVP Q6 PRN PRN Reason: Nausea/Vomiting Last Admin: 05/13/18 06:10 Dose: 4 mg Pantoprazole Sodium (Protonix Ec Tab) 40 mg PO DAILY [facility] Last Admin: 05/13/18 09:06 Dose: 40 mg Fluticasone/Salmeterol (Advair Diskus 250/50) 1 puff IH Q12 [facility] Last Admin: 05/13/18 09:08 Dose: 1 puff Thiamine HCl (Vitamin B1 Tab) 100 mg PO DAILY [facility] Last Admin: 05/13/18 09:06 Dose: 100 mg - Labs Labs: 05/13/18 06:05 05/13/18 06:05 - Head Exam Head Exam: NORMOCEPHALIC - Respiratory Exam Respiratory Exam: Clear to Ausculation Bilateral, NORMAL BREATHING PATTERN - Cardiovascular Exam Cardiovascular Exam: REGULAR RHYTHM - GI/Abdominal Exam GI & Abdominal Exam: Soft, Tenderness, Normal Bowel Sounds Assessment and Plan - Assessment and Plan (Free Text) Assessment: 67 yo female with HIV and colitis ID input appreciated stool studies negative to date
--- NOTE | 2018-05-13 14:47 | PQF ---
PROVIDER RESPONSE TEXT: HIV asymptomatic REVIEWER QUERY TEXT: HIV Clarification and Associated Conditions HIV (Human immunodeficiency virus) is documented in the medical record. Please specify if: -- Asymptomatic --Symptomatic -- With current or previous HIV-related condition (please specify related condition) -- Exposure to HIV -- Inconclusive serologic evidence of HIV -- Other, please specify H and P: HIV -continue home medications : tivicay/odefsey - Zofran tablet 4 mg IV Q6 PRN -HIV Viral load undetectable/CD4 177 in Mar 2018 as per [facility] Also please include any associated conditions, if applicable. The patient's Clinical Indicators include: -- Query created by: Mai Nielsen on 05/13/2018 1:47 PM Electronically signed by: Destini Nichole MD 05/13/2018 2:44 PM
--- NOTE | 2018-05-13 22:25 | CON ---
DATE: 05/13/2018 REFERRING PHYSICIAN: Dr. Aguilar. REASON FOR CONSULTATION: Abdominal pain. HISTORY OF PRESENT ILLNESS: The patient is a 67-year-old female with history of diabetes, HIV, hepatitis C, history of depression, vertigo, brought in for diarrhea, left lower quadrant pain and discomfort as well. There were no fevers, no chills. No nausea or vomiting, tolerating diet; in no apparent distress. PAST MEDICAL HISTORY: As above. PAST SURGICAL HISTORY: As above. MEDICATIONS: Have been reviewed. REVIEW OF SYSTEMS: All other systems have been reviewed and negative apart from the HPI. PHYSICAL EXAMINATION: VITAL SIGNS: Here in the hospital, grossly unremarkable. GENERAL: This is a pleasant elderly appearing female, lying in bed comfortably, in no apparent distress. HEENT: Head, normocephalic and atraumatic. Eyes, pupils are equally reactive to light bilaterally. No conjunctival pallor or icterus. NECK: Supple. Normal range of motion. No lymphadenopathy appreciated. LUNGS: Coarse breath sounds bilaterally. HEART: S1 and S2. Regular rate and rhythm. No murmurs appreciated. ABDOMEN: Soft and nontender. Bowel sounds present. No rebound. No guarding. RECTAL: Deferred. EXTREMITIES: Pulses felt bilaterally. SKIN: Warm, dry, and intact. NEUROLOGIC: A and O x3. LABORATORY DATA: All labs and radiology have been reviewed. WBC is 1.9, hemoglobin 12.2, hematocrit 35.2, platelet count is 82. CAT scan shows questionable colitis. ASSESSMENT AND PLAN: This is a 67-year-old female with mild pancolitis, continue antibiotics. Stool study is pending. Infectious Disease input appreciated. Thank you for the consult. Robel Leon MD/ PhD cc: Dr. Aguilar. MTDD
[2018-05-13] MEDS: [UNRECOGNIZED DRUG - OTHER] PO SCH (22:32)
[2018-05-13] MEDS: DOLUTEGRAVIR 50 MG PO SCH (22:34)
[2018-05-14] MEDS: metroNIDAZOLE 500mg/100ml NS 100 ML IVPB SCH ×3 (00:27→16:06)
[2018-05-14] MEDS: Piperacillin/Tazobact 4.5 GM in Sodium Chloride 0.9% 100 ML IVPB SCH ×3 (00:28→16:05)
[2018-05-14 06:41] LABS: BLOOD UREA NITROGEN 10 mg/dl (7-17); GFR NON-AFRICAN AMERICAN > 60
--- NOTE | 2018-05-14 06:47 | CP.PCM.PN ---
Subjective - Date & Time of Evaluation Date of Evaluation: 05/14/18 Time of Evaluation: 06:45 - Subjective Subjective: Patient seen and examined at bedside. Continues to complain of abdominal pain 10/10 in severity and nausea. Denies vomiting today. Admits to two episodes of non-bloody diarrhea yesterday. Admits to five episodes of nonbloody diarrhea to day. She also c/o of headache , which has reduced in severity. Denies visual changes, numbness, tingling. Objective - Vital Signs/Intake and Output Vital Signs (last 24 hours): Temp Pulse Resp BP Pulse Ox 97.9 F 68 18 146/84 96 05/14/18 01:03 05/14/18 01:03 05/14/18 01:03 05/14/18 01:03 05/14/18 01:03 - Medications Medications: Current Medications Acetaminophen (Tylenol 325mg Tab) 650 mg PO Q4 PRN PRN Reason: Headache Last Admin: 05/13/18 10:24 Dose: 650 mg Clonazepam (Klonopin) 1 mg PO DAILY [facility] Last Admin: 05/14/18 02:48 Dose: 1 mg Home Med (Emtricitab/Rilpiviri/Tenof Ala [Odefsey Tablet]) 1 tab PO HS [facility] Last Admin: 05/13/18 22:32 Dose: 1 tab Home Med (Patient's Own Medication) 1 unit PO HS [facility]; Protocol Last Admin: 05/13/18 22:34 Dose: 1 unit Ciprofloxacin (Cipro 400mg/200ml Dsw) 400 mg in 200 mls @ 200 mls/hr IVPB Q12 [facility]; Protocol Last Admin: 05/13/18 22:33 Dose: 200 mls/hr Metronidazole (Flagyl 500mg/100ml Ns) 100 mls @ 100 mls/hr IVPB Q8 [facility]; Protocol Last Admin: 05/14/18 00:27 Dose: 100 mls/hr Folic Acid 1 mg/ Sodium (Chloride) 100.2 mls @ 60 mls/hr IVPB DAILY [facility] Last Admin: 05/13/18 16:36 Dose: 60 mls/hr Piperacillin Sod/Tazobactam (Sod 4.5 gm/ Sodium Chloride) 100 mls @ 100 mls/hr IVPB Q8 [facility]; Protocol Last Admin: 05/14/18 00:28 Dose: 100 mls/hr Losartan Potassium (Cozaar) 50 mg PO DAILY [facility] Meclizine HCl (Antivert) 12.5 mg PO Q12 PRN PRN Reason: Dizziness Last Admin: 05/11/18 09:17 Dose: 12.5 mg Methadone HCl (Methadone) 110 mg PO DAILY@0600 [facility] Last Admin: 05/14/18 06:32 Dose: 110 mg Mirtazapine (Remeron) 45 mg PO HS [facility] Last Admin: 05/13/18 22:32 Dose: 45 mg Ondansetron HCl (Zofran Inj) 4 mg IVP Q6 PRN PRN Reason: Nausea/Vomiting Last Admin: 05/13/18 14:07 Dose: 4 mg Pantoprazole Sodium (Protonix Ec Tab) 40 mg PO DAILY [facility] Last Admin: 05/13/18 09:06 Dose: 40 mg Fluticasone/Salmeterol (Advair Diskus 250/50) 1 puff IH Q12 [facility] Last Admin: 05/13/18 22:33 Dose: 1 puff Thiamine HCl (Vitamin B1 Tab) 100 mg PO DAILY [facility] Last Admin: 05/13/18 09:06 Dose: 100 mg - Labs Labs: 05/13/18 06:05 05/14/18 05:35 - Constitutional Appears: Well, Non-toxic - Head Exam Head Exam: ATRAUMATIC - Eye Exam Eye Exam: Normal appearance - ENT Exam ENT Exam: Mucous Membranes Moist - Neck Exam Neck Exam: Normal Inspection - Respiratory Exam Respiratory Exam: Clear to Ausculation Bilateral, NORMAL BREATHING PATTERN - Cardiovascular Exam Cardiovascular Exam: REGULAR RHYTHM, +S1, +S2 - GI/Abdominal Exam GI & Abdominal Exam: Guarding - Neurological Exam Neurological Exam: Alert, Awake - Psychiatric Exam Psychiatric exam: Normal Affect - Skin Skin Exam: Normal Color Assessment and Plan - Assessment and Plan (Free Text) Assessment: 67 year old female with PMH of HIV, COPD, anxiety/depression, HTN, HLD, Hep C+ admitted for intractable abdominal pain and colitis Plan: Left lower quadrant abdominal pain -probably secondary to colitis - Afebrile, WBC 1.9 --> 2.0-->2.4 - d/c Morphine 2 mg IV Q4 prn - Zofran tablet 4 mg IV Q6 PRN - Acetaminophen 650mg PO Q4 - cont. Ciprofloxacin 400 mg IV Q12 and Flagyl 500 mg IV Q8 - blood cultures negative x 2 after 48 hours - MRCP: stable extrahepatic biliary dilatation and pancreatic duct dilatation. No evidence of pancreatic mass. - GI consult;recs appreciated - GI consult with Dr. Chavez placed for second opinion. - Gallbladder and common duct US ordered; dilatation of CBD to 10 mm diameter. No intrahepatic biliary ductal dilatation - CT of abdomen with contrast; dilatation of the CBD and pancreatic duct of uncertain etiology. No associated intrahepatic biliary dilatation. - Colonoscopy recommended as outpatient - c-diff, and WBC stool negative - urine analysis- normal results. COPD -continue with home medications -no exacerbation HIV -continue home medications : tivicay/odefsey -HIV Viral load undetectable/CD4 177 in Mar 2018 as per [facility] HTN -continue Losartan HCTZ 50-12.5mg -monitor BP ( 144/86) Mass of left lung -1.5 cm left apical mass suspicious for pulmonary neoplasm, went to IR for percutaneous bx of 02/21/18 suspicious but inconclusive for malignancy i nterpretation. The results display a small focus of atypical glands. Patient had second IR CT guided left upper lobe lung nodule biopsy on 04/01/18 minute focus of atypical glands is seen.the amount of material is not enough for further histologic evaluation. -Patient to follow up as outpatient with Leif Hull for evaluation. 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 Hyperlipidemia -Pravastatin 10 mg PO QD Depression/Anxiety -as per ecw -mirtazapine 45 qhs, clonazepam 0.5mg po am, qhs prn DVT prophylaxis -not recommended secondary to low platelet count DIET NPO for bowel rest Code status: full code Discharge recs - Discharge with ciprofloxacin PO until May 19. - Patient to follow up with Dr. Mendez for lung mass. - Patient to follow up with Dr. Hull for outpatient evaluation and another lung biopsy.
[2018-05-14 06:57] LABS: BASO % 0.4 % (0.0-2.0); EOS # 0.1 K/uL (0.0-0.7); EOS % 5.1 % (0.0-4.0); HEMOGLOBIN 13.8 g/dL (12.0-16.0); LYMPH # 0.5 K/uL (1.0-4.3); LYMPH % 27.4 % (20.0-40.0); MEAN CELL VOLUME 104.8 fl (81.0-99.0); MEAN CORPUSCULAR HEMOGLOBIN 35.5 pg (27.0-31.0); MEAN CORPUSCULAR HGB CONC 33.9 g/dL (33.0-37.0); MONO # 0.3 K/uL (0.0-0.8); MONO % 17.6 % (0.0-10.0); NEUT % 49.5 % (50.0-75.0); NRBC % 0.3 % (0.0-0.0); RBC 3.88 Mil/uL (3.80-5.20); RED CELL DISTRIBUTION WIDTH 13.1 % (11.5-14.5)
[2018-05-14] MEDS: Fluticasone-Salmeterol 250-50mcg Diskus IH SCH ×2 (10:03→21:53)
[2018-05-14] MEDS: Ciprofloxacin 400mg/200ml D5W 400 MG/200 ML BAG IVPB SCH ×2 (10:05→21:54)
[2018-05-14] MEDS: Pantoprazole 40 mg EC Tab PO SCH (10:08)
[2018-05-14 11:06] LABS: % CD4 (T HELPER CELL) 22 Percent (30-61); % CD8 (SUPPRESSOR T CELL) 38 Percent (12-42); ABSOLUTE CD4 CELLS 136 Cells/mcL (490-1740); ABSOLUTE CD8 CELLS 229 Cells/mcL (180-1170); ABSOLUTE LYMPHOCYTES 604 Cells/mcL (850-3900); HELPER/SUPPRESSOR RATIO 0.59 Ratio (0.86-5.00)
[2018-05-14] MEDS: DOLUTEGRAVIR 50 MG PO SCH (21:53)
[2018-05-14] MEDS: [UNRECOGNIZED DRUG - OTHER] PO SCH (21:53)
[2018-05-15] MEDS: Piperacillin/Tazobact 4.5 GM in Sodium Chloride 0.9% 100 ML IVPB SCH ×3 (00:23→16:02)
[2018-05-15] MEDS: metroNIDAZOLE 500mg/100ml NS 100 ML IVPB SCH ×2 (00:24→08:02)
--- NOTE | 2018-05-15 06:47 | CP.PCM.PN ---
Subjective - Date & Time of Evaluation Date of Evaluation: 05/15/18 Time of Evaluation: 06:47 - Subjective Subjective: Patient seen and examined at bedside. Continues to complain of abdominal pain 10/10 in severity and nausea. Denies vomiting today. Admits to five episodes of non-bloody diarrhea yesterday. Admits to three episodes of nonbloody diarrhea t kelvin. She also c/o of headache , which has reduced in severity. Denies visual changes, numbness, tingling. Objective - Vital Signs/Intake and Output Vital Signs (last 24 hours): Temp Pulse Resp BP Pulse Ox 98.1 F 61 18 150/88 96 05/14/18 23:42 05/14/18 23:42 05/14/18 23:42 05/14/18 23:42 05/14/18 23:42 - Medications Medications: Current Medications Acetaminophen (Tylenol 325mg Tab) 650 mg PO Q4 PRN PRN Reason: Headache Last Admin: 05/15/18 04:12 Dose: 650 mg Clonazepam (Klonopin) 1 mg PO DAILY [facility] Last Admin: 05/14/18 12:47 Dose: 1 mg Folic Acid (Folic Acid) 1 mg PO DAILY [facility] Home Med (Emtricitab/Rilpiviri/Tenof Ala [Odefsey Tablet]) 1 tab PO HS [facility] Last Admin: 05/14/18 21:53 Dose: 1 tab Home Med (Patient's Own Medication) 1 unit PO HS [facility]; Protocol Last Admin: 05/14/18 21:53 Dose: 1 unit Ciprofloxacin (Cipro 400mg/200ml Dsw) 400 mg in 200 mls @ 200 mls/hr IVPB Q12 [facility]; Protocol Last Admin: 05/14/18 21:54 Dose: 200 mls/hr Metronidazole (Flagyl 500mg/100ml Ns) 100 mls @ 100 mls/hr IVPB Q8 [facility]; Protocol Last Admin: 05/15/18 00:24 Dose: 100 mls/hr Piperacillin Sod/Tazobactam (Sod 4.5 gm/ Sodium Chloride) 100 mls @ 100 mls/hr IVPB Q8 [facility]; Protocol Last Admin: 05/15/18 00:23 Dose: 100 mls/hr Losartan Potassium (Cozaar) 50 mg PO DAILY [facility] Last Admin: 05/14/18 10:07 Dose: 50 mg Meclizine HCl (Antivert) 12.5 mg PO Q12 PRN PRN Reason: Dizziness Last Admin: 05/11/18 09:17 Dose: 12.5 mg Methadone HCl (Methadone) 110 mg PO DAILY@0600 [facility] Last Admin: 05/15/18 05:27 Dose: 110 mg Mirtazapine (Remeron) 45 mg PO HS [facility] Last Admin: 05/14/18 21:53 Dose: 45 mg Ondansetron HCl (Zofran Inj) 4 mg IVP Q6 PRN PRN Reason: Nausea/Vomiting Last Admin: 05/14/18 12:47 Dose: 4 mg Pantoprazole Sodium (Protonix Ec Tab) 40 mg PO DAILY [facility] Last Admin: 05/14/18 10:08 Dose: 40 mg Fluticasone/Salmeterol (Advair Diskus 250/50) 1 puff IH Q12 [facility] Last Admin: 05/14/18 21:53 Dose: 1 puff Thiamine HCl (Vitamin B1 Tab) 100 mg PO DAILY [facility] Last Admin: 05/14/18 10:09 Dose: 100 mg - Labs Labs: 05/14/18 05:35 05/14/18 05:35 - Constitutional Appears: Well, Non-toxic - Head Exam Head Exam: ATRAUMATIC, NORMOCEPHALIC - Eye Exam Eye Exam: EOMI, Normal appearance - ENT Exam ENT Exam: Mucous Membranes Moist - Neck Exam Neck Exam: Normal Inspection - Respiratory Exam Respiratory Exam: Clear to Ausculation Bilateral, NORMAL BREATHING PATTERN - Cardiovascular Exam Cardiovascular Exam: REGULAR RHYTHM, +S1, +S2 - GI/Abdominal Exam GI & Abdominal Exam: Guarding, Normal Bowel Sounds - Neurological Exam Neurological Exam: Alert, Awake - Psychiatric Exam Psychiatric exam: Normal Affect - Skin Skin Exam: Normal Color Assessment and Plan - Assessment and Plan (Free Text) Assessment: 67 year old female with PMH of HIV, COPD, anxiety/depression, HTN, HLD, Hep C+ admitted for intractable abdominal pain and colitis Plan: Left lower quadrant abdominal pain -probably secondary to colitis - Afebrile, WBC 1.9 --> 2.0-->2.4 - d/c Morphine 2 mg IV Q4 prn - Zofran tablet 4 mg IV Q6 PRN - Acetaminophen 650mg PO Q4 - cont. Ciprofloxacin 400 mg IV Q12 and Flagyl 500 mg IV Q8 - blood cultures negative x 2 after 48 hours - MRCP: stable extrahepatic biliary dilatation and pancreatic duct dilatation. No evidence of pancreatic mass. - GI consult;recs appreciated - GI consult with Dr. Chavez placed for second opinion; colonoscopy tomorrow with biopsy 05/16. - NPO after midnight order placed - Magnesium citrate 10 oz at 1 pm and 7 pm. Dulcolax tablet 20 mg at 4pm with 8 oz of water. 6 am- water enema until colon cleared. - Gallbladder and common duct US ordered; dilatation of CBD to 10 mm diameter. No intrahepatic biliary ductal dilatation - CT of abdomen with contrast; dilatation of the CBD and pancreatic duct of uncertain etiology. No associated intrahepatic biliary dilatation. - c-diff, and WBC stool negative - urine analysis- normal results. COPD -continue with home medications -no exacerbation HIV -continue home medications : tivicay/odefsey -HIV Viral load undetectable/CD4 177 in Mar 2018 as per [facility] HTN -continue Losartan HCTZ 50-12.5mg -monitor BP ( 144/86) Mass of left lung -1.5 cm left apical mass suspicious for pulmonary neoplasm, went to IR for percutaneous bx of 02/21/18 suspicious but inconclusive for malignancy interpretation. The results display a small focus of atypical glands. Patient had second IR CT guided left upper lobe lung nodule biopsy on 04/01/18 minute focus of atypical glands is seen.the amount of material is not enough for further histologic evaluation. -Patient to follow up as outpatient with Leif Hull for evaluation. 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 Hyperlipidemia -Pravastatin 10 mg PO QD Depression/Anxiety -as per ecw -mirtazapine 45 qhs, clonazepam 0.5mg po am, qhs prn DVT prophylaxis -not recommended secondary to low platelet count DIET - diabetic diet ; NPO past midnight for colonoscopy. Patient will continue with lactose free diet afterwards. Code status: full code Discharge recs - Discharge with ciprofloxacin PO until May 19. - Patient to follow up with Dr. Mendez for lung mass. - Patient to follow up with Dr. Hull for outpatient evaluation and another lung biopsy.
[2018-05-15] MEDS: Ciprofloxacin 400mg/200ml D5W 400 MG/200 ML BAG IVPB SCH (08:05)
[2018-05-15] MEDS: Fluticasone-Salmeterol 250-50mcg Diskus IH SCH ×2 (08:21→21:24)
[2018-05-15] MEDS: Pantoprazole 40 mg EC Tab PO SCH (08:22)
[2018-05-15] MEDS ORDERED: Magnesium Citrate Oral SOL (300 ml) PO ONE ×2 (14:00→19:00)
[2018-05-15] MEDS ORDERED: Bisacodyl 5mg EC Tab PO ONE (16:00)
--- NOTE | 2018-05-15 18:45 | CP.PCM.CON ---
History of Present Illness - History of Present Illness History of Present Illness: 67 yo female with h/o HIV,DM, and COPD admitted with left sided abdominal pain and loose stools. Initially CT showed CBD dilation though MRCP failed to show significant mass. Mucosal thickening was seen on left side of colon which could be a normal variant though colonoscopy was recommende electively. Patient continues to c/o pain and diarrhea. Review of Systems - Constitutional Constitutional: absent: Chills - EENT Eyes: absent: Blurred Vision Ears: absent: Decreased Hearing Nose/Mouth/Throat: absent: Nasal Congestion - Breasts Breasts: absent: Pain - Cardiovascular Cardiovascular: absent: Chest Pain - Respiratory Respiratory: absent: Dyspnea - Gastrointestinal Gastrointestinal: Abdominal Pain - Genitourinary Genitourinary: absent: Change in Urinary Stream Past Patient History - Infectious Disease Hx of Infectious Diseases: None - Tetanus Immunizations Tetanus Immunization: Unknown - Past Medical History & Family History Past Medical History?: Yes - Past Social History Smoking Status: Former Smoker - CARDIAC Hx Atrial Fibrillation: No Hx Hypercholesterolemia: Yes Hx Hypertension: Yes - PULMONARY Hx Asthma: Yes Hx Bronchitis: Yes Hx Chronic Obstructive Pulmonary Disease (COPD): Yes Hx Emphysema: No Hx Pneumonia: Yes Hx Sleep Apnea: Yes - NEUROLOGICAL Hx Seizures: No - HEENT Hx HEENT Problems: No - RENAL Hx Chronic Kidney Disease: No Hx Kidney Stones: Yes - ENDOCRINE/METABOLIC Hx Hyperthyroidism: No - HEMATOLOGICAL/ONCOLOGICAL Hx Anemia: No Hx Human Immunodeficiency Virus (HIV): Yes - INTEGUMENTARY Hx Dermatological Problems: No - MUSCULOSKELETAL/RHEUMATOLOGICAL Hx Arthritis: Yes - GASTROINTESTINAL Hx Gastritis: Yes Hx Pancreatitis: No - GENITOURINARY/GYNECOLOGICAL Hx Sexually Transmitted Disorders: No - PSYCHIATRIC Hx Anxiety: Yes Hx Bipolar Disorder: No Hx Depression: Yes Hx Schizophrenia: No - SURGICAL HISTORY Hx Surgeries: No - ANESTHESIA Hx Anesthesia: No Hx Anesthesia Reactions: No Meds Allergies/Adverse Reactions: Allergies Allergy/AdvReac Type Severity Reaction Status Date / Time aspirin Allergy GI UPSET Verified 04/01/18 09:51 cobicistat [From Genvoya] Allergy NAUSEA Verified 04/01/18 09:51 efavirenz [From Atripla] Allergy DEPRESSION Verified 04/01/18 09:51 elvitegravir [From Genvoya] Allergy NAUSEA Verified 04/01/18 09:51 emtricitabine [From Atripla] Allergy DEPRESSION Verified 04/01/18 09:51 metformin Allergy NAUSEA Verified 04/01/18 09:51 tenofovir [From Atripla] Allergy DEPRESSION Verified 04/01/18 09:51 - Medications Medications: Current Medications Acetaminophen (Tylenol 325mg Tab) 650 mg PO Q4 PRN PRN Reason: Headache Last Admin: 05/15/18 04:12 Dose: 650 mg Clonazepam (Klonopin) 1 mg PO DAILY [facility] Last Admin: 05/15/18 08:20 Dose: 1 mg Folic Acid (Folic Acid) 1 mg PO DAILY [facility] Last Admin: 05/15/18 08:22 Dose: 1 mg Home Med (Emtricitab/Rilpiviri/Tenof Ala [Odefsey Tablet]) 1 tab PO [facility] Last Admin: 05/14/18 21:53 Dose: 1 tab Home Med (Patient's Own Medication) 1 unit PO HS [facility]; Protocol Last Admin: 05/14/18 21:53 Dose: 1 unit Piperacillin Sod/Tazobactam (Sod 4.5 gm/ Sodium Chloride) 100 mls @ 100 mls/hr IVPB Q8 [facility]; Protocol Last Admin: 05/15/18 16:02 Dose: 100 mls/hr Losartan Potassium (Cozaar) 50 mg PO DAILY [facility] Last Admin: 05/15/18 08:21 Dose: 50 mg Magnesium Citrate (Citrate Of Mag) 300 ml PO ONCE ONE Stop: 05/15/18 19:01 Last Admin: 05/15/18 18:32 Dose: 300 ml Meclizine HCl (Antivert) 12.5 mg PO Q12 PRN PRN Reason: Dizziness Last Admin: 05/11/18 09:17 Dose: 12.5 mg Methadone HCl (Methadone) 110 mg PO DAILY@0600 [facility] Last Admin: 05/15/18 05:27 Dose: 110 mg Mirtazapine (Remeron) 45 mg PO HS [facility] Last Admin: 05/14/18 21:53 Dose: 45 mg Ondansetron HCl (Zofran Inj) 4 mg IVP Q6 PRN PRN Reason: Nausea/Vomiting Last Admin: 05/15/18 15:43 Dose: 4 mg Pantoprazole Sodium (Protonix Ec Tab) 40 mg PO DAILY [facility] Last Admin: 05/15/18 08:22 Dose: 40 mg Fluticasone/Salmeterol (Advair Diskus 250/50) 1 puff IH Q12 [facility] Last Admin: 05/15/18 08:21 Dose: 1 puff Thiamine HCl (Vitamin B1 Tab) 100 mg PO DAILY [facility] Last Admin: 05/15/18 08:20 Dose: 100 mg Physical Exam - Constitutional Appears: No Acute Distress - Head Exam Head Exam: ATRAUMATIC - Eye Exam Eye Exam: Normal appearance - ENT Exam ENT Exam: Normal Exam - Neck Exam Neck exam: Positive for: Normal Inspection - Respiratory Exam Respiratory Exam: Clear to Auscultation Bilateral - Cardiovascular Exam Cardiovascular Exam: REGULAR RHYTHM, +S1, +S2 - GI/Abdominal Exam GI & Abdominal Exam: Normal Bowel Sounds, Soft, Tenderness Results - Vital Signs Recent Vital Signs: Last Vital Signs Temp 97.4 F L 05/15/18 16:39 Pulse 68 05/15/18 16:39 Resp 18 05/15/18 16:39 BP 130/83 05/15/18 16:39 Pulse Ox 94 L 05/15/18 16:39 - Labs Result Diagrams: 05/14/18 05:35 05/14/18 05:35 Labs: Laboratory Results - last 24 hr 05/14/18 05/15/18 05/15/18 21:04 05:35 11:18 POC Glucose (mg/dL) 138 H 144 H 142 H 05/15/18 15:46 POC Glucose (mg/dL) 87 Assessment & Plan (1) Abdominal pain Assessment and Plan: Ongoing abdominal pain and diarrhea. Colonoscopy to r/o colitis or mass. Status: Acute Priority: Low
[2018-05-15] MEDS: DOLUTEGRAVIR 50 MG PO SCH (21:25)
[2018-05-15] MEDS: [UNRECOGNIZED DRUG - OTHER] PO SCH (21:25)
[2018-05-15] MEDS: Lactated Ringer's 1,000 ML IV SCH (21:26)
[2018-05-16] MEDS: Piperacillin/Tazobact 4.5 GM in Sodium Chloride 0.9% 100 ML IVPB SCH ×3 (01:41→16:17)
[2018-05-16] MEDS ORDERED: Potassium Ch 20mEq in D5-1/2NS 1,000 ML IV SCH (03:00)
[2018-05-16] MEDS: Fluticasone-Salmeterol 250-50mcg Diskus IH SCH ×2 (08:43→20:43)
--- NOTE | 2018-05-16 09:35 | CP.PCM.PN ---
Subjective - Date & Time of Evaluation Date of Evaluation: 05/16/18 Time of Evaluation: 09:33 - Subjective Subjective: Patient seen and examined at bedside. Continues to complain of abdominal pain 10/10 in severity and nausea. Denies vomiting today. Admits to ongoing nonbloody diarrhea. Admits to finishing prep for colonoscopy. Is aware of colonoscopy to day. She also c/o of dull headache Denies visual changes, numbness, tingling. Objective - Vital Signs/Intake and Output Vital Signs (last 24 hours): Temp Pulse Resp BP Pulse Ox 98.3 F 48 L 20 103/64 96 05/16/18 09:01 05/16/18 09:01 05/16/18 09:01 05/16/18 09:01 05/16/18 09:01 - Medications Medications: Current Medications Acetaminophen (Tylenol 325mg Tab) 650 mg PO Q4 PRN PRN Reason: Headache Last Admin: 05/15/18 04:12 Dose: 650 mg Clonazepam (Klonopin) 1 mg PO DAILY [facility] Last Admin: 05/16/18 08:46 Dose: 1 mg Folic Acid (Folic Acid) 1 mg PO DAILY [facility] Last Admin: 05/15/18 08:22 Dose: 1 mg Home Med (Emtricitab/Rilpiviri/Tenof Ala [Odefsey Tablet]) [address] [facility] Last Admin: 05/15/18 21:25 Dose: 1 tab Home Med (Patient's Own Medication) 1 unit PO HS [facility]; Protocol Last Admin: 05/15/18 21:25 Dose: 1 unit Piperacillin Sod/Tazobactam (Sod 4.5 gm/ Sodium Chloride) 100 mls @ 100 mls/hr IVPB Q8 [facility]; Protocol Last Admin: 05/16/18 08:43 Dose: 100 mls/hr Lactated Ringer's (Lactated Ringer's) 1,000 mls @ 60 mls/hr IV .[id number] [facility] Last Admin: 05/15/18 21:26 Dose: 60 mls/hr Potassium Chloride/Dextrose/Sod Cl (Potassium Chl 20 Meq In D5-1/2ns) 1,000 mls @ 100 mls/hr IV .Q10H [facility] Stop: 05/17/18 02:58 Last Admin: 05/16/18 03:20 Dose: 100 mls/hr Losartan Potassium (Cozaar) 50 mg PO DAILY [facility] Last Admin: 05/16/18 08:47 Dose: 50 mg Meclizine HCl (Antivert) 12.5 mg PO Q12 PRN PRN Reason: Dizziness Last Admin: 05/11/18 09:17 Dose: 12.5 mg Methadone HCl (Methadone) 110 mg PO DAILY@0600 [facility] Last Admin: 05/16/18 06:58 Dose: Not Given Mirtazapine (Remeron) 45 mg PO HS [facility] Last Admin: 05/15/18 21:25 Dose: 45 mg Ondansetron HCl (Zofran Inj) 4 mg IVP Q6 PRN PRN Reason: Nausea/Vomiting Last Admin: 05/15/18 20:42 Dose: 4 mg Pantoprazole Sodium (Protonix Ec Tab) 40 mg PO DAILY [facility] Last Admin: 05/15/18 08:22 Dose: 40 mg Fluticasone/Salmeterol (Advair Diskus 250/50) 1 puff IH Q12 [facility] Last Admin: 05/16/18 08:43 Dose: 1 puff Thiamine HCl (Vitamin B1 Tab) 100 mg PO DAILY [facility] Last Admin: 05/15/18 08:20 Dose: 100 mg - Labs Labs: 05/14/18 05:35 05/14/18 05:35 - Constitutional Appears: Well, Non-toxic, No Acute Distress - Head Exam Head Exam: ATRAUMATIC, NORMOCEPHALIC - Eye Exam Eye Exam: EOMI, Normal appearance Pupil Exam: NORMAL ACCOMODATION - ENT Exam ENT Exam: Mucous Membranes Moist, Normal Exam - Neck Exam Neck Exam: Normal Inspection - Respiratory Exam Respiratory Exam: Clear to Ausculation Bilateral, NORMAL BREATHING PATTERN - Psychiatric Exam Psychiatric exam: Normal Affect - Skin Skin Exam: Normal Color Assessment and Plan - Assessment and Plan (Free Text) Assessment: 67 year old female with PMH of HIV, COPD, anxiety/depression, HTN, HLD, Hep C+ admitted for intractable abdominal pain and colitis. Patient has had ongoing diarrhea x 7 days. Plan: Left lower quadrant abdominal pain -probably secondary to colitis - Afebrile, WBC 1.9 --> 2.0-->2.4 - d/c Morphine 2 mg IV Q4 prn - Zofran tablet 4 mg IV Q6 PRN - Acetaminophen 650mg PO Q4 - cont. Ciprofloxacin 400 mg IV Q12 and Flagyl 500 mg IV Q8 - blood cultures negative x 2 after 48 hours - MRCP: stable extrahepatic biliary dilatation and pancreatic duct dilatation. No evidence of pancreatic mass. - GI consult;recs appreciated - GI consult with Dr. Chavez placed for second opinion; colonoscopy with biopsy 05/16: recommends outpatient follow up. No acute problems on colonosocpy. - Gallbladder and common duct US ordered; dilatation of CBD to 10 mm diameter. No intrahepatic biliary ductal dilatation - CT of abdomen with contrast; dilatation of the CBD and pancreatic duct of uncertain etiology. No associated intrahepatic biliary dilatation. - c-diff, and WBC stool negative - urine analysis- normal results. COPD -continue with home medications -no exacerbation HIV -continue home medications : tivicay/odefsey -HIV Viral load undetectable/CD4 177 in Mar 2018 as per [facility] HTN -continue Losartan HCTZ 50-12.5mg -monitor BP ( 103/64) Mass of left lung -1.5 cm left apical mass suspicious for pulmonary neoplasm, went to IR for percutaneous bx of 02/21/18 suspicious but inconclusive for malignancy interpretation. The results display a small focus of atypical glands. Patient had second IR CT guided left upper lobe lung nodule biopsy on 04/01/18 minute focus of atypical glands is seen.the amount of material is not enough for further histologic evaluation. -Patient to follow up as outpatient with Leif Hull for evaluation. 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 Hyperlipidemia -Pravastatin 10 mg PO QD Depression/Anxiety -as per ecw -mirtazapine 45 qhs, clonazepam 0.5mg po am, qhs prn DVT prophylaxis -not recommended secondary to low platelet count DIET - diabetic diet. Patient will continue with lactose free diet afterwards. Code status: full code Discharge recs - Discharge with ciprofloxacin PO until May 19. - Patient to follow up with Dr. Mendez for lung mass. - Patient to follow up with Dr. Hull for outpatient evaluation and another lung biopsy.
[2018-05-16] MEDS ORDERED: Propofol 10 mg/ml Inj (20 ML) ONE (11:57)
[2018-05-16] MEDS: Pantoprazole 40 mg EC Tab PO SCH (12:58)
[2018-05-16] MEDS: DOLUTEGRAVIR 50 MG PO SCH (21:34)
[2018-05-16] MEDS: [UNRECOGNIZED DRUG - OTHER] PO SCH (21:34)
[2018-05-17] MEDS: Piperacillin/Tazobact 4.5 GM in Sodium Chloride 0.9% 100 ML IVPB SCH ×3 (00:17→17:10)
[2018-05-17] MEDS: Pantoprazole 40 mg EC Tab PO SCH (09:18)
[2018-05-17] MEDS: Lactated Ringer's 1,000 ML IV SCH (09:28)
[2018-05-17] MEDS: Fluticasone-Salmeterol 250-50mcg Diskus IH SCH (09:32)
--- NOTE | 2018-05-17 11:02 | CP.PCM.PN ---
Subjective - Date & Time of Evaluation Date of Evaluation: 05/17/18 Time of Evaluation: 10:58 - Subjective Subjective: Patient seen and examined at bedside. Continues to complain of abdominal pain 10/10 in severity and nausea. Denies vomiting today. Admits to ongoing nonbloody diarrhea after colonoscopy. Patient states she had rice and turkey yesterday. She also c/o of dull headache Denies visual changes, numbness, tingling. Objective - Vital Signs/Intake and Output Vital Signs (last 24 hours): Temp Pulse Resp BP Pulse Ox 97.8 F 56 L 18 139/77 99 05/17/18 08:50 05/17/18 08:50 05/17/18 08:50 05/17/18 08:50 05/17/18 08:50 - Medications Medications: Current Medications Acetaminophen (Tylenol 325mg Tab) 650 mg PO Q4 PRN PRN Reason: Headache Last Admin: 05/15/18 04:12 Dose: 650 mg Cholestyramine Resin (Questran) 4 gm PO BID [facility] Clonazepam (Klonopin) 1 mg PO DAILY [facility] Last Admin: 05/17/18 09:24 Dose: 1 mg Folic Acid (Folic Acid) 1 mg PO DAILY [facility] Last Admin: 05/17/18 09:18 Dose: 1 mg Home Med (Emtricitab/Rilpiviri/Tenof Ala [Odefsey Tablet]) 1 tab PO HS [facility] Last Admin: 05/16/18 21:34 Dose: 1 tab Home Med (Patient's Own Medication) 1 unit PO HS [facility]; Protocol Last Admin: 05/16/18 21:34 Dose: 1 unit Piperacillin Sod/Tazobactam (Sod 4.5 gm/ Sodium Chloride) 100 mls @ 100 mls/hr IVPB Q8 [facility]; Protocol Last Admin: 05/17/18 09:19 Dose: 100 mls/hr Lactated Ringer's (Lactated Ringer's) 1,000 mls @ 60 mls/hr IV .[id number] [facility] Last Admin: 05/17/18 09:28 Dose: Not Given Losartan Potassium (Cozaar) 50 mg PO DAILY [facility] Last Admin: 05/17/18 09:17 Dose: 50 mg Meclizine HCl (Antivert) 12.5 mg PO Q12 PRN PRN Reason: Dizziness Last Admin: 05/11/18 09:17 Dose: 12.5 mg Methadone HCl (Methadone) 110 mg PO DAILY@0600 [facility] Last Admin: 05/17/18 05:23 Dose: 110 mg Mirtazapine (Remeron) 45 mg PO HS [facility] Last Admin: 05/16/18 21:34 Dose: 45 mg Ondansetron HCl (Zofran Inj) 4 mg IVP Q6 PRN PRN Reason: Nausea/Vomiting Last Admin: 05/17/18 07:49 Dose: 4 mg Pantoprazole Sodium (Protonix Ec Tab) 40 mg PO DAILY [facility] Last Admin: 05/17/18 09:18 Dose: 40 mg Fluticasone/Salmeterol (Advair Diskus 250/50) 1 puff IH Q12 [facility] Last Admin: 05/17/18 09:32 Dose: 1 puff Sucralfate (Carafate Tab) 1 gm PO BID [facility] Thiamine HCl (Vitamin B1 Tab) 100 mg PO DAILY [facility] Last Admin: 05/17/18 09:19 Dose: 100 mg - Labs Labs: 05/14/18 05:35 05/14/18 05:35 - Constitutional Appears: Well, Non-toxic - Head Exam Head Exam: ATRAUMATIC, NORMOCEPHALIC - Eye Exam Eye Exam: EOMI, Normal appearance, PERRL Pupil Exam: NORMAL ACCOMODATION - ENT Exam ENT Exam: Mucous Membranes Moist - GI/Abdominal Exam GI & Abdominal Exam: Normal Bowel Sounds - Neurological Exam Neurological Exam: Alert, Awake Assessment and Plan - Assessment and Plan (Free Text) Assessment: 67 year old female with PMH of HIV, COPD, anxiety/depression, HTN, HLD, Hep C+ admitted for intractable abdominal pain and colitis. Patient has had ongoing diarrhea x [address] of the abdomen which showed dilitation of CBD and pancreatic duct of uncertain etiology. No associated intrahepatic biliary d ilatation. Patient had chronic headache, and CT of the head was within normal limits. GI recommended colonoscopy, which showed nonbleeding internal hemorrhoids. Patient still has ongoing diarrhea. Patient was rx cholestyramine 1 pack 2 x a day and imodium. Patient was placed on lactose free diet. Plan: Left lower quadrant abdominal pain -probably secondary to colitis - Afebrile, WBC 1.9 --> 2.0-->2.4 - d/c Morphine 2 mg IV Q4 prn - Zofran tablet 4 mg IV Q6 PRN - Acetaminophen 650mg PO Q4 - cont. Ciprofloxacin 400 mg IV Q12 and Flagyl 500 mg IV Q8 and zosyn 4.5 IV - blood cultures negative x 2 after 48 hours - MRCP: stable extrahepatic biliary dilatation and pancreatic duct dilatation. No evidence of pancreatic mass. - GI consult;recs appreciated - GI consult with Dr. Chavez placed for second opinion; colonoscopy with biopsy 05/16: recommends outpatient follow up. No acute problems on colonoscopy. - Gallbladder and common duct US ordered; dilatation of CBD to 10 mm diameter. No intrahepatic biliary ductal dilatation - CT of abdomen with contrast; dilatation of the CBD and pancreatic duct of uncertain etiology. No associated intrahepatic biliary dilatation. - c-diff, and WBC stool negative - urine analysis- normal results. COPD -continue with home medications -no exacerbation HIV -continue home medications : tivicay/odefsey -HIV Viral load undetectable/CD4 177 in Mar 2018 as per [facility] HTN -continue Losartan HCTZ 50-12.5mg -monitor BP ( 103/64) Mass of left lung -1.5 cm left apical mass suspicious for pulmonary neoplasm, went to IR for percutaneous bx of 02/21/18 suspicious but inconclusive for malignancy int erpretation. The results display a small focus of atypical glands. Patient had second IR CT guided left upper lobe lung nodule biopsy on 04/01/18 minute focus of atypical glands is seen.the amount of material is not enough for further histologic evaluation. -Patient to follow up as outpatient with Leif Hull for evaluation. 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 Hyperlipidemia -Pravastatin 10 mg PO QD Depression/Anxiety -as per [facility] -mirtazapine 45 qhs, clonazepam 0.5mg po am, qhs prn DVT prophylaxis -not recommended secondary to low platelet count DIET - diabetic diet. Patient will continue with lactose free diet afterwards. Code status: full code Discharge recs - Discharge with ciprofloxacin PO until May 19. - Patient to follow up with Dr. Mendez for lung mass. - Patient to follow up with Dr. Hull for outpatient evaluation and another lung biopsy.
[2018-05-17] MEDS: Cholestyramine 4 gm/Pkt UD PO SCH ×2 (11:16→17:12)
--- NOTE | 2018-05-17 16:23 | CP.PCM.DIS ---
Provider - Provider Date of Admission: 05/11/18 12:48 Attending physician: Domenico Aguilar MD Consults: 05/09/18 14:40 Gastroenterology Consult Stat Comment: Consulting Provider: Robel Leon Consulting Physician: Robel Leon Reason for Consult: abd pain, dilated cbd 05/12/18 11:15 Infectious Disease Consult Routine Comment: Consulting Provider: Al Casiano Consulting Physician: Al Casiano Reason for Consult: HIV with colitis 05/14/18 11:58 Gastroenterology Consult Routine Comment: continous diarrhea, abd pain dilated cbd. Consulting Provider: Jesus Chavez Consulting Physician: Jesus Chavez Reason for Consult: continous diarrhea, abd pain dilated cbd. Time Spent in preparation of Discharge (in minutes): 30 Hospital Course - Lab Results Lab Results: Micro Results 05/09/18 12:30 Blood-Venous Blood Culture - Final NO GROWTH AFTER 5 DAYS 05/09/18 12:30 Blood-Venous Gram Stain - Final TEST NOT PERFORMED 05/09/18 15:15 Blood-Venous Blood Culture - Final NO GROWTH AFTER 5 DAYS 05/09/18 15:15 Blood-Venous Gram Stain - Final TEST NOT PERFORMED 05/12/18 17:00 Stool Ova and Parasite Concentrate Exam - Final 05/10/18 16:28 Stool Stool Culture - Final NO SALMONELLA, SHIGELLA OR CAMPYLOBACTER ISOLATED. Most Recent Lab Values WBC 2.0 K/uL (4.8-10.8) L* 05/14/18 05:35 RBC 3.88 Mil/uL (3.80-5.20) 05/14/18 05:35 Hgb 13.8 g/dL (12.0-16.0) 05/14/18 05:35 Hct 40.7 % (34.0-47.0) 05/14/18 05:35 MCV 104.8 fl (81.0-99.0) H D 05/14/18 05:35 MCH 35.5 pg (27.0-31.0) H 05/14/18 05:35 MCHC 33.9 g/dL (33.0-37.0) 05/14/18 05:35 RDW 13.1 % (11.5-14.5) 05/14/18 05:35 Plt Count 79 K/uL (130-400) L 05/14/18 05:35 MPV 10.0 fl (7.2-11.7) 05/14/18 05:35 Neut % (Auto) 49.5 % (50.0-75.0) L 05/14/18 05:35 Lymph % (Auto) 27.4 % (20.0-40.0) 05/14/18 05:35 [place] % (Auto) 17.6 % (0.0-10.0) H 05/14/18 05:35 Eos % (Auto) 5.1 % (0.0-4.0) H 05/14/18 05:35 Baso % (Auto) 0.4 % (0.0-2.0) 05/14/18 05:35 Neut # (Auto) 1.0 K/uL (1.8-7.0) L 05/14/18 05:35 Lymph # (Auto) 0.5 K/uL (1.0-4.3) L 05/14/18 05:35 [place] # (Auto) 0.3 K/uL (0.0-0.8) 05/14/18 05:35 Eos # (Auto) 0.1 K/uL (0.0-0.7) 05/14/18 05:35 Baso # (Auto) 0.0 K/uL (0.0-0.2) 05/14/18 05:35 Sodium 140 mmol/l (132-148) 05/14/18 05:35 Potassium 3.6 MMOL/L (3.6-5.0) 05/14/18 05:35 Chloride 105 mmol/L (98-107) 05/14/18 05:35 Carbon Dioxide 30 mmol/L (22-30) 05/14/18 05:35 Anion Gap 9 (10-20) L 05/14/18 05:35 BUN 10 mg/dl (7-17) 05/14/18 05:35 Creatinine 0.9 mg/dl (0.7-1.2) 05/14/18 05:35 Est GFR ( Amer) > 60 05/14/18 05:35 Est GFR (Non-Af Amer) > 60 05/14/18 05:35 POC Glucose (mg/dL) 110 mg/dL (65-110) 05/17/18 11:13 Random Glucose 109 mg/dL (65-105) H 05/14/18 05:35 Calcium 9.0 mg/dL (8.4-10.2) 05/14/18 05:35 Total Bilirubin 0.5 mg/dl (0.2-1.3) 05/09/18 08:20 AST 51 U/L (14-36) H 05/09/18 08:20 ALT 41 U/L (9-52) 05/09/18 08:20 Alkaline Phosphatase 68 U/L (38-126) 05/09/18 08:20 Total Protein 8.2 G/DL (6.3-8.2) 05/09/18 08:20 Albumin 4.0 g/dL (3.5-5.0) 05/09/18 08:20 Globulin 4.2 gm/dL (2.2-3.9) H 05/09/18 08:20 Albumin/Globulin Ratio 1.0 (1.0-2.1) 05/09/18 08:20 Lipase 101 U/L (23-300) 05/09/18 14:55 Urine Color Straw (YELLOW) 05/13/18 03:45 Urine Clarity Clear (Clear) 05/13/18 03:45 Urine pH 7.0 (5.0-8.0) 05/13/18 03:45 Ur Specific [place] < 1.005 (1.003-1.030) 05/13/18 03:45 Urine Protein Negative mg/dL (NEGATIVE) 05/13/18 03:45 Urine Glucose (UA) Neg mg/dL (NEGATIVE) 05/13/18 03:45 Urine Ketones Negative mg/dL (NEGATIVE) 05/13/18 03:45 Urine Blood Negative (NEGATIVE) 05/13/18 03:45 Urine Nitrate Negative (NEGATIVE) 05/13/18 03:45 Urine Bilirubin Negative (NEGATIVE) 05/13/18 03:45 Urine Urobilinogen 0.2-1.0 mg/dL (0.2-1.0) 05/13/18 03:45 Ur Leukocyte Esterase Neg [place]/uL (Negative) 05/13/18 03:45 Urine RBC (Auto) 1 /hpf (0-3) 05/13/18 03:45 Urine Microscopic WBC 1 /hpf (0-5) 05/13/18 03:45 Ur Squamous Epith Cells < 1 /hpf (0-5) 05/13/18 03:45 Stool Leukocytes, Qual Negative (NEGATIVE) 05/11/18 13:00 Absolute Lymphs (Flow) 604 Cells/mcL (850-3900) L 05/11/18 05:30 % CD4 Cells 22 Percent (30-61) L 05/11/18 05:30 Absolute CD4 Count 136 Cells/mcL (490-1740) L 05/11/18 05:30 T-Help/Suppress Ratio 0.59 Ratio (0.86-5.00) L 05/11/18 05:30 % CD8 Cells 38 Percent (12-42) 05/11/18 05:30 Absolute CD8 Count 229 Cells/mcL (180-1170) 05/11/18 05:30 T-Lymph Analys Comment See note 05/11/18 05:30 C. difficile Ag & Toxin Negative (NEGATIVE) 05/11/18 13:00 - Hospital Course Hospital Course: 67 year old female with PMH of HIV, COPD, anxiety/depression, HTN, HLD, Hep C+ admitted for intractable abdominal pain and colitis. Patient has had ongoing diarrhea x [address] of the abdomen which showed dilitation of CBD and pancreatic duct of uncertain etiology. No associated intrahepatic biliary dilatation. Patient had chronic headache, and CT of the head was within normal limits. GI recommended colonoscopy, which showed nonbleeding internal hemorrhoids. Patient still has ongoing diarrhea. Patient was rx cholestyramine 1 pack 2 x a day and imodium. Patient was placed on lactose free diet. Plan: Left lower quadrant abdominal pain -probably secondary to colitis - Afebrile, WBC 1.9 --> 2.0-->2.4 - s/p Morphine 2 mg IV Q4 prn - Zofran tablet 4 mg IV Q6 PRN - Acetaminophen 650mg PO Q4 - Ciprofloxacin 400 mg IV Q12 and Flagyl 500 mg IV Q8 and zosyn 4.5 IV - blood cultures negative x 2 after 5 days - MRCP: stable extrahepatic biliary dilatation and pancreatic duct dilatation. No evidence of pancreatic mass. - GI consult;recs appreciated - GI consult with Dr. Chavez placed for second opinion; colonoscopy with biopsy 05/16: recommends outpatient follow up. No acute problems on colonoscopy. - Gallbladder and common duct US ordered; dilatation of CBD to 10 mm diameter. No intrahepatic biliary ductal dilatation - CT of abdomen with contrast; dilatation of the CBD and pancreatic duct of uncertain etiology. No associated intrahepatic biliary dilatation. - c-diff, and WBC stool negative - urine analysis- normal results. COPD -continue with home medications -no exacerbation HIV -continue home medications : tivicay/odefsey -HIV Viral load undetectable/CD4 177 in Mar 2018 as per [facility] HTN -continue Losartan HCTZ 50-12.5mg -monitor BP (103/64) Mass of left lung -1.5 cm left apical mass suspicious for pulmonary neoplasm, went to IR for percutaneous bx of 02/21/18 suspicious but inconclusive for malignancy interpretation. The results display a small focus of atypical glands. Patient had second IR CT guided left upper lobe lung nodule biopsy on 04/01/18 minute fo cus of atypical glands is seen.the amount of material is not enough for further histologic evaluation. -Patient to follow up as outpatient with Leif Hull for evaluation. 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 Hyperlipidemia -Pravastatin 10 mg PO QD Depression/Anxiety -as per ecw -mirtazapine 45 qhs, clonazepam 0.5mg po am, qhs prn Discharge recs - Discharge with ciprofloxacin PO until May 19. - Patient to follow up with Dr. Mendez for lung mass. - Patient to follow up with Dr. Hull for outpatient evaluation and another lung biopsy. Discharge Exam - Head Exam Head Exam: ATRAUMATIC, NORMOCEPHALIC - Eye Exam Eye Exam: EOMI - ENT Exam ENT Exam: Mucous Membranes Moist - Respiratory Exam Respiratory Exam: Clear to PA & Lateral, NORMAL BREATHING PATTERN. absent: Wheezes - Cardiovascular Exam Cardiovascular Exam: +S1, +S2 - GI/Abdominal Exam GI & Abdominal Exam: Normal Bowel Sounds, Soft. absent: Tenderness - Neurological Exam Neurological exam: Alert, CN II-XII Intact - Psychiatric Exam Psychiatric exam: Normal Affect, Normal Mood Discharge Plan - Discharge Medications Prescriptions: Cholestyramine [Questran] 4 gm PO BID #10 packet Losartan [Cozaar] 50 mg PO DAILY #30 tab Sucralfate [Carafate Tab] 1 gm PO BID #30 tab - Follow Up Plan Condition: STABLE Disposition: HOME/ ROUTINE Instructions: Diarrhea in Adolescents and Adults, Colonoscopy (DC), Acute Abd omen (Belly Pain), Adult (DC) Additional Instructions: follow up with dr julian and dr hull. Referrals: Robel Leon MD, PhD [Staff Provider] - Wander Stauffer MD [Family Provider] - Jesus Chavez MD [Staff Provider] -
[2018-05-17] MEDS ORDERED: metroNIDAZOLE 500mg/100ml NS 100 ML IVPB SCH (17:00)
[2018-05-17 17:19] VITALS: BP 161/95; PULSE 86; RESP 20; TEMP 98.4; O2SAT 94
[2018-05-17] MEDS ORDERED: Ciprofloxacin 400mg/200ml D5W 400 MG/200 ML BAG IVPB SCH (21:00)
== END 2018-05-17 20:37 | disposition home health service (06) | DRG 392 ==
LOC: H.ER 07:03 → H.ERHOLD 14:43 → H.MEDSURG1 21:39 → OBSVTOIN 05-11 12:48
PROC: 0DBM8ZX Excision of Descending Colon, Via Natural or Artificial Opening Endoscopic, Diagnostic (ICD-10-PCS; principal; 2018-05-16 14:45)
DX: K52.9 Noninfective gastroenteritis and colitis, unspecified (principal); K83.8 Other specified diseases of biliary tract; K86.89 Other specified diseases of pancreas; Z21 Asymptomatic human immunodeficiency virus [HIV] infection status; K64.8 Other hemorrhoids; E11.42 Type 2 diabetes mellitus with diabetic polyneuropathy; I10 Essential (primary) hypertension; J44.9 Chronic obstructive pulmonary disease, unspecified; R91.8 Other nonspecific abnormal finding of lung field; E78.5 Hyperlipidemia, unspecified; E78.00 Pure hypercholesterolemia, unspecified; K29.70 Gastritis, unspecified, without bleeding; B19.20 Unspecified viral hepatitis C without hepatic coma; F41.9 Anxiety disorder, unspecified; M19.90 Unspecified osteoarthritis, unspecified site; F32.9 Major depressive disorder, single episode, unspecified; F17.200 Nicotine dependence, unspecified, uncomplicated; Z87.442 Personal history of urinary calculi; Z88.6 Allergy status to analgesic agent

== ENCOUNTER 2018-06-08 08:18 | Emergency (ER) | payer MEDICARE, MEDICAID ==
[2018-06-08 08:20] VITALS: BMI 25.5
--- NOTE | 2018-06-08 09:18 | ED PDOC ---
HPI: Female Pain Time Seen by Provider: 06/08/18 08:34 Chief Complaint (Nursing): Female Genitourinary Chief Complaint (Provider): Lower back pain and dysuria History Per: Patient History/Exam Limitations: no limitations Onset/Duration Of Symptoms: Days (x5) Current Symptoms Are (Timing): Still Present Associated Symptoms: Chills. denies: Fever, Vomiting, Diarrhea Additional Complaint(s): 67 year old female presents to the ED with lower back pain, lower abdominal pain, and urinary problem for 5 days. Patient reports pain is constant and worsening. She states pain is worse when she urinates and lower back pain does not radiate. She reports having chills yesterday but did not check for a fever. Denies vomiting, diarrhea, or hematuria. She states she had a history of kidney stones but denies history of a UTI. PMD: Ana Winter Past Medical History Reviewed: Historical Data, Nursing Documentation, Vital Signs Vital Signs: Last Vital Signs Temp 98.7 F 06/08/18 08:21 Pulse 88 06/08/18 08:21 Resp 17 06/08/18 08:21 BP 125/74 06/08/18 08:21 Pulse Ox 96 06/08/18 08:21 - Medical History PMH: Anxiety, Arthritis, Asthma, Bronchitis, COPD, Depression, Diabetes, Gas tritis, HIV, HTN, Hypercholesterolemia, Kidney Stones, Pneumonia, Sleep Apnea Denies: Anemia, Atrial Fibrillation, Bipolar Disorder, Emphysema, Hepatitis, Hyperthyroidism, Pancreatitis, Chronic Kidney Disease, Schizophrenia, Seizures, Sexually Transmitted Disease - Surgical History Surgical History: No Surg Hx - Family History Family History: States: Unknown Family Hx, Hypertension - Social History Drugs: Opiates - Immunization History Hx Tetanus Toxoid Vaccination: No Hx Influenza Vaccination: Yes Hx Pneumococcal Vaccination: Yes - Home Medications Home Medications: Ambulatory Orders Medication Instructions Recorded Dolutegravir Sodium [Tivicay] 50 mg PO HS 06/21/17 Methadone 110 mg PO DAILY@0600 06/21/17 Mirtazapine [Remeron] 45 mg PO HS 06/21/17 Ondansetron [Zofran Tab] 4 mg PO BID PRN 06/21/17 Emtricitab/Rilpiviri/Tenof Ala 1 tab PO HS 11/02/17 [Odefsey Tablet] Fluticasone/Salmeterol [Advair 1 puff IH Q12 11/02/17 250-50 Diskus] Losartan/Hydrochlorothiazide 1 tab PO DAILY 11/02/17 [Losartan-Hctz 50-12.5 mg Tab] Meclizine [Antivert] 12.5 mg PO Q12 PRN 11/02/17 clonazePAM [Klonopin] 1 mg PO DAILY 11/02/17 Pravastatin Sodium [Pravachol] 10 mg PO HS 11/16/17 Cholecalciferol [Vitamin D 1000 IU] 1,000 unit PO DAILY 05/09/18 Docusate [Colace] 100 mg PO DAILY PRN 05/09/18 Cholestyramine [Questran] 4 gm PO BID #10 packet 05/17/18 Losartan [Cozaar] 50 mg PO DAILY #30 tab 05/17/18 Sucralfate [Carafate Tab] 1 gm PO BID #30 tab 05/17/18 - Allergies Allergies/Adverse Reactions: Allergies Allergy/AdvReac Type Severity Reaction Status Date / Time aspirin Allergy GI UPSET Verified 04/01/18 09:51 cobicistat [From Genvoya] Allergy NAUSEA Verified 04/01/18 09:51 efavirenz [From Atripla] Allergy DEPRESSION Verified 04/01/18 09:51 elvitegravir [From Genvoya] Allergy NAUSEA Verified 04/01/18 09:51 emtricitabine [From Atripla] Allergy DEPRESSION Verified 04/01/18 09:51 metformin Allergy NAUSEA Verified 04/01/18 09:51 tenofovir [From Atripla] Allergy DEPRESSION Verified 04/01/18 09:51 Review of Systems ROS Statement: Except As Marked, All Systems Reviewed And Found Negative Constitutional: Positive for: Chills. Negative for: Fever Gastrointestinal: Positive for: Abdominal Pain (lower abdominal pain). Negative for: Vomiting, Diarrhea Genitourinary Female: Positive for: Dysuria. Negative for: Hematuria Musculoskeletal: Positive for: Back Pain (lower back pain) Physical Exam - Reviewed Nursing Documentation Reviewed: Yes Vital Signs Reviewed: Yes - Physical Exam Appears: Positive for: No Acute Distress Head Exam: Positive for: ATRAUMATIC, NORMAL INSPECTION, NORMOCEPHALIC Skin: Positive for: Normal Color, Warm, Dry Eye Exam: Positive for: Normal appearance, EOMI ENT: Positive for: Normal ENT Inspection Neck: Positive for: Normal, Painless ROM Cardiovascular/Chest: Positive for: Regular Rate, Rhythm Respiratory: Positive for: Normal Breath Sounds. Negative for: Wheezing, Respiratory Distress Gastrointestinal/Abdominal: Positive for: Tenderness (suprapubic tenderness) Back: Positive for: Other (lower back point tenderness at the midline). Negative for: L CVA Tenderness, R CVA Tenderness Extremity: Positive for: Normal ROM Neurologic/Psych: Positive for: Alert, Oriented. Negative for: Motor/Sensory Deficits - Laboratory Results Result Diagrams: 06/08/18 09:30 06/08/18 09:30 - ECG O2 Sat by Pulse Oximetry: 96 (RA) Pulse Ox Interpretation: Normal - Progress Re-evaluation Time: 13:19 Condition: Re-examined, Improved Medical Decision Making Medical Decision Making: Initial Impression: Abdominal pain, back pain, dysuria Differential includes UTI, kidney stones, atypical acute appendicitis; back: musculoskeletal pain Initial Plan: --CT abd/pelvis --BMP --ED urine dipstick --CBC --Toradol 15mg IV --Urinalysis 12:10 CT abd/pelvis FINDINGS: LOWER THORAX: Unremarkable. LIVER: Unremarkable. No gross lesion or ductal dilatation. GALLBLADDER AND BILE DUCTS: No gallstones. Stable extrahepatic biliary dilatation as well as pancreatic duct dilatation in the head. PANCREAS: Unremarkable. No gross lesion. SPLEEN: Unremarkable. ADRENALS: Unremarkable. No mass. KIDNEYS AND URETERS: Unremarkable. No hydronephrosis. No solid mass. VASCULATURE: Unremarkable. No aortic aneurysm. No aortic atherosclerotic calcification or mural plaque present. BOWEL: Unremarkable. No obstruction. No gross mural thickening. APPENDIX: Normal appendix. PERITONEUM: Unremarkable. No free fluid. No free air. LYMPH NODES: Unremarkable. No enlarged lymph nodes. BLADDER: Unremarkable. REPRODUCTIVE: Unremarkable. BONES: No acute fracture. OTHER FINDINGS: None. IMPRESSION: No gallstones. Stable extrahepatic biliary dilatation as well as pancreatic duct dilatation in the head. No gross evidence of pancreatic mass. No significant change from prior exam. Scribe Attestation: Documented by Igor Hauser acting as a scribe for Susan Yeager MD. Provider Scribe Attestation: All medical record entries made by the Scribe were at my direction and personally dictated by me. I have reviewed the chart and agree that the record accurately reflects my personal performance of the history, physical exam, m edical decision making, and the department course for this patient. I have also personally directed, reviewed, and agree with the discharge instructions and disposition. Disposition - Clinical Impression Clinical Impression: Genitourinary Pain, Dysuria - Patient ED Disposition Is Patient to be Admitted: No Doctor Will See Patient In The: Office Counseled Patient/Family Regarding: Studies Performed, Diagnosis, Need For Followup - Disposition Referrals: Ana Kingsley MD [Family Provider] - Disposition: Routine/Home Disposition Time: 13:21 Condition: GOOD Additional Instructions: JASVIR ANGELES, thank you for letting us take care of you today. Your provider was Susan Yeager MD and you were treated for LOWER BACK PAIN/ABD PAIN. The emergency medical care you received today was directed at your acute symptoms. If you were prescribed any medication, please fill it and take as directed. It may take several days for your symptoms to resolve. Return to the Emergency Department if your symptoms worsen, do not improve, or if you have any other problems. Please contact your doctor or call one of the physicians/clinics you have been referred to that are listed on the Patient Visit Information form that is included in your discharge packet. Bring any paperwork you were given at [facility] with you along with any medications you are taking to your follow up visit. Our treatment cannot replace ongoing medical care by a primary care provider outside of the emergency department. [facility] care today. If you had an X-Ray or CT scan: A Radiologist will review the ED reading if any change in treatment is needed we will contact you. If you had a blood, urine, or wound culture: It will take several days for the results, if any change in treatment is needed we will contact you. If you had an STI test: It will take 48 hours for the results. Please call after 1 week if you have not heard back. Instructions: Dysuria, Adult (DC)
[2018-06-08 10:21] LABS: SQUAMOUS EPITHIAL 1 /hpf (0-5)
[2018-06-08 10:25] LABS: BASO % 0.5 % (0.0-2.0); EOS % 0.6 % (0.0-4.0); HEMOGLOBIN 13.2 g/dL (12.0-16.0); LYMPH # 0.4 K/uL (1.0-4.3); MEAN CELL VOLUME 104.4 fl (81.0-99.0); MEAN CORPUSCULAR HEMOGLOBIN 35.3 pg (27.0-31.0); MEAN CORPUSCULAR HGB CONC 33.8 g/dL (33.0-37.0); MEAN PLATELET VOLUME 9.8 fl (7.2-11.7); MONO # 0.4 K/uL (0.0-0.8); MONO % 17.7 % (0.0-10.0); NEUT # 1.5 K/uL (1.8-7.0); NEUT % 63.2 % (50.0-75.0); NRBC % 0.1 % (0.0-0.0); RBC 3.74 Mil/uL (3.80-5.20); RED CELL DISTRIBUTION WIDTH 12.5 % (11.5-14.5); WHITE BLOOD COUNT 2.4 K/uL (4.8-10.8)
[2018-06-08 10:39] LABS: BLOOD UREA NITROGEN 24 mg/dl (7-17); CALCIUM 8.7 mg/dL (8.4-10.2); GFR NON-AFRICAN AMERICAN > 60
[2018-06-08 10:43] LABS: URINE CLARITY Clear (Clear); URINE COLOR YELLOW (YELLOW)
[2018-06-08 10:44] LABS: URINE BILIRUBIN NEGATIVE (NEGATIVE); URINE BLOOD NEGATIVE (NEGATIVE); URINE GLUCOSE (UA) NEGATIVE (NEGATIVE); URINE LEUKOCYTE ESTERASE NEGATIVE Leu/uL (Negative); URINE PROTEIN 30 mg/dL (NEGATIVE); URINE UROBILINOGEN 0.2 mg/dL (0.2-1.0)
[2018-06-08] MEDS ORDERED: Sodium Chloride 0.9% 50 ML IV ONE (11:15)
[2018-06-08] MEDS ORDERED: Iohexol 300 100 ML IJ ONE (11:15)
[2018-06-08 12:08] VITALS: RESP 18
--- NOTE | 2018-06-08 12:14 | CT ---
Date of service: 06/08/2018 PROCEDURE: CT Abdomen and Pelvis with contrast HISTORY: lower abdominal pain dysuria COMPARISON: 05/09/2018 TECHNIQUE: Contrast dose: Radiation dose: Total exam DLP = 515.75 mGy-cm. This CT exam was performed using one or more of the following dose reduction techniques: Automated exposure control, adjustment of the mA and/or kV according to patient size, and/or use of iterative reconstruction technique. FINDINGS: LOWER THORAX: Unremarkable. LIVER: Unremarkable. No gross lesion or ductal dilatation. GALLBLADDER AND BILE DUCTS: No gallstones. Stable extrahepatic biliary dilatation as well as pancreatic duct dilatation in the head. PANCREAS: Unremarkable. No gross lesion. SPLEEN: Unremarkable. ADRENALS: Unremarkable. No mass. KIDNEYS AND URETERS: Unremarkable. No hydronephrosis. No solid mass. VASCULATURE: Unremarkable. No aortic aneurysm. No aortic atherosclerotic calcification or mural plaque present. BOWEL: Unremarkable. No obstruction. No gross mural thickening. APPENDIX: Normal appendix. PERITONEUM: Unremarkable. No free fluid. No free air. LYMPH NODES: Unremarkable. No enlarged lymph nodes. BLADDER: Unremarkable. REPRODUCTIVE: Unremarkable. BONES: No acute fracture. OTHER FINDINGS: None. IMPRESSION: No gallstones. Stable extrahepatic biliary dilatation as well as pancreatic duct dilatation in the head. No gross evidence of pancreatic mass. No significant change from prior exam.
[2018-06-08 13:49] VITALS: BP 122/71; PULSE 64; TEMP 98.1; O2SAT 95
== END 2018-06-08 13:45 | disposition home or self-care (01) ==
LOC: H.ER 08:18
DX: R30.0 Dysuria (principal); E11.9 Type 2 diabetes mellitus without complications; E78.00 Pure hypercholesterolemia, unspecified; I10 Essential (primary) hypertension; F41.9 Anxiety disorder, unspecified; R10.9 Unspecified abdominal pain
CPT/HCPCS: 74177; 80048; 81003; 85025; 87086; 96374; 99284; J1885; Q9967

== ENCOUNTER 2018-06-12 07:00 | Inpatient (IN) | payer MEDICARE, MEDICAID ==
[2018-06-12 07:00] VITALS: BMI 25.5
[2018-06-12] MEDS ORDERED: Albuterol-Ipratrop 3 mg / 0.5 (3 ml) UD INH STA ×2 (07:21→10:28)
[2018-06-12 08:13] LABS: BASO % 0.4 % (0.0-2.0); EOS % 0.5 % (0.0-4.0); HEMOGLOBIN 12.5 g/dL (12.0-16.0); LYMPH # 0.2 K/uL (1.0-4.3); LYMPH % 10.1 % (20.0-40.0); MEAN CELL VOLUME 105.4 fl (81.0-99.0); MEAN CORPUSCULAR HEMOGLOBIN 35.1 pg (27.0-31.0); MEAN CORPUSCULAR HGB CONC 33.3 g/dL (33.0-37.0); MONO # 0.3 K/uL (0.0-0.8); MONO % 11.9 % (0.0-10.0); NEUT # 1.9 K/uL (1.8-7.0); NEUT % 77.1 % (50.0-75.0); NRBC % 0.2 % (0.0-0.0); RBC 3.57 Mil/uL (3.80-5.20); RED CELL DISTRIBUTION WIDTH 12.6 % (11.5-14.5); WHITE BLOOD COUNT 2.4 K/uL (4.8-10.8)
--- NOTE | 2018-06-12 08:14 | RAD ---
Date of service: 06/12/2018 HISTORY: cough COMPARISON: 04/01/2018 TECHNIQUE: Chest PA and lateral FINDINGS: LUNGS: No active pulmonary disease. The prior CT depicted mass which was apparently biopsied is difficult to perceive on this exam. Correlate clinically with those results PLEURA: No significant pleural effusion identified. No pneumothorax apparent. CARDIOVASCULAR: There is presence of aortic atherosclerotic calcification on x-ray. Tortuosity of the thoracic aorta-similar Mild cardiomegaly probable No significant appearing pulmonary venous congestion. OSSEOUS STRUCTURES: Generalized osteopenia. VISUALIZED UPPER ABDOMEN: Normal. OTHER FINDINGS: Small air density over medial heart-concomitant hernia here is a consideration. A distended distal esophagus with air is another. Correlate clinically IMPRESSION: No interval infiltrate appreciated. Other findings as above.
[2018-06-12] MEDS ORDERED: Albuterol-Ipratrop 3 mg / 0.5 (3 ml) UD ONE ×3 (08:19→14:33)
[2018-06-12 08:39] LABS: INR 1.1; PROTHROMBIN TIME 12.3 Seconds (9.8-13.1)
[2018-06-12 08:42] LABS: PARTIAL THROMBOPLASTIN TIME 30.1 Seconds (25.6-37.1)
[2018-06-12 08:46] LABS: ALB/GLOB RATIO 1.1 (1.0-2.1); ALBUMIN 4.3 g/dL (3.5-5.0); ALT/SGPT 22 U/L (9-52); AST/SGOT 44 U/L (14-36); BLOOD UREA NITROGEN 19 mg/dl (7-17); CALCIUM 8.8 mg/dL (8.4-10.2); GFR NON-AFRICAN AMERICAN > 60
[2018-06-12 08:47] LABS: B-TYPE NATRIURETIC PEPTIDE 277 pg/ml (0-900)
--- NOTE | 2018-06-12 10:55 | ED PDOC ---
HPI: SOB/CHF/COPD Time Seen by Provider: 06/12/18 07:12 Chief Complaint (Nursing): Shortness Of Breath Chief Complaint (Provider): SOB, cough History Per: Patient History/Exam Limitations: no limitations Onset/Duration Of Symptoms: Days (2), Gradual Current Symptoms Are (Timing): Still Present Initiating Event: Upper Respiratory Illness Quality: Tightness Exacerbating Factor(s): Exertion, Coughing Current Respiratory Medications: See Home Med List Severity: Severe Associated Symptoms: Chills, Productive Cough, Dizziness Additional History Per: Prior Records Additional Complaint(s): 67yo female hx HIV, c/o SOB, cough and chest tightness ongoing for 2-3 days and worsening. Used combivent and Advair at home without relief. Does not have a nebulizer at home. Denies sore throat, admits to mild headache and fatigue. No gastrointestinal symptoms. Past Medical History Reviewed: Historical Data, Nursing Documentation, Vital Signs Vital Signs: Last Vital Signs Temp 98.3 F 06/12/18 09:06 Pulse 72 06/12/18 09:06 Resp 18 06/12/18 09:06 BP 117/75 06/12/18 09:06 Pulse Ox 95 06/12/18 09:06 - Medical History PMH: Anxiety, Arthritis, Asthma, Bronchitis, COPD, Depression, Diabetes, Gastritis, HIV, HTN, Hypercholesterolemia, Kidney Stones, Pneumonia, Sleep Apnea Denies: Anemia, Atrial Fibrillation, Bipolar Disorder, Emphysema, Hepatitis, Hyperthyroidism, Pancreatitis, Chronic Kidney Disease, Schizophrenia, Seizures, Sexually Transmitted Disease - Family History Family History: States: Unknown Family Hx, Hypertension - Social History Ex-Smoker (has not smoked in the last 12 months): Yes (quit 5months ago) - Immunization History Hx Tetanus Toxoid Vaccination: No Hx Influenza Vaccination: Yes Hx Pneumococcal Vaccination: Yes - Home Medications Home Medications: Ambulatory Orders Medication Instructions Recorded RX: Dolutegravir Sodium [Tivicay] 50 mg PO HS 06/21/17 RX: Methadone 110 mg PO DAILY@0600 06/21/17 RX: Mirtazapine [Remeron] 45 mg PO HS 06/21/17 RX: Ondansetron [Zofran Tab] 4 mg PO BID PRN 06/21/17 RX: Emtricitab/Rilpiviri/Tenof Ala 1 tab PO HS 11/02/17 [Odefsey Tablet] RX: Fluticasone/Salmeterol [Advair 1 puff IH Q12 11/02/17 250-50 Diskus] RX: Losartan/Hydrochlorothiazide 1 tab PO DAILY 11/02/17 [Losartan-Hctz 50-12.5 mg Tab] RX: Meclizine [Antivert] 12.5 mg PO Q12 PRN 11/02/17 RX: clonazePAM [Klonopin] 1 mg PO DAILY 11/02/17 RX: Pravastatin Sodium [Pravachol] 10 mg PO HS 11/16/17 RX: Cholecalciferol [Vitamin D 1,000 unit PO DAILY 05/09/18 1000 IU] RX: Docusate [Colace] 100 mg PO DAILY PRN 05/09/18 RX: Naproxen 500 mg PO BID #20 tab 06/08/18 Albuterol/Ipratropium [Combivent 1 puff IH Q6 PRN 06/12/18 Respimat] Albuterol/Ipratropium [Duoneb 3 3 ml IH Q6 PRN 06/12/18 mg/0.5 mg (3 ml) UD] RX: predniSONE [predniSONE Tab] 20 mg PO BID 06/12/18 Sulfamethoxazole/Trimethoprim 1 tab PO BID 06/12/18 [Bactrim DS Tab] - Allergies Allergies/Adverse Reactions: Allergies Allergy/AdvReac Type Severity Reaction Status Date / Time aspirin Allergy GI UPSET Verified 06/12/18 07:17 cobicistat [From Genvoya] Allergy NAUSEA Verified 06/12/18 07:17 efavirenz [From Atripla] Allergy DEPRESSION Verified 06/12/18 07:17 elvitegravir [From Genvoya] Allergy NAUSEA Verified 06/12/18 07:17 emtricitabine [From Atripla] Allergy DEPRESSION Verified 06/12/18 07:17 metformin Allergy NAUSEA Verified 06/12/18 07:17 Penicillins Allergy RASH Verified 06/12/18 07:19 tenofovir [From Atripla] Allergy DEPRESSION Verified 06/12/18 07:17 Review of Systems Constitutional: Positive for: Chills. Negative for: Fever Cardiovascular: Negative for: Chest Pain Respiratory: Positive for: Cough, Shortness of Breath, SOB with Exertion, Pleuritic Pain, Wheezing. Negative for: Hemoptysis Gastrointestinal: Negative for: Nausea, Abdominal Pain Genitourinary Female: Negative for: Dysuria Musculoskeletal: Negative for: Neck Pain Skin: Negative for: Rash, Lesions Neurological: Negative for: Weakness, Dizziness Psych: Negative for: Suicidal ideation Physical Exam - Reviewed Nursing Documentation Reviewed: Yes Vital Signs Reviewed: Yes - Physical Exam Appears: Positive for: Non-toxic, Uncomfortable Head Exam: Positive for: ATRAUMATIC, NORMAL INSPECTION, NORMOCEPHALIC Skin: Positive for: Normal Color, Warm, DRY Eye Exam: Positive for: EOMI, Normal appearance, PERRL ENT: Positive for: Normal ENT Inspection Neck: Positive for: Normal, Painless ROM Cardiovascular/Chest: Positive for: Regular Rate, Rhythm Respiratory: Positive for: Decreased Breath Sounds, Respiratory Distress Gastrointestinal/Abdominal: Positive for: Normal Exam, Soft Back: Positive for: Normal Inspection Extremity: Positive for: Normal ROM. Negative for: Tenderness Neurologic/Psych: Positive for: Alert, Oriented. Negative for: Motor/Sensory Deficits - Laboratory Results Result Diagrams: 06/12/18 07:56 06/12/18 07:56 Lab Results: PT 12.3 Seconds (9.8-13.1) 06/12/18 07:56 INR 1.1 06/12/18 07:56 APTT 30.1 Seconds (25.6-37.1) 06/12/18 07:56 Troponin I < 0.0120 ng/mL (0.00-0.120) 06/12/18 07:56 NT-Pro-B Natriuret Pep 277 pg/ml (0-900) 06/12/18 07:56 Total Bilirubin 0.6 mg/dl (0.2-1.3) 06/12/18 07:56 AST 44 U/L (14-36) H 06/12/18 07:56 ALT 22 U/L (9-52) 06/12/18 07:56 Alkaline Phosphatase 77 U/L (38-126) 06/12/18 07:56 Total Protein 8.2 G/DL (6.3-8.2) 06/12/18 07:56 Albumin 4.3 g/dL (3.5-5.0) 06/12/18 07:56 Globulin 3.9 gm/dL (2.2-3.9) 06/12/18 07:56 Albumin/Globulin Ratio 1.1 (1.0-2.1) 06/12/18 07:56 - ECG O2 Sat by Pulse Oximetry: 90 Pulse Ox Interpretation: Abnormal Interpretation Of Abnormal: on RA drops to 90% - Radiology X-Ray: Read By Radiologist X-Ray Interpretation: No Acute Disease Medical Decision Making Medical Decision Making: workup for mild resp distress w hx COPD and active wheezing, mild hypoxia on RA CXR report reviewed labs reviewed flu neg remains dyspneic in ED w SPO2 90% RA Admit Dr Aguilar for [facility] Disposition - Clinical Impression Clinical Impression: Respiratory distress, COPD exacerbation, HIV disease - Patient ED Disposition Is Patient to be Admitted: Yes Counseled Patient/Family Regarding: Studies Performed, Diagnosis - Disposition Disposition Time: 10:00 Condition: FAIR - Pt Status Changed To: Hospital Disposition Of: Inpatient - Admit Certification Admit to Inpatient:: After my assessment, the patient will require hospitalization for at least two midnights. This is because of the severity of symptoms shown, intensity of services needed, and/or the medical risk in this patient being treated as an outpatient.
[2018-06-12] MEDS ORDERED: Sodium Chloride 3% for Inhalation 4 ML VIAL.NEB IH PRN (11:23)
[2018-06-12] MEDS ORDERED: Albuterol 0.083% Inhal Sol (2.5 mg/3 mL) UD INH PRN (11:33)
--- NOTE | 2018-06-12 11:36 | CP.PCM.HP ---
<Angelica Mitchell - Last Filed: 06/12/18 13:15> History of Present Illness - History of Present Illness History of Present Illness: 67 yo F with PMH of DMII, HTN, HIV, hep C, COPD, depression and vertigo admitted to [facility] for COPD exacerbation. Pt stated that she has felt chest tightness and shortness of breath since early this morning. Took her home meds combivent and advair without relief, which prompted her to come to ER for eval. Also endorses that she has had a productive cough for about 1 week, productive of yellow-green sputum, and subjective fevers at home. Otherwise denies other complaints, no chest pain, no headache, no abdominal pain, no n/v/d/c. PMD: Dr. Kingsley, [facility] -[facility]: [facility] [phone] ( pt takes 110 mg methadone daily, confirmed by Deirdre RosasD in ER) Past med hx: HIV, HTN, COPD,DM2, Hepatitis C, vertigo, depression, hld Past surg hx: lung nodule biopsy, Mar 2018 (followed up in PMD office) Fam hx: mother at 18 after complications. father decreased, 80 years, HTN, DM2, COPD, CAD and Prostate cancer Soc hx: former smoker, hx of 30 yrs- half pack/day, quit 4 months ago. Denies current use of ETOH or illicit drugs (former alcohol, heroin and cocain abuse). Allergies: multiple listed in chart, pt states aspirin, metformin, penicillin Meds: as per eCW visit from 06/10/18: colace 100 mg QD, combivent 20-100 1 puff QID, Advair 250-50 1 puff BID, Pravastatin 10 mg QHS, Tivicay 50 mg daily, Odefsey 200-25-25 mg daily, losartan-hctz 50-12.5 daily, methadone 110 mg daily, meclezine 12.5 mg BID prn, trazodone 50 mg PRN at bedtime, mirtazapine 45 mg orally hs Full code In ED Vitals: SpO2 90 on room air, BP 186/98, T 99.9F, HR 81, RR24 Labs: WBC 2.4 (chronically low), Hgb/Hct 12.5/37.7, CMP elevated glucose 193, mild elevation AST 44 Troponin neg 125 mg solumedrol IVP x1 Duoneb tx x2 CXR: No active pulmonary disease, mild cardiomegaly without significant appearing pulmonary venous congestion. Present on Admission - Present on Admission Any Indicators Present on Admission: Yes History of Uncontrolled Diabetes: Yes Review of Systems - Review of Systems All systems: reviewed and no additional remarkable complaints except - Constitutional Constitutional: Fever - Respiratory Respiratory: Cough, Dyspnea, Excessive Mucous Production Past Patient History - Infectious Disease Hx of Infectious Diseases: None - Tetanus Immunizations Tetanus Immunization: Unknown - Past Medical History & Family History Past Medical History?: Yes - Past Social History Smoking Status: Former Smoker Alcohol: None Drugs: Denies - CARDIAC Hx Atrial Fibrillation: No Hx Hypercholesterolemia: Yes Hx Hypertension: Yes - PULMONARY Hx Asthma: Yes Hx Bronchitis: Yes Hx Chronic Obstructive Pulmonary Disease (COPD): Yes Hx Emphysema: No Hx Pneumonia: Yes Hx Sleep Apnea: Yes - NEUROLOGICAL Hx Seizures: No - HEENT Hx HEENT Problems: No - RENAL Hx Chronic Kidney Disease: No Hx Kidney Stones: Yes - ENDOCRINE/METABOLIC Hx Hyperthyroidism: No - HEMATOLOGICAL/ONCOLOGICAL Hx Anemia: No Hx Human Immunodeficiency Virus (HIV): Yes - INTEGUMENTARY Hx Dermatological Problems: No - MUSCULOSKELETAL/RHEUMATOLOGICAL Hx Arthritis: Yes - GASTROINTESTINAL Hx Gastritis: Yes Hx Pancreatitis: No - GENITOURINARY/GYNECOLOGICAL Hx Sexually Transmitted Disorders: No - PSYCHIATRIC Hx Anxiety: Yes Hx Bipolar Disorder: No Hx Depression: Yes Hx Schizophrenia: No - SURGICAL HISTORY Hx Surgeries: No - ANESTHESIA Hx Anesthesia: No Meds Allergies/Adverse Reactions: Allergies Allergy/AdvReac Type Severity Reaction Status Date / Time aspirin Allergy GI UPSET Verified 06/12/18 07:17 cobicistat [From Genvoya] Allergy NAUSEA Verified 06/12/18 07:17 efavirenz [From Atripla] Allergy DEPRESSION Verified 06/12/18 07:17 elvitegravir [From Genvoya] Allergy NAUSEA Verified 06/12/18 07:17 emtricitabine [From Atripla] Allergy DEPRESSION Verified 06/12/18 07:17 metformin Allergy NAUSEA Verified 06/12/18 07:17 Penicillins Allergy RASH Verified 06/12/18 07:19 tenofovir [From Atripla] Allergy DEPRESSION Verified 06/12/18 07:17 Physical Exam - Constitutional Appears: No Acute Distress Additional comments: tired appearing - ENT Exam ENT Exam: Mucous Membranes Moist - Neck Exam Neck exam: Positive for: Full Rom - Respiratory Exam Respiratory Exam: Wheezes Additional comments: bilateral scattered wheezes - Cardiovascular Exam Cardiovascular Exam: REGULAR RHYTHM, +S1, +S2 - GI/Abdominal Exam GI & Abdominal Exam: Normal Bowel Sounds, Soft - Extremities Exam Extremities exam: Positive for: normal inspection. Negative for: calf tenderness, pedal edema - Back Exam Back exam: NORMAL INSPECTION - Neurological Exam Neurological exam: Alert, Oriented x3 - Psychiatric Exam Psychiatric exam: Normal Mood - Skin Skin Exam: Dry, Warm Results - Vital Signs Recent Vital Signs: Last Vital Signs Temp 98.1 F 06/12/18 10:00 Pulse 80 06/12/18 10:00 Resp 20 06/12/18 10:00 BP 135/76 06/12/18 10:00 Pulse Ox 90 L 06/12/18 10:58 - Labs Result Diagrams: 06/12/18 07:56 06/12/18 07:56 Labs: Laboratory Results - last 24 hr 06/12/18 06/12/18 06/12/18 07:56 07:56 07:56 WBC 2.4 L RBC 3.57 L Hgb 12.5 Hct 37.7 MCV 105.4 H MCH 35.1 H MCHC 33.3 RDW 12.6 Plt Count 76 L MPV 9.0 Neut % (Auto) 77.1 H Lymph % (Auto) 10.1 L Yancey % (Auto) 11.9 H Eos % (Auto) 0.5 Baso % (Auto) 0.4 Neut # (Auto) 1.9 Lymph # (Auto) 0.2 L Yancey # (Auto) 0.3 Eos # (Auto) 0.0 Baso # (Auto) 0.0 PT INR APTT Sodium 141 Potassium 4.2 Chloride 101 Carbon Dioxide 32 H Anion Gap 12 BUN 19 H Creatinine 0.7 Est GFR ( Amer) > 60 Est GFR (Non-Af Amer) > 60 Random Glucose 193 H Calcium 8.8 Total Bilirubin 0.6 AST 44 H ALT 22 Alkaline Phosphatase 77 Troponin I < 0.0120 NT-Pro-B Natriuret Pep 277 Total Protein 8.2 Albumin 4.3 Globulin 3.9 Albumin/Globulin Ratio 1.1 Influenza Typ A,B (EIA) Negative for flu a/b 06/12/18 07:56 WBC RBC Hgb Hct MCV MCH MCHC RDW Plt Count MPV Neut % (Auto) Lymph % (Auto) Yancey % (Auto) Eos % (Auto) Baso % (Auto) Neut # (Auto) Lymph # (Auto) Yancey # (Auto) Eos # (Auto) Baso # (Auto) PT 12.3 INR 1.1 APTT 30.1 Sodium Potassium Chloride Carbon Dioxide Anion Gap BUN Creatinine Est GFR ( Amer) Est GFR (Non-Af Amer) Random Glucose Calcium Total Bilirubin AST ALT Alkaline Phosphatase Troponin I NT-Pro-B Natriuret Pep Total Protein Albumin Globulin Albumin/Globulin Ratio Influenza Typ A,B (EIA) Assessment & Plan - Assessment and Plan (Free Text) Assessment: 67 yo F with PMH of DMII, HTN, HIV, hep C, COPD, depression and vertigo admitted to [facility] for COPD exacerbation. Received 125 mg solumedrol and 2 duoneb treatments in ED; still saturating 90 on room air. Plan: COPD exacerbation - Scheduled duonebs - Sputum cultures, blood cultures - ABG - Levofloxacin 500 mg IV daily - Solumedrol 60 mg IV Q8hrs - Zofran 4mg IVP Q6 hrs PRN - O2 via NC to keep O2 sat above 92% HIV - Continue home medications: tivicay/odefsey - Regular followup at [facility] HTN - Continue Losartan HCTZ 50-12.5mg - Monitor BP, was elevated on presentation but now normalized Type II diabetes mellitus - As per eCW note, last A1c 6.3; all meds discontinued as per ecw note Hyperlipidemia - Pravastatin 10 mg PO QD Depression/Anxiety - Mirtazapine 45 qhs, clonazepam 1 mg po qd prn, trazodone 50 mg qhs PRN Vertigo - Home med meclezine History of drug abuse - Methadone 110 mg, from [facility], verified Diet - Heart Healthy DVT prophylaxis - Lovenox 40 mg SC QD <Domenico Aguilar D - Last Filed: 06/12/18 14:17> Results - Vital Signs Recent Vital Signs: Last Vital Signs Temp 98.1 F 06/12/18 10:00 Pulse 80 06/12/18 10:00 Resp 20 06/12/18 10:00 BP 135/76 06/12/18 10:00 Pulse Ox 90 L 06/12/18 10:58 - Labs Result Diagrams: 06/12/18 07:56 06/12/18 07:56 Labs: Laboratory Results - last 24 hr 06/12/18 06/12/18 06/12/18 07:56 07:56 07:56 WBC 2.4 L RBC 3.57 L Hgb 12.5 Hct 37.7 MCV 105.4 H MCH 35.1 H MCHC 33.3 RDW 12.6 Plt Count 76 L MPV 9.0 Neut % (Auto) 77.1 H Lymph % (Auto) 10.1 L Yancey % (Auto) 11.9 H Eos % (Auto) 0.5 Baso % (Auto) 0.4 Neut # (Auto) 1.9 Lymph # (Auto) 0.2 L Yancey # (Auto) 0.3 Eos # (Auto) 0.0 Baso # (Auto) 0.0 PT INR APTT Sodium 141 Potassium 4.2 Chloride 101 Carbon Dioxide 32 H Anion Gap 12 BUN 19 H Creatinine 0.7 Est GFR ( Amer) > 60 Est GFR (Non-Af Amer) > 60 Random Glucose 193 H Calcium 8.8 Total Bilirubin 0.6 AST 44 H ALT 22 Alkaline Phosphatase 77 Troponin I < 0.0120 NT-Pro-B Natriuret Pep 277 Total Protein 8.2 Albumin 4.3 Globulin 3.9 Albumin/Globulin Ratio 1.1 Influenza Typ A,B (EIA) Negative for flu a/b 06/12/18 07:56 WBC RBC Hgb Hct MCV MCH MCHC RDW Plt Count MPV Neut % (Auto) Lymph % (Auto) Yancey % (Auto) Eos % (Auto) Baso % (Auto) Neut # (Auto) Lymph # (Auto) Yancey # (Auto) Eos # (Auto) Baso # (Auto) PT 12.3 INR 1.1 APTT 30.1 Sodium Potassium Chloride Carbon Dioxide Anion Gap BUN Creatinine Est GFR ( Amer) Est GFR (Non-Af Amer) Random Glucose Calcium Total Bilirubin AST ALT Alkaline Phosphatase Troponin I NT-Pro-B Natriuret Pep Total Protein Albumin Globulin Albumin/Globulin Ratio Influenza Typ A,B (EIA) Attending/Attestation - Attestation I have personally seen and examined this patient.: Yes I have fully participated in the care of the patient.: Yes I have reviewed all pertinent clinical information: Yes Notes (Text): 06/12/18 14:17 Patient seen and examined with resident. Case discussed and agreed with assessment and plan of management.
[2018-06-12] MEDS: levoFLOXacin 500 mg in D5W 500 MG/100 ML BAG IVPB SCH (12:30)
[2018-06-12] MEDS ORDERED: Pantoprazole 40 mg EC Tab PO ONE ×2 (14:29→14:33)
[2018-06-12] MEDS ORDERED: levoFLOXacin 500 mg in D5W 500 MG/100 ML BAG IVPB ONE (14:33)
[2018-06-12] MEDS: Pantoprazole 40 mg EC Tab PO SCH (14:36)
[2018-06-12] MEDS: Albuterol-Ipratrop 3 mg / 0.5 (3 ml) UD INH SCH (14:36)
[2018-06-12 14:59] LABS: ABG ALLEN TEST YES; ARTERIAL BLOOD GAS HCO3 27.3 mmol/L (21-28); ARTERIAL BLOOD GAS HEMOGLOBIN 14.3 g/dL (11.7-17.4); ARTERIAL BLOOD GAS O2 CAPACITY 19.2 mL/dL (16-24); ARTERIAL BLOOD GAS O2 CONTENT 19.3 ML/dL (15-23); ARTERIAL BLOOD GAS O2 SAT 100.7 % (95-98); ARTERIAL BLOOD GAS PCO2 51 mm/Hg (35-45); ARTERIAL BLOOD GAS PH 7.37 (7.35-7.45); ARTERIAL BLOOD GAS PO2 108 mm/Hg (80-100); ARTERIAL BLOOD GAS TCO2 31.1 mmol/L (22-28)
[2018-06-12] MEDS ORDERED: methylPREDNISolone 60 MG in Sodium Chloride 0.9% 50 ML IVPB SCH (17:00)
[2018-06-12 17:44] LABS: SQUAMOUS EPITHIAL < 1 /hpf (0-5); URINE BILIRUBIN NEGATIVE (NEGATIVE); URINE BLOOD NEGATIVE (NEGATIVE); URINE CLARITY CLEAR (Clear); URINE COLOR YELLOW (YELLOW); URINE GLUCOSE (UA) 50 mg/dL (NEGATIVE); URINE LEUKOCYTE ESTERASE TRACE Leu/uL (Negative); URINE PROTEIN 30 mg/dL (NEGATIVE); URINE UROBILINOGEN 0.2-1.0 mg/dL (0.2-1.0)
[2018-06-12 18:03] LABS: URINE BACTERIA FEW (<OCC)
[2018-06-12] MEDS: Insulin Lispro (humaLOG) 100 Units/ml Inj SC SCH ×2 (18:21→22:00)
[2018-06-12] MEDS: Tmp-Smz 800 mg-160 mg DS Tab PO SCH (18:23)
--- NOTE | 2018-06-12 18:58 | CARD ---
APPROVED REPORT Date of service: 06/12/2018 EKG Measurement Heart [id number] <Conclusion> Normal sinus rhythm Normal ECG
[2018-06-12] MEDS: Fluticasone-Salmeterol 250-50mcg Diskus IH SCH (21:25)
[2018-06-12] MEDS: Dolutegravir Sodium 50 mg Tab [Patient's Own Med] PO SCH (22:00)
[2018-06-13 05:56] LABS: BASO % 0.1 % (0.0-2.0); HEMOGLOBIN 12.8 g/dL (12.0-16.0); LYMPH # 0.2 K/uL (1.0-4.3); LYMPH % 9.4 % (20.0-40.0); MEAN CELL VOLUME 102.5 fl (81.0-99.0); MEAN CORPUSCULAR HEMOGLOBIN 35.3 pg (27.0-31.0); MEAN CORPUSCULAR HGB CONC 34.5 g/dL (33.0-37.0); MEAN PLATELET VOLUME 9.4 fl (7.2-11.7); MONO # 0.1 K/uL (0.0-0.8); NEUT % 84.5 % (50.0-75.0); NRBC % 0.2 % (0.0-0.0); PLATELET COUNT 79 K/uL (130-400); RBC 3.63 Mil/uL (3.80-5.20); RED CELL DISTRIBUTION WIDTH 12.4 % (11.5-14.5); WHITE BLOOD COUNT 2.4 K/uL (4.8-10.8)
[2018-06-13 06:14] LABS: BLOOD UREA NITROGEN 23 mg/dl (7-17); CALCIUM 9.3 mg/dL (8.4-10.2); GFR NON-AFRICAN AMERICAN > 60
[2018-06-13] MEDS: Insulin Lispro (humaLOG) 100 Units/ml Inj SC SCH ×4 (06:31→22:04)
[2018-06-13] MEDS: Albuterol-Ipratrop 3 mg / 0.5 (3 ml) UD INH SCH ×4 (08:02→19:41)
[2018-06-13] MEDS ORDERED: Enoxaparin 40 mg Syringe SC SCH (09:00)
[2018-06-13] MEDS: Fluticasone-Salmeterol 250-50mcg Diskus IH SCH ×2 (09:25→21:13)
[2018-06-13] MEDS: Pantoprazole 40 mg EC Tab PO SCH (09:26)
[2018-06-13] MEDS: Tmp-Smz 800 mg-160 mg DS Tab PO SCH ×2 (09:27→17:11)
[2018-06-13] MEDS: Cholecalciferol 1,000 INTLU TAB PO SCH (09:27)
[2018-06-13] MEDS: HCTZ/Losartan 12.5/50 Tab PO SCH (09:28)
[2018-06-13] MEDS: levoFLOXacin 500 mg in D5W 500 MG/100 ML BAG IVPB SCH (09:33)
--- NOTE | 2018-06-13 10:26 | CP.PCM.PN ---
Subjective - Date & Time of Evaluation Date of Evaluation: 06/13/18 Time of Evaluation: 10:00 - Subjective Subjective: Pt seen/evaluated at bedside. Reports she feels better with breathing treatments, but feels SOB by the time treatment is due. Awaiting respiratory to come for breathing treatment soon. Also c/o dizziness- had not gotten home med meclizine today. Objective - Vital Signs/Intake and Output Vital Signs (last 24 hours): Temp Pulse Resp BP Pulse Ox 97.8 F 90 20 160/90 H 92 L 06/13/18 08:25 06/13/18 08:25 06/13/18 08:25 06/13/18 08:25 06/13/18 08:25 - Medications Medications: Current Medications Albuterol Sulfate (Albuterol 0.083% Inhal Radha (2.5 Mg/3 Ml) Ud) 2.5 mg INH RQ4 PRN PRN Reason: Shortness of Breath Last Admin: 06/13/18 00:45 Dose: 2.5 mg Albuterol/Ipratropium (Duoneb 3 Mg/0.5 Mg (3 Ml) Ud) 3 ml INH RQID [facility] Last Admin: 06/12/18 14:36 Dose: 3 ml Cholecalciferol (Vitamin D) 1,000 intlu PO DAILY [facility] Last Admin: 06/13/18 09:27 Dose: 1,000 intlu Clonazepam (Klonopin) 1 mg PO DAILY [facility] Last Admin: 06/13/18 09:26 Dose: 1 mg Docusate Sodium (Colace Liquid) 100 mg NG BID PRN PRN Reason: Constipation Dolutegravir Sodium (Tivicay) 50 mg PO HS [facility]; Protocol Glipizide (Glucotrol) 5 mg PO ACB [facility] Last Admin: 06/13/18 09:27 Dose: 5 mg HCTZ/Losartan Potassium (Hyzaar 12.5 Mg-50 Mg) 1 tab PO DAILY [facility] Last Admin: 06/13/18 09:28 Dose: 1 tab Home Med (Emtricitab/Rilpiviri/Tenof Ala [Odefsey Tablet]) 1 tab PO [facility] Levofloxacin/Dextrose (Levaquin 500mg) 500 mg in 100 mls @ 100 mls/hr IVPB DAILY [facility]; Protocol Last Admin: 06/13/18 09:33 Dose: 100 mls/hr Insulin Human Lispro (Humalog) 0 units SC ACHS [facility]; Protocol Last Admin: 06/13/18 06:31 Dose: 3 units Meclizine HCl (Antivert) 12.5 mg PO Q12 PRN PRN Reason: Dizziness Methadone HCl (Methadone) 110 mg PO DAILY@0600 [facility] Last Admin: 06/13/18 05:46 Dose: 110 mg Methylprednisolone (Solu-Medrol) 60 mg IV Q8 [facility] Last Admin: 06/13/18 09:26 Dose: 60 mg Mirtazapine (Remeron) 45 mg PO HS [facility] Last Admin: 06/12/18 21:25 Dose: 45 mg Ondansetron HCl (Zofran Inj) 4 mg IVP Q6 PRN PRN Reason: Nausea/Vomiting Last Admin: 06/13/18 05:53 Dose: 4 mg Pantoprazole Sodium (Protonix Ec Tab) 40 mg PO DAILY [facility] Last Admin: 06/13/18 09:26 Dose: 40 mg Pravastatin Sodium (Pravachol) 10 mg PO [facility] Last Admin: 06/12/18 21:25 Dose: 10 mg Fluticasone/Salmeterol (Advair Diskus 250/50) 1 puff IH Q12 [facility] Last Admin: 06/13/18 09:25 Dose: 1 puff Trimethoprim/Sulfamethoxazole (Bactrim Ds Tab) 1 tab PO BID [facility]; Protocol Last Admin: 06/13/18 09:27 Dose: 1 tab - Labs Labs: 06/13/18 04:30 06/13/18 04:30 PT 12.3 Seconds (9.8-13.1) 06/12/18 07:56 INR 1.1 06/12/18 07:56 APTT 30.1 Seconds (25.6-37.1) 06/12/18 07:56 - Constitutional Appears: No Acute Distress - Head Exam Head Exam: NORMAL INSPECTION - Eye Exam Eye Exam: Normal appearance - ENT Exam ENT Exam: Mucous Membranes Moist - Respiratory Exam Respiratory Exam: NORMAL BREATHING PATTERN Additional comments: scattered wheezes bilaterally - Cardiovascular Exam Cardiovascular Exam: REGULAR RHYTHM, +S1, +S2 - GI/Abdominal Exam GI & Abdominal Exam: Soft. absent: Tenderness - Extremities Exam Extremities Exam: Normal Inspection. absent: Calf Tenderness - Back Exam Back Exam: NORMAL INSPECTION - Neurological Exam Neurological Exam: Alert, Oriented x3 - Skin Skin Exam: Dry, Warm Assessment and Plan - Assessment and Plan (Free Text) Assessment: 67 yo F with PMH of DMII, HTN, HIV, hep C, COPD, depression and vertigo admitted to [facility] for COPD exacerbation. Improving with respiratory treatments. Plan: COPD exacerbation - Scheduled duonebs - F/u sputum cultures, blood cultures - ABG from yest - pCO2 51, pO2 108 - Levofloxacin 500 mg IV daily - Solumedrol 60 mg IV Q8hrs - Zofran 4mg IVP Q6 hrs PRN - O2 via NC to keep O2 sat above 92% HIV - Continue home medications: tivicay/odefsey - Regular followup at [facility] HTN - Continue Losartan HCTZ 50-12.5mg - Monitor BP Type II diabetes mellitus - As per eCW note, last A1c 6.3; all meds discontinued as per ecw note - Had elevated glucose on presentation to ED; start glipizide AC Hyperlipidemia - Pravastatin 10 mg PO QD Depression/Anxiety - Mirtazapine 45 qhs, clonazepam 1 mg po qd prn, trazodone 50 mg qhs PRN Vertigo - Home med meclezine restarted History of drug abuse - Methadone 110 mg, from [facility], verified Diet - Heart Healthy DVT prophylaxis - Lovenox 40 mg SC QD
[2018-06-13 11:50] LABS: LARGE PLATELETS PRESENT; LYMPHOCYTE 11 % (20-50); MONOCYTE 6 % (0-10); NEUTROPHIL 83 % (42-75); PLATELET ESTIMATE DECREASED (NORMAL); TOTAL CELLS COUNTED 100
[2018-06-13] MEDS: ODEFSEY PO SCH ×2 (21:42→21:43)
[2018-06-13] MEDS: Dolutegravir Sodium 50 mg Tab [Patient's Own Med] PO SCH (21:43)
[2018-06-14] MEDS: Insulin Lispro (humaLOG) 100 Units/ml Inj SC SCH ×3 (06:34→17:17)
[2018-06-14] MEDS: Albuterol-Ipratrop 3 mg / 0.5 (3 ml) UD INH SCH ×2 (08:16→11:19)
[2018-06-14] MEDS: Tmp-Smz 800 mg-160 mg DS Tab PO SCH ×2 (09:45→16:14)
[2018-06-14] MEDS: Fluticasone-Salmeterol 250-50mcg Diskus IH SCH (09:45)
[2018-06-14] MEDS: HCTZ/Losartan 12.5/50 Tab PO SCH (09:46)
[2018-06-14] MEDS: Pantoprazole 40 mg EC Tab PO SCH (09:47)
[2018-06-14] MEDS: levoFLOXacin 500 mg in D5W 500 MG/100 ML BAG IVPB SCH (09:48)
[2018-06-14] MEDS: MethylPREDNISolone 40 mg Vial IV SCH ×2 (10:34→16:14)
[2018-06-14] MEDS: Cholecalciferol 1,000 INTLU TAB PO SCH (10:35)
--- NOTE | 2018-06-14 11:27 | CP.PCM.DIS ---
<Angelica Mitchell - Last Filed: 06/14/18 12:15> Provider - Provider Date of Admission: 06/12/18 11:00 Attending physician: Domenico Aguilar MD Primary care physician: Dr. Kings[facility] Time Spent in preparation of Discharge (in minutes): 30 Diagnosis - Discharge Diagnosis (1) COPD exacerbation Status: Acute Priority: High (2) HIV disease Status: Chronic (3) Vertigo Status: Chronic (4) Diabetes mellitus Status: Chronic (5) History of drug abuse Status: Chronic (6) Hypertension Status: Chronic Priority: Low Hospital Course - Lab Results Lab Results: Micro Results 06/12/18 14:30 Blood-Venous Blood Culture - Preliminary NO GROWTH AFTER 24 HOURS 06/12/18 14:20 Blood-Venous Blood Culture - Preliminary NO GROWTH AFTER 24 HOURS Most Recent Lab Values WBC 2.4 K/uL (4.8-10.8) L 06/13/18 04:30 RBC 3.63 Mil/uL (3.80-5.20) L 06/13/18 04:30 Hgb 12.8 g/dL (12.0-16.0) 06/13/18 04:30 Hct 37.2 % (34.0-47.0) 06/13/18 04:30 MCV 102.5 fl (81.0-99.0) H D 06/13/18 04:30 MCH 35.3 pg (27.0-31.0) H 06/13/18 04:30 MCHC 34.5 g/dL (33.0-37.0) 06/13/18 04:30 RDW 12.4 % (11.5-14.5) 06/13/18 04:30 Plt Count 79 K/uL (130-400) L 06/13/18 04:30 MPV 9.4 fl (7.2-11.7) 06/13/18 04:30 Neut % (Auto) 84.5 % (50.0-75.0) H 06/13/18 04:30 Lymph % (Auto) 9.4 % (20.0-40.0) L 06/13/18 04:30 Ward % (Auto) 6.0 % (0.0-10.0) 06/13/18 04:30 Eos % (Auto) 0.0 % (0.0-4.0) 06/13/18 04:30 Baso % (Auto) 0.1 % (0.0-2.0) 06/13/18 04:30 Neut # (Auto) 2.0 K/uL (1.8-7.0) 06/13/18 04:30 Lymph # (Auto) 0.2 K/uL (1.0-4.3) L 06/13/18 04:30 Ward # (Auto) 0.1 K/uL (0.0-0.8) 06/13/18 04:30 Eos # (Auto) 0.0 K/uL (0.0-0.7) 06/13/18 04:30 Baso # (Auto) 0.0 K/uL (0.0-0.2) 06/13/18 04:30 Neutrophils % (Manual) 83 % (42-75) H 06/13/18 04:30 Lymphocytes % (Manual) 11 % (20-50) L 06/13/18 04:30 Monocytes % (Manual) 6 % (0-10) 06/13/18 04:30 Platelet Estimate Decreased (NORMAL) L 06/13/18 04:30 Large Platelets Present 06/13/18 04:30 Macrocytosis (manual) Moderate 06/13/18 04:30 PT 12.3 Seconds (9.8-13.1) 06/12/18 07:56 INR 1.1 06/12/18 07:56 APTT 30.1 Seconds (25.6-37.1) 06/12/18 07:56 pCO2 51 mm/Hg (35-45) H 06/12/18 14:48 pO2 108 mm/Hg (80-100) H 06/12/18 14:48 HCO3 27.3 mmol/L (21-28) 06/12/18 14:48 ABG pH 7.37 (7.35-7.45) 06/12/18 14:48 ABG Total CO2 31.1 mmol/L (22-28) H 06/12/18 14:48 ABG O2 Saturation 100.7 % (95-98) H 06/12/18 14:48 ABG O2 Content 19.3 ML/dL (15-23) 06/12/18 14:48 ABG Base Excess 3.1 mmol/L (-2.0-3.0) H 06/12/18 14:48 ABG Hemoglobin 14.3 g/dL (11.7-17.4) 06/12/18 14:48 ABG Carboxyhemoglobin 3.0 % (0.5-1.5) H 06/12/18 14:48 POC ABG HHb (Measured) -0.7 % (0.0-5.0) L 06/12/18 14:48 ABG Methemoglobin 2.3 % (0.0-3.0) 06/12/18 14:48 ABG O2 Capacity 19.2 mL/dL (16-24) 06/12/18 14:48 Cal Test Yes 06/12/18 14:48 A-a O2 Difference 113.0 mm/Hg 06/12/18 14:48 Hgb O2 Saturation 95.4 % (95.0-98.0) 06/12/18 14:48 FiO2 40.0 % 06/12/18 14:48 Sodium 138 mmol/l (132-148) 06/13/18 04:30 Potassium 4.1 MMOL/L (3.6-5.0) 06/13/18 04:30 Chloride 99 mmol/L (98-107) 06/13/18 04:30 Carbon Dioxide 29 mmol/L (22-30) 06/13/18 04:30 Anion Gap 14 (10-20) 06/13/18 04:30 BUN 23 mg/dl (7-17) H 06/13/18 04:30 Creatinine 0.7 mg/dl (0.7-1.2) 06/13/18 04:30 Est GFR ( Amer) > 60 06/13/18 04:30 Est GFR (Non-Af Amer) > 60 06/13/18 04:30 POC Glucose (mg/dL) 151 mg/dL (65-110) H 06/14/18 10:48 Random Glucose 204 mg/dL (65-105) H 06/13/18 04:30 Hemoglobin A1c 5.9 % (4.2-6.5) 06/13/18 04:30 Calcium 9.3 mg/dL (8.4-10.2) 06/13/18 04:30 Total Bilirubin 0.6 mg/dl (0.2-1.3) 06/12/18 07:56 AST 44 U/L (14-36) H 06/12/18 07:56 ALT 22 U/L (9-52) 06/12/18 07:56 Alkaline Phosphatase 77 U/L (38-126) 06/12/18 07:56 Troponin I < 0.0120 ng/mL (0.00-0.120) 06/12/18 07:56 NT-Pro-B Natriuret Pep 277 pg/ml (0-900) 06/12/18 07:56 Total Protein 8.2 G/DL (6.3-8.2) 06/12/18 07:56 Albumin 4.3 g/dL (3.5-5.0) 06/12/18 07:56 Globulin 3.9 gm/dL (2.2-3.9) 06/12/18 07:56 Albumin/Globulin Ratio 1.1 (1.0-2.1) 06/12/18 07:56 Urine Color Yellow (YELLOW) 06/12/18 14:30 Urine Clarity Clear (Clear) 06/12/18 14:30 Urine pH 6.0 (5.0-8.0) 06/12/18 14:30 Ur Specific [place] 1.023 (1.003-1.030) 06/12/18 14:30 Urine Protein 30 mg/dL (NEGATIVE) 06/12/18 14:30 Urine Glucose (UA) 50 mg/dL (NEGATIVE) 06/12/18 14:30 Urine Ketones Negative mg/dL (NEGATIVE) 06/12/18 14:30 Urine Blood Negative (NEGATIVE) 06/12/18 14:30 Urine Nitrate Negative (NEGATIVE) 06/12/18 14:30 Urine Bilirubin Negative (NEGATIVE) 06/12/18 14:30 Urine Urobilinogen 0.2-1.0 mg/dL (0.2-1.0) 06/12/18 14:30 Ur Leukocyte Esterase Trace Shanice/uL (Negative) 06/12/18 14:30 Urine RBC (Auto) 1 /hpf (0-3) 06/12/18 14:30 Urine Microscopic WBC < 1 /hpf (0-5) 06/12/18 14:30 Ur Squamous Epith Cells < 1 /hpf (0-5) 06/12/18 14:30 Urine Bacteria Few (<OCC) H 06/12/18 14:30 Influenza Typ A,B (EIA) Negative for flu a/b (NEGATIVE) 06/12/18 07:56 - Hospital Course Hospital Course: 67 yo F with history of COPD, HIV, DMII, HTN, hepatitis C, depression, anxiety, and vertigo was admitted to telemetry floor on 06/12/18. Pt presented to ED with complaint of chest tightness and shortness of breath since morning of day of admission; she had taken her home meds combivent and advair without relief, which prompted her to come to ED for evaluation. she also endorsed that she had a cough for about 1 week, productive of yellow-green sputum, and subjective fevers at home. Otherwise denied other complaints, no chest pain, no headache, no abdominal pain, no n/v/d/c. In ED, she was found to be saturating at 90-91% on room air, had a respiratory rate of 24, was afebrile at 99.9F, had a heart rate of 81 bpm, and elevated BP 186/98; blood pressure resolved to normal BP without medications other than home meds that pt had taken earlier that day. During course of admission, she was treated with initially scheduled and then as needed duoneb and albuterol treatments, as well as IV solumedrol and levofloxacin. Her home medications were restarted as per last med rec in office visit on 06/10/18. Glucotrol was started before meals due to elevated blood sugars. Her breathing improved, and this am she was saturating 96% on room air; lung sounds were clear. Blood cultures negative thus far. This morning, pt reported some nausea and stated she vomited clear vomit; abdominal exam was benign; additional dose of zofran was ordered. Pt tolerated breakfast tray at 10 am, and nausea resolved. Stable for discharge today with medrol dose pack; zofran for nausea. Encouraged to follow up with PMD within 1 week, and to return to ED if shortness of breath recurs. Discharge Exam - Head Exam Head Exam: NORMAL INSPECTION - Eye Exam Eye Exam: Normal appearance - ENT Exam ENT Exam: Mucous Membranes Moist - Respiratory Exam Respiratory Exam: Clear to PA & Lateral, NORMAL BREATHING PATTERN. absent: Rhonchi, Wheezes, Respiratory Distress - Cardiovascular Exam Cardiovascular Exam: REGULAR RHYTHM, +S1, +S2 - GI/Abdominal Exam GI & Abdominal Exam: Normal Bowel Sounds, Soft. absent: Distended, Rebound, Rigid, Tenderness - Extremities Exam Additional comments: no calf tenderness, no pedal edema, no cyanosis - Neurological Exam Neurological exam: Alert, Oriented x3 - Psychiatric Exam Psychiatric exam: Normal Affect - Skin Skin Exam: Dry, Warm Discharge Plan - Discharge Medications Prescriptions: Methylprednisolone [Medrol Dose Pack (21 tabs)] 4 mg PO ASDIR #21 mg RX: Ondansetron [Zofran Tab] 4 mg PO Q6 PRN #16 tab PRN Reason: Nausea/Vomiting - Follow Up Plan Condition: FAIR Disposition: HOME/ ROUTINE Patient education suggested?: Yes Instructions: Exacerbation of COPD (DC) Additional Instructions: Please take medrol dose pack as prescribed. Please make an appointment to see your primary care doctor next week. Return to ED if your symptoms recur, you have shortness of breath or chest pain. Referrals: Ana Kingsley MD [Medical Doctor] - 06/17/18 1:30 pm () <Domenico Aguilar - Last Filed: 06/14/18 18:16> Provider - Provider Date of Admission: 06/12/18 11:00 Attending physician: Domenico Aguilar MD Hospital Course - Lab Results Lab Results: Micro Results 06/12/18 14:30 Blood-Venous Blood Culture - Preliminary NO GROWTH AFTER 48 HOURS 06/12/18 14:20 Blood-Venous Blood Culture - Preliminary NO GROWTH AFTER 48 HOURS Most Recent Lab Values WBC 2.4 K/uL (4.8-10.8) L 06/13/18 04:30 RBC 3.63 Mil/uL (3.80-5.20) L 06/13/18 04:30 Hgb 12.8 g/dL (12.0-16.0) 06/13/18 04:30 Hct 37.2 % (34.0-47.0) 06/13/18 04:30 MCV 102.5 fl (81.0-99.0) H D 06/13/18 04:30 MCH 35.3 pg (27.0-31.0) H 06/13/18 04:30 MCHC 34.5 g/dL (33.0-37.0) 06/13/18 04:30 RDW 12.4 % (11.5-14.5) 06/13/18 04:30 Plt Count 79 K/uL (130-400) L 06/13/18 04:30 MPV 9.4 fl (7.2-11.7) 06/13/18 04:30 Neut % (Auto) 84.5 % (50.0-75.0) H 06/13/18 04:30 Lymph % (Auto) 9.4 % (20.0-40.0) L 06/13/18 04:30 Ward % (Auto) 6.0 % (0.0-10.0) 06/13/18 04:30 Eos % (Auto) 0.0 % (0.0-4.0) 06/13/18 04:30 Baso % (Auto) 0.1 % (0.0-2.0) 06/13/18 04:30 Neut # (Auto) 2.0 K/uL (1.8-7.0) 06/13/18 04:30 Lymph # (Auto) 0.2 K/uL (1.0-4.3) L 06/13/18 04:30 Ward # (Auto) 0.1 K/uL (0.0-0.8) 06/13/18 04:30 Eos # (Auto) 0.0 K/uL (0.0-0.7) 06/13/18 04:30 Baso # (Auto) 0.0 K/uL (0.0-0.2) 06/13/18 04:30 Neutrophils % (Manual) 83 % (42-75) H 06/13/18 04:30 Lymphocytes % (Manual) 11 % (20-50) L 06/13/18 04:30 Monocytes % (Manual) 6 % (0-10) 06/13/18 04:30 Platelet Estimate Decreased (NORMAL) L 06/13/18 04:30 Large Platelets Present 06/13/18 04:30 Macrocytosis (manual) Moderate 06/13/18 04:30 PT 12.3 Seconds (9.8-13.1) 06/12/18 07:56 INR 1.1 06/12/18 07:56 APTT 30.1 Seconds (25.6-37.1) 06/12/18 07:56 pCO2 51 mm/Hg (35-45) H 06/12/18 14:48 pO2 108 mm/Hg (80-100) H 06/12/18 14:48 HCO3 27.3 mmol/L (21-28) 06/12/18 14:48 ABG pH 7.37 (7.35-7.45) 06/12/18 14:48 ABG Total CO2 31.1 mmol/L (22-28) H 06/12/18 14:48 ABG O2 Saturation 100.7 % (95-98) H 06/12/18 14:48 ABG O2 Content 19.3 ML/dL (15-23) 06/12/18 14:48 ABG Base Excess 3.1 mmol/L (-2.0-3.0) H 06/12/18 14:48 ABG Hemoglobin 14.3 g/dL (11.7-17.4) 06/12/18 14:48 ABG Carboxyhemoglobin 3.0 % (0.5-1.5) H 06/12/18 14:48 POC ABG HHb (Measured) -0.7 % (0.0-5.0) L 06/12/18 14:48 ABG Methemoglobin 2.3 % (0.0-3.0) 06/12/18 14:48 ABG O2 Capacity 19.2 mL/dL (16-24) 06/12/18 14:48 Cal Test Yes 06/12/18 14:48 A-a O2 Difference 113.0 mm/Hg 06/12/18 14:48 Hgb O2 Saturation 95.4 % (95.0-98.0) 06/12/18 14:48 FiO2 40.0 % 06/12/18 14:48 Sodium 138 mmol/l (132-148) 06/13/18 04:30 Potassium 4.1 MMOL/L (3.6-5.0) 06/13/18 04:30 Chloride 99 mmol/L (98-107) 06/13/18 04:30 Carbon Dioxide 29 mmol/L (22-30) 06/13/18 04:30 Anion Gap 14 (10-20) 06/13/18 04:30 BUN 23 mg/dl (7-17) H 06/13/18 04:30 Creatinine 0.7 mg/dl (0.7-1.2) 06/13/18 04:30 Est GFR ( Amer) > 60 06/13/18 04:30 Est GFR (Non-Af Amer) > 60 06/13/18 04:30 POC Glucose (mg/dL) 228 mg/dL (65-110) H 06/14/18 16:39 Random Glucose 204 mg/dL (65-105) H 06/13/18 04:30 Hemoglobin A1c 5.9 % (4.2-6.5) 06/13/18 04:30 Calcium 9.3 mg/dL (8.4-10.2) 06/13/18 04:30 Total Bilirubin 0.6 mg/dl (0.2-1.3) 06/12/18 07:56 AST 44 U/L (14-36) H 06/12/18 07:56 ALT 22 U/L (9-52) 06/12/18 07:56 Alkaline Phosphatase 77 U/L (38-126) 06/12/18 07:56 Troponin I < 0.0120 ng/mL (0.00-0.120) 06/12/18 07:56 NT-Pro-B Natriuret Pep 277 pg/ml (0-900) 06/12/18 07:56 Total Protein 8.2 G/DL (6.3-8.2) 06/12/18 07:56 Albumin 4.3 g/dL (3.5-5.0) 06/12/18 07:56 Globulin 3.9 gm/dL (2.2-3.9) 06/12/18 07:56 Albumin/Globulin Ratio 1.1 (1.0-2.1) 06/12/18 07:56 Urine Color Yellow (YELLOW) 06/12/18 14:30 Urine Clarity Clear (Clear) 06/12/18 14:30 Urine pH 6.0 (5.0-8.0) 06/12/18 14:30 Ur Specific [place] 1.023 (1.003-1.030) 06/12/18 14:30 Urine Protein 30 mg/dL (NEGATIVE) 06/12/18 14:30 Urine Glucose (UA) 50 mg/dL (NEGATIVE) 06/12/18 14:30 Urine Ketones Negative mg/dL (NEGATIVE) 06/12/18 14:30 Urine Blood Negative (NEGATIVE) 06/12/18 14:30 Urine Nitrate Negative (NEGATIVE) 06/12/18 14:30 Urine Bilirubin Negative (NEGATIVE) 06/12/18 14:30 Urine Urobilinogen 0.2-1.0 mg/dL (0.2-1.0) 06/12/18 14:30 Ur Leukocyte Esterase Trace Shanice/uL (Negative) 06/12/18 14:30 Urine RBC (Auto) 1 /hpf (0-3) 06/12/18 14:30 Urine Microscopic WBC < 1 /hpf (0-5) 06/12/18 14:30 Ur Squamous Epith Cells < 1 /hpf (0-5) 06/12/18 14:30 Urine Bacteria Few (<OCC) H 06/12/18 14:30 Influenza Typ A,B (EIA) Negative for flu a/b (NEGATIVE) 06/12/18 07:56 Attending/Attestation - Attestation I have personally seen and examined this patient.: Yes I have fully participated in the care of the patient.: Yes I have reviewed all pertinent clinical information, including history, physical exam and plan: Yes Notes (Text): 06/14/18 18:16 Patient seen and examined with resident. Case discussed and agreed with assessment
--- NOTE | 2018-06-14 12:13 | PQF ---
PROVIDER RESPONSE TEXT: Asymptomatic HIV infection REVIEWER QUERY TEXT: HIV Clarification and Associated Conditions Please clarify the diagnosis of HIV utilizing the following coding terminology :"Asymptomatic HIV In fection /HIV positive only" versus "Symptomatic HIV Disease /AIDS Last Absolute CD4 count in the EMR on 05/11/18 was 136. Medication: @ home: Duke Zheng Bactrim The patient's Clinical Indicators include: Documentation of HIV. Medication: @ home: [facility]heng Bactrim Query created by: Soha Zarco on 06/13/2018 8:09 AM Electronically signed by: Domenico Aguilar MD 06/14/2018 12:10 PM
[2018-06-14 15:49] VITALS: BP 127/76; PULSE 80; RESP 16; TEMP 98.2; O2SAT 98
== END 2018-06-14 19:15 | disposition home or self-care (01) | DRG 191 ==
LOC: H.ER 07:00 → H.ERHOLD 11:00 → H.TEL 17:07
PROC: 3E0F73Z Introduction of Anti-inflammatory into Respiratory Tract, Via Natural or Artificial Opening (ICD-10-PCS; principal; 2018-06-12)
PROC: HZ81ZZZ Medication Management for Substance Abuse Treatment, Methadone Maintenance (ICD-10-PCS; 2018-06-12)
DX: J44.1 Chronic obstructive pulmonary disease with (acute) exacerbation (principal); F11.20 Opioid dependence, uncomplicated; R09.02 Hypoxemia; E11.65 Type 2 diabetes mellitus with hyperglycemia; Z21 Asymptomatic human immunodeficiency virus [HIV] infection status; F41.8 Other specified anxiety disorders; I10 Essential (primary) hypertension; E78.00 Pure hypercholesterolemia, unspecified; R42 Dizziness and giddiness; G47.30 Sleep apnea, unspecified; M19.90 Unspecified osteoarthritis, unspecified site; Z86.19 Personal history of other infectious and parasitic diseases; Z87.01 Personal history of pneumonia (recurrent); Z87.442 Personal history of urinary calculi; Z87.891 Personal history of nicotine dependence; Z88.6 Allergy status to analgesic agent

== ENCOUNTER 2018-07-10 15:16 | Emergency (ER) | payer MEDICARE, MEDICAID ==
[2018-07-10 15:17] VITALS: BMI 25.5
[2018-07-10 15:39] VITALS: BP 129/85; PULSE 80; RESP 16; TEMP 98.2; O2SAT 99
[2018-07-10] MEDS ORDERED: Tetanus/Diphtheria Toxoids 0.5 ml Syringe IM ONE ×2 (16:23→16:45)
--- NOTE | 2018-07-10 16:54 | ED PDOC ---
HPI: Wound Care - HPI Time Seen by Provider: 07/10/18 16:10 Chief Complaint (Nursing): Wound Check Chief Complaint (Provider): Wound Check History Per: Patient Exam Limitations: no limitations Onset/Duration Of Symptoms: Hrs Current Symptoms Are (Timing): Still Present Additional Complaint(s): 67 year old female with a past medical history of diabetes, hypertension, HIV, and hyperlipidemia who is presenting to the ED for evaluation of ear injury onset just prior to arrival. Patient states that an earring ripped her ear accidentally as she was pulling an earring out. She reports that area was bleeding heavily and that she applied pressure and multiple bandages before coming to the ED. Patient states that she did not take any pain medications and admits that she felt slightly dizzy at the time but denies any fall or head trauma. Of note, patient is not up to date on tetanus vaccine. PMD: Ana Kingsley Past Medical History Reviewed: Historical Data, Nursing Documentation, Vital Signs Vital Signs: Last Vital Signs Temp 98.2 F 07/10/18 15:38 Pulse 80 07/10/18 15:38 Resp 16 07/10/18 15:38 BP 129/85 07/10/18 15:38 Pulse Ox 99 07/10/18 15:38 - Medical History PMH: Anxiety, Arthritis, Asthma, Bronchitis, COPD, Depression, Diabetes, Gastritis, HIV, HTN, Hypercholesterolemia, Kidney Stones, Pneumonia, Sleep Apnea Denies: Anemia, Atrial Fibrillation, Bipolar Disorder, Emphysema, Hepatitis, Hyperthyroidism, Pancreatitis, Chronic Kidney Disease, Schizophrenia, Seizures, Sexually Transmitted Disease - Surgical History Surgical History: No Surg Hx - Family History Family History: States: Hypertension - Social History Current smoker - smoking cessation education provided: Yes Alcohol: Social Drugs: Denies - Immunization History Hx Tetanus Toxoid Vaccination: No Hx Influenza Vaccination: Yes Hx Pneumococcal Vaccination: Yes - Home Medications Home Medications: Ambulatory Orders Medication Instructions Recorded RX: Dolutegravir Sodium [Tivicay] 50 mg PO HS 06/21/17 RX: Methadone 110 mg PO DAILY@0600 06/21/17 RX: Mirtazapine [Remeron] 45 mg PO HS 06/21/17 RX: Emtricitab/Rilpiviri/Tenof Ala 1 tab PO HS 11/02/17 [Odefsey Tablet] RX: Fluticasone/Salmeterol [Advair 1 puff IH Q12 11/02/17 250-50 Diskus] RX: Losartan/Hydrochlorothiazide 1 tab PO DAILY 11/02/17 [Losartan-Hctz 50-12.5 mg Tab] RX: Meclizine [Antivert] 12.5 mg PO Q12 PRN 11/02/17 RX: clonazePAM [Klonopin] 1 mg PO DAILY 11/02/17 RX: Pravastatin Sodium [Pravachol] 10 mg PO HS 11/16/17 RX: Cholecalciferol [Vitamin D 1,000 unit PO DAILY 05/09/18 1000 IU] RX: Docusate [Colace] 100 mg PO DAILY PRN 05/09/18 RX: Sulfamethoxazole/Trimethoprim 1 tab PO BID 06/12/18 [Bactrim DS Tab] Methylprednisolone [Medrol Dose 4 mg PO ASDIR #21 mg 06/14/18 Pack (21 tabs)] RX: Ondansetron [Zofran Tab] 4 mg PO Q6 PRN #16 tab 06/14/18 RX: Ibuprofen [Motrin Tab] 800 mg PO Q6 PRN 5 Days tab 07/10/18 - Allergies Allergies/Adverse Reactions: Allergies Allergy/AdvReac Type Severity Reaction Status Date / Time aspirin Allergy GI UPSET Verified 07/10/18 15:34 cobicistat [From Genvoya] Allergy NAUSEA Verified 07/10/18 15:34 efavirenz [From Atripla] Allergy DEPRESSION Verified 07/10/18 15:34 elvitegravir [From Genvoya] Allergy NAUSEA Verified 07/10/18 15:34 emtricitabine [From Atripla] Allergy DEPRESSION Verified 07/10/18 15:34 metformin Allergy NAUSEA Verified 07/10/18 15:34 Penicillins Allergy RASH Verified 07/10/18 15:34 tenofovir [From Atripla] Allergy DEPRESSION Verified 07/10/18 15:34 Review of Systems ROS Statement: Except As Marked, All Systems Reviewed And Found Negative ENT: Positive for: Ear Pain (secondary to injury) Neurological: Positive for: Dizziness Physical Exam - Reviewed Nursing Documentation Reviewed: Yes Vital Signs Reviewed: Yes - Physical Exam Appears: Positive for: Non-toxic, No Acute Distress Head Exam: Positive for: ATRAUMATIC, NORMAL INSPECTION, NORMOCEPHALIC Skin: Positive for: Normal Color, Warm, DRY ENT: Positive for: Other ( right earlobe: 3 piercing holes more proximal hole has torn through very edge of flaps distally with punctate scabs no active bl eeding and no open laceration ) Neurologic/Psych: Positive for: Alert, Oriented. Negative for: Motor/Sensory Deficits - ECG O2 Sat by Pulse Oximetry: 99 (RA) Pulse Ox Interpretation: Normal Medical Decision Making Medical Decision Making: Time: 16:23 Plan: --Tetanus 0.5 ml IM 16:48 Bacitracin placed, and patient reassured that piercing hole is likely already very stretched out. There is no indication for suturing or closure needed as flaps will heal separately on their own Patient will be discharged home. Scribe Attestation: Documented by, Katie Omalley acting as a scribe for Lakeisha Swanson PA-C. Provider Scribe Attestation: All medical record entries made by the Scribe were at my direction and personally dictated by me. I have reviewed the chart and agree that the record accurately reflects my personal performance of the history, physical exam, medical decision making, and the department course for this patient. I have also personally directed, reviewed, and agree with the discharge instructions and disposition. Disposition - Clinical Impression Clinical Impression: Torn ear lobe - Patient ED Disposition Is Patient to be Admitted: No - Disposition Referrals: Ana Kingsley MD [Family Provider] - Disposition: Routine/Home Disposition Time: 16:50 Condition: STABLE Additional Instructions: Use Bacitracin on ends of ear lobe flaps. Keep area dry for the next 24hrs and then wash gently with soap and water then leave open to the air thereafter. Return to ER if you develop redness or drainage of pus. Prescriptions: RX: Ibuprofen [Motrin Tab] 800 mg PO Q6 PRN 5 Days tab PRN Reason: Pain, Moderate (4-7) Instructions: Wound Care (DC) Forms: [facility] (Yi) Print Language: [id number]
== END 2018-07-10 16:55 | disposition home or self-care (01) ==
LOC: H.ER 15:16
DX: S01.311A Laceration without foreign body of right ear, initial encounter (principal); X50.9XXA Other and unspecified overexertion or strenuous movements or postures, initial encounter; E11.9 Type 2 diabetes mellitus without complications; F17.200 Nicotine dependence, unspecified, uncomplicated; I10 Essential (primary) hypertension; J44.9 Chronic obstructive pulmonary disease, unspecified; Z87.442 Personal history of urinary calculi; Z88.0 Allergy status to penicillin; Z86.59 Personal history of other mental and behavioral disorders; E78.00 Pure hypercholesterolemia, unspecified; Z23 Encounter for immunization

== ENCOUNTER 2018-09-07 07:37 | Emergency (ER) | payer MEDICARE, MEDICAID ==
[2018-09-07] MEDS ORDERED: Sodium Chloride 0.9% 1,000 ML IV STA (08:52)
--- NOTE | 2018-09-07 09:20 | ED PDOC ---
HPI: Abdomen Time Seen by Provider: 09/07/18 08:19 Chief Complaint (Nursing): Abdominal Pain Chief Complaint (Provider): Abdominal Pain History Per: Patient History/Exam Limitations: no limitations Onset/Duration Of Symptoms: Other (x1 week) Current Symptoms Are (Timing): Still Present Additional Complaint(s): Patient is a 68 y/o female with an extensive PMHx who presents to the ED for evaluation of abdominal pain for the past week. Patient describes the pain as if "water were flowing" claiming her stomach is growling. Patient complains of fever, dysuria, nausea, constipation, and radiating chest pain. Patient states her temperature two days ago was 101 degrees. Patient denies vomiting and diarrhea. Of note, patient took Tylenol two days ago with no relief. PCP: Dr. nAa Kingsley Past Medical History Reviewed: Historical Data, Nursing Documentation, Vital Signs Vital Signs: Last Vital Signs Temp 98.6 F 09/07/18 07:43 Pulse 83 09/07/18 07:43 Resp 18 09/07/18 07:43 BP 165/96 H 09/07/18 07:43 Pulse Ox 96 09/07/18 07:43 - Medical History PMH: Anxiety, Arthritis, Asthma, Bronchitis, COPD, Depression, Diabetes, Gastritis, HIV, HTN, Hypercholesterolemia, Kidney Stones, Pneumonia, Sleep Apnea Denies: Anemia, Atrial Fibrillation, Bipolar Disorder, Emphysema, Hepatitis, Hyperthyroidism, Pancreatitis, Chronic Kidney Disease, Schizophrenia, Seizures, Sexually Transmitted Disease - Surgical History Surgical History: No Surg Hx - Family History Family History: States: Unknown Family Hx, Hypertension - Immunization History Hx Tetanus Toxoid Vaccination: No Hx Influenza Vaccination: Yes Hx Pneumococcal Vaccination: Yes - Home Medications Home Medications: Ambulatory Orders Medication Instructions Recorded Dolutegravir Sodium [Tivicay] 50 mg PO HS 06/21/17 Methadone 110 mg PO DAILY@0600 06/21/17 Mirtazapine [Remeron] 45 mg PO HS 06/21/17 Emtricitab/Rilpiviri/Tenof Ala 1 tab PO HS 11/02/17 [Odefsey Tablet] Fluticasone/Salmeterol [Advair 1 puff IH Q12 11/02/17 250-50 Diskus] Losartan/Hydrochlorothiazide 1 tab PO DAILY 11/02/17 [Losartan-Hctz 50-12.5 mg Tab] Meclizine [Antivert] 12.5 mg PO Q12 PRN 11/02/17 clonazePAM [Klonopin] 1 mg PO DAILY 11/02/17 Pravastatin Sodium [Pravachol] 10 mg PO HS 11/16/17 Cholecalciferol [Vitamin D 1000 IU] 1,000 unit PO DAILY 05/09/18 Docusate [Colace] 100 mg PO DAILY PRN 05/09/18 Sulfamethoxazole/Trimethoprim 1 tab PO BID 06/12/18 [Bactrim DS Tab] Methylprednisolone [Medrol Dose 4 mg PO ASDIR #21 mg 06/14/18 Pack (21 tabs)] Ondansetron [Zofran Tab] 4 mg PO Q6 PRN #16 tab 06/14/18 Ibuprofen [Motrin Tab] 800 mg PO Q6 PRN 5 Days tab 07/10/18 Dicyclomine [Bentyl] 20 mg PO QID PRN #10 tab 09/07/18 - Allergies Allergies/Adverse Reactions: Allergies Allergy/AdvReac Type Severity Reaction Status Date / Time aspirin Allergy GI UPSET Verified 07/10/18 15:34 cobicistat [From Genvoya] Allergy NAUSEA Verified 07/10/18 15:34 efavirenz [From Atripla] Allergy DEPRESSION Verified 07/10/18 15:34 elvitegravir [From Genvoya] Allergy NAUSEA Verified 07/10/18 15:34 emtricitabine [From Atripla] Allergy DEPRESSION Verified 07/10/18 15:34 metformin Allergy NAUSEA Verified 07/10/18 15:34 Penicillins Allergy RASH Verified 07/10/18 15:34 tenofovir [From Atripla] Allergy DEPRESSION Verified 07/10/18 15:34 Review of Systems ROS Statement: Except As Marked, All Systems Reviewed And Found Negative Constitutional: Positive for: Fever Cardiovascular: Positive for: Chest Pain Gastrointestinal: Positive for: Nausea, Abdominal Pain, Constipation. Negative for: Vomiting, Diarrhea Genitourinary Female: Positive for: Dysuria (burning) Physical Exam - Reviewed Nursing Documentation Reviewed: Yes Vital Signs Reviewed: Yes - Physical Exam Appears: Positive for: Uncomfortable Head Exam: Positive for: ATRAUMATIC, NORMAL INSPECTION, NORMOCEPHALIC Skin: Positive for: Normal Color, Warm, DRY Eye Exam: Positive for: EOMI, Normal appearance, PERRL Neck: Positive for: Normal, Painless ROM, Supple Cardiovascular/Chest: Positive for: Regular Rate, Rhythm. Negative for: Murmur Respiratory: Positive for: Normal Breath Sounds. Negative for: Respiratory Distress Gastrointestinal/Abdominal: Positive for: Soft, Tenderness (generalized) Back: Positive for: Normal Inspection. Negative for: L CVA Tenderness, R CVA Tenderness, Vertebral Tenderness Extremity: Positive for: Normal ROM. Negative for: Pedal Edema, Deformity Neurological/Psych: Positive for: Alert, Oriented (x3) - Laboratory Results Result Diagrams: 09/07/18 09:48 09/07/18 09:48 - ECG ECG Rhythm: Positive for: Sinus Rhythm (normal). Negative for: ST/T Changes Rate: 65 O2 Sat by Pulse Oximetry: 96 (RA) Pulse Ox Interpretation: Normal Medical Decision Making Medical Decision Making: Time: 08 Impression: Abdominal Pain Plan: CT Abd & Pelvis IV contrast EKG CMP Lipase CBC PTT Prothrombin Time CXR Glucose, POC Bentyl 20 mg PO IV Fluids Time: 920 CXR FINDINGS: LUNGS: No active pulmonary disease. PLEURA: No significant pleural effusion identified. No pneumothorax apparent. CARDIOVASCULAR: No aortic atherosclerotic calcification present. Borderline cardiomegaly, stable. No pulmonary vascular congestion. OSSEOUS STRUCTURES: No significant abnormalities. VISUALIZED UPPER ABDOMEN: Normal. OTHER FINDINGS: None. IMPRESSION: Borderline cardiomegaly, stable. No acute infiltrates, pleural effusion or pneumothorax bilaterally. No pulmonary vascular congestion. Time: 1126 CT Abd & Pelvis FINDINGS: LOWER THORAX: Unremarkable. LIVER: Diminished attenuation is seen throughout the liver once again, indicative of hepatic steatosis likely on a chronic basis. GALLBLADDER AND BILE DUCTS: Gallbladder is distended once again but otherwise appears unremarkable there is stable dilatation of the common bile duct up to 11 mm at the midportion a sigmoid normal caliber distally a 5.9 mm. Punctate choledocholithiasis is not excluded in the interval at the mid CBD. PANCREAS: Persistent dilatation of the pancreatic duct is appreciated at the head measures up to 4.5 mm greatest caliber once again, best appreciated in coronal image 62. No definitive pancreatic mass appreciable. Pancreas otherwise unremarkable. SPLEEN: Unremarkable. ADRENALS: Unremarkable. No mass. KIDNEYS AND URETERS: No obstructive uropathy bilaterally. A tiny lucency seen only a few mm in greatest dimension at the midpole left kidney laterally once again, remaining too small to characterize. Unremarkable right kidney once again. VASCULATURE: Unremarkable. No aortic aneurysm. No aortic atherosclerotic calcification or mural plaque present. BOWEL: Minimal sigmoid diverticular changes, nonacute. No bowel obstruction. No gross mural thickening. Moderate fecal loading seen at the proximal and middle thirds of the colon. APPENDIX: No CT evidence of appendicitis. PERITONEUM: Unremarkable. No free fluid. No free air. LYMPH NODES: Unremarkable. No enlarged lymph nodes. BLADDER: Unremarkable. REPRODUCTIVE: A minimal partially calcified uterine fibroid disease appreciated once again. BONES: No acute fracture. OTHER FINDINGS: None. IMPRESSION: 1. Likely chronic hepatic steatosis reiterated. 2. Stable dilatation of the common bile duct though trace choledocholithiasis question in the mid segment CBD lumen at this time. Gallbladder is distended but otherwise unremarkable. Stable dilatation of the pancreatic duct at the level of the head up to 4.5 mm without obvious pancreatic mass evident. Consider follow-up ultrasonography. 3. Limited sigmoid diverticulosis without diverticulitis. No bowel obstruction. Moderate fecal loading proximal and middle thirds of the large bowel. 4. Limited uterine fibroids. Accession No. : [id number] Patient Name / ID : BRIDGETTE Das / [id number] Exam Date : 09/07/2018 12:53:20 ( Approved ) Study Comment : Sex / Age : F / 68Y Creator : Stu White MD Dictator : Stu White MD Rig Superintendent : Jewelry Sorter : Stu White MD Approver2 : Report Date : 09/07/2018 15:11:11 My Comment : Date of service: 09/07/2018 HISTORY: Abnormal CT COMPARISON: None. TECHNIQUE: Sonographic evaluation of the right upper quadrant of the abdomen. FINDINGS: LIVER: Measures 11.9 cm in length. Moderately increased echogenicity of the liver parenchyma noted diffusely. No definite mass. Central intrahepatic bile duct dilatation is identified including main hepatic duct which measures 9.5 mm. GALLBLADDER: Gallbladder is distended but otherwise unremarkable. The visualized proximal common bile duct measures 7.5 mm with midportion measuring approximately 7.0 mm, somewhat less than that suspected based on CT performed earlier today 09/07/2018. No definite choledocholithiasis. No overt sonographic pattern to suggest choledocholithiasis. COMMON BILE DUCT: See gallbladder section above. PANCREAS: Pancreas is completely obscured by body habitus and overlying gastrointestinal gas. RIGHT KIDNEY: Measures 10.1 cm in length. Normal echogenicity. No calculus, mass, or hydronephrosis. AORTA: No aneurysmal dilatation. IVC: Unremarkable. OTHER FINDINGS: None . IMPRESSION: Moderate hepatic steatosis. Dilated central intrahepatic bile ducts and CBD without definite choledocholithiasis. The gallbladder is distended but without other suspicious findings. Clinically correlate further. Overall pattern corresponds adequately to CT exam 09/07/2018 and prior MRCP 05/11/2019. Pancreas is completely obscured by body habitus and overlying bowel gas. Scribe Attestation: Documented by Isaiah Erazo, acting as a scribe for Keke Merritt MD. Provider Scribe Attestation: All medical record entries made by the Scribe were at my direction and personally dictated by me. I have reviewed the chart and agree that the record accurately reflects my personal performance of the history, physical exam, medical decision making, and the department course for this patient. I have also personally directed, reviewed, and agree with the discharge instructions and disposition. Disposition - Clinical Impression Clinical Impression: Abdominal pain - Patient ED Disposition Is Patient to be Admitted: No - Disposition Disposition: Routine/Home Disposition Time: 15:20 Condition: IMPROVED Additional Instructions: FOLLOW-UP WITH PMD WITHIN 2 DAYS FOR REEVALUATION. Prescriptions: Dicyclomine [Bentyl] 20 mg PO QID PRN #10 tab PRN Reason: Pain, Moderate (4-7) Instructions: Acute Abdomen (Belly Pain) Forms: [facility] (Mal[place]ian)
--- NOTE | 2018-09-07 09:24 | RAD ---
Date of service: 09/07/2018 HISTORY: Abd pain COMPARISON: No prior. TECHNIQUE: Chest PA and lateral views FINDINGS: LUNGS: No active pulmonary disease. PLEURA: No significant pleural effusion identified. No pneumothorax apparent. CARDIOVASCULAR: No aortic atherosclerotic calcification present. Borderline cardiomegaly, stable. No pulmonary vascular congestion. OSSEOUS STRUCTURES: No significant abnormalities. VISUALIZED UPPER ABDOMEN: Normal. OTHER FINDINGS: None. IMPRESSION: Borderline cardiomegaly, stable. No acute infiltrates, pleural effusion or pneumothorax bilaterally. No pulmonary vascular congestion.
[2018-09-07 09:56] LABS: BASO % 0.3 % (0.0-2.0); EOS % 0.4 % (0.0-4.0); LYMPH # 0.7 K/uL (1.0-4.3); LYMPH % 21.6 % (20.0-40.0); MEAN CELL VOLUME 103.6 fl (81.0-99.0); MEAN CORPUSCULAR HEMOGLOBIN 35.9 pg (27.0-31.0); MEAN CORPUSCULAR HGB CONC 34.7 g/dL (33.0-37.0); MEAN PLATELET VOLUME 9.1 fl (7.2-11.7); MONO # 0.2 K/uL (0.0-0.8); MONO % 7.3 % (0.0-10.0); NEUT # 2.1 K/uL (1.8-7.0); NEUT % 70.4 % (50.0-75.0); NRBC % 0.2 % (0.0-0.0); RBC 3.9 Mil/uL (3.80-5.20); WHITE BLOOD COUNT 3.1 K/uL (4.8-10.8)
[2018-09-07 10:06] LABS: INR 1.1; PROTHROMBIN TIME 12.1 Seconds (9.8-13.1)
[2018-09-07 10:07] LABS: ALB/GLOB RATIO 1.2 (1.0-2.1); ALBUMIN 4.5 g/dL (3.5-5.0); ALT/SGPT 40 U/L (9-52); AST/SGOT 46 U/L (14-36); BLOOD UREA NITROGEN 24 mg/dl (7-17); CALCIUM 9.4 mg/dL (8.4-10.2); GFR NON-AFRICAN AMERICAN > 60; LIPASE 50 U/L (23-300)
[2018-09-07] MEDS ORDERED: Sodium Chloride 0.9% 50 ML IV ONE (10:34)
[2018-09-07] MEDS ORDERED: Iohexol 300 100 ML IJ ONE (10:34)
--- NOTE | 2018-09-07 11:36 | CT ---
Date of service: 09/07/2018 PROCEDURE: CT Abdomen and Pelvis with contrast HISTORY: Gen abd pain COMPARISON: Abdomen pelvis CT with contrast 06/08/2018. TECHNIQUE: Following oral and intravenous contrast administration, a CT examination of the abdomen and pelvis was performed from the domes of the diaphragms to the symphysis pubis with reformatted datasets provided not only axial but also sagittal and coronal series. Contrast dose: Omnipaque 300, 95 cc Radiation dose: Total exam DLP = 497.21 mGy-cm. This CT exam was performed using one or more of the following dose reduction techniques: Automated exposure control, adjustment of the mA and/or kV according to patient size, and/or use of iterative reconstruction technique. FINDINGS: LOWER THORAX: Unremarkable. LIVER: Diminished attenuation is seen throughout the liver once again, indicative of hepatic steatosis likely on a chronic basis. GALLBLADDER AND BILE DUCTS: Gallbladder is distended once again but otherwise appears unremarkable there is stable dilatation of the common bile duct up to 11 mm at the midportion a sigmoid normal caliber distally a 5.9 mm. Punctate choledocholithiasis is not excluded in the interval at the mid CBD. PANCREAS: Persistent dilatation of the pancreatic duct is appreciated at the head measures up to 4.5 mm greatest caliber once again, best appreciated in coronal image 62. No definitive pancreatic mass appreciable. Pancreas otherwise unremarkable. SPLEEN: Unremarkable. ADRENALS: Unremarkable. No mass. KIDNEYS AND URETERS: No obstructive uropathy bilaterally. A tiny lucency seen only a few mm in greatest dimension at the midpole left kidney laterally once again, remaining too small to characterize. Unremarkable right kidney once again. VASCULATURE: Unremarkable. No aortic aneurysm. No aortic atherosclerotic calcification or mural plaque present. BOWEL: Minimal sigmoid diverticular changes, nonacute. No bowel obstruction. No gross mural thickening. Moderate fecal loading seen at the proximal and middle thirds of the colon. APPENDIX: No CT evidence of appendicitis. PERITONEUM: Unremarkable. No free fluid. No free air. LYMPH NODES: Unremarkable. No enlarged lymph nodes. BLADDER: Unremarkable. REPRODUCTIVE: A minimal partially calcified uterine fibroid disease appreciated once again. BONES: No acute fracture. OTHER FINDINGS: None. IMPRESSION: 1. Likely chronic hepatic steatosis reiterated. 2. Stable dilatation of the common bile duct though trace choledocholithiasis question in the mid segment CBD lumen at this time. Gallbladder is distended but otherwise unremarkable. Stable dilatation of the pancreatic duct at the level of the head up to 4.5 mm without obvious pancreatic mass evident. Consider follow-up ultrasonography. 3. Limited sigmoid diverticulosis without diverticulitis. No bowel obstruction. Moderate fecal loading proximal and middle thirds of the large bowel. 4. Limited uterine fibroids.
--- NOTE | 2018-09-07 15:15 | US ---
Date of service: 09/07/2018 HISTORY: Abnormal CT COMPARISON: None. TECHNIQUE: Sonographic evaluation of the right upper quadrant of the abdomen. FINDINGS: LIVER: Measures 11.9 cm in length. Moderately increased echogenicity of the liver parenchyma noted diffusely. No definite mass. Central intrahepatic bile duct dilatation is identified including main hepatic duct which measures 9.5 mm. GALLBLADDER: Gallbladder is distended but otherwise unremarkable. The visualized proximal common bile duct measures 7.5 mm with midportion measuring approximately 7.0 mm, somewhat less than that suspected based on CT performed earlier today 09/07/2018. No definite choledocholithiasis. No overt sonographic pattern to suggest choledocholithiasis. COMMON BILE DUCT: See gallbladder section above. PANCREAS: Pancreas is completely obscured by body habitus and overlying gastrointestinal gas. RIGHT KIDNEY: Measures 10.1 cm in length. Normal echogenicity. No calculus, mass, or hydronephrosis. AORTA: No aneurysmal dilatation. IVC: Unremarkable. OTHER FINDINGS: None . IMPRESSION: Moderate hepatic steatosis. Dilated central intrahepatic bile ducts and CBD without definite choledocholithiasis. The gallbladder is distended but without other suspicious findings. Clinically correlate further. Overall pattern corresponds adequately to CT exam 09/07/2018 and prior MRCP 05/11/2019. Pancreas is completely obscured by body habitus and overlying bowel gas.
[2018-09-07 15:28] LABS: SQUAMOUS EPITHIAL < 1 /hpf (0-5); URINE BILIRUBIN NEGATIVE (NEGATIVE); URINE BLOOD NEGATIVE (NEGATIVE); URINE CLARITY SLIGHTY-CLOUDY (Clear); URINE COLOR YELLOW (YELLOW); URINE GLUCOSE (UA) NEG (NEGATIVE); URINE LEUKOCYTE ESTERASE SMALL Leu/uL (Negative); URINE PROTEIN NEGATIVE (NEGATIVE); URINE UROBILINOGEN 0.2-1.0 mg/dL (0.2-1.0)
[2018-09-07 15:56] VITALS: BP 140/77; RESP 15; TEMP 98.3
--- NOTE | 2018-09-08 10:27 | CARD ---
APPROVED REPORT Date of service: 09/07/2018 EKG Measurement Heart [id number] <Conclusion> Normal sinus rhythm Nonspecific T wave abnormality Abnormal ECG
[2018-09-09 10:29] VITALS: PULSE 65; O2SAT 96
== END 2018-09-07 15:40 | disposition home or self-care (01) ==
LOC: H.ER 07:37
DX: K57.30 Diverticulosis of large intestine without perforation or abscess without bleeding (principal); E11.9 Type 2 diabetes mellitus without complications; E78.00 Pure hypercholesterolemia, unspecified; I10 Essential (primary) hypertension; Z88.0 Allergy status to penicillin
CPT/HCPCS: 71046; 74177; 76705; 80053; 81003; 82948; 83690; 85025; 85610; 85730; 93005; 96360; 96361; 99285; J2270; J7030; Q9967

== ENCOUNTER 2018-10-01 07:00 | Observation (INO) | payer MEDICARE, MEDICAID ==
[2018-10-01] MEDS ORDERED: Sodium Chloride 0.9% 1,000 ML IV STA (07:39)
--- NOTE | 2018-10-01 07:43 | ED PDOC ---
HPI: Influenza Time Seen by Provider: 10/01/18 07:32 Chief Complaint: Cough, Cold, Congestion Past Medical History Vital Signs: Last Vital Signs Temp 98.7 F 10/01/18 07:19 Pulse 92 H 10/01/18 07:19 Resp 18 10/01/18 07:19 BP 146/80 10/01/18 07:19 Pulse Ox 94 L 10/01/18 07:19 - Medical History PMH: Anxiety, Arthritis, Asthma, Bronchitis, COPD, Depression, Diabetes, Gastritis, HIV, HTN, Hypercholesterolemia, Kidney Stones, Pneumonia, Sleep Apnea Denies: Anemia, Atrial Fibrillation, Bipolar Disorder, Emphysema, Hepatitis, Hyperthyroidism, Pancreatitis, Chronic Kidney Disease, Schizophrenia, Seizures, Sexually Transmitted Disease - Family History Family History: States: Unknown Family Hx, Hypertension - Immunization History Hx Tetanus Toxoid Vaccination: No Hx Influenza Vaccination: Yes Hx Pneumococcal Vaccination: Yes - Home Medications Home Medications: Ambulatory Orders Medication Instructions Recorded Dolutegravir Sodium [Tivicay] 50 mg PO HS 06/21/17 Methadone 110 mg PO DAILY@0600 06/21/17 Mirtazapine [Remeron] 45 mg PO HS 06/21/17 Emtricitab/Rilpiviri/Tenof Ala 1 tab PO HS 11/02/17 [Odefsey Tablet] Fluticasone/Salmeterol [Advair 1 puff IH Q12 11/02/17 250-50 Diskus] Losartan/Hydrochlorothiazide 1 tab PO DAILY 11/02/17 [Losartan-Hctz 50-12.5 mg Tab] Meclizine [Antivert] 12.5 mg PO Q12 PRN 11/02/17 clonazePAM [Klonopin] 1 mg PO DAILY 11/02/17 Pravastatin Sodium [Pravachol] 10 mg PO HS 11/16/17 Cholecalciferol [Vitamin D 1000 IU] 1,000 unit PO DAILY 05/09/18 Docusate [Colace] 100 mg PO DAILY PRN 05/09/18 Sulfamethoxazole/Trimethoprim 1 tab PO BID 06/12/18 [Bactrim DS Tab] Methylprednisolone [Medrol Dose 4 mg PO ASDIR #21 mg 06/14/18 Pack (21 tabs)] Ondansetron [Zofran Tab] 4 mg PO Q6 PRN #16 tab 06/14/18 Ibuprofen [Motrin Tab] 800 mg PO Q6 PRN 5 Days tab 07/10/18 Dicyclomine [Bentyl] 20 mg PO QID PRN #10 tab 09/07/18 - Allergies Allergies/Adverse Reactions: Allergies Allergy/AdvReac Type Severity Reaction Status Date / Time aspirin Allergy GI UPSET Verified 10/01/18 07:19 cobicistat [From Genvoya] Allergy NAUSEA Verified 10/01/18 07:19 efavirenz [From Atripla] Allergy DEPRESSION Verified 10/01/18 07:19 elvitegravir [From Genvoya] Allergy NAUSEA Verified 10/01/18 07:19 emtricitabine [From Atripla] Allergy DEPRESSION Verified 10/01/18 07:19 metformin Allergy NAUSEA Verified 10/01/18 07:19 Penicillins Allergy RASH Verified 10/01/18 07:19 tenofovir [From Atripla] Allergy DEPRESSION Verified 10/01/18 07:19 - ECG O2 Sat by Pulse Oximetry: 94 Disposition - Disposition
--- NOTE | 2018-10-01 07:46 | ED PDOC ---
HPI: Abdomen Time Seen by Provider: 10/01/18 07:32 Chief Complaint (Nursing): Cough, Cold, Congestion Chief Complaint (Provider): fever, cough History Per: Patient History/Exam Limitations: no limitations Onset/Duration Of Symptoms: Hrs Outside of [place] travel?: No Current Symptoms Are (Timing): Still Present Location Of Pain/Discomfort: Diffuse, LLQ Quality Of Discomfort: "Pain" Associated Symptoms: Fever, Nausea, Vomiting. denies: Diarrhea Exacerbating Factors: Cough Additional History Per: Patient Additional Complaint(s): 68yo female, with history of hypertension, diabetes, comes to ER reporting fever, abdominal pain x 2 days. She reports temperatures ~100 degrees, and states she has a productive cough. She denies any chest pain, shortness of breath, urine symptoms, or other complaints. PMD: None provided Past Medical History Reviewed: Historical Data, Nursing Documentation, Vital Signs Vital Signs: Last Vital Signs Temp 98.7 F 10/01/18 07:19 Pulse 92 H 10/01/18 07:19 Resp 18 10/01/18 07:19 BP 146/80 10/01/18 07:19 Pulse Ox 94 L 10/01/18 07:19 - Medical History PMH: Anxiety, Arthritis, Asthma, Bronchitis, COPD, Depression, Diabetes, Gastritis, HIV, HTN, Hypercholesterolemia, Kidney Stones, Pneumonia, Sleep Apnea Denies: Anemia, Atrial Fibrillation, Bipolar Disorder, Emphysema, Hepatitis, Hyperthyroidism, Pancreatitis, Chronic Kidney Disease, Schizophrenia, Seizures, Sexually Transmitted Disease - Surgical History Surgical History: No Surg Hx - Family History Family History: States: Unknown Family Hx, Hypertension - Immunization History Hx Tetanus Toxoid Vaccination: No Hx Influenza Vaccination: Yes Hx Pneumococcal Vaccination: Yes - Home Medications Home Medications: Ambulatory Orders Medication Instructions Recorded Dolutegravir Sodium [Tivicay] 50 mg PO HS 06/21/17 Methadone 110 mg PO DAILY@0600 06/21/17 Mirtazapine [Remeron] 45 mg PO HS 06/21/17 Emtricitab/Rilpiviri/Tenof Ala 1 tab PO HS 11/02/17 [Odefsey Tablet] Fluticasone/Salmeterol [Advair 1 puff IH Q12 11/02/17 250-50 Diskus] Losartan/Hydrochlorothiazide 1 tab PO DAILY 11/02/17 [Losartan-Hctz 50-12.5 mg Tab] Pravastatin Sodium [Pravachol] 10 mg PO HS 11/16/17 Cholecalciferol [Vitamin D 1000 IU] 1,000 unit PO DAILY 05/09/18 Docusate [Colace] 100 mg PO DAILY PRN 05/09/18 Ondansetron [Zofran Tab] 4 mg PO Q6 PRN #16 tab 06/14/18 Dicyclomine [Bentyl] 20 mg PO QID PRN #10 tab 09/07/18 Albuterol/Ipratropium [Combivent 1 puff IH Q6 PRN 10/01/18 Respimat] Albuterol/Ipratropium [Duoneb 3 3 ml IH Q6 PRN 10/01/18 mg/0.5 mg (3 ml) UD] Meclizine [Meclizine*] 25 mg PO DAILY PRN 10/01/18 clonazePAM [Klonopin] 0.5 mg PO Q12 10/01/18 - Allergies Allergies/Adverse Reactions: Allergies Allergy/AdvReac Type Severity Reaction Status Date / Time aspirin Allergy GI UPSET Verified 10/01/18 07:19 cobicistat [From Genvoya] Allergy NAUSEA Verified 10/01/18 07:19 efavirenz [From Atripla] Allergy DEPRESSION Verified 10/01/18 07:19 elvitegravir [From Genvoya] Allergy NAUSEA Verified 10/01/18 07:19 emtricitabine [From Atripla] Allergy DEPRESSION Verified 10/01/18 07:19 metformin Allergy NAUSEA Verified 10/01/18 07:19 Penicillins Allergy RASH Verified 10/01/18 07:19 tenofovir [From Atripla] Allergy DEPRESSION Verified 10/01/18 07:19 Review of Systems ROS Statement: Except As Marked, All Systems Reviewed And Found Negative Constitutional: Positive for: Fever Cardiovascular: Negative for: Chest Pain Respiratory: Positive for: Cough, Sputum Gastrointestinal: Positive for: Vomiting, Abdominal Pain. Negative for: Diarrhea Genitourinary Female: Negative for: Dysuria, Frequency, Hematuria Physical Exam - Reviewed Nursing Documentation Reviewed: Yes Vital Signs Reviewed: Yes - Physical Exam Appears: Positive for: Non-toxic Head Exam: Positive for: ATRAUMATIC, NORMAL INSPECTION, NORMOCEPHALIC Skin: Positive for: Normal Color Eye Exam: Positive for: Normal appearance Neck: Positive for: Supple Cardiovascular/Chest: Positive for: Regular Rate, Rhythm. Negative for: Tachycardia Respiratory: Positive for: Normal Breath Sounds. Negative for: Respiratory Distress Gastrointestinal/Abdominal: Positive for: Soft, Tenderness (diffuse tenderness, greatest in left lower quadrant) Back: Positive for: Normal Inspection Extremity: Positive for: Normal ROM Neurological/Psych: Positive for: Awake, Alert - Laboratory Results Result Diagrams: 10/01/18 08:00 10/01/18 08:00 - ECG Interpretation Of ECG: NSR @ 75, nonspecific T wave abnormality (unchanged from 09/07/18). O2 Sat by Pulse Oximetry: 94 (RA) Medical Decision Making Medical Decision Making: Impression: Abdominal pain x 3 days Plan: -- Labs -- Urinalysis -- CT Abdomen/Pelvis -- Bentyl 20mg IM -- Zofran 4mg IV -- IV Fluids 1043 CT Abdomen/Pelvis FINDINGS: LOWER THORAX: Unremarkable. LIVER: Unremarkable. No gross lesion or ductal dilatation. GALLBLADDER AND BILE DUCTS: Unremarkable. PANCREAS: Unremarkable. No gross lesion or ductal dilatation. SPLEEN: Unremarkable. ADRENALS: Unremarkable. No mass. KIDNEYS AND URETERS: Unremarkable. No hydronephrosis. No solid mass. VASCULATURE: Unremarkable. No aortic aneurysm. There is atherosclerotic calcification of the abdominal aorta. BOWEL: Unremarkable. No obstruction. No gross mural thickening. APPENDIX: Not identified. No secondary findings. PERITONEUM: Unremarkable. No free fluid. No free air. LYMPH NODES: Unremarkable. No enlarged lymph nodes. BLADDER: Suboptimally distended REPRODUCTIVE: Normal uterus BONES: No acute fracture. OTHER FINDINGS: None. IMPRESSION: No acute abnormality. 1053 on reassessment, patient reports she now has "squeezing chest pain" On exam, normal heart sounds noted. Chest is non-tender Cardiac labs ordered 1222 Labs reviewed, coags normal, troponin negative Patient admitted for observation under Dr. Rubio due to chest pain ScribeAttestation: Documented byPearl Benoit, acting as a scribe for Keke Merritt MD. Provider ScribeAttestation: All medical record entries made by the Scribe were at my direction and personally dictated by me. I have reviewed the chart and agree that the record accurately reflects my personal performance of the history, physical exam, medical decision making, and the department course for this patient. I have also personally directed, reviewed, and agree with the discharge instructions and disposition. Disposition - Clinical Impression Clinical Impression: Abdominal pain in female - Patient ED Disposition Is Patient to be Admitted: Yes - Disposition Disposition Time: 12:20 Condition: IMPROVED
[2018-10-01 08:13] LABS: BASO % 0.4 % (0.0-2.0); EOS % 0.2 % (0.0-4.0); HEMOGLOBIN 13.6 g/dL (12.0-16.0); LYMPH # 0.3 K/uL (1.0-4.3); LYMPH % 4.5 % (20.0-40.0); MEAN CELL VOLUME 102.7 fl (81.0-99.0); MEAN CORPUSCULAR HGB CONC 34.1 g/dL (33.0-37.0); MEAN PLATELET VOLUME 9.1 fl (7.2-11.7); MONO # 0.5 K/uL (0.0-0.8); MONO % 7.1 % (0.0-10.0); NEUT % 87.8 % (50.0-75.0); NRBC % 0.1 % (0.0-0.0); PLATELET COUNT 111 K/uL (130-400); RBC 3.88 Mil/uL (3.80-5.20); RED CELL DISTRIBUTION WIDTH 12.7 % (11.5-14.5); WHITE BLOOD COUNT 6.9 K/uL (4.8-10.8)
[2018-10-01 08:33] LABS: INR 1.1; PROTHROMBIN TIME 12.9 Seconds (9.8-13.1)
[2018-10-01 08:36] LABS: PARTIAL THROMBOPLASTIN TIME 28.8 Seconds (25.6-37.1)
[2018-10-01 08:36] LABS: SQUAMOUS EPITHIAL 3 /hpf (0-5); URINE BACTERIA RARE (<OCC); URINE BILIRUBIN NEGATIVE (NEGATIVE); URINE BLOOD NEGATIVE (NEGATIVE); URINE CLARITY SLIGHTY-CLOUDY (Clear); URINE COLOR AMBER (YELLOW); URINE GLUCOSE (UA) NEG (NEGATIVE); URINE LEUKOCYTE ESTERASE SMALL Leu/uL (Negative); URINE PROTEIN 100 mg/dL (NEGATIVE); URINE UROBILINOGEN 0.2-1.0 mg/dL (0.2-1.0)
[2018-10-01 08:44] LABS: ALB/GLOB RATIO 1.2 (1.0-2.1); ALBUMIN 4.6 g/dL (3.5-5.0); ALT/SGPT 37 U/L (9-52); AST/SGOT 40 U/L (14-36); BLOOD UREA NITROGEN 15 mg/dl (7-17); GFR NON-AFRICAN AMERICAN > 60; LIPASE 36 U/L (23-300)
[2018-10-01] MEDS ORDERED: Iohexol 300 100 ML IJ ONE (09:33)
[2018-10-01] MEDS ORDERED: Sodium Chloride 0.9% 50 ML IV ONE (09:33)
--- NOTE | 2018-10-01 09:33 | CARD ---
APPROVED REPORT Date of service: 10/01/2018 EKG Measurement Heart [id number] <Conclusion> Normal sinus rhythm T wave abnormality, consider lateral ischemia Abnormal ECG
--- NOTE | 2018-10-01 09:55 | RAD ---
Date of service: 10/01/2018 HISTORY: Cough COMPARISON: 09/07/2018 TECHNIQUE: Chest PA and lateral views FINDINGS: LUNGS: No active pulmonary disease. PLEURA: No significant pleural effusion identified. No pneumothorax apparent. CARDIOVASCULAR: No aortic atherosclerotic calcification present. Normal cardiac size. No pulmonary vascular congestion. OSSEOUS STRUCTURES: No significant abnormalities. VISUALIZED UPPER ABDOMEN: Normal. OTHER FINDINGS: None. IMPRESSION: No active disease.
[2018-10-01] MEDS ORDERED: Potassium Chloride 20 mEq ER Tab PO STA (10:15)
[2018-10-01] MEDS ORDERED: Potassium Chloride 20 mEq ER Tab PO ONE (10:22)
[2018-10-01 10:35] LABS: EOSINOPHIL 1 % (0-7); LYMPHOCYTE 6 % (20-50); MONOCYTE 7 % (0-10); NEUTROPHIL 85 % (42-75); REACTIVE LYMPHOCYTES 1 % (0-0); TOTAL CELLS COUNTED 100
[2018-10-01 10:37] LABS: PLATELET ESTIMATE DECREASED (NORMAL)
[2018-10-01 10:38] LABS: ANISOCYTOSIS SLIGHT
[2018-10-01 10:39] LABS: GIANT PLATELETS PRESENT
--- NOTE | 2018-10-01 10:42 | CT ---
Date of service: 10/01/2018 PROCEDURE: CT Abdomen and Pelvis with contrast HISTORY: Gen abd pain COMPARISON: 09/07/2018 TECHNIQUE: Contrast dose: 95 cc Omnipaque 300 Radiation dose: Total exam DLP = 666.66 mGy-cm. This CT exam was performed using one or more of the following dose reduction techniques: Automated exposure control, adjustment of the mA and/or kV according to patient size, and/or use of iterative reconstruction technique. FINDINGS: LOWER THORAX: Unremarkable. LIVER: Unremarkable. No gross lesion or ductal dilatation. GALLBLADDER AND BILE DUCTS: Unremarkable. PANCREAS: Unremarkable. No gross lesion or ductal dilatation. SPLEEN: Unremarkable. ADRENALS: Unremarkable. No mass. KIDNEYS AND URETERS: Unremarkable. No hydronephrosis. No solid mass. VASCULATURE: Unremarkable. No aortic aneurysm. There is atherosclerotic calcification of the abdominal aorta. BOWEL: Unremarkable. No obstruction. No gross mural thickening. APPENDIX: Not identified. No secondary findings. PERITONEUM: Unremarkable. No free fluid. No free air. LYMPH NODES: Unremarkable. No enlarged lymph nodes. BLADDER: Suboptimally distended REPRODUCTIVE: Normal uterus BONES: No acute fracture. OTHER FINDINGS: None. IMPRESSION: No acute abnormality.
--- NOTE | 2018-10-01 12:46 | CP.PCM.HP ---
History of Present Illness - History of Present Illness History of Present Illness: Hx taken from patient and medical records PMD: Dr Kingsley [facility] 68 y/o F with PMHx of HIV, HTN, Hypercholesterolemia, depression, COPD, drug abuse on methadone program and former smoker presented to ED with c/o abd pain and nausea with tactile fever at home for the past 2 days. Patient also stated that while in ED she developed left side chest pain radiating to left axila that she has had intermittent also since Yesterday. CP not related to exertion but patient states she cant not take 1 flight of stairs because of fatigue. Denies hx of CAD. abd pain is diffuse and chronic but worsened last couple of days. She admits hard stools for what she takes stool softeners at home. She has hx of HIV for many years and f/u at [facility] regularly, last time 1 week ago also f/u with Psych. Patient states she has been taking all her meds as prescribed. Denies SOB, palptiations, diarrhea, vomiting, blood in stools, dysuria or urinary frequency. ED course CT abd/pelvis unremarkable CMP; AST 40 rest WNL, Lipase normal Trop x1 normal EKG nonspecific t waves changes present on previous EKGs Present on Admission - Present on Admission Any Indicators Present on Admission: No Review of Systems - Review of Systems All systems: reviewed and no additional remarkable complaints except - Cardiovascular Cardiovascular: Chest Pain, Dyspnea on Exertion - Gastrointestinal Gastrointestinal: Abdominal Pain, Constipation, Nausea Past Patient History - Infectious Disease Hx of Infectious Diseases: None - Tetanus Immunizations Tetanus Immunization: Unknown - Past Medical History & Family History Past Medical History?: Yes - Past Social History Smoking Status: Former Smoker Alcohol: None Drugs: Prescription medications (Methadone) - CARDIAC Hx Atrial Fibrillation: No Hx Hypercholesterolemia: Yes Hx Hypertension: Yes - PULMONARY Hx Asthma: Yes Hx Bronchitis: Yes Hx Chronic Obstructive Pulmonary Disease (COPD): Yes Hx Emphysema: No Hx Pneumonia: Yes Hx Sleep Apnea: Yes - NEUROLOGICAL Hx Seizures: No - HEENT Other/Comment: glasses - RENAL Hx Chronic Kidney Disease: No Hx Kidney Stones: Yes - ENDOCRINE/METABOLIC Hx Hyperthyroidism: No - HEMATOLOGICAL/ONCOLOGICAL Hx Anemia: No Hx Human Immunodeficiency Virus (HIV): Yes - INTEGUMENTARY Hx Dermatological Problems: No - MUSCULOSKELETAL/RHEUMATOLOGICAL Hx Arthritis: Yes - GASTROINTESTINAL Hx Gastritis: Yes Hx Pancreatitis: No - GENITOURINARY/GYNECOLOGICAL Hx Sexually Transmitted Disorders: No - PSYCHIATRIC Hx Anxiety: Yes Hx Bipolar Disorder: No Hx Depression: Yes Hx Schizophrenia: No - SURGICAL HISTORY Hx Surgeries: No - ANESTHESIA Hx Anesthesia: No Meds Allergies/Adverse Reactions: Allergies Allergy/AdvReac Type Severity Reaction Status Date / Time aspirin Allergy GI UPSET Verified 10/01/18 07:19 cobicistat [From Genvoya] Allergy NAUSEA Verified 10/01/18 07:19 efavirenz [From Atripla] Allergy DEPRESSION Verified 10/01/18 07:19 elvitegravir [From Genvoya] Allergy NAUSEA Verified 10/01/18 07:19 emtricitabine [From Atripla] Allergy DEPRESSION Verified 10/01/18 07:19 metformin Allergy NAUSEA Verified 10/01/18 07:19 Penicillins Allergy RASH Verified 10/01/18 07:19 tenofovir [From Atripla] Allergy DEPRESSION Verified 10/01/18 07:19 Physical Exam - Constitutional Appears: Non-toxic - Eye Exam Eye Exam: PERRL - ENT Exam ENT Exam: Mucous Membranes Moist - Respiratory Exam Respiratory Exam: Clear to Auscultation Bilateral, NORMAL BREATHING PATTERN - Cardiovascular Exam Cardiovascular Exam: REGULAR RHYTHM, +S1, +S2. absent: Gallop - GI/Abdominal Exam GI & Abdominal Exam: Normal Bowel Sounds, Soft, Tenderness (mild diffuse). abse nt: Distended, Firm, Guarding, Hernia, Mass, Organomegaly, Rebound - Extremities Exam Extremities exam: Positive for: normal capillary refill. Negative for: calf tenderness, pedal edema - Back Exam Back exam: absent: CVA tenderness (L), CVA tenderness (R) - Neurological Exam Neurological exam: Alert, Oriented x3 - Skin Skin Exam: Normal Color, Warm Results - Vital Signs Recent Vital Signs: Last Vital Signs Temp 98.7 F 10/01/18 07:19 Pulse 92 H 10/01/18 07:19 Resp 18 10/01/18 07:19 BP 146/80 10/01/18 07:19 Pulse Ox 94 L 10/01/18 10:54 - Labs Result Diagrams: 10/01/18 08:00 10/01/18 08:00 Labs: Laboratory Results - last 24 hr 10/01/18 10/01/18 10/01/18 07:50 08:00 08:00 WBC 6.9 D RBC 3.88 Hgb 13.6 Hct 39.9 MCV 102.7 H MCH 35.0 H MCHC 34.1 RDW 12.7 Plt Count 111 L MPV 9.1 Neut % (Auto) 87.8 H Lymph % (Auto) 4.5 L Burnett % (Auto) 7.1 Eos % (Auto) 0.2 Baso % (Auto) 0.4 Neut # (Auto) 6.0 Lymph # (Auto) 0.3 L Burnett # (Auto) 0.5 Eos # (Auto) 0.0 Baso # (Auto) 0.0 Neutrophils % (Manual) 85 H Lymphocytes % (Manual) 6 L Reactive Lymphs % 1 H Monocytes % (Manual) 7 Eosinophils % (Manual) 1 Platelet Estimate Decreased L Giant Platelets Present Anisocytosis (manual) Slight Macrocytosis (manual) Slight PT INR APTT Sodium 138 Potassium 3.3 L Chloride 97 L Carbon Dioxide 31 H Anion Gap 13 BUN 15 Creatinine 0.7 Est GFR ( Amer) > 60 Est GFR (Non-Af Amer) > 60 POC Glucose (mg/dL) 168 H Random Glucose 172 H Calcium 9.0 Total Bilirubin 0.9 AST 40 H ALT 37 Alkaline Phosphatase 60 Troponin I Total Protein 8.2 Albumin 4.6 Globulin 3.7 Albumin/Globulin Ratio 1.2 Lipase 36 Urine Color Urine Clarity Urine pH Ur Specific Silver Urine Protein Urine Glucose (UA) Urine Ketones Urine Blood Urine Nitrate Urine Bilirubin Urine Urobilinogen Ur Leukocyte Esterase Urine RBC (Auto) Urine Microscopic WBC Ur Squamous Epith Cells Urine Bacteria 10/01/18 10/01/18 10/01/18 08:00 08:25 11:02 WBC RBC Hgb Hct MCV MCH MCHC RDW Plt Count MPV Neut % (Auto) Lymph % (Auto) Burnett % (Auto) Eos % (Auto) Baso % (Auto) Neut # (Auto) Lymph # (Auto) Burnett # (Auto) Eos # (Auto) Baso # (Auto) Neutrophils % (Manual) Lymphocytes % (Manual) Reactive Lymphs % Monocytes % (Manual) Eosinophils % (Manual) Platelet Estimate Giant Platelets Anisocytosis (manual) Macrocytosis (manual) PT 12.9 INR 1.1 APTT 28.8 Sodium Potassium Chloride Carbon Dioxide Anion Gap BUN Creatinine Est GFR ( Amer) Est GFR (Non-Af Amer) POC Glucose (mg/dL) Random Glucose Calcium Total Bilirubin AST ALT Alkaline Phosphatase Troponin I < 0.0120 Total Protein Albumin Globulin Albumin/Globulin Ratio Lipase Urine Color Vielka Urine Clarity Slighty-cloudy Urine pH 6.0 Ur Specific Silver 1.029 Urine Protein 100 Urine Glucose (UA) Neg Urine Ketones Negative Urine Blood Negative Urine Nitrate Negative Urine Bilirubin Negative Urine Urobilinogen 0.2-1.0 Ur Leukocyte Esterase Small Urine RBC (Auto) 3 Urine Microscopic WBC 5 Ur Squamous Epith Cells 3 Urine Bacteria Rare Assessment & Plan - Assessment and Plan (Free Text) Assessment: 68 y/o F with hx of HIV, HTN, former smoker and COPD admitted for CP to r/o ACS Chest pain r/o ACS Trop x 1 normal. EKG nonspecific T waves changes present on previous EKGs NO Hx of CAD F/U Trops q6h and EKG AM Abd pain Acute on chronic, mild diffuse CT abd pelvis unremmarkable as well as CMP(only mild elevation of AST=40) Admits hx of constipation Start Senokot 2 tab HS c/w Colace C/W Bentyl PRN Lipase normal HIV without aids Clinic notes reviewed: Viral load undetectable, CD4 170 on 08/2018 c/w home meds Bactrim for PCP prophylaxis DM type 2 controlled Lat A1c 06/2018 = 5.9 C/w LSM Accuchekcs Diabetic diet Hypokalemia Mild K 3.3 S/P KCL PO 40 meq on ER F/U BMP AM DVT prophylaxis Lovenox
[2018-10-01] MEDS ORDERED: Albuterol-Ipratrop 3 mg / 0.5 (3 ml) UD INH PRN (13:11)
[2018-10-01 17:16] LABS: SQUAMOUS EPITHIAL < 1 /hpf (0-5); URINE BILIRUBIN NEGATIVE (NEGATIVE); URINE BLOOD NEGATIVE (NEGATIVE); URINE CLARITY CLEAR (Clear); URINE COLOR YELLOW (YELLOW); URINE GLUCOSE (UA) NEG (NEGATIVE); URINE LEUKOCYTE ESTERASE NEG Leu/uL (Negative); URINE PROTEIN 30 mg/dL (NEGATIVE)
[2018-10-01] MEDS ORDERED: Patient's Own Med (Albuterol/Ipratropium [Combivent Respimat] 1 PUFF) IH PRN (18:04)
[2018-10-01] MEDS ORDERED: Albuterol-Ipratrop 3 mg / 0.5 (3 ml) UD IH PRN (18:04)
[2018-10-01] MEDS ORDERED: Azithromycin 500 MG in Sodium Chloride 0.9% 250 ML IVPB STA (18:23)
[2018-10-01] MEDS: Tmp-Smz 800 mg-160 mg DS Tab PO SCH (18:30)
[2018-10-01] MEDS: guaiFENesin 600 mg ER Tab PO SCH (21:14)
[2018-10-01] MEDS: Fluticasone-Salmeterol 250-50mcg Diskus IH SCH (21:18)
[2018-10-01] MEDS ORDERED: [UNRECOGNIZED DRUG - OTHER] PO SCH (22:00)
[2018-10-02 00:23] VITALS: RESP 18
[2018-10-02 01:19] LABS: BLOOD UREA NITROGEN 17 mg/dl (7-17); CALCIUM 8.6 mg/dL (8.4-10.2); GFR NON-AFRICAN AMERICAN > 60
[2018-10-02 06:09] LABS: HEMOGLOBIN 12.4 g/dL (12.0-16.0); MEAN CELL VOLUME 104.3 fl (81.0-99.0); MEAN CORPUSCULAR HEMOGLOBIN 35.7 pg (27.0-31.0); MEAN CORPUSCULAR HGB CONC 34.2 g/dL (33.0-37.0); RBC 3.47 Mil/uL (3.80-5.20); RED CELL DISTRIBUTION WIDTH 12.8 % (11.5-14.5); WHITE BLOOD COUNT 4.3 K/uL (4.8-10.8)
[2018-10-02] MEDS ORDERED: Potassium Chloride 10 mEq ER Tab PO ONE (08:31)
[2018-10-02] MEDS ORDERED: HCTZ/Losartan 12.5/50 Tab PO SCH (09:00)
[2018-10-02] MEDS ORDERED: Azithromycin 500 MG in Sodium Chloride 0.9% 250 ML IVPB SCH (09:00)
[2018-10-02] MEDS ORDERED: Enoxaparin 40 mg Syringe SC SCH (09:00)
[2018-10-02] MEDS ORDERED: Cholecalciferol 1,000 INTLU TAB PO SCH (09:00)
[2018-10-02] MEDS: Tmp-Smz 800 mg-160 mg DS Tab PO SCH (09:53)
[2018-10-02] MEDS: guaiFENesin 600 mg ER Tab PO SCH (09:53)
[2018-10-02] MEDS: Fluticasone-Salmeterol 250-50mcg Diskus IH SCH (09:54)
--- NOTE | 2018-10-02 10:19 | CARD ---
APPROVED REPORT Date of service: 10/02/2018 EKG Measurement Heart [id number] <Conclusion> Normal sinus rhythm Normal ECG
--- NOTE | 2018-10-02 13:28 | CP.PCM.DIS ---
Provider - Provider Date of Admission: 10/01/18 12:22 Attending physician: Jarrell Rubio MD Time Spent in preparation of Discharge (in minutes): 20 Diagnosis - Discharge Diagnosis (1) Bronchitis Status: Acute Comment: d/c on Z pack and mucinex. F/u PMD within 1 week Hospital Course - Lab Results Lab Results: Most Recent Lab Values WBC 4.3 K/uL (4.8-10.8) L 10/02/18 05:40 RBC 3.47 Mil/uL (3.80-5.20) L 10/02/18 05:40 Hgb 12.4 g/dL (12.0-16.0) 10/02/18 05:40 Hct 36.2 % (34.0-47.0) 10/02/18 05:40 MCV 104.3 fl (81.0-99.0) H 10/02/18 05:40 MCH 35.7 pg (27.0-31.0) H 10/02/18 05:40 MCHC 34.2 g/dL (33.0-37.0) 10/02/18 05:40 RDW 12.8 % (11.5-14.5) 10/02/18 05:40 Plt Count 89 K/uL (130-400) L D 10/02/18 05:40 MPV 9.1 fl (7.2-11.7) 10/01/18 08:00 Neut % (Auto) 87.8 % (50.0-75.0) H 10/01/18 08:00 Lymph % (Auto) 4.5 % (20.0-40.0) L 10/01/18 08:00 Runnels % (Auto) 7.1 % (0.0-10.0) 10/01/18 08:00 Eos % (Auto) 0.2 % (0.0-4.0) 10/01/18 08:00 Baso % (Auto) 0.4 % (0.0-2.0) 10/01/18 08:00 Neut # (Auto) 6.0 K/uL (1.8-7.0) 10/01/18 08:00 Lymph # (Auto) 0.3 K/uL (1.0-4.3) L 10/01/18 08:00 Runnels # (Auto) 0.5 K/uL (0.0-0.8) 10/01/18 08:00 Eos # (Auto) 0.0 K/uL (0.0-0.7) 10/01/18 08:00 Baso # (Auto) 0.0 K/uL (0.0-0.2) 10/01/18 08:00 Neutrophils % (Manual) 85 % (42-75) H 10/01/18 08:00 Lymphocytes % (Manual) 6 % (20-50) L 10/01/18 08:00 Reactive Lymphs % 1 % (0-0) H 10/01/18 08:00 Monocytes % (Manual) 7 % (0-10) 10/01/18 08:00 Eosinophils % (Manual) 1 % (0-7) 10/01/18 08:00 Platelet Estimate Decreased (NORMAL) L 10/01/18 08:00 Giant Platelets Present 10/01/18 08:00 Anisocytosis (manual) Slight 10/01/18 08:00 Macrocytosis (manual) Slight 10/01/18 08:00 PT 12.9 Seconds (9.8-13.1) 10/01/18 08:00 INR 1.1 10/01/18 08:00 APTT 28.8 Seconds (25.6-37.1) 10/01/18 08:00 Sodium 141 mmol/l (132-148) 10/02/18 01:09 Potassium 3.5 MMOL/L (3.6-5.0) L 10/02/18 01:09 Chloride 101 mmol/L (98-107) 10/02/18 01:09 Carbon Dioxide 31 mmol/L (22-30) H 10/02/18 01:09 Anion Gap 13 (10-20) 10/02/18 01:09 BUN 17 mg/dl (7-17) 10/02/18 01:09 Creatinine 0.6 mg/dl (0.7-1.2) L 10/02/18 01:09 Est GFR ( Amer) > 60 10/02/18 01:09 Est GFR (Non-Af Amer) > 60 10/02/18 01:09 POC Glucose (mg/dL) 123 mg/dL (65-110) H 10/02/18 11:31 Random Glucose 116 mg/dL (65-105) H 10/02/18 01:09 Calcium 8.6 mg/dL (8.4-10.2) 10/02/18 01:09 Total Bilirubin 0.9 mg/dl (0.2-1.3) 10/01/18 08:00 AST 40 U/L (14-36) H 10/01/18 08:00 ALT 37 U/L (9-52) 10/01/18 08:00 Alkaline Phosphatase 60 U/L (38-126) 10/01/18 08:00 Troponin I < 0.0120 ng/mL (0.00-0.120) 10/02/18 03:40 Total Protein 8.2 G/DL (6.3-8.2) 10/01/18 08:00 Albumin 4.6 g/dL (3.5-5.0) 10/01/18 08:00 Globulin 3.7 gm/dL (2.2-3.9) 10/01/18 08:00 Albumin/Globulin Ratio 1.2 (1.0-2.1) 10/01/18 08:00 Lipase 36 U/L (23-300) 10/01/18 08:00 TSH 3rd Generation 1.48 mIU/ML (0.46-4.68) 10/02/18 01:09 Urine Color Yellow (YELLOW) 10/01/18 16:43 Urine Clarity Clear (Clear) 10/01/18 16:43 Urine pH 7.0 (5.0-8.0) 10/01/18 16:43 Ur Specific Lincoln 1.005 (1.003-1.030) 10/01/18 16:43 Urine Protein 30 mg/dL (NEGATIVE) 10/01/18 16:43 Urine Glucose (UA) Neg mg/dL (NEGATIVE) 10/01/18 16:43 Urine Ketones Negative mg/dL (NEGATIVE) 10/01/18 16:43 Urine Blood Negative (NEGATIVE) 10/01/18 16:43 Urine Nitrate Negative (NEGATIVE) 10/01/18 16:43 Urine Bilirubin Negative (NEGATIVE) 10/01/18 16:43 Urine Urobilinogen 1.0 mg/dL (0.2-1.0) 10/01/18 16:43 Ur Leukocyte Esterase Neg Shanice/uL (Negative) 10/01/18 16:43 Urine RBC (Auto) 1 /hpf (0-3) 10/01/18 16:43 Urine Microscopic WBC < 1 /hpf (0-5) 10/01/18 16:43 Ur Squamous Epith Cells < 1 /hpf (0-5) 10/01/18 16:43 Urine Bacteria Rare (<OCC) 10/01/18 08:25 - Hospital Course Hospital Course: 68 y/o F with PMH of DMII, HTN, Dyslipidemia, HIV, hep C, COPD, depression, drug abuse (on Methadone program) , ex smoker and Vertigo presented to ER for evaluation of abdominal pain. Patient states she has been having this abdominal pain for about 4 days and has been progressively getting worse. CT abdomen showed no acute pathology. While in ER patient also complained of chest pain. She also complained of increased cough and sputum production , greenish for the last 4 days after getting in contact with a friend with upper respiratory symptoms. She also complained of on and off fever In ER found to have Tmax 100.5 , WBC 6.9. Patient was placed under observation in telemetry for Chest pain to r/o ACS and Bronchitis. Troponin negative x3. CXR showed no active disease. Pt was started on Zithromacin IV, Duonebs PRN, O2 NC, and Mucinex for acute bronchitis. Symptoms improved overnight, medically cleared for discharge to home on PO Z-migdalia and Mucinex. Discharge Exam - Head Exam Head Exam: ATRAUMATIC, NORMAL INSPECTION, NORMOCEPHALIC - Eye Exam Eye Exam: Normal appearance - ENT Exam ENT Exam: Mucous Membranes Moist - Neck Exam Neck exam: Normal Inspection - Respiratory Exam Respiratory Exam: Wheezes (bilateral ,scattered), NORMAL BREATHING PATTERN. abs ent: Respiratory Distress - Cardiovascular Exam Cardiovascular Exam: REGULAR RHYTHM - GI/Abdominal Exam GI & Abdominal Exam: Soft. absent: Tenderness - Psychiatric Exam Psychiatric exam: Anxious - Skin Skin Exam: Dry, Intact, Normal Color, Warm Discharge Plan - Discharge Medications Prescriptions: Azithromycin [Z-Migdalia] 250 mg PO ASDIR #6 tab guaiFENesin [Mucinex LA] 600 mg PO Q12 #10 tab - Follow Up Plan Condition: IMPROVED Disposition: HOME/ ROUTINE Instructions: Acute Abdomen (Belly Pain) Additional Instructions: Follow up with Dr Kingsley at [facility] within 1 week. Referrals: [facility] [place] [Outside]
[2018-10-02 16:21] VITALS: BP 140/89; PULSE 86; TEMP 99.7; O2SAT 95
== END 2018-10-02 19:30 | disposition home or self-care (01) ==
LOC: H.ER 07:00 → H.ERHOLD 12:22 → H.TEL 14:49
PROVIDERS: ADMIT Hospitalist; ATTEND Hospitalist
DX: R10.32 Left lower quadrant pain (principal); R07.89 Other chest pain; J20.9 Acute bronchitis, unspecified; E87.6 Hypokalemia; Z21 Asymptomatic human immunodeficiency virus [HIV] infection status; K59.00 Constipation, unspecified; B19.20 Unspecified viral hepatitis C without hepatic coma; I10 Essential (primary) hypertension; J44.0 Chronic obstructive pulmonary disease with (acute) lower respiratory infection; E11.9 Type 2 diabetes mellitus without complications; E78.00 Pure hypercholesterolemia, unspecified; E78.5 Hyperlipidemia, unspecified; F41.9 Anxiety disorder, unspecified; F32.9 Major depressive disorder, single episode, unspecified; G47.30 Sleep apnea, unspecified; Z87.891 Personal history of nicotine dependence; Z87.01 Personal history of pneumonia (recurrent); Z87.442 Personal history of urinary calculi; Z88.6 Allergy status to analgesic agent
CPT/HCPCS: 36415; 71046; 74177; 80048; 80053; 81003; 82948; 83690; 84443; 84484; 85025; 85027; 85610; 85730; 87040; 87086; 93005; 99282; G0378; J0456; J2405; J7030; Q9967

== ENCOUNTER 2018-10-08 07:11 | Observation (INO) | payer MEDICARE, MEDICAID ==
[2018-10-08] MEDS ORDERED: Sodium Chloride 0.9% 1,000 ML IV STA (10:16)
[2018-10-08 10:32] LABS: BASO % 0.5 % (0.0-2.0); EOS % 0.9 % (0.0-4.0); HEMOGLOBIN 13.7 g/dL (12.0-16.0); LYMPH # 0.8 K/uL (1.0-4.3); LYMPH % 21.6 % (20.0-40.0); MEAN CELL VOLUME 103.1 fl (81.0-99.0); MEAN CORPUSCULAR HEMOGLOBIN 35.7 pg (27.0-31.0); MEAN CORPUSCULAR HGB CONC 34.6 g/dL (33.0-37.0); MEAN PLATELET VOLUME 8.3 fl (7.2-11.7); MONO # 0.4 K/uL (0.0-0.8); MONO % 9.7 % (0.0-10.0); NEUT # 2.5 K/uL (1.8-7.0); NEUT % 67.3 % (50.0-75.0); RBC 3.83 Mil/uL (3.80-5.20); RED CELL DISTRIBUTION WIDTH 12.5 % (11.5-14.5); WHITE BLOOD COUNT 3.7 K/uL (4.8-10.8)
--- NOTE | 2018-10-08 10:42 | ED PDOC ---
HPI: CCC, URI, Sore Throat Time Seen by Provider: 10/08/18 07:22 Chief Complaint (Nursing): GI Problem Chief Complaint (Provider): GI Problem History Per: Patient History/Exam Limitations: no limitations Onset/Duration Of Symptoms: Persistent (x1 week) Current Symptoms Are (Timing): Still Present Additional Complaint(s): 68 year old female with medical history of anxiety, HIV, and HTN, presents to the emergency department with a complaint of fever, diarrhea, and for 1 week. He denies any vomiting or further complaints. Patient completed a course of Zpack for a recent URI without residual symptoms. PCP: none provided Past Medical History Reviewed: Historical Data, Nursing Documentation, Vital Signs Vital Signs: Last Vital Signs Temp 98.3 F 10/08/18 07:35 Pulse Resp BP 147/100 H 10/08/18 07:19 Pulse Ox 98 10/08/18 07:19 Primary Care Provider: FAMILY PROVIDER,NO - Medical History PMH: Anxiety, Arthritis, Asthma, Bronchitis, COPD, Depression, Diabetes, Gastritis, HIV, HTN, Hypercholesterolemia, Kidney Stones, Pneumonia, Sleep Apnea Denies: Anemia, Atrial Fibrillation, Bipolar Disorder, CAD, Cardia Arrhythmia, CHF, Crohn's Disease, Diverticulitis, Emphysema, Fractures, Gall Bladder Disease, Hepatitis, Hyperthyroidism, Hypothyroidism, Mitral Valve Prolapse, Osteoporosis, Pancreatitis, Paranoia, Peripheral Edema, Post Traumatic Stress Disorder, Pulmonary Embolism, Chronic Kidney Disease, Rheumatoid Arthritis, Schizophrenia, Seizures, Sickle Cell Disease, Sexually Transmitted Disease - Surgical History Surgical History: No Surg Hx Denies: Pacemaker - Family History Family History: States: Unknown Family Hx, Hypertension - Social History Current smoker - smoking cessation education provided: No Alcohol: None Drugs: Denies - Immunization History Hx Tetanus Toxoid Vaccination: No Hx Influenza Vaccination: Yes Hx Pneumococcal Vaccination: Yes - Home Medications Home Medications: Ambulatory Orders Medication Instructions Recorded Dolutegravir Sodium [Tivicay] 50 mg PO HS 06/21/17 Methadone 110 mg PO DAILY@0600 06/21/17 Mirtazapine [Remeron] 45 mg PO HS 06/21/17 Emtricitab/Rilpiviri/Tenof Ala 1 tab PO HS 11/02/17 [Odefsey Tablet] Fluticasone/Salmeterol [Advair 1 puff IH Q12 06/01/18 250-50 Diskus] Losartan/Hydrochlorothiazide 1 tab PO DAILY 11/02/17 [Losartan-Hctz 50-12.5 mg Tab] Pravastatin Sodium [Pravachol] 10 mg PO HS 11/16/17 Cholecalciferol [Vitamin D 1000 IU] 1,000 unit PO DAILY 05/09/18 Docusate [Colace] 100 mg PO DAILY PRN 05/09/18 Ondansetron [Zofran Tab] 4 mg PO Q6 PRN #16 tab 06/14/18 Dicyclomine [Bentyl] 20 mg PO QID PRN #10 tab 09/07/18 Albuterol/Ipratropium [Combivent 1 puff IH Q6 PRN 10/01/18 Respimat] Albuterol/Ipratropium [Duoneb 3 3 ml IH Q6 PRN 10/01/18 mg/0.5 mg (3 ml) UD] Meclizine [Meclizine*] 25 mg PO DAILY PRN 10/01/18 clonazePAM [Klonopin] 0.5 mg PO Q12 10/01/18 - Allergies Allergies/Adverse Reactions: Allergies Allergy/AdvReac Type Severity Reaction Status Date / Time aspirin Allergy GI UPSET Verified 10/08/18 07:19 cobicistat [From Genvoya] Allergy NAUSEA Verified 10/08/18 07:19 efavirenz [From Atripla] Allergy DEPRESSION Verified 10/08/18 07:19 elvitegravir [From Genvoya] Allergy NAUSEA Verified 10/08/18 07:19 emtricitabine [From Atripla] Allergy DEPRESSION Verified 10/08/18 07:19 metformin Allergy NAUSEA Verified 10/08/18 07:19 Penicillins Allergy RASH Verified 10/08/18 07:19 tenofovir [From Atripla] Allergy DEPRESSION Verified 10/08/18 07:19 Review of Systems ROS Statement: Except As Marked, All Systems Reviewed And Found Negative Constitutional: Positive for: Fever ENT: Negative for: Nose Discharge, Nose Congestion, Throat Pain Respiratory: Negative for: Cough Gastrointestinal: Positive for: Abdominal Pain (lower), Diarrhea. Negative for: Vomiting Physical Exam - Reviewed Nursing Documentation Reviewed: Yes Vital Signs Reviewed: Yes - Physical Exam Appears: Positive for: Uncomfortable Head Exam: Positive for: ATRAUMATIC, NORMAL INSPECTION, NORMOCEPHALIC Skin: Positive for: Normal Color Eye Exam: Positive for: Normal appearance ENT: Positive for: Normal ENT Inspection, TM Is/Are (clear bilaterally). Negative for: Nasal Congestion, Pharyngeal Erythema, Tonsillar Exudate Neck: Positive for: Normal, Supple Cardiovascular/Chest: Positive for: Regular Rate, Rhythm Respiratory: Positive for: Normal Breath Sounds. Negative for: Respiratory Distress Gastrointestinal/Abdominal: Positive for: Soft, Tenderness (suprapubic mildly) Extremity: Positive for: Normal ROM Neurological/Psych: Positive for: Awake, Alert, Normal Tone, Oriented - Laboratory Results Result Diagrams: 10/08/18 10:10 10/08/18 10:10 - ECG O2 Sat by Pulse Oximetry: 98 (RA) Pulse Ox Interpretation: Normal Medical Decision Making Medical Decision Making: Time: 1015 Initial Plan: diarrhea nd fever, rule out colitis, abscess, electrolyte abnormality * CT ABD/pelvis * Labs * Accucheck * IV fluids * Blood culture * cdiff toxin AB Time: 1259 --CT ABD/pelvis FINDINGS: LOWER THORAX: There is patchy ground-glass attenuation in the right peripheral middle lobe and right lower lobe which may represent nonspecific infection/inflammation. The visualized left lung is clear. LIVER: Normal in size with homogeneous enhancement. Diffuse fatty liver. There is mild central biliary ductal dilatation. GALLBLADDER AND BILE DUCTS: Well distended. No calcified gallstones, wall thickening or pericholecystic fluid. There is mild diffuse dilatation of the common bile duct which measures 9 millimeter in diameter. No CT evidence for choledocholithiasis. PANCREAS: Mild diffuse atrophy of the pancreas. Normal homogeneous enhancement. There is moderate dilatation of the proximal common bile duct which measures 6 mm. SPLEEN: Normal in size and appearance. ADRENALS: No discrete nodule. KIDNEYS AND URETERS: Normal in size with homogeneous enhancement. No hydronephrosis. No solid mass. Small cortical cyst in the interpolar region of the left kidney. VASCULATURE: No aortic aneurysm. There are early aortic atherosclerotic calcifications present. BOWEL: Evaluation of the bowel is limited in the absence of oral contrast. The small bowel loops are normal in caliber. There is large amount of stool in the ascending and transverse colon and rectum. There is mild circumferential mural thickening in the mid and distal descending colon APPENDIX: Normal appendix. PERITONEUM: No free fluid. No free air. LYMPH NODES: No enlarged lymph nodes. BLADDER: Partially decompressed. REPRODUCTIVE: The uterus is normal in size. BONES: No acute fracture. Advanced multilevel degenerative disc disease in the lower thoracic spine and at L5-S1. OTHER FINDINGS: None. IMPRESSION: 1. Constipation. Apparent circumferential mural thickening in the mid and distal descending colon is nonspecific and could be related to underdistention or acute nonspecific infectious/inflammatory colitis. No bowel obstruction. Clinical follow-up is advised. 2. Mild diffuse dilatation of the common bile duct, mild dilatation of central bile ducts and proximal pancreatic duct of uncertain etiology and significance. Clinical follow-up is advised and if clinically indicated correlation with ERCP/MRCP may be performed. 3. Fatty liver. 1548 On reassessment, patient reports persistent abdominal pain - ordered pain meds Patient's stool sample is negative for C.Diff pt without fever or elevated wbc will treat for colitis, with iv antibitoics Case discussed with Dr. wyman, hospitalist who covers dr julian from clinic, who accepts patient for admission. Patient to be admitted to med-surg for observation due to colitis. pt agreeable to plan. Scribe Attestation: Documented by Joana Monte, acting as a scribe for Tati Unger MD. Provider Scribe Attestation: All medical record entries made by the Scribe were at my direction and personally dictated by me. I have reviewed the chart and agree that the record accurately reflects my personal performance of the history, physical exam, medical decision making, and the department course for this patient. I have also personally directed, reviewed, and agree with the discharge instructions and disposition. Disposition - Clinical Impression Clinical Impression: Colitis - Patient ED Disposition Is Patient to be Admitted: Yes Counseled Patient/Family Regarding: Studies Performed, Diagnosis - Disposition Disposition Time: 15:50 Condition: STABLE
[2018-10-08 10:49] LABS: ALB/GLOB RATIO 1.2 (1.0-2.1); ALBUMIN 4.4 g/dL (3.5-5.0); ALT/SGPT 40 U/L (9-52); AST/SGOT 85 U/L (14-36); BLOOD UREA NITROGEN 25 mg/dl (7-17); CALCIUM 9.3 mg/dL (8.4-10.2); GFR NON-AFRICAN AMERICAN > 60
[2018-10-08] MEDS ORDERED: Iohexol 300 100 ML IJ ONE (11:54)
[2018-10-08] MEDS ORDERED: Sodium Chloride 0.9% 50 ML IV ONE (11:55)
--- NOTE | 2018-10-08 13:03 | CT ---
Date of service: 10/08/2018 PROCEDURE: CT Abdomen and Pelvis with contrast HISTORY: Abdominal pain COMPARISON: 10/01/2018. TECHNIQUE: CT scan of the abdomen and pelvis was performed after administration of intravenous contrast. Oral contrast was not administered. Coronal and sagittal reformatted images were obtained. Contrast dose: 95 mL Omniscan 300 Radiation dose: Total exam DLP = 496.49 mGy-cm. This CT exam was performed using one or more of the following dose reduction techniques: Automated exposure control, adjustment of the mA and/or kV according to patient size, and/or use of iterative reconstruction technique. FINDINGS: LOWER THORAX: There is patchy ground-glass attenuation in the right peripheral middle lobe and right lower lobe which may represent nonspecific infection/inflammation. The visualized left lung is clear. LIVER: Normal in size with homogeneous enhancement. Diffuse fatty liver. There is mild central biliary ductal dilatation. GALLBLADDER AND BILE DUCTS: Well distended. No calcified gallstones, wall thickening or pericholecystic fluid. There is mild diffuse dilatation of the common bile duct which measures 9 millimeter in diameter. No CT evidence for choledocholithiasis. PANCREAS: Mild diffuse atrophy of the pancreas. Normal homogeneous enhancement. There is moderate dilatation of the proximal common bile duct which measures 6 mm. SPLEEN: Normal in size and appearance. ADRENALS: No discrete nodule. KIDNEYS AND URETERS: Normal in size with homogeneous enhancement. No hydronephrosis. No solid mass. Small cortical cyst in the interpolar region of the left kidney. VASCULATURE: No aortic aneurysm. There are early aortic atherosclerotic calcifications present. BOWEL: Evaluation of the bowel is limited in the absence of oral contrast. The small bowel loops are normal in caliber. There is large amount of stool in the ascending and transverse colon and rectum. There is mild circumferential mural thickening in the mid and distal descending colon APPENDIX: Normal appendix. PERITONEUM: No free fluid. No free air. LYMPH NODES: No enlarged lymph nodes. BLADDER: Partially decompressed. REPRODUCTIVE: The uterus is normal in size. BONES: No acute fracture. Advanced multilevel degenerative disc disease in the lower thoracic spine and at L5-S1. OTHER FINDINGS: None. IMPRESSION: 1. Constipation. Apparent circumferential mural thickening in the mid and distal descending colon is nonspecific and could be related to underdistention or acute nonspecific infectious/inflammatory colitis. No bowel obstruction. Clinical follow-up is advised. 2. Mild diffuse dilatation of the common bile duct, mild dilatation of central bile ducts and proximal pancreatic duct of uncertain etiology and significance. Clinical follow-up is advised and if clinically indicated correlation with ERCP/MRCP may be performed. 3. Fatty liver.
--- NOTE | 2018-10-08 15:26 | RAD ---
Date of service: 10/08/2018 HISTORY: Fever COMPARISON: 10/01/2018. TECHNIQUE: Chest PA and lateral FINDINGS: LINES AND TUBES: None. LUNG AND PLEURA: The lungs are well inflated and clear. No pleural effusion or pneumothorax. HEART AND MEDIASTINUM: The heart is not enlarged. No aortic atherosclerotic calcifications present. The hilar and mediastinal contours are within normal limits. SKELETAL STRUCTURES: The bony structures are within normal limits for the patient's age. VISUALIZED UPPER ABDOMEN: Normal. OTHER FINDINGS: None. IMPRESSION: No active pulmonary disease.
[2018-10-08] MEDS ORDERED: Ciprofloxacin 400mg/200ml D5W 400 MG/200 ML BAG IVPB STA (15:42)
[2018-10-08] MEDS ORDERED: metroNIDAZOLE 500mg/100ml NS 100 ML IVPB STA (15:44)
[2018-10-08] MEDS ORDERED: Morphine 4 MG/ML VIAL IV ONE (15:48)
[2018-10-08] MEDS ORDERED: Ciprofloxacin 400mg/200ml D5W 400 MG/200 ML BAG IVPB ONE (16:25)
[2018-10-08] MEDS ORDERED: Morphine 4 MG/ML VIAL ONE (16:25)
[2018-10-08] MEDS ORDERED: metroNIDAZOLE 500mg/100ml NS 100 ML IVPB ONE (16:25)
--- NOTE | 2018-10-08 16:52 | CP.PCM.HP ---
<Lizzy Zepeda - Last Filed: 10/08/18 18:09> History of Present Illness - History of Present Illness History of Present Illness: The patient is a 68 Y/O female with PMHx of HIV, HTN, HLD, anxiety, COPD, former smoker (quit 8 months ago), drug abuse in the past now on methadone program presents to the ED with c/o diffuse lower abdominal pain (RLQ and LLQ,but more localized to RLQ) for approxiamtely seven days, the pain is dull, moderate, constant associated with subjective fever and tenesmus. Patient reports she suffers form constipation, but in the last 3 days she has had small bouts of alternating diarrheas and sensation of incomplete BM, denies blood in the stools. Patient denies CALDWELL, CP, SOB, nausea, vomiting or other acute complaint at the time of this encounter. Of Note patient recently completed a course of Zpack for URI. ROS: 12 systems reviewed, except as per HPI. PMD: Dr. Kingsley, [facility]. PMH: HIV, HTN, HLD, anxiety, COPD (former smoker quit 8 months ago), drug abuse in the past now on methadone [facility]. FMH: Mother at 18 complications. Father at 80 Prostate CA. SOCHx: Former smoker,(30 yrs- ppd), quit 8 months ago. Denies current ETOH or illicit drugs (former alcohol, heroin and cocain abuse). SURG: Denies. MEDS: Reviewed ALLERG: aspirin, metformin, penicillin, efavirenz, cobicistat, elvitegravir, emtricitabine(mulotiple allergies reported) Next of Cecily: Call Cristina Moody [phone] FULL CODE. ED Course: VS reviewed-stable, afebrile in ED CBC: WBC 3.7 low, CHEM no lyte imbalance BUN 25 C DIff ag negative CT of ABDM IMPRESSION: 1. Constipation. Apparent circumferential mural thickening in the mid and distal descending colon is nonspecific and could be related to underdistention or acute nonspecific infectious/inflammatory colitis. No bowel obstruction. Clinical follow-up is advised. 2. Mild diffuse dilatation of the common bile duct, mild dilatation of central bile ducts and proximal pancreatic duct of uncertain etiology and significance. Clinical follow-up is advised and if clinically indicated correlation with ERCP/MRCP may be performed. 3. Fatty liver. ED Treatment: Morphine 4mg IVP x 1 for pain IV Antibx Rocephin, Flagyl ordered. Present on Admission - Present on Admission Any Indicators Present on Admission: No History of DVT/PE: No History of Uncontrolled Diabetes: No Urinary Catheter: No Decubitus Ulcer Present: No Past Patient History - Infectious Disease Hx of Infectious Diseases: None - Tetanus Immunizations Tetanus Immunization: Unknown - Past Medical History & Family History Past Medical History?: Yes - Past Social History Alcohol: None Drugs: Denies - CARDIAC Hx Atrial Fibrillation: No Hx Cardia Arrhythmia: No Hx Congestive Heart Failure: No Hx Hypercholesterolemia: Yes Hx Hypertension: Yes Hx Mitral Valve Prolapse: No Hx Pacemaker: No Hx Peripheral Edema: No - PULMONARY Hx Asthma: Yes Hx Bronchitis: Yes Hx Chronic Obstructive Pulmonary Disease (COPD): Yes Hx Emphysema: No Hx Pneumonia: Yes Hx Pulmonary Embolism: No Hx Sleep Apnea: Yes - NEUROLOGICAL Hx Seizures: No - HEENT Other/Comment: glasses - RENAL Hx Chronic Kidney Disease: No Hx Kidney Stones: Yes - ENDOCRINE/METABOLIC Hx Hyperthyroidism: No Hx Hypothyroidism: No - HEMATOLOGICAL/ONCOLOGICAL Hx Anemia: No Hx Human Immunodeficiency Virus (HIV): Yes Hx Sickle Cell Disease: No - INTEGUMENTARY Hx Dermatological Problems: No - MUSCULOSKELETAL/RHEUMATOLOGICAL Hx Arthritis: Yes Hx Fractures: No Hx Osteoporosis: No Hx Rheumatoid Arthritis: No - GASTROINTESTINAL Hx Crohn's Disease: No Hx Diverticulitis: No Hx Gall Bladder Disease: No Hx Gastritis: Yes Hx Pancreatitis: No - GENITOURINARY/GYNECOLOGICAL Hx Sexually Transmitted Disorders: No - PSYCHIATRIC Hx Anxiety: Yes Hx Bipolar Disorder: No Hx Depression: Yes Hx Paranoia: No Hx Post Traumatic Stress Disorder: No Hx Schizophrenia: No - SURGICAL HISTORY Hx Surgeries: No - ANESTHESIA Hx Anesthesia: No Meds Allergies/Adverse Reactions: Allergies Allergy/AdvReac Type Severity Reaction Status Date / Time aspirin Allergy GI UPSET Verified 10/08/18 07:19 cobicistat [From Genvoya] Allergy NAUSEA Verified 10/08/18 07:19 efavirenz [From Atripla] Allergy DEPRESSION Verified 10/08/18 07:19 elvitegravir [From Genvoya] Allergy NAUSEA Verified 10/08/18 07:19 emtricitabine [From Atripla] Allergy DEPRESSION Verified 10/08/18 07:19 metformin Allergy NAUSEA Verified 10/08/18 07:19 Penicillins Allergy RASH Verified 10/08/18 07:19 tenofovir [From Atripla] Allergy DEPRESSION Verified 10/08/18 07:19 Physical Exam - Constitutional Appears: No Acute Distress - Head Exam Head Exam: NORMAL INSPECTION, NORMOCEPHALIC - Eye Exam Eye Exam: EOMI - ENT Exam ENT Exam: Mucous Membranes Moist - Expanded ENT Exam Expanded Teeth exam: edentulous - Neck Exam Neck exam: Positive for: Full Rom - Respiratory Exam Respiratory Exam: Prolonged Expiratory Phase, Wheezes - Cardiovascular Exam Cardiovascular Exam: REGULAR RHYTHM, +S1, +S2 - GI/Abdominal Exam GI & Abdominal Exam: Soft, Tenderness (mild RLQ diffuse lower abdomen tenderness) - Extremities Exam Extremities exam: Negative for: pedal edema - Neurological Exam Neurological exam: Alert, Oriented x3 - Psychiatric Exam Psychiatric exam: Normal Affect - Skin Skin Exam: Normal Color, Warm Results - Vital Signs Recent Vital Signs: Last Vital Signs Temp 98.4 F 10/08/18 11:16 Pulse 78 10/08/18 14:20 Resp 20 10/08/18 14:20 BP 148/90 10/08/18 14:20 Pulse Ox 98 10/08/18 16:29 - Labs Result Diagrams: 10/08/18 10:10 10/08/18 10:10 Labs: Laboratory Results - last 24 hr 10/08/18 10/08/18 10/08/18 07:28 10:10 10:10 WBC 3.7 L RBC 3.83 Hgb 13.7 Hct 39.5 MCV 103.1 H MCH 35.7 H MCHC 34.6 RDW 12.5 Plt Count 149 MPV 8.3 Neut % (Auto) 67.3 Lymph % (Auto) 21.6 [place] % (Auto) 9.7 Eos % (Auto) 0.9 Baso % (Auto) 0.5 Neut # (Auto) 2.5 Lymph # (Auto) 0.8 L [place] # (Auto) 0.4 Eos # (Auto) 0.0 Baso # (Auto) 0.0 Sodium 141 Potassium 3.9 Chloride 100 Carbon Dioxide 30 Anion Gap 15 BUN 25 H Creatinine 0.7 Est GFR ( Amer) > 60 Est GFR (Non-Af Amer) > 60 POC Glucose (mg/dL) 182 H Random Glucose 109 H Calcium 9.3 Total Bilirubin 0.3 AST 85 H D ALT 40 Alkaline Phosphatase 56 Total Protein 8.3 H Albumin 4.4 Globulin 3.8 Albumin/Globulin Ratio 1.2 C. difficile Ag & Toxin 10/08/18 10/08/18 13:56 14:30 WBC RBC Hgb Hct MCV MCH MCHC RDW Plt Count MPV Neut % (Auto) Lymph % (Auto) [place] % (Auto) Eos % (Auto) Baso % (Auto) Neut # (Auto) Lymph # (Auto) [place] # (Auto) Eos # (Auto) Baso # (Auto) Sodium Potassium Chloride Carbon Dioxide Anion Gap BUN Creatinine Est GFR ( Amer) Est GFR (Non-Af Amer) POC Glucose (mg/dL) 79 Random Glucose Calcium Total Bilirubin AST ALT Alkaline Phosphatase Total Protein Albumin Globulin Albumin/Globulin Ratio C. difficile Ag & Toxin Negative Assessment & Plan - Assessment and Plan (Free Text) Assessment: 68 Y/O female with PMHx of HIV, HTN, HLD, anxiety, COPD, presents to the ED with c/o diffuse lower abdominal pain (RLQ and LLQ,but more localized to RLQ) for approxiamtely seven days, the pain is dull, moderate, constant associated with subjective fever and tenesmus. Admitted for acute colitis. ABDM CT compatible with possible acute nonspecific infectious/inflammatory colitis. No bowel obstruction. Plan: #Acute Colitis ABDM CT compatible with possible acute nonspecific infectious/inflammatory colitis Admit to [facility] for management IVF D5-1/2NS +20KCL@ 100 ml/h Pain management Rocephin 1G IV QD Metronidazole 500 IV Q8h F/u CBC and BMP in AM #HIV - Continue home medications - Regular followup at [facility] #HTN - Continue Losartan HCTZ 50-12.5mg - Monitor BP, was elevated on presentation but now normalized #Type II diabetes mellitus - As per eCW note, last A1c 6.3; all meds discontinued as per ecw note #Hyperlipidemia - Pravastatin 10 mg PO QD #Depression/Anxiety - Mirtazapine 45 qhs, clonazepam 1 mg po qd prn #Vertigo - Home med meclezine #History of drug abuse - Methadone 110 mg, from [facility], pending verification Diet - Heart Healthy DVT prophylaxis - Lovenox 40 mg SC QD <Rosalie Cazares - Last Filed: 10/09/18 19:13> Results - Vital Signs Recent Vital Signs: Last Vital Signs Temp 98 F 10/09/18 15:59 Pulse 61 10/09/18 17:00 Resp 20 10/09/18 15:59 BP 153/86 H 10/09/18 17:00 Pulse Ox 99 10/09/18 15:59 - Labs Result Diagrams: 10/09/18 05:28 10/09/18 05:28 Labs: Laboratory Results - last 24 hr 10/09/18 10/09/18 10/09/18 05:28 05:28 06:41 WBC 3.5 L RBC 3.94 Hgb 14.1 Hct 40.4 MCV 102.6 H MCH 35.7 H MCHC 34.8 RDW 12.5 Plt Count 155 Sodium 140 Potassium 3.7 Chloride 101 Carbon Dioxide 29 Anion Gap 14 BUN 13 Creatinine 0.7 Est GFR ( Amer) > 60 Est GFR (Non-Af Amer) > 60 POC Glucose (mg/dL) 140 H Random Glucose 141 H Calcium 8.6 10/09/18 10/09/18 10/09/18 11:36 14:30 15:41 WBC RBC Hgb Hct MCV MCH MCHC RDW Plt Count Sodium Potassium Chloride Carbon Dioxide Anion Gap BUN Creatinine Est GFR ( Amer) Est GFR (Non-Af Amer) POC Glucose (mg/dL) 124 H 123 H 122 H Random Glucose Calcium Attending/Attestation - Attestation I have personally seen and examined this patient.: Yes I have fully participated in the care of the patient.: Yes I have reviewed all pertinent clinical information: Yes Notes (Text): Agree with findings and plan as above.
[2018-10-08] MEDS ORDERED: Sodium Chloride 0.9% 1,000 ML IV SCH (17:45)
[2018-10-08] MEDS ORDERED: Albuterol-Ipratrop 3 mg / 0.5 (3 ml) UD IH PRN (17:53)
[2018-10-08] MEDS: metroNIDAZOLE 500mg/100ml NS 100 ML IVPB SCH (18:03)
[2018-10-08] MEDS ORDERED: cefTRIAXone (Rocephin) 1 gm Inj ONE (18:30)
[2018-10-08] MEDS ORDERED: FLUTICASONE PROPION/SALMETEROL 113-14 IH SCH (21:00)
[2018-10-08] MEDS ORDERED: DOLUTEGRAVIR 50 MG PO SCH (22:00)
[2018-10-08] MEDS ORDERED: [UNRECOGNIZED DRUG - OTHER] PO SCH (22:00)
[2018-10-08] MEDS: Potassium Ch 20mEq in D5-1/2NS 1,000 ML IV SCH (22:09)
[2018-10-09 04:29] VITALS: BMI 21.4
[2018-10-09] MEDS: Potassium Ch 20mEq in D5-1/2NS 1,000 ML IV SCH ×2 (04:55→15:38)
[2018-10-09] MEDS ORDERED: Glucagon Recombinant 1 mg Inj IM PRN (06:19)
[2018-10-09] MEDS ORDERED: Dextrose 50% SYRINGE Inj (50 ml) IV PRN (06:19)
[2018-10-09 06:39] LABS: HEMOGLOBIN 14.1 g/dL (12.0-16.0); MEAN CELL VOLUME 102.6 fl (81.0-99.0); MEAN CORPUSCULAR HEMOGLOBIN 35.7 pg (27.0-31.0); MEAN CORPUSCULAR HGB CONC 34.8 g/dL (33.0-37.0); RBC 3.94 Mil/uL (3.80-5.20); RED CELL DISTRIBUTION WIDTH 12.5 % (11.5-14.5); WHITE BLOOD COUNT 3.5 K/uL (4.8-10.8)
[2018-10-09 06:50] LABS: BLOOD UREA NITROGEN 13 mg/dl (7-17); GFR NON-AFRICAN AMERICAN > 60
[2018-10-09] MEDS: Insulin Regular 100 units/ml SC SCH ×3 (06:53→16:59)
[2018-10-09 07:13] LABS: CALCIUM 8.6 mg/dL (8.4-10.2)
[2018-10-09 08:04] VITALS: RESP 20
[2018-10-09] MEDS: metroNIDAZOLE 500mg/100ml NS 100 ML IVPB SCH ×2 (08:31→17:11)
[2018-10-09] MEDS ORDERED: HCTZ/Losartan 12.5/50 Tab PO SCH (09:00)
[2018-10-09] MEDS ORDERED: Cholecalciferol 1,000 INTLU TAB PO SCH (09:00)
[2018-10-09] MEDS ORDERED: Enoxaparin 40 mg Syringe SC SCH (09:00)
--- NOTE | 2018-10-09 11:47 | CP.PCM.PN ---
<Nhung HernandezLizzy - Last Filed: 10/09/18 11:59> Subjective - Date & Time of Evaluation Date of Evaluation: 10/09/18 Time of Evaluation: 09:50 - Subjective Subjective: Patient seen and examined this AM, NAD. Pt c/o nausea and mild RLQ abdominal pain and nausea. Patient reports BM x1 this AM. remain afebrile. Objective - Vital Signs/Intake and Output Vital Signs (last 24 hours): Temp Pulse Resp BP Pulse Ox 98.9 F 68 20 169/84 H 95 10/09/18 08:03 10/09/18 08:03 10/09/18 08:03 10/09/18 08:03 10/09/18 08:03 - Medications Medications: Current Medications Acetaminophen (Tylenol 325mg Tab) 650 mg PO Q6 PRN PRN Reason: Pain, Mild (1-3) Last Admin: 10/09/18 08:33 Dose: 650 mg Albuterol/Ipratropium (Duoneb 3 Mg/0.5 Mg (3 Ml) Ud) 3 ml IH Q6 PRN PRN Reason: Shortness of Breath Cholecalciferol (Vitamin D) 1,000 intlu PO DAILY [facility] Last Admin: 10/09/18 10:43 Dose: 1,000 intlu Clonazepam (Klonopin) 0.5 mg PO Q12 [facility] Last Admin: 10/09/18 10:43 Dose: 0.5 mg Dextrose (Dextrose 50% Inj) 0 ml IV STAT PRN; Protocol PRN Reason: Hypoglycemia Protocol Dextrose (Glutose 15) 0 gm PO ONCE PRN; Protocol PRN Reason: Hypoglycemia Protocol Dicyclomine HCl (Bentyl) 20 mg PO QID PRN PRN Reason: Pain, moderate (4-7) Docusate Sodium (Colace) 100 mg PO DAILY PRN PRN Reason: Constipation Enoxaparin Sodium (Lovenox) 40 mg SC DAILY [facility]; Protocol Last Admin: 10/09/18 08:31 Dose: 40 mg Glucagon (Glucagen Diagnostic Kit) 0 mg IM STAT PRN; Protocol PRN Reason: Hypoglycemia Protocol HCTZ/Losartan Potassium (Hyzaar 12.5 Mg-50 Mg) 1 tab PO DAILY [facility] Last Admin: 10/09/18 08:45 Dose: 1 tab Home Med (Emtricitab/Rilpiviri/Tenof Ala [Odefsey Tablet]) 1 tab PO [facility] Home Med (Patient's Own Medication) 50 unit PO [facility]; Protocol Ceftriaxone Sodium 1 gm/ (Sodium Chloride) 100 mls @ 100 mls/hr IVPB DAILY [facility]; Protocol Last Admin: 10/09/18 08:44 Dose: 100 mls/hr Metronidazole (Flagyl 500mg/100ml Ns) 100 mls @ 100 mls/hr IVPB Q8 [facility]; Protocol Last Admin: 10/09/18 08:31 Dose: 100 mls/hr Potassium Chloride/Dextrose/Sod Cl (Potassium Chl 20 Meq In D5-1/2ns) 1,000 mls @ 100 mls/hr IV .Q10H [facility] Stop: 10/09/18 17:50 Last Admin: 10/09/18 04:55 Dose: 100 mls/hr Insulin Human Regular (Humulin R) 0 units SC ACHS [facility]; Protocol Last Admin: 10/09/18 06:53 Dose: Not Given Ketorolac Tromethamine (Toradol) 30 mg IVP Q6 PRN PRN Reason: Pain, moderate (4-7) Meclizine HCl (Antivert) 25 mg PO DAILY PRN PRN Reason: Dizziness Last Admin: 10/09/18 08:32 Dose: 25 mg Methadone HCl (Methadone) 110 mg PO DAILY@0600 [facility] Last Admin: 10/09/18 06:26 Dose: 110 mg Mirtazapine (Remeron) 45 mg PO [facility] Ondansetron HCl (Zofran Tab) 4 mg PO Q6 PRN PRN Reason: Nausea/Vomiting Last Admin: 10/09/18 08:32 Dose: 4 mg Pravastatin Sodium (Pravachol) 10 mg PO [facility] - Labs Labs: 10/09/18 05:28 10/09/18 05:28 - Constitutional Appears: No Acute Distress - Head Exam Head Exam: NORMAL INSPECTION - Eye Exam Eye Exam: EOMI - ENT Exam ENT Exam: Mucous Membranes Moist - Neck Exam Neck Exam: Full ROM - Respiratory Exam Respiratory Exam: Prolonged Expiratory Phase, NORMAL BREATHING PATTERN - GI/Abdominal Exam GI & Abdominal Exam: Soft, Tenderness (RLQ), Normal Bowel Sounds - Extremities Exam Extremities Exam: absent: Pedal Edema - Neurological Exam Neurological Exam: Alert, Awake, Oriented x3 - Skin Skin Exam: Normal Color, Warm Assessment and Plan - Assessment and Plan (Free Text) Assessment: 68 Y/O female with PMHx of HIV, HTN, HLD, anxiety, COPD, presents to the ED with c/o diffuse lower abdominal pain (RLQ and LLQ,but more localized to RLQ) for approxiamtely seven days, the pain is dull, moderate, constant associated with subjective fever and tenesmus. Admitted for acute colitis. ABDM CT compatible with possible acute nonspecific infectious/inflammatory colitis. No bowel obstruction. PMHx of HCV positive, controlled viral load no detected 2013 Patient overall clinically improving, will consider plan for DC today and continue oral outpatient antbx treatment. Plan: #Acute Colitis ABDM CT compatible with possible acute nonspecific infectious/inflammatory colitis Admit to [facility] for management IVF D5-1/2NS +20KCL@ 100 ml/h Pain management Rocephin 1G IV QD Metronidazole 500 IV Q8h F/u CBC and BMP in AM #HIV - Continue home medications - Regular followup at [facility] #HTN - Continue Losartan HCTZ 50-12.5mg - Monitor BP, was elevated on presentation but now normalized #Type II diabetes mellitus -controlled - last A1c 5.9 #Hyperlipidemia - Pravastatin 10 mg PO QD #Depression/Anxiety - Mirtazapine 45 qhs, clonazepam 1 mg po qd prn #Vertigo - Home med meclezine #History of drug abuse - Methadone 110 mg, from [facility], pending verification Diet - Heart Healthy DVT prophylaxis - Lovenox 40 mg SC QD case and plan of care discussed with attending Dr Sage Barnett, PGY1 <Rosalie Cazares - Last Filed: 10/09/18 19:12> Objective - Vital Signs/Intake and Output Vital Signs (last 24 hours): Temp Pulse Resp BP Pulse Ox 98 F 61 20 153/86 H 99 10/09/18 15:59 10/09/18 17:00 10/09/18 15:59 10/09/18 17:00 10/09/18 15:59 - Medications Medications: Current Medications Acetaminophen (Tylenol 325mg Tab) 650 mg PO Q6 PRN PRN Reason: Pain, Mild (1-3) Last Admin: 10/09/18 08:33 Dose: 650 mg Albuterol/Ipratropium (Duoneb 3 Mg/0.5 Mg (3 Ml) Ud) 3 ml IH Q6 PRN PRN Reason: Shortness of Breath Cholecalciferol (Vitamin D) 1,000 intlu PO DAILY [facility] Last Admin: 10/09/18 10:43 Dose: 1,000 intlu Clonazepam (Klonopin) 0.5 mg PO Q12 [facility] Last Admin: 10/09/18 10:43 Dose: 0.5 mg Dextrose (Dextrose 50% Inj) 0 ml IV STAT PRN; Protocol PRN Reason: Hypoglycemia Protocol Dextrose (Glutose 15) 0 gm PO ONCE PRN; Protocol PRN Reason: Hypoglycemia Protocol Dicyclomine HCl (Bentyl) 20 mg PO QID PRN PRN Reason: Pain, moderate (4-7) Last Admin: 10/09/18 12:10 Dose: 20 mg Docusate Sodium (Colace) 100 mg PO DAILY PRN PRN Reason: Constipation Enoxaparin Sodium (Lovenox) 40 mg SC DAILY [facility]; Protocol Last Admin: 10/09/18 08:31 Dose: 40 mg Glucagon (Glucagen Diagnostic Kit) 0 mg IM STAT PRN; Protocol PRN Reason: Hypoglycemia Protocol HCTZ/Losartan Potassium (Hyzaar 12.5 Mg-50 Mg) 1 tab PO DAILY [facility] Last Admin: 10/09/18 08:45 Dose: 1 tab Home Med (Emtricitab/Rilpiviri/Tenof Ala [Odefsey Tablet]) 1 tab PO HS [facility] Home Med (Patient's Own Medication) 50 unit PO HS [facility]; Protocol Ceftriaxone Sodium 1 gm/ (Sodium Chloride) 100 mls @ 100 mls/hr IVPB DAILY [facility]; Protocol Last Admin: 10/09/18 08:44 Dose: 100 mls/hr Metronidazole (Flagyl 500mg/100ml Ns) 100 mls @ 100 mls/hr IVPB Q8 [facility]; Protocol Last Admin: 10/09/18 17:11 Dose: 100 mls/hr Insulin Human Regular (Humulin R) 0 units SC ACHS [facility]; Protocol Last Admin: 10/09/18 16:59 Dose: Not Given Ketorolac Tromethamine (Toradol) 30 mg IVP Q6 PRN PRN Reason: Pain, moderate (4-7) Last Admin: 10/09/18 14:45 Dose: 30 mg Meclizine HCl (Antivert) 25 mg PO DAILY PRN PRN Reason: Dizziness Last Admin: 10/09/18 08:32 Dose: 25 mg Methadone HCl (Methadone) 110 mg PO DAILY@0600 [facility] Last Admin: 10/09/18 06:26 Dose: 110 mg Mirtazapine (Remeron) 45 mg PO HS [facility] Ondansetron HCl (Zofran Tab) 4 mg PO Q6 PRN PRN Reason: Nausea/Vomiting Last Admin: 10/09/18 08:32 Dose: 4 mg Pravastatin Sodium (Pravachol) 10 mg PO HS [facility] - Labs Labs: 10/09/18 05:28 10/09/18 05:28 Attending/Attestation - Attestation I have personally seen and examined this patient.: Yes I have fully participated in the care of the patient.: Yes I have reviewed all pertinent clinical information, including history, physical exam and plan: Yes Notes (Text): Agree with findings and plan as above.
[2018-10-09] MEDS ORDERED: Gadodiamide 287 MG/ML VIAL (15ML) IV ONE (14:12)
[2018-10-09] MEDS ORDERED: Sodium Chloride 0.9% 0 ML IV ONE (14:13)
[2018-10-09 16:00] VITALS: TEMP 98; O2SAT 99
--- NOTE | 2018-10-09 16:28 | CP.PCM.DIS ---
<Nhunglucio HernandezLizzy - Last Filed: 10/09/18 18:03> Provider - Provider Date of Admission: 10/08/18 15:48 Attending physician: Rosalie Cazares DO Consults: 10/08/18 23:27 Social Work Referral Routine Comment: lives alone Physician Instructions: Reason For Exam: lives alone Time Spent in preparation of Discharge (in minutes): 33 Diagnosis - Discharge Diagnosis (1) Colitis Status: Acute (2) Abdominal pain Status: Acute Hospital Course - Lab Results Lab Results: Micro Results 10/08/18 10:20 Blood Blood Culture - Preliminary NO GROWTH AFTER 24 HOURS Most Recent Lab Values WBC 3.5 K/uL (4.8-10.8) L 10/09/18 05:28 RBC 3.94 Mil/uL (3.80-5.20) 10/09/18 05:28 Hgb 14.1 g/dL (12.0-16.0) 10/09/18 05:28 Hct 40.4 % (34.0-47.0) 10/09/18 05:28 MCV 102.6 fl (81.0-99.0) H 10/09/18 05:28 MCH 35.7 pg (27.0-31.0) H 10/09/18 05:28 MCHC 34.8 g/dL (33.0-37.0) 10/09/18 05:28 RDW 12.5 % (11.5-14.5) 10/09/18 05:28 Plt Count 155 K/uL (130-400) 10/09/18 05:28 MPV 8.3 fl (7.2-11.7) 10/08/18 10:10 Neut % (Auto) 67.3 % (50.0-75.0) 10/08/18 10:10 Lymph % (Auto) 21.6 % (20.0-40.0) 10/08/18 10:10 Nye % (Auto) 9.7 % (0.0-10.0) 10/08/18 10:10 Eos % (Auto) 0.9 % (0.0-4.0) 10/08/18 10:10 Baso % (Auto) 0.5 % (0.0-2.0) 10/08/18 10:10 Neut # (Auto) 2.5 K/uL (1.8-7.0) 10/08/18 10:10 Lymph # (Auto) 0.8 K/uL (1.0-4.3) L 10/08/18 10:10 Nye # (Auto) 0.4 K/uL (0.0-0.8) 10/08/18 10:10 Eos # (Auto) 0.0 K/uL (0.0-0.7) 10/08/18 10:10 Baso # (Auto) 0.0 K/uL (0.0-0.2) 10/08/18 10:10 Sodium 140 mmol/l (132-148) 10/09/18 05:28 Potassium 3.7 MMOL/L (3.6-5.0) 10/09/18 05:28 Chloride 101 mmol/L (98-107) 10/09/18 05:28 Carbon Dioxide 29 mmol/L (22-30) 10/09/18 05:28 Anion Gap 14 (10-20) 10/09/18 05:28 BUN 13 mg/dl (7-17) 10/09/18 05:28 Creatinine 0.7 mg/dl (0.7-1.2) 10/09/18 05:28 Est GFR ( Amer) > 60 10/09/18 05:28 Est GFR (Non-Af Amer) > 60 10/09/18 05:28 POC Glucose (mg/dL) 122 mg/dL (65-110) H 10/09/18 15:41 Random Glucose 141 mg/dL (65-105) H 10/09/18 05:28 Calcium 8.6 mg/dL (8.4-10.2) 10/09/18 05:28 Total Bilirubin 0.3 mg/dl (0.2-1.3) 10/08/18 10:10 AST 85 U/L (14-36) H D 10/08/18 10:10 ALT 40 U/L (9-52) 10/08/18 10:10 Alkaline Phosphatase 56 U/L (38-126) 10/08/18 10:10 Total Protein 8.3 G/DL (6.3-8.2) H 10/08/18 10:10 Albumin 4.4 g/dL (3.5-5.0) 10/08/18 10:10 Globulin 3.8 gm/dL (2.2-3.9) 10/08/18 10:10 Albumin/Globulin Ratio 1.2 (1.0-2.1) 10/08/18 10:10 C. difficile Ag & Toxin Negative (NEGATIVE) 10/08/18 14:30 - Hospital Course Hospital Course: The patient is a 68 Y/O female with PMHx of HIV, HEp C with undetectable viral load as per MR, HTN, HLD, anxiety, COPD, former smoker (quit 8 months ago), drug abuse in the past now on methadone program presents to the ED with c/o diffuse lower abdominal pain (RLQ and LLQ,but more localized to RLQ) for approxiamtely seven days, the pain is dull, moderate, constant associated with subjective fever and tenesmus. During hospital course patient was treated with IV antibx flagyl and Rocephin. VS reviewed BP noted slightly elavted today, patient on HTCZ-Losartan 12.5-50 will increase on dc to continue at home, increased to 12.5-100. BP rechecked on Dc 153/86. Patient hemodinamically and clinical stable to be discharged with continuous outpatient tretament with oral antibiotics, f/u with PMD within a week. CT of ABDM IMPRESSION: 1. Constipation. Apparent circumferential mural thickening in the mid and distal descending colon is nonspecific and could be related to underdistention or acute nonspecific infectious/inflammatory colitis. No bowel obstruction. Clinical follow-up is advised. 2. Mild diffuse dilatation of the common bile duct, mild dilatation of central bile ducts and proximal pancreatic duct of uncertain etiology and significance. Clinical follow-up is advised and if clinically indicated correlation with ERCP/MRCP may be performed. 3. Fatty liver. Plan on DC Referral given to f/u with Dr Garcia, for outpatient evaluation of CT Abd finding of mild diffuse dilation of CBD. Outpatient MRCP recommended, ordered provided. Outpatient colitis treatment: see prescription section. Discharge Exam - Head Exam Head Exam: NORMAL INSPECTION - Additional Findings Additional findings: - Constitutional Appears: No Acute Distress - Head Exam Head Exam: NORMAL INSPECTION - Eye Exam Eye Exam: EOMI - ENT Exam ENT Exam: Mucous Membranes Moist - Neck Exam Neck Exam: Full ROM - Respiratory Exam Respiratory Exam: Prolonged Expiratory Phase, NORMAL BREATHING PATTERN - GI/Abdominal Exam GI & Abdominal Exam: Soft, Tenderness (RLQ), Normal Bowel Sounds - Extremities Exam Extremities Exam: absent: Pedal Edema - Neurological Exam Neurological Exam: Alert, Awake, Oriented x3 - Skin Skin Exam: Normal Color, Warm Discharge Plan - Discharge Medications Prescriptions: Acetaminophen [Tylenol 325mg tab] 650 mg PO Q6 PRN #30 tab PRN Reason: Pain, Mild (1-3) Cefpodoxime Proxetil 200 mg PO Q12 10 Days #20 tablet Losartan/Hydrochlorothiazide [Losartan-Hctz 100-12.5 mg Tab] 1 each PO DAILY #30 tablet Metronidazole [Flagyl] 500 mg PO Q8H #30 tab - Follow Up Plan Condition: STABLE Disposition: HOME/ ROUTINE Instructions: Colitis, Colitis (DC) Additional Instructions: Follow up with your PMD at [facility] in 2 to 3 days Continue taking your medications as prescribed ED Precautions given: Go to the ED if you have persistent abdominal pain, fever, chest pain, Shortness of breath or any other new symptom of concern presents. Referrals: Benson Garcia MD [Staff Provider] - Ana Kingsley MD [Medical Doctor] - <Rosalie Cazares - Last Filed: 10/09/18 19:07> Provider - Provider Date of Admission: 10/08/18 15:48 Attending physician: Rosalie Cazares DO Consults: 10/08/18 23:27 Social Work Referral Routine Comment: lives alone Physician Instructions: Reason For Exam: lives alone Hospital Course - Lab Results Lab Results: Micro Results 10/08/18 10:20 Blood Blood Culture - Preliminary NO GROWTH AFTER 24 HOURS Most Recent Lab Values WBC 3.5 K/uL (4.8-10.8) L 10/09/18 05:28 RBC 3.94 Mil/uL (3.80-5.20) 10/09/18 05:28 Hgb 14.1 g/dL (12.0-16.0) 10/09/18 05:28 Hct 40.4 % (34.0-47.0) 10/09/18 05:28 MCV 102.6 fl (81.0-99.0) H 10/09/18 05:28 MCH 35.7 pg (27.0-31.0) H 10/09/18 05:28 MCHC 34.8 g/dL (33.0-37.0) 10/09/18 05:28 RDW 12.5 % (11.5-14.5) 10/09/18 05:28 Plt Count 155 K/uL (130-400) 10/09/18 05:28 MPV 8.3 fl (7.2-11.7) 10/08/18 10:10 Neut % (Auto) 67.3 % (50.0-75.0) 10/08/18 10:10 Lymph % (Auto) 21.6 % (20.0-40.0) 10/08/18 10:10 Nye % (Auto) 9.7 % (0.0-10.0) 10/08/18 10:10 Eos % (Auto) 0.9 % (0.0-4.0) 10/08/18 10:10 Baso % (Auto) 0.5 % (0.0-2.0) 10/08/18 10:10 Neut # (Auto) 2.5 K/uL (1.8-7.0) 10/08/18 10:10 Lymph # (Auto) 0.8 K/uL (1.0-4.3) L 10/08/18 10:10 Nye # (Auto) 0.4 K/uL (0.0-0.8) 10/08/18 10:10 Eos # (Auto) 0.0 K/uL (0.0-0.7) 10/08/18 10:10 Baso # (Auto) 0.0 K/uL (0.0-0.2) 10/08/18 10:10 Sodium 140 mmol/l (132-148) 10/09/18 05:28 Potassium 3.7 MMOL/L (3.6-5.0) 10/09/18 05:28 Chloride 101 mmol/L (98-107) 10/09/18 05:28 Carbon Dioxide 29 mmol/L (22-30) 10/09/18 05:28 Anion Gap 14 (10-20) 10/09/18 05:28 BUN 13 mg/dl (7-17) 10/09/18 05:28 Creatinine 0.7 mg/dl (0.7-1.2) 10/09/18 05:28 Est GFR ( Amer) > 60 10/09/18 05:28 Est GFR (Non-Af Amer) > 60 10/09/18 05:28 POC Glucose (mg/dL) 122 mg/dL (65-110) H 10/09/18 15:41 Random Glucose 141 mg/dL (65-105) H 10/09/18 05:28 Calcium 8.6 mg/dL (8.4-10.2) 10/09/18 05:28 Total Bilirubin 0.3 mg/dl (0.2-1.3) 10/08/18 10:10 AST 85 U/L (14-36) H D 10/08/18 10:10 ALT 40 U/L (9-52) 10/08/18 10:10 Alkaline Phosphatase 56 U/L (38-126) 10/08/18 10:10 Total Protein 8.3 G/DL (6.3-8.2) H 10/08/18 10:10 Albumin 4.4 g/dL (3.5-5.0) 10/08/18 10:10 Globulin 3.8 gm/dL (2.2-3.9) 10/08/18 10:10 Albumin/Globulin Ratio 1.2 (1.0-2.1) 10/08/18 10:10 C. difficile Ag & Toxin Negative (NEGATIVE) 10/08/18 14:30 Attending/Attestation - Attestation I have personally seen and examined this patient.: Yes I have fully participated in the care of the patient.: Yes I have reviewed all pertinent clinical information, including history, physical exam and plan: Yes Notes (Text): Agree with findings and plan as above.
[2018-10-09 17:44] VITALS: BP 153/86; PULSE 61
[2018-10-09] MEDS ORDERED: DOLUTEGRAVIR 50 MG PO SCH (22:00)
== END 2018-10-09 20:30 | disposition home or self-care (01) ==
LOC: H.ER 07:11 → H.ERHOLD 15:48 → H.MEDSURG1 23:00
PROVIDERS: ADMIT Student in an Organized Health Care Education/Training Program; ATTEND Student in an Organized Health Care Education/Training Program
DX: K52.9 Noninfective gastroenteritis and colitis, unspecified (principal); K83.8 Other specified diseases of biliary tract; E11.9 Type 2 diabetes mellitus without complications; J06.9 Acute upper respiratory infection, unspecified; Z21 Asymptomatic human immunodeficiency virus [HIV] infection status; R42 Dizziness and giddiness; F11.90 Opioid use, unspecified, uncomplicated; I10 Essential (primary) hypertension; J44.9 Chronic obstructive pulmonary disease, unspecified; K59.00 Constipation, unspecified; E78.5 Hyperlipidemia, unspecified; E78.00 Pure hypercholesterolemia, unspecified; K29.70 Gastritis, unspecified, without bleeding; B19.20 Unspecified viral hepatitis C without hepatic coma; F32.9 Major depressive disorder, single episode, unspecified; F41.9 Anxiety disorder, unspecified; Z87.01 Personal history of pneumonia (recurrent); Z87.442 Personal history of urinary calculi; Z87.891 Personal history of nicotine dependence; Z88.6 Allergy status to analgesic agent
CPT/HCPCS: 36415; 71046; 74177; 80048; 80053; 82948; 85025; 85027; 87040; 87230; 96365; 99285; G0378; J0696; J0744; J1650; J1885; J2270; J2405; J7030; Q9967

== ENCOUNTER 2018-11-03 07:58 | Observation (INO) | payer OTHER, MEDICAID ==
[2018-11-03 08:08] VITALS: BMI 28.7
[2018-11-03] MEDS ORDERED: Albuterol-Ipratrop 3 mg / 0.5 (3 ml) UD INH STA ×3 (08:15→11:06)
[2018-11-03] MEDS ORDERED: Albuterol-Ipratrop 3 mg / 0.5 (3 ml) UD ONE ×2 (08:28→11:50)
--- NOTE | 2018-11-03 08:40 | ED PDOC ---
HPI: Hypertension/Hypotension Time Seen by Provider: 11/03/18 08:11 Chief Complaint (Nursing): Cough, Cold, Congestion Chief Complaint (Provider): Palpitations, headache History Per: Patient History/Exam Limitations: no limitations Onset/Duration Of Symptoms: Days (yesterday) Current Symptoms Are (Timing): Still Present Associated Symptoms: Dyspnea, Headache. denies: Dizziness, Blurred Vision Quality Of Symptoms: Rapid Heart Rate Additional Complaint(s): Cristina Mc is a 68 year old female, with a past medical history of HTN, diabetes, asthma and COPD, who presents to the emergency department accompanied by daughter for evaluation of palpitations and headache that started yesterday. According to daughter, patient woke up this morning to take her medications but wasn't able to sleep due to symptoms. Daughter became concerned and measured her blood pressure which was 185/120. Patient states palpitations are currently mild but notes feeling short of breath. She is also reporting a productive cough with phlegm. Patient is currently taking Losartan 1 tab QD. She also reports a right arm pain but denies any fever, chills, chest pain, dizziness, vision changes, abdominal pain, nausea, vomit, diarrhea, weakness, numbness or tingling. No further medical complaints. PMD: None reported Past Medical History Reviewed: Historical Data, Nursing Documentation, Vital Signs Vital Signs: Last Vital Signs Temp 99.1 F 11/03/18 08:06 Pulse 90 11/03/18 08:06 Resp 18 11/03/18 08:06 BP 159/79 H 11/03/18 08:06 Pulse Ox 95 11/03/18 08:06 - Medical History PMH: Anxiety, Arthritis, Asthma, Bronchitis, COPD, Depression, Diabetes, Gastritis, HIV, HTN, Hypercholesterolemia, Kidney Stones, Pneumonia, Sleep Apnea Denies: Anemia, Atrial Fibrillation, Bipolar Disorder, CAD, Cardia Arrhythmia, CHF, Crohn's Disease, Diverticulitis, Emphysema, Fractures, Gall B ladder Disease, Hepatitis, Hyperthyroidism, Hypothyroidism, Mitral Valve Prolapse, Osteoporosis, Pancreatitis, Paranoia, Peripheral Edema, Post Traumatic Stress Disorder, Pulmonary Embolism, Chronic Kidney Disease, Rheumatoid Arthritis, Schizophrenia, Seizures, Sickle Cell Disease, Sexually Transmitted Disease - Surgical History Surgical History: No Surg Hx Denies: Pacemaker - Family History Family History: States: Unknown Family Hx, Hypertension - Social History Ex-Smoker (has not smoked in the last 12 months): Yes Alcohol: None - Immunization History Hx Tetanus Toxoid Vaccination: No Hx Influenza Vaccination: Yes Hx Pneumococcal Vaccination: Yes - Home Medications Home Medications: Ambulatory Orders Medication Instructions Recorded Dolutegravir Sodium [Tivicay] 50 mg PO HS 06/21/17 Methadone 110 mg PO DAILY@0600 06/21/17 Mirtazapine [Remeron] 45 mg PO HS 06/21/17 Emtricitab/Rilpiviri/Tenof Ala 1 tab PO HS 11/02/17 [Odefsey Tablet] Fluticasone/Salmeterol [Advair 1 puff IH Q12 11/02/17 250-50 Diskus] Pravastatin Sodium [Pravachol] 10 mg PO HS 11/16/17 Cholecalciferol [Vitamin D 1000 IU] 1,000 unit PO DAILY 05/09/18 Docusate [Colace] 100 mg PO DAILY PRN 05/09/18 Ondansetron [Zofran Tab] 4 mg PO Q6 PRN #16 tab 06/14/18 Dicyclomine [Bentyl] 20 mg PO QID PRN #10 tab 09/07/18 Albuterol/Ipratropium [Combivent 1 puff IH Q6 PRN 10/01/18 Respimat] Albuterol/Ipratropium [Duoneb 3 3 ml IH Q6 PRN 10/01/18 mg/0.5 mg (3 ml) UD] Meclizine [Meclizine*] 25 mg PO DAILY PRN 10/01/18 clonazePAM [Klonopin] 0.5 mg PO Q12 10/01/18 Acetaminophen [Tylenol 325mg tab] 650 mg PO Q6 PRN #30 tab 10/09/18 Cefpodoxime Proxetil 200 mg PO Q12 10 Days #20 tablet 10/09/18 Losartan/Hydrochlorothiazide 1 each PO DAILY #30 tablet 10/09/18 [Losartan-Hctz 100-12.5 mg Tab] Metronidazole [Flagyl] 500 mg PO Q8H #30 tab 10/09/18 - Allergies Allergies/Adverse Reactions: Allergies Allergy/AdvReac Type Severity Reaction Status Date / Time aspirin Allergy GI UPSET Verified 11/03/18 08:17 cobicistat [From Genvoya] Allergy NAUSEA Verified 11/03/18 08:17 efavirenz [From Atripla] Allergy DEPRESSION Verified 11/03/18 08:17 elvitegravir [From Genvoya] Allergy NAUSEA Verified 11/03/18 08:17 emtricitabine [From Atripla] Allergy DEPRESSION Verified 11/03/18 08:17 metformin Allergy NAUSEA Verified 11/03/18 08:17 Penicillins Allergy RASH Verified 11/03/18 08:17 tenofovir [From Atripla] Allergy DEPRESSION Verified 11/03/18 08:17 Review of Systems ROS Statement: Except As Marked, All Systems Reviewed And Found Negative Constitutional: Negative for: Fever, Chills Eyes: Negative for: Vision Change Cardiovascular: Positive for: Palpitations. Negative for: Chest Pain Respiratory: Positive for: Cough (productive), Shortness of Breath Gastrointestinal: Negative for: Nausea, Vomiting, Abdominal Pain, Diarrhea Musculoskeletal: Positive for: Arm Pain (right) Neurological: Positive for: Headache. Negative for: Weakness, Numbness (tingling), Dizziness Physical Exam - Reviewed Nursing Documentation Reviewed: Yes Vital Signs Reviewed: Yes - Physical Exam Appears: Positive for: Well, Non-toxic, No Acute Distress Head Exam: Positive for: ATRAUMATIC, NORMAL INSPECTION, NORMOCEPHALIC Skin: Positive for: Normal Color, Warm, Dry Eye Exam: Positive for: Normal appearance, EOMI, PERRL Neck: Positive for: Normal, Painless ROM, Supple Cardiovascular/Chest: Positive for: Regular Rate, Rhythm. Negative for: Murmur Respiratory: Positive for: Wheezing (Bilateral). Negative for: Respiratory Distress Gastrointestinal/Abdominal: Positive for: Normal Exam, Soft. Negative for: Tenderness, Guarding, Rebound Back: Positive for: Normal Inspection. Negative for: L CVA Tenderness, R CVA Tenderness, Vertebral Tenderness Extremity: Positive for: Normal ROM (upper and lower extremities), Other (antecubital bruise on right bicep, tender to palpation). Negative for: Deformity, Swelling Neurological/Psych: Positive for: Awake, Alert, Normal Tone, Oriented. Negative for: Motor/Sensory Deficits - Laboratory Results Result Diagrams: 11/03/18 08:40 11/03/18 08:40 - ECG O2 Sat by Pulse Oximetry: 95 (RA) Pulse Ox Interpretation: Normal Medical Decision Making Medical Decision Making: Time: 08:11 Initial Impression: Palpitations with shortness of breath and COPD. Duonebs, HODAN U-medrol and CXR, cardiac work-up. Initial Plan: --BMP --Troponin I --CBC w/ differential --Chest two views (PA/LAT) [RAD] --Duoneb 3 ml INH x2 --SOLU-medrol 125 mg IVP --Reevaluation 11:40 On reevaluation patient states she's having chest tightness and left sided chest pain again. Patient is to be admitted under Dr. Aguilar, discussed case with him. ------- Scribe Attestation: Documented by Lyle Lozada, acting as a scribe for Breanna Raza MD. Provider Scribe Attestation: All medical record entries made by the Scribe were at my direction and personally dictated by me. I have reviewed the chart and agree that the record accurately reflects my personal performance of the history, physical exam, medical decision making, and the department course for this patient. I have also personally directed, reviewed, and agree with the discharge instructions and disposition. Disposition - Disposition
[2018-11-03 09:07] LABS: BASO % 0.3 % (0.0-2.0); EOS % 0.4 % (0.0-4.0); HEMOGLOBIN 14.7 g/dL (12.0-16.0); LYMPH # 0.5 K/uL (1.0-4.3); LYMPH % 11.3 % (20.0-40.0); MEAN CELL VOLUME 102.3 fl (81.0-99.0); MEAN CORPUSCULAR HGB CONC 35.2 g/dL (33.0-37.0); MEAN PLATELET VOLUME 10.1 fl (7.2-11.7); MONO # 0.3 K/uL (0.0-0.8); MONO % 6.9 % (0.0-10.0); NEUT # 3.3 K/uL (1.8-7.0); NEUT % 81.1 % (50.0-75.0); NRBC % 0.3 % (0.0-0.0); RBC 4.08 Mil/uL (3.80-5.20); WHITE BLOOD COUNT 4.1 K/uL (4.8-10.8)
[2018-11-03 09:42] LABS: BLOOD UREA NITROGEN 24 mg/dl (7-17); CALCIUM 9.1 mg/dL (8.4-10.2); GFR NON-AFRICAN AMERICAN > 60
[2018-11-03] MEDS ORDERED: Magnesium Sulfate 2 gm/50 ml 2 GM/50 ML BAG ONE (11:51)
[2018-11-03] MEDS ORDERED: Magnesium Sulfate 2 gm/50 ml 2 GM/50 ML BAG IVPB ONE (12:00)
--- NOTE | 2018-11-03 12:32 | CP.PCM.HP ---
<Lynn Zapata - Last Filed: 11/03/18 14:05> History of Present Illness - History of Present Illness History of Present Illness: 68 y/o female w/ pmhx significant for HIV, COPD, and HTN who presnted to ED due to persistent phlegmatic cough, chest pain, and SOB, which began 2 days ago. She reports green sputum, chills, and denies fevers. ED course: CXR showed no active disease, EKG sinus rhythm, Trops negative, Soul- medoral 125mg IV x 1, Duoneb 3 ml INH x2, BMP, CMP PMD: Dr. Kingsley Pmhx: HIV,HTN, COPD,DM2, Hepatitis C, vertigo, depression, hld Surghx: lung nodule biopsy, Mar 2018 (followed up in PMD office) Famhx: Mother at age 18 after complications. Father at age 80 years; had hx of HTN, DM2, COPD, CAD and Prostate cancer SocHx: former smoker, hx of 30 yrs- half pack/day, quit >6 months ago. Denies current use of ETOH or illicit drugs (former alcohol, heroin and cocain abuse). Allergies: multiple listed in chart, pt states aspirin, metformin, penicillin HomeRx: Tivicay 50mg PO QD, Odefsey 200-25-25 mg PO QD, Losartan-HCTZ 50-12.5mg PO QD, Advair 250-50 mcg 1 puff BID, Zofran 4mg PRN, Mathadone 110mg PO QD at 6AM, Clonazepam 1 mg QD PRN, Mirtazapine 45 mg PO QHS, Pravastatin 10mg PO QHS Code Status: Full code Present on Admission - Present on Admission Any Indicators Present on Admission: No History of DVT/PE: No History of Uncontrolled Diabetes: No Review of Systems - Review of Systems All systems: reviewed and no additional remarkable complaints except - Constitutional Constitutional: Headache - Cardiovascular Cardiovascular: Chest Pain - Respiratory Respiratory: Cough, Dyspnea, Wheezing, Excessive Mucous Production - Gastrointestinal Gastrointestinal: Constipation, Diarrhea. absent: Abdominal Pain Past Patient History - Infectious Disease Hx of Infectious Diseases: None - Tetanus Immunizations Tetanus Immunization: Unknown - Past Medical History & Family History Past Medical History?: Yes - Past Social History Alcohol: None - CARDIAC Hx Atrial Fibrillation: No Hx Cardia Arrhythmia: No Hx Congestive Heart Failure: No Hx Hypercholesterolemia: Yes Hx Hypertension: Yes Hx Mitral Valve Prolapse: No Hx Pacemaker: No Hx Peripheral Edema: No - PULMONARY Hx Asthma: Yes Hx Bronchitis: Yes Hx Chronic Obstructive Pulmonary Disease (COPD): Yes Hx Emphysema: No Hx Pneumonia: Yes Hx Pulmonary Embolism: No Hx Sleep Apnea: Yes - NEUROLOGICAL Hx Seizures: No - HEENT Other/Comment: glasses - RENAL Hx Chronic Kidney Disease: No Hx Kidney Stones: Yes - ENDOCRINE/METABOLIC Hx Hyperthyroidism: No Hx Hypothyroidism: No - HEMATOLOGICAL/ONCOLOGICAL Hx Anemia: No Hx Human Immunodeficiency Virus (HIV): Yes Hx Sickle Cell Disease: No - INTEGUMENTARY Hx Dermatological Problems: No - MUSCULOSKELETAL/RHEUMATOLOGICAL Hx Arthritis: Yes Hx Fractures: No Hx Osteoporosis: No Hx Rheumatoid Arthritis: No - GASTROINTESTINAL Hx Crohn's Disease: No Hx Diverticulitis: No Hx Gall Bladder Disease: No Hx Gastritis: Yes Hx Pancreatitis: No - GENITOURINARY/GYNECOLOGICAL Hx Sexually Transmitted Disorders: No - PSYCHIATRIC Hx Anxiety: Yes Hx Bipolar Disorder: No Hx Depression: Yes Hx Paranoia: No Hx Post Traumatic Stress Disorder: No Hx Schizophrenia: No - SURGICAL HISTORY Hx Surgeries: No - ANESTHESIA Hx Anesthesia: No Hx Anesthesia Reactions: No Meds Allergies/Adverse Reactions: Allergies Allergy/AdvReac Type Severity Reaction Status Date / Time aspirin Allergy GI UPSET Verified 11/03/18 08:17 cobicistat [From Genvoya] Allergy NAUSEA Verified 11/03/18 08:17 efavirenz [From Atripla] Allergy DEPRESSION Verified 11/03/18 08:17 elvitegravir [From Genvoya] Allergy NAUSEA Verified 11/03/18 08:17 emtricitabine [From Atripla] Allergy DEPRESSION Verified 11/03/18 08:17 metformin Allergy NAUSEA Verified 11/03/18 08:17 Penicillins Allergy RASH Verified 11/03/18 08:17 tenofovir [From Atripla] Allergy DEPRESSION Verified 11/03/18 08:17 Physical Exam - Constitutional Appears: In Acute Distress (Mild distress) - Eye Exam Eye Exam: EOMI Pupil Exam: PERRL - ENT Exam ENT Exam: Mucous Membranes Moist - Neck Exam Neck exam: Positive for: Normal Inspection. Negative for: Lymphadenopathy, Tenderness - Respiratory Exam Respiratory Exam: Wheezes, Respiratory Distress - Cardiovascular Exam Cardiovascular Exam: RRR, +S1, +S2 - GI/Abdominal Exam GI & Abdominal Exam: Normal Bowel Sounds, Soft. absent: Tenderness - Extremities Exam Extremities exam: Positive for: normal inspection. Negative for: calf tenderness - Neurological Exam Neurological exam: Alert - Psychiatric Exam Psychiatric exam: Normal Affect, Normal Mood - Skin Skin Exam: Dry, Intact, Warm Results - Vital Signs Recent Vital Signs: Last Vital Signs Temp 99.1 F 11/03/18 08:06 Pulse 72 11/03/18 09:04 Resp 17 11/03/18 09:04 BP 123/82 11/03/18 09:04 Pulse Ox 93 L 11/03/18 09:04 - Labs Result Diagrams: 11/03/18 08:40 11/03/18 08:40 Labs: Laboratory Results - last 24 hr 11/03/18 11/03/18 11/03/18 08:40 08:40 11:01 WBC 4.1 L RBC 4.08 Hgb 14.7 Hct 41.7 MCV 102.3 H MCH 36.0 H MCHC 35.2 RDW 13.0 Plt Count 94 L D MPV 10.1 Neut % (Auto) 81.1 H Lymph % (Auto) 11.3 L [place] % (Auto) 6.9 Eos % (Auto) 0.4 Baso % (Auto) 0.3 Neut # (Auto) 3.3 Lymph # (Auto) 0.5 L [place] # (Auto) 0.3 Eos # (Auto) 0.0 Baso # (Auto) 0.0 Total Counted Cancelled Neutrophils % (Manual) Cancelled Band Neutrophils % Cancelled Lymphocytes % (Manual) Cancelled Reactive Lymphs % Cancelled Monocytes % (Manual) Cancelled Eosinophils % (Manual) Cancelled Basophils % (Manual) Cancelled Metamyelocytes % Cancelled Myelocytes % Cancelled Promyelocytes % Cancelled Blast Cells % Cancelled Plasma Cell % (Manual) Cancelled Nucleated RBC % Cancelled Hypersegmented Polys Cancelled Smudge Cells Cancelled Toxic Granulation Cancelled Dohle Bodies Cancelled Dennis Rods Cancelled Platelet Estimate Cancelled Plt Clumps, EDTA Cancelled Large Platelets Cancelled Giant Platelets Cancelled RBC Morphology Cancelled Polychromasia Cancelled Hypochromasia (manual) Cancelled Poikilocytosis (manual Cancelled Basophilic Stippling Cancelled Anisocytosis (manual) Cancelled Microcytosis (manual) Cancelled Macrocytosis (manual) Cancelled Spherocytes Cancelled Sickle Cells Cancelled Target Cells Cancelled Tear Drop Cells Cancelled Ovalocytes Cancelled Stomatocytes Cancelled Helmet Cells Cancelled [place] Bodies Cancelled [place] Cells Cancelled Acanthocytes (Spur) Cancelled Rouleaux Cancelled Schistocytes Cancelled Sodium 137 Potassium 3.8 Chloride 96 L Carbon Dioxide 30 Anion Gap 15 BUN 24 H Creatinine 0.8 Est GFR ( Amer) > 60 Est GFR (Non-Af Amer) > 60 POC Glucose (mg/dL) 177 H Random Glucose 188 H Calcium 9.1 Troponin I < 0.0120 Assessment & Plan - Assessment and Plan (Free Text) Assessment: 68 y/o female, former smoker, w/ pmhx of HIV, COPD, HTN who was admitted for management of COPD exacerbation. Plan: COPD exacerbation Acute on chronic condition Admit and monitor on telemetry S/p Solu-medrol 125mg IV once and 2 Duoneb treatments in ER Duonebs treatments QID Albuterol 2.5mg INH Q4H PRN Solu-medrol 60mg IV Q12 H CXR 11/03/2018 negative Azithromycin 500mg IV QD O2 Via NC 2L PRN, goal O2Sat: 95% Sputum culture ordered HIV Chronic. Stable. Cont. w/ home meds Tivicay 50mg PO QD Odefsey 200-25-25mg QD Hx of drug use Cont. home med Methadone 110mg PO QD at 6 AM Diabetes Mellitus 2 Chronic. Controlled. A1C 5.9% on 06/13/18 Will cont monitor HTN Chronic. Controlled. Cont. home meds; Losartan 1mg QD and HCTZ 12.5mg PO QD Hx of Anxiety Cont. home meds Clonipin 0.5 mg QD PRN Trazadone 50mg PO QHS PRN Hx of Depression Cont. home med Mirtazapine 45 mg PO HS DVT prophylaxis Lovenox 40mg SC QD Ambulate as tolerated Diet Diabetic diet Code Status Full code <Domenico Aguilar D - Last Filed: 11/03/18 16:21> Results - Vital Signs Recent Vital Signs: Last Vital Signs Temp 98.2 F 11/03/18 14:34 Pulse 69 11/03/18 14:34 Resp 20 11/03/18 14:34 BP 134/85 11/03/18 14:34 Pulse Ox 96 11/03/18 13:58 - Labs Result Diagrams: 11/03/18 08:40 11/03/18 08:40 Labs: Laboratory Results - last 24 hr 11/03/18 11/03/18 11/03/18 08:40 08:40 11:01 WBC 4.1 L RBC 4.08 Hgb 14.7 Hct 41.7 MCV 102.3 H MCH 36.0 H MCHC 35.2 RDW 13.0 Plt Count 94 L D MPV 10.1 Neut % (Auto) 81.1 H Lymph % (Auto) 11.3 L [place] % (Auto) 6.9 Eos % (Auto) 0.4 Baso % (Auto) 0.3 Neut # (Auto) 3.3 Lymph # (Auto) 0.5 L [place] # (Auto) 0.3 Eos # (Auto) 0.0 Baso # (Auto) 0.0 Total Counted Cancelled Neutrophils % (Manual) Cancelled Band Neutrophils % Cancelled Lymphocytes % (Manual) Cancelled Reactive Lymphs % Cancelled Monocytes % (Manual) Cancelled Eosinophils % (Manual) Cancelled Basophils % (Manual) Cancelled Metamyelocytes % Cancelled Myelocytes % Cancelled Promyelocytes % Cancelled Blast Cells % Cancelled Plasma Cell % (Manual) Cancelled Nucleated RBC % Cancelled Hypersegmented Polys Cancelled Smudge Cells Cancelled Toxic Granulation Cancelled Dohle Bodies Cancelled Dennis Rods Cancelled Platelet Estimate Cancelled Plt Clumps, EDTA Cancelled Large Platelets Cancelled Giant Platelets Cancelled RBC Morphology Cancelled Polychromasia Cancelled Hypochromasia (manual) Cancelled Poikilocytosis (manual Cancelled Basophilic Stippling Cancelled Anisocytosis (manual) Cancelled Microcytosis (manual) Cancelled Macrocytosis (manual) Cancelled Spherocytes Cancelled Sickle Cells Cancelled Target Cells Cancelled Tear Drop Cells Cancelled Ovalocytes Cancelled Stomatocytes Cancelled Helmet Cells Cancelled [place] Bodies Cancelled Amrk Cells Cancelled Acanthocytes (Spur) Cancelled Rouleaux Cancelled Schistocytes Cancelled Sodium 137 Potassium 3.8 Chloride 96 L Carbon Dioxide 30 Anion Gap 15 BUN 24 H Creatinine 0.8 Est GFR ( Amer) > 60 Est GFR (Non-Af Amer) > 60 POC Glucose (mg/dL) 177 H Random Glucose 188 H Calcium 9.1 Troponin I < 0.0120 11/03/18 13:40 WBC RBC Hgb Hct MCV MCH MCHC RDW Plt Count MPV Neut % (Auto) Lymph % (Auto) [place] % (Auto) Eos % (Auto) Baso % (Auto) Neut # (Auto) Lymph # (Auto) [place] # (Auto) Eos # (Auto) Baso # (Auto) Total Counted Neutrophils % (Manual) Band Neutrophils % Lymphocytes % (Manual) Reactive Lymphs % Monocytes % (Manual) Eosinophils % (Manual) Basophils % (Manual) Metamyelocytes % Myelocytes % Promyelocytes % Blast Cells % Plasma Cell % (Manual) Nucleated RBC % Hypersegmented Polys Smudge Cells Toxic Granulation Dohle Bodies Dennis Rods Platelet Estimate Plt Clumps, EDTA Large Platelets Giant Platelets RBC Morphology Polychromasia Hypochromasia (manual) Poikilocytosis (manual Basophilic Stippling Anisocytosis (manual) Microcytosis (manual) Macrocytosis (manual) Spherocytes Sickle Cells Target Cells Tear Drop Cells Ovalocytes Stomatocytes Helmet Cells [place] Bodies Mark Cells Acanthocytes (Spur) Rouleaux Schistocytes Sodium Potassium Chloride Carbon Dioxide Anion Gap BUN Creatinine Est GFR ( Amer) Est GFR (Non-Af Amer) POC Glucose (mg/dL) Random Glucose Calcium Troponin I < 0.0120 Attending/Attestation - Attestation I have personally seen and examined this patient.: Yes I have fully participated in the care of the patient.: Yes I have reviewed all pertinent clinical information: Yes Notes (Text): 11/03/18 16:21 Patient seen and examined with resident. Case discussed and agreed with assessment and plan of management.
[2018-11-03] MEDS ORDERED: Albuterol-Ipratrop 3 mg / 0.5 (3 ml) UD INH PRN (13:06)
[2018-11-03] MEDS ORDERED: Albuterol 0.083% Inhal Sol (2.5 mg/3 mL) UD INH PRN (13:07)
[2018-11-03] MEDS ORDERED: Sodium Chloride 3% for Inhalation 4 ML VIAL.NEB IH PRN (13:13)
[2018-11-03] MEDS ORDERED: Azithromycin 500 MG in Sodium Chloride 0.9% 250 ML IVPB STA (13:13)
--- NOTE | 2018-11-03 13:15 | RAD ---
Date of service: 11/03/2018 HISTORY: cough COMPARISON: No prior. TECHNIQUE: Chest PA and lateral views FINDINGS: LUNGS: No active pulmonary disease. PLEURA: No significant pleural effusion identified. No pneumothorax apparent. CARDIOVASCULAR: No aortic atherosclerotic calcification present. Normal cardiac size. No pulmonary vascular congestion. OSSEOUS STRUCTURES: No significant abnormalities. VISUALIZED UPPER ABDOMEN: Normal. OTHER FINDINGS: None. IMPRESSION: No active disease.
[2018-11-03] MEDS ORDERED: methylPREDNISolone 60 MG in Sodium Chloride 0.9% 50 ML IV SCH (21:00)
[2018-11-03] MEDS ORDERED: [UNRECOGNIZED DRUG - OTHER] PO SCH (22:00)
[2018-11-04 05:48] LABS: HEMOGLOBIN 14.4 g/dL (12.0-16.0); MEAN CORPUSCULAR HEMOGLOBIN 35.7 pg (27.0-31.0); RBC 4.02 Mil/uL (3.80-5.20); RED CELL DISTRIBUTION WIDTH 13.1 % (11.5-14.5); WHITE BLOOD COUNT 4.9 K/uL (4.8-10.8)
[2018-11-04] MEDS ORDERED: METHADONE PO SCH (06:00)
[2018-11-04 06:06] LABS: MEAN CELL VOLUME 104.8 fl (81.0-99.0)
[2018-11-04 06:19] LABS: BLOOD UREA NITROGEN 32 mg/dl (7-17); GFR NON-AFRICAN AMERICAN > 60
[2018-11-04 06:20] LABS: CALCIUM 8.9 mg/dL (8.4-10.2)
[2018-11-04] MEDS ORDERED: Enoxaparin 40 mg Syringe SC SCH (09:00)
[2018-11-04] MEDS ORDERED: Cholecalciferol 1,000 INTLU TAB PO SCH (09:00)
[2018-11-04] MEDS ORDERED: Azithromycin 500 MG in Sodium Chloride 0.9% 250 ML IVPB SCH ×2 (09:00→18:00)
[2018-11-04 16:09] VITALS: BP 130/80; RESP 18; TEMP 98.4
[2018-11-04 16:41] VITALS: PULSE 64; O2SAT 95
--- NOTE | 2018-11-04 17:21 | CP.PCM.DIS ---
Provider - Provider Date of Admission: 11/03/18 11:38 Attending physician: Domenico Aguilar MD Primary care physician: [facility] and mental health clinic Consults: none Time Spent in preparation of Discharge (in minutes): 15 Hospital Course - Lab Results Lab Results: Most Recent Lab Values WBC 4.9 K/uL (4.8-10.8) 11/04/18 04:30 RBC 4.02 Mil/uL (3.80-5.20) 11/04/18 04:30 Hgb 14.4 g/dL (12.0-16.0) 11/04/18 04:30 Hct 42.2 % (34.0-47.0) 11/04/18 04:30 MCV 104.8 fl (81.0-99.0) H D 11/04/18 04:30 MCH 35.7 pg (27.0-31.0) H 11/04/18 04:30 MCHC 34.0 g/dL (33.0-37.0) 11/04/18 04:30 RDW 13.1 % (11.5-14.5) 11/04/18 04:30 Plt Count 92 K/uL (130-400) L 11/04/18 04:30 MPV 10.1 fl (7.2-11.7) 11/03/18 08:40 Neut % (Auto) 81.1 % (50.0-75.0) H 11/03/18 08:40 Lymph % (Auto) 11.3 % (20.0-40.0) L 11/03/18 08:40 [place] % (Auto) 6.9 % (0.0-10.0) 11/03/18 08:40 Eos % (Auto) 0.4 % (0.0-4.0) 11/03/18 08:40 Baso % (Auto) 0.3 % (0.0-2.0) 11/03/18 08:40 Neut # (Auto) 3.3 K/uL (1.8-7.0) 11/03/18 08:40 Lymph # (Auto) 0.5 K/uL (1.0-4.3) L 11/03/18 08:40 [place] # (Auto) 0.3 K/uL (0.0-0.8) 11/03/18 08:40 Eos # (Auto) 0.0 K/uL (0.0-0.7) 11/03/18 08:40 Baso # (Auto) 0.0 K/uL (0.0-0.2) 11/03/18 08:40 Total Counted Cancelled 11/03/18 08:40 Neutrophils % (Manual) Cancelled 11/03/18 08:40 Band Neutrophils % Cancelled 11/03/18 08:40 Lymphocytes % (Manual) Cancelled 11/03/18 08:40 Reactive Lymphs % Cancelled 11/03/18 08:40 Monocytes % (Manual) Cancelled 11/03/18 08:40 Eosinophils % (Manual) Cancelled 11/03/18 08:40 Basophils % (Manual) Cancelled 11/03/18 08:40 Metamyelocytes % Cancelled 11/03/18 08:40 Myelocytes % Cancelled 11/03/18 08:40 Promyelocytes % Cancelled 11/03/18 08:40 Blast Cells % Cancelled 11/03/18 08:40 Plasma Cell % (Manual) Cancelled 11/03/18 08:40 Nucleated RBC % Cancelled 11/03/18 08:40 Hypersegmented Polys Cancelled 11/03/18 08:40 Smudge Cells Cancelled 11/03/18 08:40 Toxic Granulation Cancelled 11/03/18 08:40 Dohle Bodies Cancelled 11/03/18 08:40 Dennis Rods Cancelled 11/03/18 08:40 Platelet Estimate Cancelled 11/03/18 08:40 Plt Clumps, EDTA Cancelled 11/03/18 08:40 Large Platelets Cancelled 11/03/18 08:40 Giant Platelets Cancelled 11/03/18 08:40 RBC Morphology Cancelled 11/03/18 08:40 Polychromasia Cancelled 11/03/18 08:40 Hypochromasia (manual) Cancelled 11/03/18 08:40 Poikilocytosis (manual Cancelled 11/03/18 08:40 Basophilic Stippling Cancelled 11/03/18 08:40 Anisocytosis (manual) Cancelled 11/03/18 08:40 Microcytosis (manual) Cancelled 11/03/18 08:40 Macrocytosis (manual) Cancelled 11/03/18 08:40 Spherocytes Cancelled 11/03/18 08:40 Sickle Cells Cancelled 11/03/18 08:40 Target Cells Cancelled 11/03/18 08:40 Tear Drop Cells Cancelled 11/03/18 08:40 Ovalocytes Cancelled 11/03/18 08:40 Stomatocytes Cancelled 11/03/18 08:40 Helmet Cells Cancelled 11/03/18 08:40 Kapoor-[place] Bodies Cancelled 11/03/18 08:40 [place] Cells Cancelled 11/03/18 08:40 Acanthocytes (Spur) Cancelled 11/03/18 08:40 Rouleaux Cancelled 11/03/18 08:40 Schistocytes Cancelled 11/03/18 08:40 Sodium 137 mmol/l (132-148) 11/04/18 04:30 Potassium 3.8 MMOL/L (3.6-5.0) 11/04/18 04:30 Chloride 96 mmol/L (98-107) L 11/04/18 04:30 Carbon Dioxide 28 mmol/L (22-30) 11/04/18 04:30 Anion Gap 17 (10-20) 11/04/18 04:30 BUN 32 mg/dl (7-17) H 11/04/18 04:30 Creatinine 0.8 mg/dl (0.7-1.2) 11/04/18 04:30 Est GFR ( Amer) > 60 11/04/18 04:30 Est GFR (Non-Af Amer) > 60 11/04/18 04:30 POC Glucose (mg/dL) 173 mg/dL (65-110) H 11/03/18 22:36 Random Glucose 163 mg/dL (65-105) H 11/04/18 04:30 Calcium 8.9 mg/dL (8.4-10.2) 11/04/18 04:30 Troponin I < 0.0120 ng/mL (0.00-0.120) 11/03/18 13:40 - Hospital Course Hospital Course: 68 y/o female with PMH Depression / anxiety, HIV, history drug abuse on Methadone, HTN was brought by daughter for evaluation for elevated BP. Patient states that she was having CALDWELL and her daughter checked her BP and was very high. In ER she complained of left sided chest pain ,cough with producible, with cough and sputum production . Her BP was recorded as 1845/120 She was placed under observation in telemetry for uncontrolled hypertension , Chest pain to rule out ACS and mild COPD exacerbation . Patient appears with flat affect and anxious preoccupied with physical symptoms. She denies being suicidal , homicidal , denies any hallucinations. She follows up regularly with mental health clinic and has an appointment this month She was started on Solumedrol IV, Duonebs and Zithromax for COPD exacerbation . CXR showed no active disease , no infiltrate Telemetry monitoring showed no arrythmias She was started on her home BP meds and at present her BP is better controlled Troponins x 2 were negative and EKG showed no acute ST-T wave changes Patient at present is hemodynamically stable PT consulted since patient feeling weak and deconditioned.Patient to be discharged home today with daughter in stable conditions with home Physical therapy Will discharge on her current home medications. Follow up with [facility] in 1week and mental health clinic as scheduled Dx 1.Chest pain most likely musculoskeletal 2.Depression and anxiety 3.Mild COPD exacerbation 4.History of drug abuse on Methadone 5.Generalized weakness 6.HIV disease 7.Uncontrolled Hypertension Discharge Exam - Head Exam Head Exam: ATRAUMATIC, NORMAL INSPECTION, NORMOCEPHALIC Additional comments: flat affect - Eye Exam Eye Exam: EOMI, PERRL - ENT Exam ENT Exam: Mucous Membranes Moist, Normal Exam - Neck Exam Neck exam: Full Rom, Normal Inspection - Respiratory Exam Respiratory Exam: Clear to PA & Lateral, NORMAL BREATHING PATTERN. absent: Respiratory Distress - Cardiovascular Exam Cardiovascular Exam: REGULAR RHYTHM, +S1, +S2. absent: JVD - GI/Abdominal Exam GI & Abdominal Exam: Normal Bowel Sounds, Soft. absent: Distended, Guarding, Rebound, Tenderness - Rectal Exam Rectal Exam: Deferred - Extremities Exam Extremities exam: normal inspection, pedal pulses present - Back Exam Back exam: NORMAL INSPECTION - Neurological Exam Neurological exam: Alert, CN II-XII Intact - Psychiatric Exam Psychiatric exam: Anxious, Flat Affect - Skin Skin Exam: Dry, Normal Color, Warm Discharge Plan - Follow Up Plan Condition: IMPROVED Disposition: HOME/ ROUTINE Patient education suggested?: Yes Instructions: Exacerbation of COPD (DC) Additional Instructions: follow up with primary MD in 1 week Referrals: Ana Kingsley MD [Medical Doctor] -
== END 2018-11-04 19:10 | disposition home or self-care (01) ==
LOC: H.ER 07:58 → H.ERHOLD 11:38 → H.TEL 13:53
DX: R07.89 Other chest pain (principal); J44.1 Chronic obstructive pulmonary disease with (acute) exacerbation; Z82.49 Family history of ischemic heart disease and other diseases of the circulatory system; Z82.5 Family history of asthma and other chronic lower respiratory diseases; Z83.3 Family history of diabetes mellitus; Z87.01 Personal history of pneumonia (recurrent); Z87.442 Personal history of urinary calculi; Z87.891 Personal history of nicotine dependence; E78.5 Hyperlipidemia, unspecified; Z86.19 Personal history of other infectious and parasitic diseases; J40 Bronchitis, not specified as acute or chronic; K29.70 Gastritis, unspecified, without bleeding; M19.90 Unspecified osteoarthritis, unspecified site; Z79.899 Other long term (current) drug therapy; R00.2 Palpitations; E11.9 Type 2 diabetes mellitus without complications; E78.00 Pure hypercholesterolemia, unspecified; F32.9 Major depressive disorder, single episode, unspecified; F41.9 Anxiety disorder, unspecified; G47.30 Sleep apnea, unspecified; I10 Essential (primary) hypertension; B20 Human immunodeficiency virus [HIV] disease
CPT/HCPCS: 36415; 71046; 80048; 82948; 84484; 85025; 85027; 96365; 96372; 96375; 96376; 97116; 97161; 99283; G0378; J0456; J1650; J1885; J2930; J7050